=== PATIENT | female | born 1940 | race Caucasian/White ===

== ENCOUNTER → 2017-02-07 | Outpatient (CLI) | payer BC ==
[~2017-02-07] MED LIST: AMR2 PO; ASPI81TA28 PO; ATOR-26 PO; BRIN3SUS OPB; CALCTAB5 PO; CILO100T PO; DULA1INJ SC; FELO5TAB PO; FERR325T51 PO; GLC/500 PO; HYDR25TA4 PO; LEVO125T4 PO; LISI-725 PO; MAGN1TAB15 PO; METO1TAB69 PO; MULT-506 PO; OMEP40CA PO; ONDA4TAB46 PO; POLY335019 PO; RANI150T3 PO; SENN-61 PO; TICA1TAB PO; TRAV0.00 OPB
[2017-02-07 12:40] LABS: CHOLESTEROL/HDL RATIO 1.8
== END | disposition home or self-care (01) ==
LOC: C.LAB1850 09:58
PROVIDERS: ATTEND Physician Assistant Medical
DX: I10 Essential (primary) hypertension (principal); E78.5 Hyperlipidemia, unspecified

== ENCOUNTER → 2017-05-16 | Day surgery (SDC) | payer BC ==
[2017-05-11 13:53] VITALS: BMI 31.0
[~2017-05-16] VITALS: Ht 162.6 cm; Wt 83.6 kg
[~2017-05-16] MED LIST changes: -AMR2 PO; +CALC600T9 PO; -CALCTAB5 PO; +FERR1TAB13 PO; -FERR325T51 PO; +GLYCOPYRROLATE INJ 0.2 MG/ML VIAL ONE; +KETAMINE HCL INJ 50 MG/ML 10 ML VIAL ONE; -LEVO125T4 PO; +LEVO137C2 PO; +LIDOCAINE HCL 2% 2 ML VIAL (20MG/ML) ONE; +LINA1CAP PO; -MAGN1TAB15 PO; +METO100T44 PO; -METO1TAB69 PO; -OMEP40CA PO; +OMEP40CA41 PO; -ONDA4TAB46 PO; +ONDANSETRON INJ 2 MG/ML 2 ML VIAL IV PRN; +PHENYLEPHRINE 100MCG/ML 5ML SYR ONE; -POLY335019 PO; +PROPOFOL IV EMULSION 10 MG/ML 20 ML VIAL IV ONE; -SENN-61 PO; +SODIUM CHLORIDE 0.9% INJ 10 ML VIAL ONE
[2017-05-16 08:58] VITALS: Ht 162.6 cm; Wt 83.6 kg
[2017-05-16 09:03] VITALS: TEMP 36.1
--- NOTE | 2017-05-16 09:23 | Endo History and Physical ---
History & Physical Date of Service: May 16, 2017. Chief Complaint: Gastritis Referring Physician: Dr. Sutton History of Present Illness Question of Barretts Esophagus, no dysphagia or pain with swallowing. Past Medical History Diabetes, Reflux, Hypertension, Thyroid Disease Past Surgical History Hx Cardiac Surgery: Yes (LT CAROTID ENDARTERECTOMY) Hx Internal Defibrillator: No Hx Pacemaker: No Hx Abdominal Surgery: No Hx of Implantable Prosthesis: No Hx Post-Op Nausea and Vomiting: Yes Hx Cancer Surgery: No Hx Thoracic Surgery: No Hx Orthopedic: Yes (RT ARM RECON S/P DOG BITE) Hx Urinary Tract Surgery: No Family History Colon CA Social History Smoking Status: Former Smoker Hx Substance Use: No Hx Alcohol Use: No Allergies Coded Allergies: No Known Allergies (Verified , 05/11/17) Current Medications Reported Home Medications Medications Dose Route/Sig Max Daily Dose Days Date Category Kp Ferrous Sulfate (Ferrous Sulfate) 325 Mg Tab 1 Tab PO BID 05/11/17 Reported Calcium + D (Calcium Carbonate-Vitamin D) 1 Tab Tab 1 Tab PO BID 05/11/17 Reported Linzess (Linaclotide) 145 Mcg Cap 1 Cap PO QAM 05/11/17 Reported Prilosec (Omeprazole) 40 Mg Cap 40 Mg PO QAM 05/11/17 Reported Tirosint (Levothyroxine Sodium) 137 Mcg Cap 1 Cap PO QAM 05/11/17 Reported Multivitamin (Multivitamins) Tab 1 Tab PO QAM 07/07/16 Reported Travatan Z (Travoprost) 0.004 % Aftab 1 Drops OPB HS 07/07/16 Reported Brilinta (Ticagrelor) 90 Mg Tab 1 Tab PO BID 07/07/16 Reported Toprol-Xl (Metoprolol Succinate) 100 Mg Tabcr 100 Mg PO QAM 07/07/16 Reported Zantac (Ranitidine HCl) 150 Mg Tab 150 Mg PO BID 07/07/16 Reported Glucophage (Metformin Hcl) 500 Mg Tab 500 Mg PO BID 07/07/16 Reported Trulicity (Dulaglutide) 0.75 Mg/0.5 Ml Inj 1 Dose SC WK 07/07/16 Reported Zestril (Lisinopril) 20 Mg Tab 20 Mg PO BID 05/18/16 Reported Pletal (Cilostazol) 100 Mg Tab 100 Mg PO BID 05/18/16 Reported Hctz (Hydrochlorothiazide) 25 Mg Tab 25 Mg PO QAM 11/13/14 Reported Plendil (Felodipine) 5 Mg Tabcr 5 Mg PO QAM 07/31/14 Reported Lipitor (Atorvastatin Calcium) 80 Mg Tab 80 Mg PO QAM 07/31/14 Reported Simbrinza (Brinzolamide-Brimonidine Tartr) 1 Margie Margie 1 Drop OPB BID 07/31/14 Reported Aspirin Ec (Aspirin) 81 Mg Tab 81 Mg PO QAM 07/31/14 Reported Vital Signs Weight (Kilograms): 83.64 Height (Feet): 5 Height (Inches): 4 Date Time Temp Pulse Resp B/P (MAP) Pulse Ox O2 Delivery O2 Flow Rate FiO2 05/16/17 09:03 36.1 69 18 129/59 (82) 97 Room Air Physical Exam General Appearance: no apparent distress Respiratory/Chest: Auscultation: breath sounds normal Cardiovascular: Heart Auscultation: RRR Abdomen: Inspection & Palpation: soft Assessment and Plan Patient for upper endoscopy today to evaluate for evidence of Johnson's esophagus. We've discussed the risks to include bleeding, infection, perforation and pain.
--- NOTE | 2017-05-16 09:42 | GI REPORT ---
Procedure Date: 05/16/2017 9:31 AM Procedure: Upper GI endoscopy Indications: Suspected Johnson's esophagus Medicines: Monitored Anesthesia Care Complications: No immediate complications. Estimated blood loss: Minimal. Estimated Blood Loss: Estimated blood loss was minimal. Procedure: Pre-Anesthesia Assessment: - Prior to the procedure, a History and Physical was performed, and patient medications, allergies and sensitivities were reviewed. The patient's tolerance of previous anesthesia was reviewed. - The risks and benefits of the procedure and the sedation options and risks were discussed with the patient. All questions were answered and informed consent was obtained. - Patient identification and proposed procedure were verified prior to the procedure by the physician, the nurse and the parimutuel ticket cashier. The procedure was verified in the procedure room. - Pre-procedure physical examination revealed no contraindications to sedation. - ASA Grade Assessment: III - A patient with severe systemic disease. - After reviewing the risks and benefits, the patient was deemed in satisfactory condition to undergo the procedure. - The anesthesia plan was to use monitored anesthesia care (MAC). - Immediately prior to administration of medications, the patient was re-assessed for adequacy to receive sedatives. - The heart rate, respiratory rate, oxygen saturations, blood pressure, adequacy of pulmonary ventilation, and response to care were monitored throughout the procedure. - The physical status of the patient was re-assessed after the procedure. After obtaining informed consent, the endoscope was passed under direct vision. Throughout the procedure, the patient's blood pressure, pulse, and oxygen saturations were monitored continuously. The scope was introduced through the mouth, and advanced to the third part of duodenum. The upper GI endoscopy was accomplished without difficulty. The patient tolerated the procedure well. Findings: The upper third of the esophagus and middle third of the esophagus were normal. The esophagus and gastroesophageal junction were examined with white light. There were esophageal mucosal changes suspicious for short-segment Johnson's esophagus. These changes involved the mucosa at the upper extent of the gastric folds (35 cm from the incisors) extending to the Z-line (34 cm from the incisors). The maximum longitudinal extent of these esophageal mucosal changes was 1 cm in length. Biopsies were taken with a cold forceps for histology. Estimated blood loss was minimal. The entire examined stomach was normal. The examined duodenum was normal. Impression: - Normal upper third of esophagus and middle third of esophagus. - Esophageal mucosal changes suspicious for short-segment Johnson's esophagus. Biopsied. - Normal stomach. - Normal examined duodenum. Recommendation: - Discharge patient to home (ambulatory). - Advance diet as tolerated today. - Await pathology results. - Repeat the upper endoscopy in 3 years for surveillance based on pathology results. - Return to GI office in 1 year. Janell Leone D.O. Janell Leone, 05/16/2017 9:42:04 AM This report has been signed electronically. Note Initiated On: 05/16/2017 9:31 AM I attest to the content of the Intraoperative Record and orders documented therein, exceptions below
--- NOTE | 2017-05-16 09:44 | Discharge Instructions ---
Endoscopy Patient Instructions Date / Procedure(s) Performed May 16, 2017. EGD Allergy Information Coded Allergies: No Known Allergies (Verified , 05/11/17) Discharge Date / Findings May 16, 2017. Irregular GE junction suspicious for Johnson's esophagus. Medication Instructions Stopped Medication(s): Brilinta for 1 week Restart Stopped Medication(s): Reported Home Medications Medications Dose Route/Sig Max Daily Dose Days Date Category Kp Ferrous Sulfate (Ferrous Sulfate) 325 Mg Tab 1 Tab PO BID 05/11/17 Reported Calcium + D (Calcium Carbonate-Vitamin D) 1 Tab Tab 1 Tab PO BID 05/11/17 Reported Linzess (Linaclotide) 145 Mcg Cap 1 Cap PO QAM 05/11/17 Reported Prilosec (Omeprazole) 40 Mg Cap 40 Mg PO QAM 05/11/17 Reported Tirosint (Levothyroxine Sodium) 137 Mcg Cap 1 Cap PO QAM 05/11/17 Reported Multivitamin (Multivitamins) Tab 1 Tab PO QAM 07/07/16 Reported Travatan Z (Travoprost) 0.004 % Aftab 1 Drops OPB HS 07/07/16 Reported Brilinta (Ticagrelor) 90 Mg Tab 1 Tab PO BID 07/07/16 Reported Toprol-Xl (Metoprolol Succinate) 100 Mg Tabcr 100 Mg PO QAM 07/07/16 Reported Zantac (Ranitidine HCl) 150 Mg Tab 150 Mg PO BID 07/07/16 Reported Glucophage (Metformin Hcl) 500 Mg Tab 500 Mg PO BID 07/07/16 Reported Trulicity (Dulaglutide) 0.75 Mg/0.5 Ml Inj 1 Dose SC WK 07/07/16 Reported Zestril (Lisinopril) 20 Mg Tab 20 Mg PO BID 05/18/16 Reported Pletal (Cilostazol) 100 Mg Tab 100 Mg PO BID 05/18/16 Reported Hctz (Hydrochlorothiazide) 25 Mg Tab 25 Mg PO QAM 11/13/14 Reported Plendil (Felodipine) 5 Mg Tabcr 5 Mg PO QAM 07/31/14 Reported Lipitor (Atorvastatin Calcium) 80 Mg Tab 80 Mg PO QAM 07/31/14 Reported Simbrinza (Brinzolamide-Brimonidine Tartr) 1 Margie Margie 1 Drop OPB BID 07/31/14 Reported Aspirin Ec (Aspirin) 81 Mg Tab 81 Mg PO QAM 07/31/14 Reported Provider Instructions Activity Restrictions - No exercising or heavy lifting for 24 hours. - Do not drink alcohol the day of the procedure. - Do not drive a car or operate machinery until the day after the procedure. - Do not make any important decisions or sign important papers in 24 hours after the procedure. Following Day: - Return to full activity which may include returning to work/school. Diet Start your diet with liquids and light foods (jello, soup, juice, toast). Then eat your usual diet if not nauseated. Treatment For Common After Affects For mild abdominal pain, bloating, or excessive gas: - Rest - Eat lightly - Lie on right side Follow-Up Information Follow-up with Dr. Sutton as scheduled Await pathology results If pathology consistent with Johnson's esophagus would suggest a repeat upper endoscopy in 3 years Anesthesia Information What You Should Know You have had a procedure that required some medicine to reduce anxiety and discomfort. This treatment is called moderate sedation. After receiving the treatment, you may be sleepy, but you will be able to breathe on your own. The effects of the treatment may last for several hours. Follow these instructions along with Activity/Diet recommendations noted above: * Do NOT do anything where dizziness or clumsiness would be dangerous. * Rest quietly at home today, then you can be up and about tomorrow. * Have a responsible person stay with you the rest of today. * You may have had an I.V. today. If so, you may take the dressing off later today. Recommendations Call your doctor if: * Trouble breathing * Continuous vomiting for more than 24 hours * Temperature above 101 degrees * Severe abdominal pain or bloating * Pain not relieved by pain medicine ordered * There is increased drainage or redness from any incision * A large amount of rectal bleeding greater than 2-3 tablespoons. (If you had a polyp/s removed or have hemorrhoids, a small amount of blood - from the rectum is to be expected.) * You have any unanswered questions or concerns. IN THE EVENT OF A SERIOUS EMERGENCY, GO TO THE NEAREST EMERGENCY ROOM Your discharge instructions were prepared by provider Janell Leone. Patient Instructions Signature Page Vidya Hodgson Patient (or Guardian) Signature/Date: I have read and understand the instructions given to me by my caregivers. Caregiver/RN/Doctor Signature/Date: The above-named patient and/or guardian has received patient instructions on this date. + Original Patient Signature Page (only) stays with chart. Please make copy for patient.
[2017-05-16 10:20] VITALS: BP 107/71; PULSE 72; O2SAT 100
--- NOTE | 2017-05-16 10:28 | Anesthesiology Progress Note ---
Anesthesia Post Op Note Date & Time May 16, 2017 at 10:28 Vital Signs Pain Intensity: 0 Vital Signs Past 12 Hours Date Time Temp Pulse Resp B/P (MAP) Pulse Ox O2 Delivery O2 Flow Rate FiO2 05/16/17 10:20 72 18 107/71 (83) 100 Room Air 05/16/17 10:12 75 18 128/57 (80) 99 Room Air 05/16/17 09:56 78 18 103/63 (76) 98 05/16/17 09:51 79 18 119/59 (79) 99 Room Air 05/16/17 09:03 36.1 69 18 129/59 (82) 97 Room Air Notes Mental Status: alert / awake / arousable, participated in evaluation Pt Amnestic to Procedure: Yes Nausea / Vomiting: adequately controlled Pain: adequately controlled Airway Patency, RR, SpO2: stable & adequate BP & HR: stable & adequate Hydration State: stable & adequate Anesthetic Complications: no major complications apparent
== END | disposition home or self-care (01) ==
LOC: C.GI 08:27
PROVIDERS: ATTEND Internal Medicine Gastroenterology
DX: K29.70 Gastritis, unspecified, without bleeding (principal); K20.9 Esophagitis, unspecified; E11.9 Type 2 diabetes mellitus without complications; I25.10 Atherosclerotic heart disease of native coronary artery without angina pectoris; I10 Essential (primary) hypertension; Z87.891 Personal history of nicotine dependence; M19.90 Unspecified osteoarthritis, unspecified site; H40.9 Unspecified glaucoma; Z68.31 Body mass index [BMI] 31.0-31.9, adult; Z79.82 Long term (current) use of aspirin; Z79.899 Other long term (current) drug therapy; Z98.890 Other specified postprocedural states; Z80.0 Family history of malignant neoplasm of digestive organs

== ENCOUNTER 2019-09-28 20:38 | Inpatient (IN) ==
[2019-09-28] MEDS ORDERED: ASPIRIN CHEW 324 MG PO STA (20:58)
[2019-09-28] MEDS ORDERED: NITROGLYCERIN SL 0.4 MG/TAB TAB SL PRN (20:58)
[2019-09-28] MEDS ORDERED: SODIUM CHLORIDE 0.9% 500 ML IV SCH (21:00)
[2019-09-28 21:18] LABS: Hematocrit (blood only) 32.2 % (37-47); Hemoglobin 10.7 g/dL (12.0-16.0); Mean Corpuscular Hemoglobin 33.1 pg (25-34); Mean Corpuscular Hgb Conc 33.2 g/dL (32-36); Mean Corpuscular Volume 99.7 fL (80-100); Mean Platelet Volume 10.3 fL (7.4-10.4); Platelet Count 297 K/uL (130-400); RDW Standard Deviation 50.8 fL (36.4-46.3); Red Blood Count 3.23 M/uL (4.2-5.4); White Blood Count 7.31 K/uL (4.8-10.8)
[2019-09-28 21:26] LABS: Partial Thromboplastin Time 26.6 Seconds (21.0-31.0); Prothrombin Time 10.7 Seconds (9.0-12.0)
[2019-09-28 21:34] LABS: BUN Creatinine Ratio 19.6 (10-20); Blood Urea Nitrogen 23 mg/dl (7-18); Carbon Dioxide 25 mmol/L (21-32); Chloride 103 mmol/L (98-107); Est GFR (African American) 51.9; Est GFR (Non-African American) 44.8; Glucose 197 mg/dl (70-99); Lipase 483 U/L (73-393); Potassium 3.9 mmol/L (3.5-5.1); Sodium 135 mmol/L (136-145)
[2019-09-28 21:44] LABS: NT Pro B Type Natriuretic Pept 1620 pg/ml (0-1800); Troponin I 0.354 ng/ml (0-0.045)
[2019-09-28 21:45] LABS: Basophils # (auto) 0.03 K/uL (0-0.2); Basophils % (auto) 0.4 %; Eosinophils # (auto) 0.25 K/uL (0-0.5); Eosinophils % (auto) 3.4 %; Immature Granulocytes # (auto) 0.01 K/uL (0.00-0.02); Immature Granulocytes % (auto) 0.1 %; Lymphocytes # (auto) 2.35 K/uL (1.2-3.4); Lymphocytes % (auto) 32.1 %; Monocytes # (auto) 0.54 K/uL (0.11-0.59); Monocytes % (auto) 7.4 %; Neutrophils # (auto) 4.13 K/uL (1.4-6.5); Neutrophils % (auto) 56.6 %
[2019-09-28] MEDS ORDERED: Heparin IV Low Dose WITH Bolus IV STA (21:51)
--- NOTE | 2019-09-28 21:51 | XRay Report ---
TWO VIEW CHEST CLINICAL HISTORY: Atypical chest pain. FINDINGS: AP and lateral chest radiographs are compared to study dated 05/22/2018. The heart is top n ormal for projection noting atherosclerotic calcification of the thoracic aorta. There is prominence of the pulmonary vasculature. There is mild bibasilar atelectasis. No airspace consolidation is seen typical for pneumonia and there is no pleural effusion. There is no pneumothorax. The skeletal struct ures are osteopenic. The bony thorax appears intact. Calcific tendinopathy is noted in the left shoul francine. IMPRESSION: 1. There is prominence of the pulmonary vasculature. Correlate clinically for evidence of mild conges tive failure. 2. No airspace consolidation or pleural effusion is identified. ACT 112: Negative or not required by law. Electronically signed by: Anastacio Santana M.D. 09/28/2019 9:50 PM
[2019-09-28] MEDS ORDERED: HEPARIN SOD 5,000 UNIT/0.5 ML VIAL ONE (22:37)
[2019-09-28] MEDS: HEPARIN SODIUM/DEXTROSE 25,000 UNITS/500 ML BAG IV SCH (22:46)
[2019-09-28] MEDS ORDERED: INSULIN GLARGINE SOLOSTAR 100 UNITS/ML 3 ML PEN SC STA (23:17)
[2019-09-28] MEDS ORDERED: POLYETHYLENE (MIRALAX) 17 GM PACK PO PRN (23:57)
[2019-09-28] MEDS ORDERED: ONDANSETRON INJ 2 MG/ML 2 ML VIAL IV PRN (23:57)
[2019-09-28] MEDS ORDERED: SODIUM CHLORIDE 0.9% 1000ML 1,000 ML IV SCH (23:57)
[2019-09-28] MEDS ORDERED: ACETAMINOPHEN 325 MG TAB PO PRN (23:57)
[2019-09-29] MEDS ORDERED: GLUCOSE 10 TABS/TUBE PO PRN (00:15)
[2019-09-29] MEDS ORDERED: GLUCAGON FOR INJ 1 MG VIAL SQ PRN (00:15)
[2019-09-29] MEDS ORDERED: DEXTROSE 50% 50 ML SYRINGE IV PRN (00:15)
[2019-09-29] MEDS ORDERED: CARBOHYDRATES FOR HYPOGLYCEMIA PO PRN (00:15)
[2019-09-29] MEDS ORDERED: GLUCOSE 40% GEL 15 GM TUBE PO PRN (00:15)
--- NOTE | 2019-09-29 00:22 | Emergency Department Note ---
Entered by Jackie Reyez acting as a scribe for History of Present Illness General Chief complaint: Hypertension Stated complaint: HIGH BLOOD PRESSURE Time Seen by Provider: 09/28/19 20:53 Source: patient History of Present Illness Onset (ago): hour(s) 9 Location: chest (hypertension) Radiation: other (chest discomfort radiates to arm) Pain Consistency: + constant Maximum Pain Intensity: 3 Current Pain Intensity: 4 Associated symptoms: + shortness of breath and + other (chest discomfort); no cough and no fever/chills The patient is a 78 year old F who presents to the Emergency Room with complaints of constant chest pain that started 9 hours ago. The patient states that her symptoms started with light-headedness, 9 hours ago. She denies losing consciousness. She notes that she then started to experience chest discomfort and shortness of breath. She adds that her chest pain radiates to her arm. She currently rates her pain as 4 out of 10. She states that her heart rate was 150, earlier today. She adds that her heart rate has been fluctuating today. She denies currently experiencing coughing and a fever. She reports no travel to [place], [place], [place], [place], or [place]. She denies any exposure to any known COVID-19 patients. She states that she is currently on the blood thinning medication, Brilinta. 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 She adds that she saw Dr. Jackson last, in August. She notes that she had a stress test performed in May, which she states was normal. Home Medications Home Medications Medication Instructions Recorded Confirmed Type Trulicity 1.5 mg SUBCUT WK 05/22/18 09/28/19 History atorvastatin 80 mg PO DAILY 05/22/18 09/28/19 History cilostazol 100 mg PO BID 05/22/18 09/28/19 History furosemide 20 mg PO Q OTHER DAY 05/22/18 09/28/19 History levothyroxine 137 mcg PO DAILY 05/22/18 09/28/19 History multivitamin 1 tab PO DAILY 05/22/18 09/28/19 History magnesium chloride [Mag 64] 128 mg PO DAILY 02/23/19 09/28/19 History calcium carbonate 600 mg calcium 600 mg PO BID tab 03/09/19 09/28/19 History (1,500 mg) tablet repaglinide 1 mg tablet 1 mg PO TID tab 03/27/19 09/28/19 History metoprolol succinate 50 mg 50 mg PO DAILY #30 tab 08/01/19 09/28/19 Rx tablet,extended release 24 hr amlodipine [Norvasc] 2.5 mg PO DAILY 09/28/19 09/28/19 History brinzolamide-brimonidine 1 drp OPB TID 09/28/19 09/28/19 History [Simbrinza] insulin glargine [Lantus Solostar 10 unit SUBCUT DAILY 09/28/19 09/28/19 History U-100 Insulin] netarsudil-latanoprost [Rocklatan] 1 drp OPHTHALMIC (EYE) PM 09/28/19 09/28/19 History ranitidine HCl 150 mg PO BID 09/28/19 09/28/19 History repaglinide 2 mg PO BID 09/28/19 09/28/19 History ticagrelor [Brilinta] 90 mg PO BID 09/28/19 09/28/19 History timolol maleate 1 drp OPB DAILY 09/28/19 09/28/19 History Allergies Allergy/AdvReac Type Severity Reaction Status Date / Time No Known Allergies Allergy Verified 09/28/19 21:55 Past Med/Surg History Social History Preferred Language: Estonian Communication Ability: Effective 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 and A total of 10 systems reviewed and were otherwise negative Physical Exam Vital Signs Vital Signs - 24 hr 09/28/19 20:41 09/28/19 20:58 Temperature 36.2 C L Temperature Source Oral Pulse Rate 67 Respiratory Rate 18 Respiratory Effort / Characteristics Non-Labored Respiratory Depth Normal Blood Pressure 148/79 H Blood Pressure Mean 102 Pulse Oximetry 100 100 Oxygen Delivery Method Room Air Room Air Sepsis Recent Fever Within 48 Hours No Sepsis Action Taken by Nursing No Action Required GENERAL: She is oriented to person, place, and time. She appears well-developed and well-nourished. She does not appear distressed. HENT: Exam performed. Head: Normocephalic and atraumatic. Right Ear: External ear normal. No mastoid tenderness. Left Ear: External ear normal. No mastoid tenderness. Mouth/Throat: The oropharynx is clear and moist. No trismus in the jaw. No dental abscesses or uvula swelling. No oropharyngeal exudate or tonsillar abscesses. EYES: Conjunctivae and EOM are normal. Pupils are equal, round, and reactive to light. Right eye exhibits no discharge. Left eye exhibits no discharge. No scleral icterus. NECK: Normal range of motion. Neck supple. No JVD present. No spinous process tenderness present. No carotid bruit present. No rigidity. No tracheal deviation and normal range of motion present. No Brudzinski's sign and no Kernig's sign noted. CV: Normal rate, regular rhythm, normal heart sounds and intact distal pulses. There is no peripheral edema. Palpable radial pulses bue. PULM/CHEST: Effort normal and breath sounds normal. No respiratory distress. No stridor. She has no wheezes. She has no rales. Chest Wall: She exhibits no tenderness. ABD: The abdomen is soft. Bowel sounds are normal. She has no distension. No mass is present. There is no tenderness. There is no rebound, no guarding, no Mac's sign and no tenderness at McBurney's point. Rovsig negative MUSC/SKEL: Normal range of motion. There is no peripheral edema, tenderness or deformity. LYMPH: No cervical adenopathy. NEURO: She is alert and oriented to person, place, and time. She has normal strength. No cranial nerve deficit or sensory deficit. Coordination and gait normal. GCS eye subscore is 4. GCS verbal subscore is 5. GCS motor subscore is 6. cerbellar tests wnl. SKIN: Skin is warm and dry. She is not diaphoretic. PSYCH: She has a normal mood and affect. Her behavior is normal. Judgment and thought content normal. Course Course 2053: The patient was evaluated in room A3. A complete history and physical exam was performed.A review of the patients records show that the patient has a history of CKD Stage 3, hypertension, diabetes, aortic stenosis, and peripheral artery disease. Cardiac monitoring: An order was placed for continuous cardiac monitoring. The monitor shows a rate of 80 with sinus rhythm. 2153: Vital signs are stable. Labs show an elevated troponin. The patient was treated for an NSTEMI. I reviewed the patient's case with Dr. Perea, [facility] [place], [place]. Dr. Perea told me to start the patient on heparin. I will notify Dr. Baptiste, [facility] Hospitalist for admission. 2200: I reviewed the patient's case with Dr. Baptiste, [facility] Hospitalist. He will evaluate the patient for further management. Administered Medications Heparin Sodium/Dextrose (Heparin Sodium/Dextrose) 25,000 units in 500 mls @ 17 mls/hr IV .Q24H [facility]; Protocol Stop: 10/28/19 21:59 Last Admin: 09/28/19 22:46 Dose: 850 units/hr, 17 mls/hr Documented by: [id number] Cosigned by: [id number] Discontinued Medications Aspirin (Aspirin) 324 mg PO NOW STA Stop: 09/28/19 20:59 Last Admin: 09/28/19 21:18 Dose: 324 mg Documented by: [id number] Heparin Sodium (Porcine) (Heparin Sodium (Porcine)) Confirm Administered Dose 5,000 units .ROUTE .STK-MED ONE Stop: 09/28/19 22:38 Last Admin: 09/28/19 22:47 Dose: 4,000 units Documented by: [id number] Cosigned by: [id number] Heparin Sodium/Dextrose () 1 ea IV NOW STA; Protocol Stop: 09/28/19 21:52 Last Admin: 09/28/19 22:45 Dose: Not Given Documented by: [id number] Sodium Chloride (Nss) 500 mls @ 75 mls/hr IV .Q6H40M [facility] Stop: 10/28/19 20:59 Last Infusion: 09/29/19 00:02 Dose: 0 mls/hr Documented by: [id number] Admin: 09/28/19 21:18 Dose: 75 mls/hr Documented by: [id number] Nitroglycerin (Nitrostat) 0.4 mg SL UD PRN PRN Reason: Chest Pain Stop: 10/28/19 20:57 Last Admin: 09/28/19 21:18 Dose: 0.4 mg Documented by: [id number] Critical Care Time Critical Care Time: Yes Total Critical Care Time: 42 I have personally spent 42 minutes of critical care time in the direct management of this patient. This includes bedside care, interpretation of diagnostic studies, and testing, discussion with consultants, patient, and family members, and other required patient management activities. This 42 minutes is in excess of all separately billable procedures. Medical Decision Making Medical Records Attestation: I reviewed the patient's medical records. Home Medications Current Medication List: was personally reviewed by me Laboratory Data Attestation: I reviewed the patient's lab results. Result diagrams: 09/28/19 20:59 09/28/19 20:59 Lab Results 09/28/19 09/28/19 09/28/19 Range/Units 20:59 20:59 20:59 WBC 7.31 (4.8-10.8) K/uL RBC 3.23 L (4.2-5.4) M/uL Hgb 10.7 L (12.0-16.0) g/dL Hct 32.2 L (37-47) % MCV 99.7 (80-100) fL MCH 33.1 (25-34) pg MCHC 33.2 (32-36) g/dL RDW Std Deviation 50.8 H (36.4-46.3) fL RDW Coeff of Mj 14.0 (11.5-14.5) % Plt Count 297 (130-400) K/uL MPV 10.3 (7.4-10.4) fL Immature Gran % (Auto) 0.1 % Neut % (Auto) 56.6 % Lymph % (Auto) 32.1 % [place] % (Auto) 7.4 % Eos % (Auto) 3.4 % Baso % (Auto) 0.4 % Immature Gran # (Auto) 0.01 (0.00-0.02) K/uL Neut # (Auto) 4.13 (1.4-6.5) K/uL Lymph # (Auto) 2.35 (1.2-3.4) K/uL [place] # (Auto) 0.54 (0.11-0.59) K/uL Eos # (Auto) 0.25 (0-0.5) K/uL Baso # (Auto) 0.03 (0-0.2) K/uL PT 10.7 (9.0-12.0) Seconds INR 1.0 (0.9-1.1) APTT 26.6 (21.0-31.0) Seconds PTT Ratio 1.0 Sodium 135 L (136-145) mmol/L Potassium 3.9 (3.5-5.1) mmol/L Chloride 103 (98-107) mmol/L Carbon Dioxide 25 (21-32) mmol/L Anion Gap 7.0 (3-11) BUN 23 H (7-18) mg/dl Creatinine 1.18 (0.6-1.2) mg/dl Est Cr Clr Drug Dosing Not Reportable Est GFR ( Amer) 51.9 Est GFR (Non-Af Amer) 44.8 BUN/Creatinine Ratio 19.6 (10-20) Glucose 197 H (70-99) mg/dl Calcium 9.0 (8.5-10.1) mg/dl Troponin I 0.354 H* (0-0.045) ng/ml NT-Pro-B Natriuret Pep 1620 (0-1800) pg/ml Lipase 483 H (73-393) U/L Imaging Data Radiologist's Impression: Radiology results as stated below per my review and the radiologist's interpretation: TWO VIEW CHEST CLINICAL HISTORY: Atypical chest pain. FINDINGS: AP and lateral chest radiographs are compared to study dated 05/22/2018. The heart is top normal for projection noting atherosclerotic calcification of the thoracic aorta. There is prominence of the pulmonary vasculature. There is mild bibasilar atelectasis. No airspace consolidation is seen typical for pneumonia and there is no pleural effusion. There is no pneumothorax. The skeletal structures are osteopenic. The bony thorax appears intact. Calcific tendinopathy is noted in the left shoulder. IMPRESSION: 1. There is prominence of the pulmonary vasculature. Correlate clinically for e vidence of mild congestive failure. 2. No airspace consolidation or pleural effusion is identified. ACT 112: Negative or not required by law. Electronically signed by: Anastacio Santana M.D. 09/28/2019 9:50 PM ECG Data Attestation: I personally reviewed and interpreted this ECG as follows: Indication: + chest pain Rate (beats per minute): 64 Rhythm: + sinus rhythm ECG Intervals/blocks: + Normal QRS, + Normal ND and + Normal QT-c ECG ST segments: no ST depression and no ST elevation ECG Findings: + Other (P-wave inversion in leads II, III and aVH) Additional Comments: 2100: Sinus rhythm with a rate of 66. ND, QRS, and QTc intervals within normal limits. P-wave inversions in leads II, III, and aVH. No ST elevation or depression. 2101: Sinus rhythm with a rate of 65. ND, QRS, and QTc intervals within normal limits. P-wave inversions in leads II, III, and aVH. No ST elevation or depression. Blood Pressure Blood Pressure Findings: Normal blood pressure Blood Pressure Disposition: did not require urgent referral MDM Narrative 2053: The patient was evaluated in room A3. A complete history and physical exam was performed.A review of the patients records show that the patient has a history of CKD Stage 3, hypertension, diabetes, aortic stenosis, and peripheral artery disease. Cardiac monitoring: An order was placed for continuous cardiac monitoring. The monitor shows a rate of 80 with sinus rhythm. 2153: Vital signs are stable. Labs show an elevated troponin. The patient was treated for an NSTEMI. I reviewed the patient's case with Dr. Perea, [facility] [place], [place]. Dr. Perea told me to start the patient on heparin. I will notify [facility] for admission. 2200: I reviewed the patient's case with [facility]. He will evaluate the patient for further management. Impression & Plan Non-ST elevation [place] (NSTEMI) Discharge Plan Visit Data *Final* Discharge Date/Time: 09/28/19 23:32 Chief Complaint: Hypertension Stated Complaint: HIGH BLOOD PRESSURE ED Provider: Yaya Velez Discharge Problem: Non-ST elevation [place] (NSTEMI) Patient Disposition: Admitted As Inpatient The scribe's documentation has been prepared under my direction and personally reviewed by me in its entirety. I confirm that the note above accurately reflects all work, treatment, procedures, and medical decision making performed by me.
[2019-09-29] MEDS: FUROSEMIDE 20 MG TAB PO SCH (00:37)
[2019-09-29] MEDS: TICAGRELOR 90 MG TAB PO SCH ×3 (00:37→20:30)
--- NOTE | 2019-09-29 01:29 | History and Physical Report ---
DATE OF ADMISSION: 09/28/2019 CHIEF COMPLAINT: Chest pain. 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 The patient lives with her , walks holding things at home, presents with chest pain. The patient says she gets on and off chest pains and shortness of breath with exertion but they go away when she takes rest but today afternoon during lunchtime, she noticed chest pain, lightheadedness and shortness of breath which was not subsiding, when she decided to come to the ER. In the ER, nitro relieved her pain and her troponins were 0.35 and EKG showed junctional rhythm. 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 Currently, no shortness of breath, no sweating. Was nauseous while she was getting chest x-ray, but currently okay. No abdominal pain. Currently, no dizziness, no blurred visions, no earache. She takes medication for glaucoma, which also causes some runny nose, but no sore throat, no dysphagia. Appetite is okay. Sleeps okay. No orthopnea, no cough, no fevers, no abdominal pain. She says she feels full in her bladder and she feels she is not emptying her bladder completely but denies any burning micturition or hematuria, no blood in stools or black stools. She says once in while her right lower extremity gets swollen. Currently resting comfortable and hemodynamically stable and chest pain has resolved. ALLERGIES: No known drug allergies. PAST MEDICAL HISTORY: As mentioned above. PAST SURGICAL HISTORY: Bilateral upper eyelid surgery, colonoscopy, colonoscopy with biopsy, incision and drainage of the right forearm, EGDs, injection of the eyes, laser trabeculoplasty, right -sided radius and ulna fixation, repair of detached retina, cataract surgeries, left carotid endarterectomy, both lower legs had balloon for vascular circulation ,vitrectomy with removal of epiretinal membrane. MEDICATIONS: The patient is on Zantac 150 mg p.o. b.i.d., Prandin 1 tablet with breakfast and 1 tablet at lunch and 3 mg at dinnertime, timolol, instill 1 drop into both eyes daily, amlodipine 2.5 mg p.o. daily, Brilinta 90 mg p.o. b.i.d., Pletal 100 mg p.o. b.i.d., Trulicity 1.5 mg under skin once a week, levothyroxine 137 mcg daily, Rocklatan 0.02/0.05% instill 1 drop into eye once, magnesium chloride ER 125 mg p.o. daily, Lasix 20 mg every other day, Lipitor 80 mg p.o. daily, Prandin 2 mg b.i.d., Simbrinza instill 1 drop into eye 3 times a day, Flonase 2 sprays into each nostril daily, Lantus 10 units at bedtime, Toprol-XL 50 mg p.o. daily, Daily Vitamins 1 tablet daily, calcium 600 mg p.o. daily. FAMILY HISTORY: Significant for brother had prostate cancer. Father had prostate cancer. Sister has liver cancer and sister has colon cancer. Brother has NH. Mother had CHF. Mother has diabetes. SOCIAL HISTORY: Lives with her . Former smoker, quit in 1969. No alcohol use, no drug use. REVIEW OF SYMPTOMS: As per HPI. Rest of review of symptoms are negative. PHYSICAL EXAMINATION: GENERAL: The patient is of moderate build, not in acute distress. VITAL SIGNS: Temperature 36.2, pulse 67, respiratory rate 18, blood pressure 148/79, oxygen 100% on room air. HEENT: Pupils equal, round, reactive to light. Extraocular muscles intact. NECK: No JVD, no neck masses, no carotid bruits. CARDIOVASCULAR: S1, S2 heard, regular rate and rhythm. Systolic murmur in aortic area. RESPIRATORY SYSTEM: Normal AP diameter. No accessory muscle use. No wheezing, no crackles. ABDOMEN: Soft, bowel sounds present, nontender. No distention. CENTRAL NERVOUS SYSTEM: Cranial nerves II-XII grossly intact. Nonfocal. EXTREMITIES: Trace pedal edema, no erythema seen. LABORATORY DATA: WBC 7.3, hemoglobin 10.7, hematocrit 32.2, platelets 297. PT 10.7, INR 1, APTT 26.6. Sodium 135, potassium 3.9, chloride 103, bicarbonate 25, BUN 23, creatinine 1.1, serum glucose 197, calcium 9. Troponin I 0.35. BNP is 1620. Lipase 483. Chest x-ray, there is prominence of the pulmonary vasculature. Clinically, correlate for evidence of mild congestive failure. No airspace consolidation or pleural effusion is identified. EKG shows junctional rhythm, rate of 64. Short MO. ASSESSMENT AND PLAN: A 78-year-old female who presents with chest pain which is relieved with nitro and mild elevation of troponin and junctional rhythm on EKG. 1. Non-ST elevated myocardial infarction with elevation of troponin of 0.35. Chest pain relieved with nitro. EKG changes. Currently asymptomatic and hemodynamically stable. ER notified cardiology and was advised to start on IV heparin. We will continue IV heparin and keep her n.p.o. Continue on home Brilinta, Toprol-XL, statin, and nitroglycerin p.r.n. Monitor closely in the tele floor. Serial cardiac enzymes, echocardiogram, possible cardiac catheterization in a.m. Will place on gentle fluids for cardiac catheterization in the a.m. and cardiology consult. 2. Peripheral vascular disease with left carotid endarterectomy and also as per cardiology notes, she has extensive bilateral superficial femoral artery stenting for claudication, on Pletal, Brilinta and statin. 3. Hypertension, on amlodipine and Lopressor and Toprol-XL. We will monitor the blood pressure. 4. Diabetes. On Lantus 10 units daily. We will keep her on 6 units daily while she is n.p.o. Hold all her Trulicity and also repaglinide.Insulin sliding scale, follow HBA1c as well as blood sugar in the hospital. 5. Gastroesophageal reflux disease. Placed on Pepcid. 6. Chronic kidney disease stage III. Baseline creatinine around 1.1, present creatinine 1.1. We will follow the labs. 7. Chronic diastolic congestive heart failure, valvular heart disease with moderate aortic stenosis, moderate to severe mitral stenosis. Getting gentle fluids for possible cardiac catheterization in a.m., on Lasix 20 mg every other day. Will monitor for any volume overload. 8. Deep venous thrombosis prophylaxis. Starting on IV heparin. DISPOSITION: Closely monitor in tele floor. Level 1 full code. PT and OT prior to discharge. Social Service to help with discharge planning. [facility]
[2019-09-29 03:59] LABS: Appearance Urine Cloudy (Clear); Bacteria Urine Automated 4+ (Negative); Bilirubin Urine Negative (Negative); Blood Urine Negative (Negative); Color Urine Yellow; Glucose Urine UA Negative (Negative); Ketones Urine Negative (Negative); Leukocyte Esterase Urine 2+ (Negative); Nitrite Urine Negative (Negative); Protein Urine Negative (Negative); RBC Urine Automated 0-4 /hpf (0-4); Specific Gravity Urine 1.014 (1.000-1.030); Urobilinogen Urine Negative (Negative); WBC Urine Automated >30 /hpf (0-5)
[2019-09-29 05:34] LABS: Basophils % (auto) 0.9 %; Hematocrit (blood only) 28.3 % (37-47); Hemoglobin 9.4 g/dL (12.0-16.0); Lymphocytes % (auto) 48.7 %; Mean Corpuscular Hemoglobin 32.9 pg (25-34); Mean Corpuscular Hgb Conc 33.2 g/dL (32-36); Mean Platelet Volume 9.9 fL (7.4-10.4); Monocytes % (auto) 10.8 %; Neutrophils % (auto) 32.6 %; Platelet Count 255 K/uL (130-400); RDW Coefficient of Variation 14.2 % (11.5-14.5); Red Blood Count 2.86 M/uL (4.2-5.4); White Blood Count 5.57 K/uL (4.8-10.8)
[2019-09-29 05:35] LABS: Basophils # (auto) 0.05 K/uL (0-0.2); Eosinophils # (auto) 0.39 K/uL (0-0.5); Lymphocytes # (auto) 2.71 K/uL (1.2-3.4); Neutrophils # (auto) 1.82 K/uL (1.4-6.5)
[2019-09-29 05:53] LABS: Partial Thromboplastin Ratio 2.2
[2019-09-29 05:59] LABS: BUN Creatinine Ratio 20.2 (10-20); Calcium 8.1 mg/dl (8.5-10.1); Creatinine Clr Calc Pharmacy 42.7 ml/min; Est GFR (African American) 53.5; Est GFR (Non-African American) 46.2; Magnesium 1.5 mg/dl (1.8-2.4); Potassium 3.3 mmol/L (3.5-5.1)
[2019-09-29] MEDS: LEVOTHYROXINE SODIUM 137 MCG TABLET PO SCH (06:32)
[2019-09-29] MEDS ORDERED: POTASSIUM CHLORIDE 20 MEQ TABCR PO STA (06:40)
[2019-09-29] MEDS: MAGNESIUM SULFATE / D5W 1 GM/100 ML BAG IV SCH ×2 (07:27→08:44)
[2019-09-29 07:28] LABS: Estimated Average Glucose 177 mg/dl; Hemoglobin A1C 7.8 % (4.5-5.6)
[2019-09-29] MEDS ORDERED: PERFLUTREN LIPID MICROSPHERE (DEFINITY) IV ONE (07:59)
[2019-09-29] MEDS ORDERED: SIMBRINZA~ORDER AWAITING ACTION SCH (08:00)
[2019-09-29] MEDS: INSULIN ASPART 100 UNITS/ML 3 ML PEN SC SCH ×4 (08:31→20:32)
[2019-09-29] MEDS: AMLODIPINE BESYLATE 5 MG TAB PO SCH (08:37)
[2019-09-29] MEDS: ATORVASTATIN 40 MG TAB PO SCH (08:38)
[2019-09-29] MEDS: MAGNESIUM CHLORIDE 64MG DELAYED REL TAB PO SCH (08:38)
[2019-09-29] MEDS: cilostazoL 100 MG TAB PO SCH ×2 (08:38→20:33)
[2019-09-29] MEDS: FAMOTIDINE 20 MG TAB PO SCH ×2 (08:38→20:33)
[2019-09-29] MEDS: MULTIVITAMIN TAB PO SCH (08:38)
[2019-09-29] MEDS: TIMOLOL MALEATE 0.25% OP SOLN 5 ML BTL OPB SCH (08:38)
[2019-09-29] MEDS: CALCIUM 600MG + VIT D 400 IU TAB PO SCH ×2 (08:38→20:31)
[2019-09-29] MEDS: METOPROLOL SUCC 50MG EXT REL TAB PO SCH ×2 (08:39→08:40)
[2019-09-29] MEDS: NITROGLYCERIN SL 0.4 MG/TAB TAB SL PRN ×2 (09:24→09:51)
[2019-09-29] MEDS: POTASSIUM CHLORIDE / WTR 10 MEQ/100 ML PLCT IV SCH ×2 (09:45→10:50)
[2019-09-29] MEDS: cefTRIAXone SODIUM 2,000 MG in DEXTROSE 5% 50 ML IV SCH (09:48)
--- NOTE | 2019-09-29 09:52 | Cardiology Consultation ---
Date of Consultation September 29, 2019 Assessment & Plan (1) Non-ST elevation HI (NSTEMI): (2) Diabetes: (3) PAD (peripheral artery disease): (4) Aortic stenosis: (5) History of CEA (carotid endarterectomy): (6) CKD (chronic kidney disease), stage III: This patient is a true vasculopath. She has had a non-STEMI and as an outpatient was on dual antiplatelet therapy with Brilinta and aspirin. She has been started on heparin. She had additional chest discomfort this morning treated with sublingual nitroglycerin. She would be a high risk heart catheterization and I believe we should try to treat her conservatively if possible. In addition to her current medications I would recommend an inch of Nitropaste every 6 hours. If she has additional chest pain then we may have to transfer her to the ICU where she can receive IV nitroglycerin. If medical treatment fails to control her chest pain then we would have to reconsider heart catheterization which should be done at [facility] in [place]. The patient in a shared decision-making process is agreeable to the above plan. History of Present Illness Attending Physician: Kieran Huffman MD History of Present Illness This is a 78-year-old female with a complex cardiac and vascular history. She is a true vasculopath having severe peripheral vascular disease of the lower extremities receiving multiple stents for claudication and still with a nonhealing ulcer of the right foot. She is also status post carotid endarterectomy and by echocardiogram in May she has moderate to severe c alcific aortic stenosis and heavy calcification of the mitral annulus and mitral apparatus resulting in moderate mitral stenosis. Patient to our knowledge has never had a cardiac event. She is a diabetic and stopped smoking several years ago. She presented to the emergency department with chest pain and was admitted last night and her initial troponin was borderline elevated. With additional t roponin, there is been a slight but steady increase. She was pain-free for several hours and then began to have additional chest pain just before my examination. She has been given 2 sublingual nitroglycerin with improvement. She denies shortness of breath. Past medical history: 1. Longstanding type 2 diabetes mellitus, insulin requiring with neuropathy and ophthalmopathy 2. Hypertension 3. Atherosclerotic carotid disease status post left carotid enterectomy 2004 without proceeding TIA or stroke 4. Mixed calcific valvular disease with moderate aortic stenosis,moderate mitral stenosis per report of August 14, 2018 5. Nonhealing right foot ulcer 6. Atherosclerotic peripheral vascular disease status post extensive bilateral superficial femoral artery stenting for claudication 2014 7. 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 Possible past history of atrial fibrillation although patient denies, Holter monitor March 2019, sinus rhythm average rate 73 beats per minute with rare atrial and ventricular ectopy only 9. Chronic macrocytic anemia Allergies Allergy/AdvReac Type Severity Reaction Status Date / Time No Known Allergies Allergy Verified 09/28/19 21:55 Home Medications Home Medications Medication Instructions Recorded Confirmed Type Trulicity 1.5 mg SUBCUT WK 05/22/18 09/28/19 History atorvastatin 80 mg PO DAILY 05/22/18 09/28/19 History cilostazol 100 mg PO BID 05/22/18 09/28/19 History furosemide 20 mg PO Q OTHER DAY 05/22/18 09/28/19 History levothyroxine 137 mcg PO DAILY 05/22/18 09/28/19 History multivitamin 1 tab PO DAILY 05/22/18 09/28/19 History magnesium chloride [Mag 64] 128 mg PO DAILY 02/23/19 09/28/19 History calcium carbonate 600 mg calcium 600 mg PO BID tab 03/09/19 09/28/19 History (1,500 mg) tablet repaglinide 1 mg tablet 1 mg PO TID tab 03/27/19 09/28/19 History metoprolol succinate 50 mg 50 mg PO DAILY #30 tab 08/01/19 09/28/19 Rx tablet,extended release 24 hr amlodipine [Norvasc] 2.5 mg PO DAILY 09/28/19 09/28/19 History brinzolamide-brimonidine 1 drp OPB TID 09/28/19 09/28/19 History [Simbrinza] insulin glargine [Lantus Solostar 10 unit SUBCUT DAILY 09/28/19 09/28/19 History U-100 Insulin] netarsudil-latanoprost [Rocklatan] 1 drp OPHTHALMIC (EYE) PM 09/28/19 09/28/19 History ranitidine HCl 150 mg PO BID 09/28/19 09/28/19 History repaglinide 2 mg PO BID 09/28/19 09/28/19 History ticagrelor [Brilinta] 90 mg PO BID 09/28/19 09/28/19 History timolol maleate 1 drp OPB DAILY 09/28/19 09/28/19 History Patient History Medical History Aortic stenosis (Chronic) Carotid stenosis (Chronic) CKD (chronic kidney disease), stage III (Chronic) Diabetes (Chronic) Diabetic polyneuropathy (Chronic) HTN (hypertension) (Chronic) PAD (peripheral artery disease) (Chronic 09/04/14) Surgical History H/O eye surgery (Chronic) H/O vascular surgery (Chronic) History of cataract surgery (Chronic) History of CEA (carotid endarterectomy) (Chronic) "left" S/P wrist surgery (Chronic) Family History Other Family history non-contributory Social History Preferred Language: Italian Communication Ability: Effective Adobe Layer Required: No Beliefs That Will Affect Care: None Current Living Situation: Spouse Other Information That Helps Us Care for You: No Feels Safe at Home: Yes Safety Concerns: Feels Safe At This Time Smoking Status: Never smoker Second Hand Exposure: No ; Hx Alcohol Use: No Hx Substance Use: No Review of Systems Review of Systems: All systems reviewed & are unremarkable except as noted in HPI & below Nothing additional to add. Physical Exam Physical Exam: General: no acute distress and stated age Head: normocephalic, no masses, lesions, tenderness or abnormalities Eyes: conjunctiva are pink and non-injected, sclera clear Neck: supple, no adenopathy, no bruits, normal jugular venous pulse, no hepatojugular reflux Chest: normal shape and normal respiratory effort Lungs: clear to auscultation and percussion Cardiac Exam: - regular rate & rhythm, systolic murmur left sternal border- normal S1, normal S2 Pulses: 2(+) throughout Abdomen: abdomen soft, non-tender, no abnormal masses and no hepatosplenomegaly Musculoskeletal: no gait disturbance, no joint inflammation, no deforming arthritis Extremities: no edema and no cyanosis Neuro: grossly normal exam Results & Data ([facility]) Vital Signs (Past 12 Hours) Vital Signs Temp Pulse Pulse Resp BP BP Pulse Ox 09/29/19 09:25 58 L 09/29/19 09:17 59 L 16 162/77 H 99 09/29/19 07:53 36.6 C 64 20 132/75 98 09/29/19 07:36 58 L 09/29/19 03:27 36.5 C 56 L 19 99/55 L 99 09/29/19 00:56 57 L 09/28/19 23:59 36.6 C 60 18 123/70 100 09/28/19 23:11 60 16 105/60 99 Laboratory Results Laboratory Results - last 24 hr 09/28/19 09/28/19 09/28/19 20:59 20:59 20:59 WBC 7.31 RBC 3.23 L Hgb 10.7 L Hct 32.2 L MCV 99.7 MCH 33.1 MCHC 33.2 RDW Std Deviation 50.8 H RDW Coeff of Mj 14.0 Plt Count 297 MPV 10.3 Immature Gran % (Auto) 0.1 Neut % (Auto) 56.6 Lymph % (Auto) 32.1 [place] % (Auto) 7.4 Eos % (Auto) 3.4 Baso % (Auto) 0.4 Immature Gran # (Auto) 0.01 Neut # (Auto) 4.13 Lymph # (Auto) 2.35 [place] # (Auto) 0.54 Eos # (Auto) 0.25 Baso # (Auto) 0.03 PT 10.7 INR 1.0 APTT 26.6 PTT Ratio 1.0 Sodium 135 L Potassium 3.9 Chloride 103 Carbon Dioxide 25 Anion Gap 7.0 BUN 23 H Creatinine 1.18 Est Cr Clr Drug Dosing Not Reportable Est GFR ( Amer) 51.9 Est GFR (Non-Af Amer) 44.8 BUN/Creatinine Ratio 19.6 Glucose 197 H POC Glucose Estimat Average Glucose Hemoglobin A1c Calcium 9.0 Magnesium Troponin I 0.354 H* NT-Pro-B Natriuret Pep 1620 Triglycerides Cholesterol LDL Cholesterol, Calc VLDL Cholesterol, Calc HDL Cholesterol Cholesterol/HDL Ratio Lipase 483 H Urine Color Urine Appearance Urine pH Ur Specific [place] Urine Protein Urine Glucose (UA) Urine Ketones Urine Blood Urine Nitrite Urine Bilirubin Urine Urobilinogen Ur Leukocyte Esterase Urine WBC (Auto) Urine RBC (Auto) U Hyaline Cast (Auto) U Epithel Cells (Auto) Urine Bacteria (Auto) 09/29/19 09/29/19 09/29/19 00:00 00:20 05:14 WBC RBC Hgb Hct MCV MCH MCHC RDW Std Deviation RDW Coeff of Mj Plt Count MPV Immature Gran % (Auto) Neut % (Auto) Lymph % (Auto) [place] % (Auto) Eos % (Auto) Baso % (Auto) Immature Gran # (Auto) Neut # (Auto) Lymph # (Auto) [place] # (Auto) Eos # (Auto) Baso # (Auto) PT INR APTT PTT Ratio Sodium 137 Potassium 3.3 L D Chloride 108 H Carbon Dioxide 25 Anion Gap 4.0 BUN 23 H Creatinine 1.15 Est Cr Clr Drug Dosing 42.7 Est GFR ( Amer) 53.5 Est GFR (Non-Af Amer) 46.2 BUN/Creatinine Ratio 20.2 H Glucose 105 H POC Glucose 196 H Estimat Average Glucose Hemoglobin A1c Calcium 8.1 L Magnesium 1.5 L Troponin I 0.475 H* NT-Pro-B Natriuret Pep Triglycerides 30 Cholesterol 109 LDL Cholesterol, Calc 38 VLDL Cholesterol, Calc 6 HDL Cholesterol 65 Cholesterol/HDL Ratio 2 Lipase Urine Color Urine Appearance Urine pH Ur Specific [place] Urine Protein Urine Glucose (UA) Urine Ketones Urine Blood Urine Nitrite Urine Bilirubin Urine Urobilinogen Ur Leukocyte Esterase Urine WBC (Auto) Urine RBC (Auto) U Hyaline Cast (Auto) U Epithel Cells (Auto) Urine Bacteria (Auto) 09/29/19 09/29/19 09/29/19 05:14 05:14 05:14 WBC 5.57 RBC 2.86 L Hgb 9.4 L Hct 28.3 L MCV 99.0 MCH 32.9 MCHC 33.2 RDW Std Deviation 51.0 H RDW Coeff of Mj 14.2 Plt Count 255 MPV 9.9 Immature Gran % (Auto) 0.0 Neut % (Auto) 32.6 Lymph % (Auto) 48.7 [place] % (Auto) 10.8 Eos % (Auto) 7.0 Baso % (Auto) 0.9 Immature Gran # (Auto) 0.00 Neut # (Auto) 1.82 Lymph # (Auto) 2.71 [place] # (Auto) 0.60 H Eos # (Auto) 0.39 Baso # (Auto) 0.05 PT INR APTT PTT Ratio Sodium Potassium Chloride Carbon Dioxide Anion Gap BUN Creatinine Est Cr Clr Drug Dosing Est GFR ( Amer) Est GFR (Non-Af Amer) BUN/Creatinine Ratio Glucose POC Glucose Estimat Average Glucose 177 Hemoglobin A1c 7.8 H Calcium Magnesium Troponin I 0.516 H* NT-Pro-B Natriuret Pep Triglycerides Cholesterol LDL Cholesterol, Calc VLDL Cholesterol, Calc HDL Cholesterol Cholesterol/HDL Ratio Lipase Urine Color Urine Appearance Urine pH Ur Specific [place] Urine Protein Urine Glucose (UA) Urine Ketones Urine Blood Urine Nitrite Urine Bilirubin Urine Urobilinogen Ur Leukocyte Esterase Urine WBC (Auto) Urine RBC (Auto) U Hyaline Cast (Auto) U Epithel Cells (Auto) Urine Bacteria (Auto) 09/29/19 09/29/19 09/29/19 05:14 05:14 07:29 WBC RBC Hgb Hct MCV MCH MCHC RDW Std Deviation RDW Coeff of Mj Plt Count MPV Immature Gran % (Auto) Neut % (Auto) Lymph % (Auto) [place] % (Auto) Eos % (Auto) Baso % (Auto) Immature Gran # (Auto) Neut # (Auto) Lymph # (Auto) [place] # (Auto) Eos # (Auto) Baso # (Auto) PT INR APTT 60.0 H* PTT Ratio 2.2 Sodium Potassium Chloride Carbon Dioxide Anion Gap BUN Creatinine Est Cr Clr Drug Dosing Est GFR ( Amer) Est GFR (Non-Af Amer) BUN/Creatinine Ratio Glucose POC Glucose 99 Estimat Average Glucose Hemoglobin A1c Calcium Magnesium Troponin I NT-Pro-B Natriuret Pep Triglycerides Cholesterol LDL Cholesterol, Calc VLDL Cholesterol, Calc HDL Cholesterol Cholesterol/HDL Ratio Lipase 243 Urine Color Urine Appearance Urine pH Ur Specific [place] Urine Protein Urine Glucose (UA) Urine Ketones Urine Blood Urine Nitrite Urine Bilirubin Urine Urobilinogen Ur Leukocyte Esterase Urine WBC (Auto) Urine RBC (Auto) U Hyaline Cast (Auto) U Epithel Cells (Auto) Urine Bacteria (Auto) 09/29/19 Unknown WBC RBC Hgb Hct MCV MCH MCHC RDW Std Deviation RDW Coeff of Mj Plt Count MPV Immature Gran % (Auto) Neut % (Auto) Lymph % (Auto) [place] % (Auto) Eos % (Auto) Baso % (Auto) Immature Gran # (Auto) Neut # (Auto) Lymph # (Auto) [place] # (Auto) Eos # (Auto) Baso # (Auto) PT INR APTT PTT Ratio Sodium Potassium Chloride Carbon Dioxide Anion Gap BUN Creatinine Est Cr Clr Drug Dosing Est GFR ( Amer) Est GFR (Non-Af Amer) BUN/Creatinine Ratio Glucose POC Glucose Estimat Average Glucose Hemoglobin A1c Calcium Magnesium Troponin I NT-Pro-B Natriuret Pep Triglycerides Cholesterol LDL Cholesterol, Calc VLDL Cholesterol, Calc HDL Cholesterol Cholesterol/HDL Ratio Lipase Urine Color Yellow Urine Appearance Cloudy A Urine pH 5.0 Ur Specific [place] 1.014 Urine Protein Negative Urine Glucose (UA) Negative Urine Ketones Negative Urine Blood Negative Urine Nitrite Negative Urine Bilirubin Negative Urine Urobilinogen Negative Ur Leukocyte Esterase 2+ H Urine WBC (Auto) >30 H Urine RBC (Auto) 0-4 U Hyaline Cast (Auto) 1-5 U Epithel Cells (Auto) 10-20 H Urine Bacteria (Auto) 4+ H Diagnostic Findings Echocardiogram [facility] May 2019: Interpretation Summary The examination is adequate to evaluate the referral indication. The LV wall thickness is normal. The left ventricular systolic function is hyperdynamic with no regional wall motion abnormalities, with qualitative left ventricular ejection fraction >70%. The left atrium is moderately enlarged. There is severe mitral annular calcification. There is dense calcification of the sub mitral valve apparatus, that protrudes into the proximal left ventricular outflow tract. Moderate to severe mitral stenosis is present, with mean diastolic gradient of 10 millimeters Hg. Significant mitral regurgitation is absent. Although of assessment for mitral regurgitation is technically limited due to acoustic shadowing from the dense mitral annular calcification. There is no evidence of pulmonary hypertension. The aortic valve is moderately calcified. Mild aortic valve regurgitation is present. Moderate aortic valve stenosis is present by 2D and Doppler assessment , however , there appears to be a left ventricular intracavitary, or proximal LV outflow tract gradient with CW velocities approaching 4 meters/second. Medications Administered Current Inpatient Medications Acetaminophen (Tylenol) 650 mg PO Q4H PRN PRN Reason: Pain or Fever Stop: 10/28/19 23:56 Amlodipine Besylate (Norvasc) 2.5 mg PO DAILY [facility] Stop: 10/29/19 08:59 Last Admin: 09/29/19 08:37 Dose: 2.5 mg Documented by: Atorvastatin Calcium (Lipitor) 80 mg PO DAILY PO Stop: 10/29/19 08:59 Last Admin: 09/29/19 08:38 Dose: 80 mg Documented by: Cilostazol (Pletal) 100 mg PO BID PO Stop: 10/29/19 08:59 Last Admin: 09/29/19 08:38 Dose: 100 mg Documented by: Dextrose (Dextrose 50%) 25 - 50 ml IV UD PRN; Protocol PRN Reason: Hypoglycemia Protocol Stop: 10/29/19 00:14 Famotidine (Pepcid) 20 mg PO BID PO Stop: 10/29/19 08:59 Last Admin: 09/29/19 08:38 Dose: 20 mg Documented by: Furosemide (Lasix) 20 mg PO Q2D@0900 PO Stop: 10/28/19 23:56 Last Admin: 09/29/19 00:37 Dose: 20 mg Documented by: Glucagon (Glucagen) 1 mg SQ UD PRN; Protocol PRN Reason: Hypoglycemia Protocol Stop: 10/29/19 00:14 Glucose (Glucose 40%) 15 - 30 gm PO UD PRN; Protocol PRN Reason: Hypoglycemia Protocol Stop: 10/29/19 00:14 Glucose (Dex4 Glucose) 4 - 8 tabs PO UD PRN; Protocol PRN Reason: Hypoglycemia Protocol Stop: 10/29/19 00:14 Heparin Sodium/Dextrose (Heparin Sodium/Dextrose) 25,000 units in 500 mls @ 17 mls/hr IV .Q24H PO; Protocol Stop: 10/28/19 21:59 Last Titration: 09/29/19 07:06 Dose: 850 units/hr, 17 mls/hr Documented by: Ceftriaxone Sodium 2,000 mg/ (Dextrose) 70 mls @ 100 mls/hr IV DAILY PO; Protocol Stop: 10/09/19 08:59 Last Admin: 09/29/19 09:48 Dose: 100 mls/hr Documented by: Insulin Aspart (Novolog Flexpen) 0 units SC ACHS PO Stop: 10/29/19 07:29 Last Admin: 09/29/19 08:31 Dose: Not Given Documented by: Insulin Glargine (Lantus Solostar Pen) 6 units SC HS [facility] Stop: 10/29/19 20:59 Levothyroxine Sodium (Levothyroxine Sodium) 137 mcg PO DAILYBB PO Stop: 10/29/19 06:29 Last Admin: 09/29/19 06:32 Dose: 137 mcg Documented by: Magnesium Chloride (Slow-Mag) 128 mg PO DAILY [facility] Stop: 10/29/19 08:59 Last Admin: 09/29/19 08:38 Dose: 128 mg Documented by: Metoprolol Succinate (Toprol Xl) 50 mg PO DAILY PO Stop: 10/29/19 08:59 Last Admin: 09/29/19 08:40 Dose: 50 mg Documented by: Miscellaneous (Order Awaiting Action) 1 ea N/A QS PO Stop: 10/29/19 07:59 Last Admin: 09/29/19 08:32 Dose: Not Given Documented by: Miscellaneous (Order Awaiting Action) 1 ea N/A QS [facility] Stop: 10/29/19 07:59 Last Admin: 09/29/19 08:32 Dose: Not Given Documented by: Miscellaneous (Carbohydrates For Hypoglycemia) 15 - 30 gm PO UD PRN PRN Reason: Hypoglycemia Treatment Stop: 10/29/19 00:14 Multivitamins (Multivitamin Tab) 1 tab PO DAILY PO Stop: 10/29/19 08:59 Last Admin: 09/29/19 08:38 Dose: 1 tab Documented by: Multivitamins/Minerals (Caltrate Plus) 1 tab PO BID PO Stop: 10/29/19 08:59 Last Admin: 09/29/19 08:38 Dose: 1 tab Documented by: Nitroglycerin (Nitrostat) 0.4 mg SL UD PRN PRN Reason: Chest Pain Stop: 10/28/19 23:56 Last Admin: 09/29/19 09:51 Dose: 0.4 mg Documented by: Nitroglycerin (Nitro-Bid 2%) 1 inch EXT Q6H [facility] Stop: 10/29/19 09:59 Ondansetron HCl (Zofran) 4 mg IV Q6H PRN PRN Reason: Nausea Stop: 10/28/19 23:56 Polyethylene Glycol (Miralax Powder Packet) 17 gm PO DAILY PRN PRN Reason: Constipation Stop: 10/28/19 23:56 Ticagrelor (Brilinta) 90 mg PO BID [facility] Stop: 10/28/19 23:56 Last Admin: 09/29/19 08:38 Dose: 90 mg Documented by: Timolol Maleate (Timoptic 0.25% Oph) 1 drops OPB DAILY [facility] Stop: 10/29/19 08:59 Last Admin: 09/29/19 08:38 Dose: 1 drops Documented by:
[2019-09-29] MEDS: NITROGLYCERIN 2% OINTMENT 30GM TUBE EXT SCH ×3 (10:49→23:26)
--- NOTE | 2019-09-29 12:10 | Hospitalist Progress Note ---
Date of Service September 29, 2019 Assessment & Plan (1) Non-ST elevation MA (NSTEMI): -presented to emergency room for chest pain on 09/28/2019 and was given medications including being started on IV heparin drip for NSTEMI -as per cardiology assessment Dr. Perea on 09/29/2019: " This patient is a true vasculopath. She has had a non-STEMI and as an outpatient was on dual antiplatelet therapy with Brilinta and aspirin. She has been started on heparin. She had additional chest discomfort this morning treated with sublingual nitroglycerin. She would be a high risk heart catheterization and I believe we should try to treat her conservatively if possible. In addition to her current medications I would recommend an inch of Nitropaste every 6 hours. If she has additional chest pain then we may have to transfer her to the ICU where she can receive IV nitroglycerin. If medical treatment fails to control her chest pain then we would have to reconsider heart catheterization which should be done at [facility] in [place]. The patient in a shared decision-making process is agreeable to the above plan." Chronic diastolic congestive heart failure, valvular heart disease with moderate aortic stenosis, moderate to severe mitral stenosis. -main cardiac management will be for the NSTEMI treatment -home dose furosemide is 20 mg Lasix every other day Hypokalemia -admission serum potassium 3.3, recheck labs after potassium supplements Hypomagnesemia -admission serum magnesium 1.5, patient received IV and oral magnesium Hypertension -on amlodipine and Metoprolol succinate Chronic kidney disease stage III -monitor the renal function Peripheral vascular disease -history of left carotid endarterectomy and also as per previous cardiology notes, she has extensive bilateral superficial femoral artery stenting for claudication -on cilostazol, Brilinta and statin Gastroesophageal reflux disease -Pepcid. Type 2 diabetes mellitus with [employer] current use of insulin -Hold home dose Trulicity and home dose repaglinide -currently on Lantus 6 units daily with sliding scale insulin Hypothyroidism -continue home dose levothyroxine Deep venous thrombosis prophylaxis:on IV heparin. Admission and Anticipated Discharge Date Admission Date: September 28, 2019 Subjective Patient feeling less chest discomfort after nitro past as per cardiology. Patient continues to be on heparin drip. breathing on room air. no shortness of breath. no abdomen pain. no vomiting. no dizziness. Review of Systems Review of Systems: All systems reviewed & are unremarkable except as noted in HPI & below Physical Exam Constitutional: cooperative Eyes: PERRL, conjunctivae normal, anicteric sclerae EOM intact bilaterally ENMT: external ear and nose normal, oropharynx normal Neck: normal visual inspection Respiratory: normal respiratory effort, lungs clear to auscultation Cardiovascular: Rate/Rhythm: regular rate and regular rhythm Gastrointestinal (Abdomen): normal bowel sounds, soft, nontender, no hepatosplenomegaly Musculoskeletal: Head/Neck/Chest: normocephalic and head atraumatic Neurologic: PERRL, EOMI, accommodation nl, no face palsy, no dysarthria CN's II-XI intact bilaterally Psychiatric: A+Ox3, euthymic affect Results & Data ([facility]) Vital Signs (Past 12 Hours) Vital Signs Temp Pulse Pulse Resp BP Pulse Ox 09/29/19 11:27 36.3 C L 68 18 147/80 H 98 09/29/19 09:25 58 L 09/29/19 09:17 59 L 16 162/77 H 99 09/29/19 07:53 36.6 C 64 20 132/75 98 09/29/19 07:36 58 L 09/29/19 03:27 36.5 C 56 L 19 99/55 L 99 09/29/19 00:56 57 L
[2019-09-29 12:32] LABS: Calcium 9.1 mg/dl (8.5-10.1); Creatinine Clr Calc Pharmacy 47.2 ml/min; Est GFR (African American) 60.4; Est GFR (Non-African American) 52.1; Potassium 3.8 mmol/L (3.5-5.1)
[2019-09-29 12:35] LABS: Magnesium 2.3 mg/dl (1.8-2.4); Troponin I 0.464 ng/ml (0-0.045)
[2019-09-29] MEDS: NON-FORMULARY PATIENT'S OWN MED OP SCH (19:20)
[2019-09-29] MEDS: INSULIN GLARGINE SOLOSTAR 100 UNITS/ML 3 ML PEN SC SCH (20:32)
[2019-09-29] MEDS: ROCKLATAN OP SCH (20:35)
[2019-09-29] MEDS: HEPARIN SODIUM/DEXTROSE 25,000 UNITS/500 ML BAG IV SCH (23:26)
[2019-09-30] MEDS: NITROGLYCERIN 2% OINTMENT 30GM TUBE EXT SCH ×4 (03:39→21:23)
[2019-09-30] MEDS: HEPARIN SODIUM/DEXTROSE 25,000 UNITS/500 ML BAG IV SCH (03:42)
[2019-09-30] MEDS: LEVOTHYROXINE SODIUM 137 MCG TABLET PO SCH (03:42)
[2019-09-30 07:43] LABS: Partial Thromboplastin Ratio 1.4; Partial Thromboplastin Time 40.3 Seconds (21.0-31.0)
[2019-09-30] MEDS: INSULIN ASPART 100 UNITS/ML 3 ML PEN SC SCH ×4 (08:02→21:19)
[2019-09-30] MEDS ORDERED: HEPARIN IV BOLUS 4,500 UNITS in SYRINGE 0 ML IV ONE (08:15)
[2019-09-30] MEDS: NON-FORMULARY PATIENT'S OWN MED OP SCH ×3 (08:36→19:39)
[2019-09-30] MEDS: TIMOLOL MALEATE 0.25% OP SOLN 5 ML BTL OPB SCH (08:38)
[2019-09-30] MEDS: cefTRIAXone SODIUM 2,000 MG in DEXTROSE 5% 50 ML IV SCH (08:38)
[2019-09-30] MEDS: ATORVASTATIN 40 MG TAB PO SCH (08:41)
[2019-09-30] MEDS: CALCIUM 600MG + VIT D 400 IU TAB PO SCH ×2 (08:41→19:39)
[2019-09-30] MEDS: FUROSEMIDE 20 MG TAB PO SCH (08:41)
[2019-09-30] MEDS: TICAGRELOR 90 MG TAB PO SCH ×2 (08:41→19:39)
[2019-09-30] MEDS: FAMOTIDINE 20 MG TAB PO SCH ×2 (08:42→21:22)
[2019-09-30] MEDS: cilostazoL 100 MG TAB PO SCH ×2 (08:42→21:22)
[2019-09-30] MEDS: AMLODIPINE BESYLATE 5 MG TAB PO SCH (08:42)
[2019-09-30] MEDS: MULTIVITAMIN TAB PO SCH (08:42)
[2019-09-30] MEDS: MAGNESIUM CHLORIDE 64MG DELAYED REL TAB PO SCH (08:42)
--- NOTE | 2019-09-30 09:51 | Hospitalist Progress Note ---
Date of Service September 30, 2019 Assessment & Plan (1) Non-ST elevation [place] (NSTEMI): Aortic stenosis Mitral stenosis -presented to emergency room for chest pain on 09/28/2019, admission troponin was 0.354, and was given medications including started on IV heparin drip (first dose given on 09/28/2019 around 11 PM for NSTEMI -troponin peaked to 0.516 on 09/29/2019 -as per cardiology assessment Dr. Perea on 09/29/2019: " This patient is a true vasculopath. She has had a non-STEMI and as an outpatient was on dual antiplatelet therapy with Brilinta and aspirin. She has been started on heparin. She had additional chest discomfort this morning treated with sublingual nitroglycerin. She would be a high risk heart catheterization and I believe we should try to treat her conservatively if possible. In addition to her current medications I would recommend an inch of Nitropaste every 6 hours. If she has additional chest pain then we may have to transfer her to the ICU where she can receive IV nitroglycerin. If medical treatment fails to control her chest pain then we would have to reconsider heart catheterization which should be done at [facility] in [place]. The patient in a shared decision-making process is agreeable to the above plan." -echocardiogram performed on 09/29/2019adn was compared to echocardiogram as outpatient on 06/06/2019 with same ejection fraction and noraml ventricular wall motion. continues to show aortic stenosis and mitral valve stenosis -09/30/2019: troponins downtrended, patient feeling better, denies chest pain today, continue heparin drip as per cardiology service. further changes to medications as per cardiology Chronic diastolic congestive heart failure, valvular heart disease with moderate aortic stenosis, moderate to severe mitral stenosis. -main cardiac management will be for the NSTEMI treatment -home dose furosemide is 20 mg Lasix every other day Hypokalemia -admission serum potassium 3.3, and was given potasium supplements -serum potassium normalized at this time Hypomagnesemia -admission serum magnesium 1.5, patient received IV and oral magnesium -serum magnesium normalized at this time Hypertension -on amlodipine and Metoprolol succinate Chronic kidney disease stage III -monitor the renal function possible urinary tract infection -the admitting physician started patient on IV ceftriaxone because of bacteria in urine on admission. patient does not have dysuria symptoms. -09/30/2019: urine culture results of gram negative bacilli. continues the antibiotics as ceftriaxone for now and await uirne culture speciation and sensitivities Peripheral vascular disease -history of left carotid endarterectomy and also as per previous cardiology notes, she has extensive bilateral superficial femoral artery stenting for claudication -on cilostazol, Brilinta and statin Gastroesophageal reflux disease -Pepcid. 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 Admission and Anticipated Discharge Date Admission Date: September 28, 2019 Subjective troponins downtrended, patient feeling better, denies chest pain today. continues to be breathing on room air. no headache. no dizziness. no nausea. no vomiting. no headache. Review of Systems Review of Systems: All systems reviewed & are unremarkable except as noted in HPI & below Physical Exam Constitutional: cooperative Eyes: PERRL, conjunctivae normal, anicteric sclerae EOM intact bilaterally ENMT: external ear and nose normal, oropharynx normal Neck: normal visual inspection Respiratory: normal respiratory effort, lungs clear to auscultation Cardiovascular: Rate/Rhythm: regular rate and regular rhythm Gastrointestinal (Abdomen): normal bowel sounds, soft, nontender, no hepatosplenomegaly Musculoskeletal: Head/Neck/Chest: normocephalic and head atraumatic Neurologic: PERRL, EOMI, accommodation nl, no face palsy, no dysarthria CN's II-XI intact bilaterally Psychiatric: A+Ox3, euthymic affect Results & Data ([facility]) Vital Signs (Past 12 Hours) Vital Signs Temp Pulse Pulse Pulse Resp BP Pulse Ox 09/30/19 07:33 36.9 C 71 17 114/60 94 09/30/19 07:30 68 09/30/19 03:47 36.6 C 72 18 111/58 L 95 09/29/19 23:32 72 09/29/19 23:18 36.8 C 73 16 124/64 95
--- NOTE | 2019-09-30 10:20 | Cardiology Progress Note ---
Date of Service September 30, 2019 Assessment & Plan (1) Non-ST elevation [place] (NSTEMI): (2) Diabetes: (3) PAD (peripheral artery disease): (4) Aortic stenosis: (5) History of CEA (carotid endarterectomy): (6) CKD (chronic kidney disease), stage III: The patient is feeling much improved today. Her chest pain seems to be more chest wall pain today. Cardiac markers are again borderline elevated but have come down slightly from yesterday with a peak of 0.5. I believe some of the troponin elevation may be chronic. In any case, conservative management is indicated at this time. I would continue her current medications including the heparin until tomorrow. Will reassess her tomorrow. Subjective The patient was able to ambulate to the bathroom this morning when I went into the visit today. Her chest pain is markedly improved and seems to be more chest wall pain today. Cardiac markers have remained elevated or declining consistent possibly with chronic troponin elevation. Review of Systems Review of Systems: All systems reviewed & are unremarkable except as noted in HPI & below Nothing additional to add. Physical Exam Physical Exam: General: no acute distress and stated age Head: normocephalic, no masses, lesions, tenderness or abnormalities Eyes: conjunctiva are pink and non-injected, sclera clear Neck: supple, no adenopathy, no bruits, normal jugular venous pulse, no hepatojugular reflux Chest: normal shape and normal respiratory effort Lungs: clear to auscultation and percussion Cardiac Exam: - regular rate & rhythm, systolic murmur left sternal border- normal S1, normal S2 Pulses: 2(+) throughout Abdomen: abdomen soft, non-tender, no abnormal masses and no hepatosplenomegaly Musculoskeletal: no gait disturbance, no joint inflammation, no deforming arthritis Extremities: no edema and no cyanosis Neuro: grossly normal exam Results & Data Vital Signs (Past 12 Hours) Vital Signs Temp Pulse Pulse Pulse Resp BP Pulse Ox 09/30/19 07:33 36.9 C 71 17 114/60 94 09/30/19 07:30 68 09/30/19 03:47 36.6 C 72 18 111/58 L 95 09/29/19 23:32 72 09/29/19 23:18 36.8 C 73 16 124/64 95 Laboratory Results Laboratory Results - last 24 hr 09/29/19 09/29/19 09/29/19 11:27 11:53 16:33 APTT PTT Ratio Sodium 140 Potassium 3.8 D Chloride 108 H Carbon Dioxide 28 Anion Gap 3.0 BUN 21 H Creatinine 1.04 Est Cr Clr Drug Dosing 47.2 Est GFR ( Amer) 60.4 Est GFR (Non-Af Amer) 52.1 BUN/Creatinine Ratio 20.0 Glucose 110 H POC Glucose 104 H 118 H Calcium 9.1 Magnesium 2.3 Troponin I 0.464 H* 09/29/19 09/29/19 09/30/19 18:00 20:21 06:47 APTT 40.3 H PTT Ratio 1.4 Sodium Potassium Chloride Carbon Dioxide Anion Gap BUN Creatinine Est Cr Clr Drug Dosing Est GFR ( Amer) Est GFR (Non-Af Amer) BUN/Creatinine Ratio Glucose POC Glucose 157 H Calcium Magnesium Troponin I 0.397 H* 09/30/19 07:26 APTT PTT Ratio Sodium Potassium Chloride Carbon Dioxide Anion Gap BUN Creatinine Est Cr Clr Drug Dosing Est GFR ( Amer) Est GFR (Non-Af Amer) BUN/Creatinine Ratio Glucose POC Glucose 133 H Calcium Magnesium Troponin I Medications Administered Current Inpatient Medications Acetaminophen (Tylenol) 650 mg PO Q4H PRN PRN Reason: Pain or Fever Stop: 10/28/19 23:56 Last Admin: 09/30/19 09:49 Dose: 650 mg Documented by: Amlodipine Besylate (Norvasc) 2.5 mg PO DAILY [facility] Stop: 10/29/19 08:59 Last Admin: 09/30/19 08:42 Dose: 2.5 mg Documented by: Atorvastatin Calcium (Lipitor) 80 mg PO DAILY [facility] Stop: 10/29/19 08:59 Last Admin: 09/30/19 08:41 Dose: 80 mg Documented by: Cilostazol (Pletal) 100 mg PO BID PO Stop: 10/29/19 08:59 Last Admin: 09/30/19 08:42 Dose: 100 mg Documented by: Dextrose (Dextrose 50%) 25 - 50 ml IV UD PRN; Protocol PRN Reason: Hypoglycemia Protocol Stop: 10/29/19 00:14 Famotidine (Pepcid) 20 mg PO BID [facility] Stop: 10/29/19 08:59 Last Admin: 09/30/19 08:42 Dose: 20 mg Documented by: Furosemide (Lasix) 20 mg PO Q2D@0900 [facility] Stop: 10/28/19 23:56 Last Admin: 09/30/19 08:41 Dose: 20 mg Documented by: Glucagon (Glucagen) 1 mg SQ UD PRN; Protocol PRN Reason: Hypoglycemia Protocol Stop: 10/29/19 00:14 Glucose (Glucose 40%) 15 - 30 gm PO UD PRN; Protocol PRN Reason: Hypoglycemia Protocol Stop: 10/29/19 00:14 Glucose (Dex4 Glucose) 4 - 8 tabs PO UD PRN; Protocol PRN Reason: Hypoglycemia Protocol Stop: 10/29/19 00:14 Heparin Sodium/Dextrose (Heparin Sodium/Dextrose) 25,000 units in 500 mls @ 17 mls/hr IV .Q24H [facility]; Protocol Stop: 10/28/19 21:59 Last Titration: 09/30/19 07:57 Dose: 1,000 units/hr, 20 mls/hr Documented by: Ceftriaxone Sodium 2,000 mg/ (Dextrose) 70 mls @ 100 mls/hr IV DAILY [facility]; Protocol Stop: 10/09/19 08:59 Last Infusion: 09/30/19 09:20 Dose: Infused Documented by: Insulin Aspart (Novolog Flexpen) 0 units SC ACHS [facility] Stop: 10/29/19 07:29 Last Admin: 09/30/19 08:02 Dose: 5 units Documented by: Insulin Glargine (Lantus Solostar Pen) 6 units SC HS [facility] Stop: 10/29/19 20:59 Last Admin: 09/29/19 20:32 Dose: 6 units Documented by: Levothyroxine Sodium (Levothyroxine Sodium) 137 mcg PO DAILYBB PO Stop: 10/29/19 06:29 Last Admin: 09/30/19 03:42 Dose: 137 mcg Documented by: Magnesium Chloride (Slow-Mag) 128 mg PO DAILY [facility] Stop: 10/29/19 08:59 Last Admin: 09/30/19 08:42 Dose: 128 mg Documented by: Metoprolol Succinate (Toprol Xl) 50 mg PO DAILY [facility] Stop: 10/29/19 08:59 Last Admin: 09/29/19 08:40 Dose: 50 mg Documented by: Miscellaneous (Carbohydrates For Hypoglycemia) 15 - 30 gm PO UD PRN PRN Reason: Hypoglycemia Treatment Stop: 10/29/19 00:14 Multivitamins (Multivitamin Tab) 1 tab PO DAILY PO Stop: 10/29/19 08:59 Last Admin: 09/30/19 08:42 Dose: 1 tab Documented by: Multivitamins/Minerals (Caltrate Plus) 1 tab PO BID [facility] Stop: 10/29/19 08:59 Last Admin: 09/30/19 08:41 Dose: 1 tab Documented by: Nitroglycerin (Nitrostat) 0.4 mg SL UD PRN PRN Reason: Chest Pain Stop: 10/28/19 23:56 Last Admin: 09/29/19 09:51 Dose: 0.4 mg Documented by: Nitroglycerin (Nitro-Bid 2%) 1 inch EXT Q6H PO Stop: 10/29/19 09:59 Last Admin: 09/30/19 09:49 Dose: 1 inch Documented by: Non-Formulary Medication (Non-Formulary Patient's Own Med) 1 ea OP TID PO Stop: 10/29/19 20:59 Last Admin: 09/30/19 08:36 Dose: 1 drops Documented by: Blanca- Non- Formulary Patient's Own Med 1 ea OP HS PO Stop: 10/29/19 20:59 Last Admin: 09/29/19 20:35 Dose: 1 drops Documented by: Ondansetron HCl (Zofran) 4 mg IV Q6H PRN PRN Reason: Nausea Stop: 10/28/19 23:56 Polyethylene Glycol (Miralax Powder Packet) 17 gm PO DAILY PRN PRN Reason: Constipation Stop: 10/28/19 23:56 Ticagrelor (Brilinta) 90 mg PO BID PO Stop: 10/28/19 23:56 Last Admin: 09/30/19 08:41 Dose: 90 mg Documented by: Timolol Maleate (Timoptic 0.25% Oph) 1 drops OPB DAILY PO Stop: 10/29/19 08:59 Last Admin: 09/30/19 08:38 Dose: 1 drops Documented by:
[2019-09-30 14:55] LABS: Partial Thromboplastin Ratio 3.8
[2019-09-30 15:00] LABS: Partial Thromboplastin Time 106.8 Seconds (21.0-31.0)
[2019-09-30] MEDS: INSULIN GLARGINE SOLOSTAR 100 UNITS/ML 3 ML PEN SC SCH (21:19)
[2019-09-30] MEDS: ROCKLATAN OP SCH (21:21)
[2019-09-30 22:36] LABS: Partial Thromboplastin Ratio 1.7
[2019-09-30 22:39] LABS: Partial Thromboplastin Time 47.1 Seconds (21.0-31.0)
[2019-10-01] MEDS: NITROGLYCERIN 2% OINTMENT 30GM TUBE EXT SCH ×2 (04:02→10:15)
[2019-10-01] MEDS: ACETAMINOPHEN 325 MG TAB PO PRN ×2 (04:12→17:37)
[2019-10-01] MEDS: LEVOTHYROXINE SODIUM 137 MCG TABLET PO SCH (04:12)
[2019-10-01 06:40] LABS: Hematocrit (blood only) 29.8 % (37-47); Hemoglobin 9.9 g/dL (12.0-16.0); Mean Corpuscular Hemoglobin 32.8 pg (25-34); Mean Corpuscular Hgb Conc 33.2 g/dL (32-36); Mean Corpuscular Volume 98.7 fL (80-100); Mean Platelet Volume 10.5 fL (7.4-10.4); Platelet Count 266 K/uL (130-400); RDW Coefficient of Variation 14.2 % (11.5-14.5); RDW Standard Deviation 51.1 fL (36.4-46.3); Red Blood Count 3.02 M/uL (4.2-5.4); White Blood Count 8.73 K/uL (4.8-10.8)
[2019-10-01 06:50] LABS: Partial Thromboplastin Ratio 1.5; Partial Thromboplastin Time 42.7 Seconds (21.0-31.0)
[2019-10-01] MEDS ORDERED: HEPARIN IV BOLUS 3,000 UNITS in SYRINGE 0 ML IV ONE (07:15)
[2019-10-01] MEDS: INSULIN ASPART 100 UNITS/ML 3 ML PEN SC SCH ×4 (08:08→20:14)
[2019-10-01] MEDS: cefTRIAXone SODIUM 2,000 MG in DEXTROSE 5% 50 ML IV SCH (08:09)
[2019-10-01] MEDS: FAMOTIDINE 20 MG TAB PO SCH ×2 (08:10→19:24)
[2019-10-01] MEDS: AMLODIPINE BESYLATE 5 MG TAB PO SCH (08:10)
[2019-10-01] MEDS: cilostazoL 100 MG TAB PO SCH ×2 (08:10→19:24)
[2019-10-01] MEDS: TICAGRELOR 90 MG TAB PO SCH ×2 (08:10→19:24)
[2019-10-01] MEDS: CALCIUM 600MG + VIT D 400 IU TAB PO SCH ×2 (08:10→19:23)
[2019-10-01] MEDS: ATORVASTATIN 40 MG TAB PO SCH (08:10)
[2019-10-01] MEDS: METOPROLOL SUCC 50MG EXT REL TAB PO SCH (08:10)
[2019-10-01] MEDS: MAGNESIUM CHLORIDE 64MG DELAYED REL TAB PO SCH (08:11)
[2019-10-01] MEDS: NON-FORMULARY PATIENT'S OWN MED OP SCH ×3 (08:11→19:24)
[2019-10-01] MEDS: TIMOLOL MALEATE 0.25% OP SOLN 5 ML BTL OPB SCH (08:12)
[2019-10-01] MEDS: MULTIVITAMIN TAB PO SCH (08:12)
--- NOTE | 2019-10-01 09:45 | Cardiology Progress Note ---
Date of Service October 01, 2019 Assessment & Plan (1) Non-ST elevation [place] (NSTEMI): (2) Diabetes: (3) PAD (peripheral artery disease): (4) Aortic stenosis: (5) History of CEA (carotid endarterectomy): (6) CKD (chronic kidney disease), stage III: Clinically the patient stable. She has not had any additional chest pain and feels well. I stopped her heparin this morning. She will ambulate in the hallways today and if things go well she is a possible discharge for tomorrow. Subjective The patient has had no additional chest pain today. Her EKG is normal today. She is comfortable sitting in a chair visiting with her son. She had an uneventful night. Review of Systems Review of Systems: All systems reviewed & are unremarkable except as noted in HPI & below Nothing additional to add. Physical Exam Physical Exam: General: no acute distress and stated age Head: normocephalic, no masses, lesions, tenderness or abnormalities Eyes: conjunctiva are pink and non-injected, sclera clear Neck: supple, no adenopathy, no bruits, normal jugular venous pulse, no hepatojugular reflux Chest: normal shape and normal respiratory effort Lungs: clear to auscultation and percussion Cardiac Exam: - regular rate & rhythm, systolic murmur- normal S1, normal S2 Pulses: 2(+) throughout Abdomen: abdomen soft, non-tender, no abnormal masses and no hepatosplenomegaly Musculoskeletal: no gait disturbance, no joint inflammation, no deforming arthri tis Extremities: no edema and no cyanosis Neuro: grossly normal exam Results & Data Vital Signs (Past 12 Hours) Vital Signs Temp Pulse Pulse Resp BP BP Pulse Ox 10/01/19 07:26 36.7 C 76 18 97/64 L 95 10/01/19 04:00 36.5 C 71 18 144/71 H 97 10/01/19 00:00 68 09/30/19 23:14 36.4 C L 64 16 138/73 96 Laboratory Results Laboratory Results - last 24 hr 09/30/19 09/30/19 09/30/19 11:09 14:24 16:15 WBC RBC Hgb Hct MCV MCH MCHC RDW Std Deviation RDW Coeff of Mj Plt Count MPV APTT 106.8 H* PTT Ratio 3.8 POC Glucose 176 H 78 09/30/19 09/30/19 10/01/19 20:42 22:04 06:19 WBC 8.73 RBC 3.02 L Hgb 9.9 L Hct 29.8 L MCV 98.7 MCH 32.8 MCHC 33.2 RDW Std Deviation 51.1 H RDW Coeff of Mj 14.2 Plt Count 266 MPV 10.5 H APTT 47.1 H* PTT Ratio 1.7 POC Glucose 206 H 10/01/19 10/01/19 06:19 07:03 WBC RBC Hgb Hct MCV MCH MCHC RDW Std Deviation RDW Coeff of Mj Plt Count MPV APTT 42.7 H PTT Ratio 1.5 POC Glucose 163 H Medications Administered Current Inpatient Medications Acetaminophen (Tylenol) 325 mg PO Q6H PRN PRN Reason: Pain or Fever Stop: 10/28/19 23:56 Last Admin: 10/01/19 04:12 Dose: 325 mg Documented by: Amlodipine Besylate (Norvasc) 2.5 mg PO DAILY PO Stop: 10/29/19 08:59 Last Admin: 10/01/19 08:10 Dose: 2.5 mg Documented by: Atorvastatin Calcium (Lipitor) 80 mg PO DAILY PO Stop: 10/29/19 08:59 Last Admin: 10/01/19 08:10 Dose: 80 mg Documented by: Cilostazol (Pletal) 100 mg PO BID PO Stop: 10/29/19 08:59 Last Admin: 10/01/19 08:10 Dose: 100 mg Documented by: Dextrose (Dextrose 50%) 25 - 50 ml IV UD PRN; Protocol PRN Reason: Hypoglycemia Protocol Stop: 10/29/19 00:14 Famotidine (Pepcid) 20 mg PO BID PO Stop: 10/29/19 08:59 Last Admin: 10/01/19 08:10 Dose: 20 mg Documented by: Furosemide (Lasix) 20 mg PO Q2D@0900 PO Stop: 10/28/19 23:56 Last Admin: 09/30/19 08:41 Dose: 20 mg Documented by: Glucagon (Glucagen) 1 mg SQ UD PRN; Protocol PRN Reason: Hypoglycemia Protocol Stop: 10/29/19 00:14 Glucose (Glucose 40%) 15 - 30 gm PO UD PRN; Protocol PRN Reason: Hypoglycemia Protocol Stop: 10/29/19 00:14 Glucose (Dex4 Glucose) 4 - 8 tabs PO UD PRN; Protocol PRN Reason: Hypoglycemia Protocol Stop: 10/29/19 00:14 Ceftriaxone Sodium 2,000 mg/ (Dextrose) 70 mls @ 100 mls/hr IV DAILY [facility]; Protocol Stop: 10/09/19 08:59 Last Admin: 10/01/19 08:09 Dose: 28 mls/hr Documented by: Insulin Aspart (Novolog Flexpen) 0 units SC ACHS PO Stop: 10/29/19 07:29 Last Admin: 10/01/19 08:08 Dose: 5 units Documented by: Insulin Glargine (Lantus Solostar Pen) 6 units SC HS [facility] Stop: 10/29/19 20:59 Last Admin: 09/30/19 21:19 Dose: 6 units Documented by: Levothyroxine Sodium (Levothyroxine Sodium) 137 mcg PO DAILYBB [facility] Stop: 10/29/19 06:29 Last Admin: 10/01/19 04:12 Dose: 137 mcg Documented by: Magnesium Chloride (Slow-Mag) 128 mg PO DAILY [facility] Stop: 10/29/19 08:59 Last Admin: 10/01/19 08:11 Dose: 128 mg Documented by: Metoprolol Succinate (Toprol Xl) 50 mg PO DAILY [facility] Stop: 10/29/19 08:59 Last Admin: 10/01/19 08:10 Dose: 50 mg Documented by: Miscellaneous (Carbohydrates For Hypoglycemia) 15 - 30 gm PO UD PRN PRN Reason: Hypoglycemia Treatment Stop: 10/29/19 00:14 Multivitamins (Multivitamin Tab) 1 tab PO DAILY [facility] Stop: 10/29/19 08:59 Last Admin: 10/01/19 08:12 Dose: 1 tab Documented by: Multivitamins/Minerals (Caltrate Plus) 1 tab PO BID [facility] Stop: 10/29/19 08:59 Last Admin: 10/01/19 08:10 Dose: 1 tab Documented by: Nitroglycerin (Nitrostat) 0.4 mg SL UD PRN PRN Reason: Chest Pain Stop: 10/28/19 23:56 Last Admin: 09/29/19 09:51 Dose: 0.4 mg Documented by: Nitroglycerin (Nitro-Bid 2%) 1 inch EXT Q6H [facility] Stop: 10/29/19 09:59 Last Admin: 10/01/19 04:02 Dose: 1 inch Documented by: Non-Formulary Medication (Non-Formulary Patient's Own Med) 1 ea OP TID PO Stop: 10/29/19 20:59 Last Admin: 10/01/19 08:11 Dose: 1 drops Documented by: Blanca- Non- Formulary Patient's Own Med 1 ea OP HS [facility] Stop: 10/29/19 20:59 Last Admin: 09/30/19 21:21 Dose: 1 drops Documented by: Ondansetron HCl (Zofran) 4 mg IV Q6H PRN PRN Reason: Nausea Stop: 10/28/19 23:56 Polyethylene Glycol (Miralax Powder Packet) 17 gm PO DAILY PRN PRN Reason: Constipation Stop: 10/28/19 23:56 Ticagrelor (Brilinta) 90 mg PO BID [facility] Stop: 10/28/19 23:56 Last Admin: 10/01/19 08:10 Dose: 90 mg Documented by: Timolol Maleate (Timoptic 0.25% Oph) 1 drops OPB DAILY [facility] Stop: 10/29/19 08:59 Last Admin: 10/01/19 08:12 Dose: 1 drops Documented by:
--- NOTE | 2019-10-01 10:19 | Hospitalist Progress Note ---
Date of Service October 01, 2019 Assessment & Plan (1) Non-ST elevation [place] (NSTEMI): Aortic stenosis Mitral stenosis -presented to emergency room for chest pain on 09/28/2019, admission troponin was 0.354, and was given medications including started on IV heparin drip (first dose given on 09/28/2019 around 11 PM for NSTEMI -troponin peaked to 0.516 on 09/29/2019 -as per cardiology assessment Dr. Perea on 09/29/2019: " This patient is a true vasculopath. She has had a non-STEMI and as an outpatient was on dual antiplatelet therapy with Brilinta and aspirin. She has been started on heparin. She had additional chest discomfort this morning treated with sublingual nitroglycerin. She would be a high risk heart catheterization and I believe we should try to treat her conservatively if possible. In addition to her current medications I would recommend an inch of Nitropaste every 6 hours. If she has additional chest pain then we may have to transfer her to the ICU where she can receive IV nitroglycerin. If medical treatment fails to control her chest pain then we would have to reconsider heart catheterization which should be done at [facility] in [place]. The patient in a shared decision-making process is agreeable to the above plan." -echocardiogram performed on 09/29/2019adn was compared to echocardiogram as outpatient on 06/06/2019 with same ejection fraction and noraml ventricular wall motion. continues to show aortic stenosis and mitral valve stenosis -09/30/2019: troponins downtrended, patient feeling better, denies chest pain today, continue heparin drip as per cardiology service. -10/01/2019: heparin drip stopped by cardiology service, patient asked to do some ambulation, will plan on stopping further nitro paste later today and monitor if any return of chest discomfort Chronic diastolic congestive heart failure, valvular heart disease with moderate aortic stenosis, moderate to severe mitral stenosis. -main cardiac management will be for the NSTEMI treatment -home dose furosemide is 20 mg Lasix every other day Hypokalemia -admission serum potassium 3.3, and was given potasium supplements -serum potassium normalized at this time Hypomagnesemia -admission serum magnesium 1.5, patient received IV and oral magnesium -serum magnesium normalized at this time -continue daily home oral magnesium Hypertension -on amlodipine and Metoprolol succinate Chronic kidney disease stage III -monitor the renal function possible urinary tract infection -the admitting physician started patient on IV ceftriaxone because of bacteria in urine on admission. patient does not have dysuria symptoms. -09/30/2019: urine culture results of gram negative bacilli. continues the antibiotics as ceftriaxone for now and await uirne culture speciation and sensitivities Peripheral vascular disease -history of left carotid endarterectomy and also as per previous cardiology notes, she has extensive bilateral superficial femoral artery stenting for claudication -on cilostazol, Brilinta and statin Gastroesophageal reflux disease -Pepcid. 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 Admission and Anticipated Discharge Date Admission Date: September 28, 2019 Subjective Patient denies chest pain. no palpitations. breathing on room air. no shortness of breath. no headache. no dizziness. no vomiting Review of Systems Review of Systems: All systems reviewed & are unremarkable except as noted in HPI & below Physical Exam Constitutional: cooperative Eyes: PERRL, conjunctivae normal, anicteric sclerae EOM intact bilaterally ENMT: external ear and nose normal, oropharynx normal Neck: normal visual inspection Respiratory: normal respiratory effort, lungs clear to auscultation Cardiovascular: Rate/Rhythm: regular rate and regular rhythm Gastrointestinal (Abdomen): normal bowel sounds, soft, nontender, no hepatosplenomegaly Musculoskeletal: Head/Neck/Chest: normocephalic and head atraumatic Neurologic: PERRL, EOMI, accommodation nl, no face palsy, no dysarthria CN's II-XI intact bilaterally Psychiatric: A+Ox3, euthymic affect Results & Data ([facility] [place]) Vital Signs (Past 12 Hours) Vital Signs Temp Pulse Pulse Resp BP BP Pulse Ox 10/01/19 07:26 36.7 C 76 18 97/64 L 95 10/01/19 04:00 36.5 C 71 18 144/71 H 97 10/01/19 00:00 68 09/30/19 23:14 36.4 C L 64 16 138/73 96
--- NOTE | 2019-10-01 12:11 | Electrocardiogram Report ---
Test Reason : Blood Pressure : / mmHG Vent. Rate : 064 BPM Atrial Rate : 064 BPM P-R Int : 128 ms QRS Dur : 082 ms QT Int : 410 ms P-R-T Axes : -80 003 061 degrees QTc Int : 422 ms Unusual P axis and short AL, probable junctional rhythm Abnormal ECG When compared with ECG of 22-MAY-2018 09:56, Junctional rhythm has replaced Sinus rhythm Confirmed by Brandin Waite ([id number]) on 10/01/2019 12:10:44 PM Referred By: REFERRED SELF Confirmed By:Brandin Waite
--- NOTE | 2019-10-01 12:11 | Electrocardiogram Report ---
Test Reason : Blood Pressure : / mmHG Vent. Rate : 066 BPM Atrial Rate : 066 BPM P-R Int : 164 ms QRS Dur : 084 ms QT Int : 430 ms P-R-T Axes : 268 000 038 degrees QTc Int : 450 ms Unusual P axis, possible ectopic atrial rhythm Abnormal ECG When compared with ECG of 28-SEP-2019 20:48, (unconfirmed) No significant change Confirmed by Brandin Waite ([id number] on 10/01/2019 12:10:57 PM Referred By: REFERRED SELF Confirmed By:Brandin Waite
--- NOTE | 2019-10-01 12:11 | Electrocardiogram Report ---
Test Reason : Blood Pressure : / mmHG Vent. Rate : 065 BPM Atrial Rate : 065 BPM P-R Int : 130 ms QRS Dur : 082 ms QT Int : 428 ms P-R-T Axes : -82 002 042 degrees QTc Int : 445 ms Unusual P axis and short NH, probable junctional rhythm Abnormal ECG When compared with ECG of 28-SEP-2019 21:01, (unconfirmed) No significant change Confirmed by Brandin Waite ([id number] on 10/01/2019 12:11:05 PM Referred By: REFERRED SELF Confirmed By:Brandin Waite
--- NOTE | 2019-10-01 12:17 | Electrocardiogram Report ---
Test Reason : Blood Pressure : / mmHG Vent. Rate : 057 BPM Atrial Rate : 057 BPM P-R Int : 160 ms QRS Dur : 096 ms QT Int : 526 ms P-R-T Axes : 032 028 062 degrees QTc Int : 511 ms Sinus bradycardia Prolonged QT Abnormal ECG When compared with ECG of 28-SEP-2019 21:02, (unconfirmed) Sinus rhythm has replaced Junctional rhythm QT has lengthened Confirmed by Brandin Waite ([id number]) on 10/01/2019 12:16:58 PM Referred By: REFERRED SELF Confirmed By:Brandin Waite
--- NOTE | 2019-10-01 12:26 | Electrocardiogram Report ---
Test Reason : Blood Pressure : / mmHG Vent. Rate : 060 BPM Atrial Rate : 060 BPM P-R Int : 156 ms QRS Dur : 094 ms QT Int : 484 ms P-R-T Axes : 033 009 051 degrees QTc Int : 484 ms Normal sinus rhythm Normal ECG When compared with ECG of 29-SEP-2019 06:56, (unconfirmed) No significant change was found Confirmed by Brandin Waite ([id number]) on 10/01/2019 12:25:50 PM Referred By: REFERRED SELF Confirmed By:Brandin Waite
--- NOTE | 2019-10-01 13:21 | Electrocardiogram Report ---
Test Reason : Blood Pressure : / mmHG Vent. Rate : 071 BPM Atrial Rate : 071 BPM P-R Int : 154 ms QRS Dur : 092 ms QT Int : 434 ms P-R-T Axes : 047 028 067 degrees QTc Int : 471 ms Normal sinus rhythm Normal ECG When compared with ECG of 29-SEP-2019 09:20, (unconfirmed) No significant change was found Confirmed by Brandin Waite ([id number]) on 10/01/2019 1:21:23 PM Referred By: REFERRED SELF Confirmed By:Brandin Waite
[2019-10-01 13:29] LABS: Partial Thromboplastin Ratio 0.9; Partial Thromboplastin Time 26.3 Seconds (21.0-31.0)
[2019-10-01] MEDS: INSULIN GLARGINE SOLOSTAR 100 UNITS/ML 3 ML PEN SC SCH (20:13)
[2019-10-01] MEDS: ROCKLATAN OP SCH (20:14)
[2019-10-02] MEDS: LEVOTHYROXINE SODIUM 137 MCG TABLET PO SCH (05:58)
[2019-10-02 07:58] LABS: Partial Thromboplastin Time 27.6 Seconds (21.0-31.0)
[2019-10-02] MEDS: INSULIN ASPART 100 UNITS/ML 3 ML PEN SC SCH ×4 (08:20→20:50)
[2019-10-02] MEDS: MULTIVITAMIN TAB PO SCH (08:22)
[2019-10-02] MEDS: METOPROLOL SUCC 50MG EXT REL TAB PO SCH (08:22)
[2019-10-02] MEDS: TICAGRELOR 90 MG TAB PO SCH ×2 (08:22→19:50)
[2019-10-02] MEDS: FUROSEMIDE 20 MG TAB PO SCH (08:23)
[2019-10-02] MEDS: MAGNESIUM CHLORIDE 64MG DELAYED REL TAB PO SCH (08:23)
[2019-10-02] MEDS: AMLODIPINE BESYLATE 5 MG TAB PO SCH (08:23)
[2019-10-02] MEDS: FAMOTIDINE 20 MG TAB PO SCH ×2 (08:24→19:50)
[2019-10-02] MEDS: cilostazoL 100 MG TAB PO SCH (08:24)
[2019-10-02] MEDS: CALCIUM 600MG + VIT D 400 IU TAB PO SCH ×2 (08:24→19:50)
[2019-10-02] MEDS: ATORVASTATIN 40 MG TAB PO SCH (08:24)
[2019-10-02] MEDS: TIMOLOL MALEATE 0.25% OP SOLN 5 ML BTL OPB SCH (08:25)
[2019-10-02] MEDS: NON-FORMULARY PATIENT'S OWN MED OP SCH ×3 (08:25→19:50)
[2019-10-02] MEDS: cefTRIAXone SODIUM 2,000 MG in DEXTROSE 5% 50 ML IV SCH (08:42)
[2019-10-02] MEDS: ACETAMINOPHEN 325 MG TAB PO PRN ×2 (09:13→19:50)
[2019-10-02] MEDS ORDERED: STAT IV Infusion **Titration per Protocol STA (12:53)
[2019-10-02] MEDS ORDERED: AMIODARONE IV BOLUS & DRIP IV STA (12:53)
[2019-10-02] MEDS ORDERED: AMIODARONE / D5W 150 MG/100 ML BAG IV ONE (13:00)
[2019-10-02] MEDS ORDERED: 0.2 MICRON FILTER SET 1 EA IV ONE (13:00)
[2019-10-02] MEDS ORDERED: AMIODARONE / D5W 360 MG/200 ML BAG IV SCH (13:10)
--- NOTE | 2019-10-02 13:15 | Cardiology Progress Note ---
Date of Service October 02, 2019 Assessment & Plan (1) Non-ST elevation [place] (NSTEMI): (2) Diabetes: (3) PAD (peripheral artery disease): (4) Aortic stenosis: (5) History of CEA (carotid endarterectomy): (6) CKD (chronic kidney disease), stage III: (7) Atrial fibrillation with RVR: The patient has developed rapid atrial fibrillation. Although she is minimally symptomatic she does have a low blood pressure and I think it is best that we bolus her with amiodarone and started infusion. If she starts to decline we may have to perform an urgent cardioversion. Subjective The patient was doing well and then this afternoon developed atrial fibrillation with RVR. She feels her heart racing and pounding but she is not having any significant chest pain and she denies shortness of breath despite the high heart rates. Review of Systems Review of Systems: All systems reviewed & are unremarkable except as noted in HPI & below Nothing additional to add. Physical Exam Physical Exam: General: no acute distress and stated age Head: normocephalic, no masses, lesions, tenderness or abnormalities Eyes: conjunctiva are pink and non-injected, sclera clear Neck: supple, no adenopathy, no bruits, normal jugular venous pulse, no hepatojugular reflux Chest: normal shape and normal respiratory effort Lungs: clear to auscultation and percussion Cardiac Exam: - irregular rate & rhythm, no murmurs gallops or rubs - normal S1, normal S2 Pulses: 2(+) throughout Abdomen: abdomen soft, non-tender, no abnormal masses and no hepatosplenomegaly Musculoskeletal: no gait disturbance, no joint inflammation, no deforming arthritis Extremities: no edema and no cyanosis Neuro: grossly normal exam Results & Data Vital Signs (Past 12 Hours) Vital Signs Temp Pulse Pulse Resp BP BP Pulse Ox 10/02/19 12:45 36.6 C 134 H 20 103/68 97 10/02/19 11:33 36.5 C 68 18 146/71 H 100 10/02/19 07:23 36.7 C 94 H 20 144/80 H 93 10/02/19 07:20 83 10/02/19 03:50 36.8 C 70 16 152/69 H 96 Laboratory Results Laboratory Results - last 24 hr 10/01/19 10/01/19 10/01/19 12:57 16:11 18:07 APTT 26.3 PTT Ratio 0.9 Sodium Potassium Chloride Carbon Dioxide Anion Gap BUN Creatinine Est Cr Clr Drug Dosing Est GFR ( Amer) Est GFR (Non-Af Amer) BUN/Creatinine Ratio Glucose POC Glucose 85 166 H Calcium Magnesium Total Bilirubin AST ALT Alkaline Phosphatase Total Protein Albumin Globulin Albumin/Globulin Ratio [facility] 10/01/19 10/02/19 10/02/19 20:09 06:58 07:12 APTT 27.6 PTT Ratio 1.0 Sodium Potassium Chloride Carbon Dioxide Anion Gap BUN Creatinine Est Cr Clr Drug Dosing Est GFR ( Amer) Est GFR (Non-Af Amer) BUN/Creatinine Ratio Glucose POC Glucose 159 H 173 H Calcium Magnesium Total Bilirubin AST ALT Alkaline Phosphatase Total Protein Albumin Globulin Albumin/Globulin Ratio [facility] 10/02/19 10/02/19 11:01 12:55 APTT PTT Ratio Sodium Pending Potassium Pending Chloride Pending Carbon Dioxide Pending Anion Gap Pending BUN Pending Creatinine Pending Est Cr Clr Drug Dosing Pending Est GFR ( Amer) Pending Est GFR (Non-Af Amer) Pending BUN/Creatinine Ratio Pending Glucose Pending POC Glucose 226 H Calcium Pending Magnesium Pending Total Bilirubin Pending AST Pending ALT Pending Alkaline Phosphatase Pending Total Protein Pending Albumin Pending Globulin Pending Albumin/Globulin Ratio Pending TSH Pending Medications Administered Current Inpatient Medications Acetaminophen (Tylenol) 325 mg PO Q6H PRN PRN Reason: Pain or Fever Stop: 10/28/19 23:56 Last Admin: 10/02/19 09:13 Dose: 325 mg Documented by: Amlodipine Besylate (Norvasc) 2.5 mg PO DAILY [facility] Stop: 10/29/19 08:59 Last Admin: 10/02/19 08:23 Dose: 2.5 mg Documented by: Atorvastatin Calcium (Lipitor) 80 mg PO DAILY [facility] Stop: 10/29/19 08:59 Last Admin: 10/02/19 08:24 Dose: 80 mg Documented by: Cilostazol (Pletal) 100 mg PO BID [facility] Stop: 10/29/19 08:59 Last Admin: 10/02/19 08:24 Dose: 100 mg Documented by: Dextrose (Dextrose 50%) 25 - 50 ml IV UD PRN; Protocol PRN Reason: Hypoglycemia Protocol Stop: 10/29/19 00:14 Famotidine (Pepcid) 20 mg PO BID PO Stop: 10/29/19 08:59 Last Admin: 10/02/19 08:24 Dose: 20 mg Documented by: Furosemide (Lasix) 20 mg PO Q2D@0900 PO Stop: 10/28/19 23:56 Last Admin: 10/02/19 08:23 Dose: 20 mg Documented by: Glucagon (Glucagen) 1 mg SQ UD PRN; Protocol PRN Reason: Hypoglycemia Protocol Stop: 10/29/19 00:14 Glucose (Glucose 40%) 15 - 30 gm PO UD PRN; Protocol PRN Reason: Hypoglycemia Protocol Stop: 10/29/19 00:14 Glucose (Dex4 Glucose) 4 - 8 tabs PO UD PRN; Protocol PRN Reason: Hypoglycemia Protocol Stop: 10/29/19 00:14 Heparin Sodium/Dextrose () 1 ea IV NOW STA; Protocol Stop: 10/02/19 12:57 Ceftriaxone Sodium 2,000 mg/ (Dextrose) 70 mls @ 100 mls/hr IV DAILY PO; Protocol Stop: 10/09/19 08:59 Last Infusion: 10/02/19 09:24 Dose: Infused Documented by: Amiodarone HCl/Dextrose (Nexterone / D5w) 360 mg in 200 mls @ 33.333 mls/hr IV .Q6H PO Stop: 10/02/19 19:09 Amiodarone HCl/Dextrose (Nexterone / D5w) 360 mg in 200 mls @ 16.667 mls/hr IV .Q12H PO Stop: 11/01/19 19:09 Heparin Sodium/Dextrose (Heparin Sodium/Dextrose) 25,000 units in 500 mls @ 0.02 mls/hr IV .Q24H PO; Protocol Stop: 11/01/19 12:59 Insulin Aspart (Novolog Flexpen) 0 units SC ACHS PO Stop: 10/29/19 07:29 Last Admin: 10/02/19 11:53 Dose: 5 units Documented by: Insulin Glargine (Lantus Solostar Pen) 6 units SC HS PO Stop: 10/29/19 20:59 Last Admin: 10/01/19 20:13 Dose: 6 units Documented by: Levothyroxine Sodium (Levothyroxine Sodium) 137 mcg PO DAILYBB PO Stop: 10/29/19 06:29 Last Admin: 03/10/20 05:58 Dose: 137 mcg Documented by: Magnesium Chloride (Slow-Mag) 128 mg PO DAILY [facility] Stop: 10/29/19 08:59 Last Admin: 10/02/19 08:23 Dose: 128 mg Documented by: Metoprolol Succinate (Toprol Xl) 50 mg PO DAILY PO Stop: 10/29/19 08:59 Last Admin: 10/02/19 08:22 Dose: 50 mg Documented by: Miscellaneous (Carbohydrates For Hypoglycemia) 15 - 30 gm PO UD PRN PRN Reason: Hypoglycemia Treatment Stop: 10/29/19 00:14 Multivitamins (Multivitamin Tab) 1 tab PO DAILY PO Stop: 10/29/19 08:59 Last Admin: 10/02/19 08:22 Dose: 1 tab Documented by: Multivitamins/Minerals (Caltrate Plus) 1 tab PO BID [facility] Stop: 10/29/19 08:59 Last Admin: 10/02/19 08:24 Dose: 1 tab Documented by: Nitroglycerin (Nitrostat) 0.4 mg SL UD PRN PRN Reason: Chest Pain Stop: 10/28/19 23:56 Last Admin: 09/29/19 09:51 Dose: 0.4 mg Documented by: Non-Formulary Medication (Non-Formulary Patient's Own Med) 1 ea OP TID [facility] Stop: 10/29/19 20:59 Last Admin: 10/02/19 08:25 Dose: 1 drops Documented by: Blanca- Non- Formulary Patient's Own Med 1 ea OP HS PO Stop: 10/29/19 20:59 Last Admin: 10/01/19 20:14 Dose: 1 drops Documented by: Ondansetron HCl (Zofran) 4 mg IV Q6H PRN PRN Reason: Nausea Stop: 10/28/19 23:56 Polyethylene Glycol (Miralax Powder Packet) 17 gm PO DAILY PRN PRN Reason: Constipation Stop: 10/28/19 23:56 Ticagrelor (Brilinta) 90 mg PO BID [facility] Stop: 10/28/19 23:56 Last Admin: 10/02/19 08:22 Dose: 90 mg Documented by: Timolol Maleate (Timoptic 0.25% Oph) 1 drops OPB DAILY [facility] Stop: 10/29/19 08:59 Last Admin: 10/02/19 08:25 Dose: 1 drops Documented by:
[2019-10-02 13:21] LABS: BUN Creatinine Ratio 17.7 (10-20); Calcium 9.7 mg/dl (8.5-10.1); Creatinine Clr Calc Pharmacy 38.7 ml/min; Est GFR (African American) 48.4; Est GFR (Non-African American) 41.8; Magnesium 1.5 mg/dl (1.8-2.4); Potassium 3.7 mmol/L (3.5-5.1)
--- NOTE | 2019-10-02 13:28 | Hospitalist Progress Note ---
Date of Service October 02, 2019 Assessment & Plan (1) Non-ST elevation [place] (NSTEMI): Aortic stenosis Mitral stenosis -presented to emergency room for chest pain on 09/28/2019, admission troponin was 0.354, and was given medications including started on IV heparin drip (first dose given on 09/28/2019 around 11 PM for NSTEMI -troponin peaked to 0.516 on 09/29/2019 -as per cardiology assessment Dr. Perea on 09/29/2019: " This patient is a true vasculopath. She has had a non-STEMI and as an outpatient was on dual antiplatelet therapy with Brilinta and aspirin. She has been started on heparin. She had additional chest discomfort this morning treated with sublingual nitroglycerin. She would be a high risk heart catheterization and I believe we should try to treat her conservatively if possible. In addition to her current medications I would recommend an inch of Nitropaste every 6 hours. If she has additional chest pain then we may have to transfer her to the ICU where she can receive IV nitroglycerin. If medical treatment fails to control her chest pain then we would have to reconsider heart catheterization which should be done at [facility] in [place]. The patient in a shared decision-making process is agreeable to the above plan." -echocardiogram performed on 09/29/2019adn was compared to echocardiogram as outpatient on 06/06/2019 with same ejection fraction and noraml ventricular wall motion. continues to show aortic stenosis and mitral valve stenosis -09/30/2019: troponins downtrended, patient feeling better, denies chest pain today, continue heparin drip as per cardiology service. -10/01/2019: heparin drip stopped by cardiology service, patient asked to do some ambulation, stoppeded further nitro paste Atrial Fibrillation with Rapid Ventricular Vesponse -10/02/2019 Patient was seen in AM with no chest complaints and heart rate in normal sinus rhythm. Around 12:40 PM nurse paged medication doctor that patient was in atrial fibrillation with rapid ventricular response in the 150s. Medical doctor assessed the patient and she reported some chest discomfort and her heart rates were indeed fast and irregular. Cardiology physician also assessed the patient and ordered IV amidorone and IV heparin drip to be started. labs notable for hypomagnesemia of serum magnesium 1.5 , a low TSH 0.132, free T4 pending, mild increased in the creatinine to 1.25. mild hyponatremia of serum sodium 1.32 Chronic diastolic congestive heart failure, valvular heart disease with moderate aortic stenosis, moderate to severe mitral stenosis. -main cardiac management will be for the NSTEMI treatment -home dose furosemide is 20 mg Lasix every other day Hypokalemia -admission serum potassium 3.3, and was given potassium supplements -serum potassium normalized Hypomagnesemia -admission serum magnesium 1.5, patient received IV and oral magnesium, serum magnesium normalized -was continue on her usual home oral magnesium but again is 1.5 on 10/02/2019 - switch to magnesium 400 mg BID and give IV magnesium Hypothyroidism -10/02/2019: a low TSH 0.132, free T4 pending. hold home dose Levothyroxine 137 mcg daily while being treated for atrial fibrillation with rapid ventricular response that started on 10/02/2019 Hypertension -on amlodipine and Metoprolol succinate Chronic kidney disease stage III -creatinine 1.25 on 10/02/2019, patient will get IV volume from amiodarone IV and IV heparin urinary tract infection -the admitting physician started patient on IV ceftriaxone on 09/29/2019 because of bacteria in urine on admission. patient does not have dysuria symptoms. -urine culture as Enterobacter aerogenes, continue ceftriaxone for now Peripheral vascular disease -history of left carotid endarterectomy and also as per previous cardiology notes, she has extensive bilateral superficial femoral artery stenting for claudication -on cilostazol, Brilinta and statin Gastroesophageal reflux disease -Pepcid. Type 2 diabetes mellitus with meterman current use of insulin -Hold home dose Trulicity and home dose repaglinide -currently on Lantus 6 units daily with sliding scale insulin Deep venous thrombosis prophylaxis: to resume IV heparin. Admission and Anticipated Discharge Date Admission Date: September 28, 2019 Subjective Patient was seen in AM with no chest complaints and heart rate in normal sinus rhythm. Around 12:40 PM nurse paged medication doctor that patient was in atrial fibrillation with rapid ventricular response in the 150s. Medical doctor assessed the patient and she reported some chest discomfort and her heart rates were indeed fast and irregular. Cardiology physician also assessed the patient and ordered IV amidorone and IV heparin drip to be started. labs notable for hypomagnesemia of serum magnesium 1.5 , a low TSH 0.132, free T4 pending, mild increased in the creatinine to 1.25. mild hyponatremia of serum sodium 1.32 Review of Systems Review of Systems: All systems reviewed & are unremarkable except as noted in HPI & below Physical Exam Constitutional: cooperative Eyes: PERRL, conjunctivae normal, anicteric sclerae EOM intact bilaterally ENMT: external ear and nose normal, oropharynx normal Neck: normal visual inspection Respiratory: normal respiratory effort, lungs clear to auscultation Cardiovascular: Rate/Rhythm: + tachycardic and + irregularly irregular Gastrointestinal (Abdomen): normal bowel sounds, soft, nontender, no hepatosplenomegaly Musculoskeletal: Head/Neck/Chest: normocephalic and head atraumatic Neurologic: PERRL, EOMI, accommodation nl, no face palsy, no dysarthria CN's II-XI intact bilaterally Psychiatric: A+Ox3, euthymic affect Results & Data ([facility]) Vital Signs (Past 12 Hours) Vital Signs Temp Pulse Pulse Pulse Resp BP BP 10/02/19 13:11 105 H 84/58 L 10/02/19 12:45 36.6 C 134 H 20 103/68 10/02/19 11:33 36.5 C 68 18 146/71 H 10/02/19 07:23 36.7 C 94 H 20 144/80 H 10/02/19 07:20 83 10/02/19 03:50 36.8 C 70 16 152/69 H Pulse Ox 10/02/19 13:11 10/02/19 12:45 97 10/02/19 11:33 100 10/02/19 07:23 93 10/02/19 07:20 10/02/19 03:50 96
[2019-10-02 13:34] LABS: Albumin Globulin Ratio 0.6 (0.9-2); Bilirubin,Total 0.8 mg/dl (0.2-1); Thyroid Stimulating Hormone 0.132 uIu/ml (0.300-4.500)
[2019-10-02 13:46] LABS: T4 Free Thyroxine 2.06 ng/dl (0.8-1.6)
[2019-10-02] MEDS ORDERED: MAGNESIUM OXIDE 400 MG TAB PO STA (13:46)
[2019-10-02] MEDS ORDERED: HEPARIN IV BOLUS 5,000 UNITS in SYRINGE 0 ML IV STA (13:55)
[2019-10-02] MEDS: HEPARIN SODIUM/DEXTROSE 25,000 UNITS/500 ML BAG IV SCH (14:05)
[2019-10-02] MEDS: MAGNESIUM SULFATE / D5W 1 GM/100 ML BAG IV SCH ×2 (14:09→15:04)
[2019-10-02] MEDS: AMIODARONE / D5W 360 MG/200 ML BAG IV SCH (19:05)
[2019-10-02 19:22] LABS: BUN Creatinine Ratio 15.4 (10-20); Creatinine Clr Calc Pharmacy 35.4 ml/min; Est GFR (African American) 43.3; Est GFR (Non-African American) 37.4; Magnesium 2.3 mg/dl (1.8-2.4); Potassium 3.6 mmol/L (3.5-5.1)
[2019-10-02] MEDS: MAGNESIUM OXIDE 400 MG TAB PO SCH (19:51)
[2019-10-02] MEDS: INSULIN GLARGINE SOLOSTAR 100 UNITS/ML 3 ML PEN SC SCH (20:50)
[2019-10-02] MEDS: ROCKLATAN OP SCH (20:50)
[2019-10-02 20:54] LABS: Partial Thromboplastin Time 56.7 Seconds (21.0-31.0)
[2019-10-03] MEDS: ACETAMINOPHEN 325 MG TAB PO PRN ×3 (03:49→16:48)
--- NOTE | 2019-10-03 06:28 | Ultrasound Report ---
US venous doppler LE LT HISTORY: 78 years-old Female pain in left lower extremity acute left lower extremity pain COMPARISON: Duplex venous Doppler 09/08/2014 TECHNIQUE: Multiple real-time sonographic images of the left lower extremity deep venous structures w ere obtained assessing grayscale appearance, color and spectral flow FINDINGS: Unchanged linear echogenicities of the common femoral and superficial femoral veins are chronic. The deep venous structures are otherwise unremarkable with normal flow, compressibility, phasicity and au gmentation. Limited evaluation of the calf vessels. IMPRESSION: No sonographic evidence of acute deep venous thrombosis. ACT 112: Negative or not required by law. The above report was generated using voice recognition software. It may contain grammatical, syntax o r spelling errors. Electronically signed by: Houston Headley M.D. 10/03/2019 6:27 AM
[2019-10-03 06:55] LABS: Hematocrit (blood only) 29.5 % (37-47); Mean Corpuscular Hemoglobin 32.7 pg (25-34); Mean Corpuscular Hgb Conc 33.9 g/dL (32-36); Mean Corpuscular Volume 96.4 fL (80-100); Mean Platelet Volume 10.8 fL (7.4-10.4); Platelet Count 259 K/uL (130-400); RDW Coefficient of Variation 14.3 % (11.5-14.5); RDW Standard Deviation 50.3 fL (36.4-46.3); Red Blood Count 3.06 M/uL (4.2-5.4); White Blood Count 11.15 K/uL (4.8-10.8)
[2019-10-03] MEDS: AMIODARONE / D5W 360 MG/200 ML BAG IV SCH (07:10)
[2019-10-03 07:15] LABS: Partial Thromboplastin Ratio 2.2; Partial Thromboplastin Time 60.3 Seconds (21.0-31.0)
[2019-10-03 07:34] LABS: Albumin Level 2.5 gm/dl (3.4-5.0); BUN Creatinine Ratio 17.4 (10-20); Calcium 8.8 mg/dl (8.5-10.1); Creatinine Clr Calc Pharmacy 35.9 ml/min; Est GFR (African American) 44.1; Magnesium 1.9 mg/dl (1.8-2.4); Potassium 3.3 mmol/L (3.5-5.1)
[2019-10-03 07:36] LABS: Albumin Globulin Ratio 0.6 (0.9-2); Bilirubin,Total 0.6 mg/dl (0.2-1); Globulin 4.3 gm/dl (2.5-4.0); Total Protein 6.8 gm/dl (6.4-8.2)
[2019-10-03] MEDS: MAGNESIUM OXIDE 400 MG TAB PO SCH ×2 (08:47→20:54)
[2019-10-03] MEDS: TICAGRELOR 90 MG TAB PO SCH ×2 (08:47→22:08)
[2019-10-03] MEDS: ATORVASTATIN 40 MG TAB PO SCH (08:48)
[2019-10-03] MEDS: MULTIVITAMIN TAB PO SCH (08:48)
[2019-10-03] MEDS: CALCIUM 600MG + VIT D 400 IU TAB PO SCH ×2 (08:48→20:54)
[2019-10-03] MEDS: FAMOTIDINE 20 MG TAB PO SCH ×2 (08:48→20:54)
[2019-10-03] MEDS: METOPROLOL SUCC 50MG EXT REL TAB PO SCH (08:48)
[2019-10-03] MEDS: AMLODIPINE BESYLATE 5 MG TAB PO SCH (08:48)
[2019-10-03] MEDS: TIMOLOL MALEATE 0.25% OP SOLN 5 ML BTL OPB SCH (08:49)
[2019-10-03] MEDS: NON-FORMULARY PATIENT'S OWN MED OP SCH ×3 (08:49→20:57)
[2019-10-03] MEDS: INSULIN ASPART 100 UNITS/ML 3 ML PEN SC SCH ×4 (08:52→20:58)
[2019-10-03] MEDS: cefTRIAXone SODIUM 2,000 MG in DEXTROSE 5% 50 ML IV SCH (09:16)
--- NOTE | 2019-10-03 09:30 | Cardiology Progress Note ---
Date of Service October 03, 2019 Assessment & Plan (1) Non-ST elevation [place] (NSTEMI): (2) Diabetes: (3) PAD (peripheral artery disease): (4) Aortic stenosis: (5) History of CEA (carotid endarterectomy): (6) CKD (chronic kidney disease), stage III: (7) Atrial fibrillation with RVR: Going to switch the patient over to oral amiodarone today. Post discharge she will have to be anticoagulated. Instead of Brilinta, leave the recommendations would be for Plavix and anticoagulation with a NOAC such as Eliquis. I will continue the heparin for now until her lower extremity problem is resolved or evaluated. Subjective The patient has no cardiac complaints today however, she is complaining left leg discomfort. Yesterday he was up in the thigh area but today it is more in her calf. She has no open wounds in the extremity is warm and pink and not swollen. She does have some back problems and this may have been related to her immobility. She may benefit from physical therapy. Review of Systems Review of Systems: All systems reviewed & are unremarkable except as noted in HPI & below Nothing additional to add. Physical Exam Physical Exam: General: no acute distress and stated age Head: normocephalic, no masses, lesions, tenderness or abnormalities Eyes: conjunctiva are pink and non-injected, sclera clear Neck: supple, no adenopathy, no bruits, normal jugular venous pulse, no hepatojugular reflux Chest: normal shape and normal respiratory effort Lungs: clear to auscultation and percussion Cardiac Exam: - regular rate & rhythm, systolic murmur- normal S1, normal S2 Pulses: 2(+) throughout Abdomen: abdomen soft, non-tender, no abnormal masses and no hepatosplenomegaly Musculoskeletal: no gait disturbance, no joint inflammation, no deforming arthritis Extremities: no edema and no cyanosis Neuro: grossly normal exam Results & Data Vital Signs (Past 12 Hours) Vital Signs Temp Pulse Pulse Resp BP BP Pulse Ox 10/03/19 07:43 37.1 C 63 19 122/66 95 10/03/19 02:35 36.8 C 68 18 119/70 98 10/03/19 02:03 62 19 106/65 10/03/19 00:00 36.7 C 76 18 118/55 L 98 10/02/19 23:19 61 Laboratory Results Laboratory Results - last 24 hr 10/02/19 10/02/19 10/02/19 11:01 12:55 16:06 WBC RBC Hgb Hct MCV MCH MCHC RDW Std Deviation RDW Coeff of Mj Plt Count MPV APTT PTT Ratio Sodium 132 L Potassium 3.7 Chloride 99 Carbon Dioxide 24 Anion Gap 9.0 BUN 22 H Creatinine 1.25 H Est Cr Clr Drug Dosing 38.7 Est GFR ( Amer) 48.4 Est GFR (Non-Af Amer) 41.8 BUN/Creatinine Ratio 17.7 Glucose 279 H POC Glucose 226 H 291 H Calcium 9.7 Magnesium 1.5 L Total Bilirubin 0.8 AST 16 ALT 20 Alkaline Phosphatase 89 Total Protein 8.0 Albumin 3.0 L Globulin 5.0 H Albumin/Globulin Ratio 0.6 L TSH 0.132 L Free T4 2.06 H 10/02/19 10/02/19 10/02/19 18:34 20:11 20:14 WBC RBC Hgb Hct MCV MCH MCHC RDW Std Deviation RDW Coeff of Mj Plt Count MPV APTT 56.7 H* PTT Ratio 2.0 Sodium 130 L Potassium 3.6 Chloride 98 Carbon Dioxide 23 Anion Gap 9.0 BUN 21 H Creatinine 1.37 H Est Cr Clr Drug Dosing 35.4 Est GFR ( Amer) 43.3 Est GFR (Non-Af Amer) 37.4 BUN/Creatinine Ratio 15.4 Glucose 274 H POC Glucose 238 H Calcium 9.0 Magnesium 2.3 Total Bilirubin AST ALT Alkaline Phosphatase Total Protein Albumin Globulin Albumin/Globulin Ratio TSH Free T4 10/03/19 10/03/19 10/03/19 06:20 06:20 06:20 WBC 11.15 H RBC 3.06 L Hgb 10.0 L Hct 29.5 L MCV 96.4 MCH 32.7 MCHC 33.9 RDW Std Deviation 50.3 H RDW Coeff of Mj 14.3 Plt Count 259 MPV 10.8 H APTT 60.3 H* PTT Ratio 2.2 Sodium 129 L Potassium 3.3 L Chloride 97 L Carbon Dioxide 22 Anion Gap 10.0 BUN 24 H Creatinine 1.35 H Est Cr Clr Drug Dosing 35.9 Est GFR ( Amer) 44.1 Est GFR (Non-Af Amer) 38.0 BUN/Creatinine Ratio 17.4 Glucose 234 H POC Glucose Calcium 8.8 Magnesium 1.9 Total Bilirubin 0.6 AST 16 ALT 17 Alkaline Phosphatase 76 Total Protein 6.8 Albumin 2.5 L Globulin 4.3 H Albumin/Globulin Ratio 0.6 L TSH Free T4 10/03/19 07:18 WBC RBC Hgb Hct MCV MCH MCHC RDW Std Deviation RDW Coeff of Mj Plt Count MPV APTT PTT Ratio Sodium Potassium Chloride Carbon Dioxide Anion Gap BUN Creatinine Est Cr Clr Drug Dosing Est GFR ( Amer) Est GFR (Non-Af Amer) BUN/Creatinine Ratio Glucose POC Glucose 244 H Calcium Magnesium Total Bilirubin AST ALT Alkaline Phosphatase Total Protein Albumin Globulin Albumin/Globulin Ratio TSH Free T4 Medications Administered Current Inpatient Medications Acetaminophen (Tylenol) 325 mg PO Q6H PRN PRN Reason: Pain or Fever Stop: 10/28/19 23:56 Last Admin: 10/03/19 03:49 Dose: 325 mg Documented by: Amiodarone HCl (Cordarone) 200 mg PO TIDM PO Stop: 11/02/19 11:59 Amlodipine Besylate (Norvasc) 2.5 mg PO DAILY PO Stop: 10/29/19 08:59 Last Admin: 10/03/19 08:48 Dose: 2.5 mg Documented by: Atorvastatin Calcium (Lipitor) 80 mg PO DAILY PO Stop: 10/29/19 08:59 Last Admin: 10/03/19 08:48 Dose: 80 mg Documented by: Cilostazol (Pletal) 100 mg PO BID PO Stop: 10/29/19 08:59 Last Admin: 10/02/19 08:24 Dose: 100 mg Documented by: Dextrose (Dextrose 50%) 25 - 50 ml IV UD PRN; Protocol PRN Reason: Hypoglycemia Protocol Stop: 10/29/19 00:14 Famotidine (Pepcid) 20 mg PO BID PO Stop: 10/29/19 08:59 Last Admin: 10/03/19 08:48 Dose: 20 mg Documented by: Furosemide (Lasix) 20 mg PO Q2D@0900 PO Stop: 10/28/19 23:56 Last Admin: 10/02/19 08:23 Dose: 20 mg Documented by: Glucagon (Glucagen) 1 mg SQ UD PRN; Protocol PRN Reason: Hypoglycemia Protocol Stop: 10/29/19 00:14 Glucose (Glucose 40%) 15 - 30 gm PO UD PRN; Protocol PRN Reason: Hypoglycemia Protocol Stop: 10/29/19 00:14 Glucose (Dex4 Glucose) 4 - 8 tabs PO UD PRN; Protocol PRN Reason: Hypoglycemia Protocol Stop: 10/29/19 00:14 Ceftriaxone Sodium 2,000 mg/ (Dextrose) 70 mls @ 100 mls/hr IV DAILY [facility]; Protocol Stop: 10/09/19 08:59 Last Admin: 10/03/19 09:16 Dose: 100 mls/hr Documented by: Heparin Sodium/Dextrose (Heparin Sodium/Dextrose) 25,000 units in 500 mls @ 23 mls/hr IV .[id number] [facility]; Protocol Stop: 11/01/19 13:59 Last Titration: 10/03/19 07:11 Dose: 1,150 units/hr, 23 mls/hr Documented by: Insulin Aspart (Novolog Flexpen) 0 units SC ACHS [facility] Stop: 10/29/19 07:29 Last Admin: 10/03/19 08:52 Dose: 11 units Documented by: Insulin Glargine (Lantus Solostar Pen) 6 units SC HS [facility] Stop: 10/29/19 20:59 Last Admin: 10/02/19 20:50 Dose: 6 units Documented by: Magnesium Oxide (Mag-Ox) 400 mg PO BID [facility] Stop: 11/01/19 20:59 Last Admin: 10/03/19 08:47 Dose: 400 mg Documented by: Metoprolol Succinate (Toprol Xl) 50 mg PO DAILY [facility] Stop: 10/29/19 08:59 Last Admin: 10/03/19 08:48 Dose: 50 mg Documented by: Miscellaneous (Carbohydrates For Hypoglycemia) 15 - 30 gm PO UD PRN PRN Reason: Hypoglycemia Treatment Stop: 10/29/19 00:14 Multivitamins (Multivitamin Tab) 1 tab PO DAILY [facility] Stop: 10/29/19 08:59 Last Admin: 10/03/19 08:48 Dose: 1 tab Documented by: Multivitamins/Minerals (Caltrate Plus) 1 tab PO BID [facility] Stop: 10/29/19 08:59 Last Admin: 10/03/19 08:48 Dose: 1 tab Documented by: Nitroglycerin (Nitrostat) 0.4 mg SL UD PRN PRN Reason: Chest Pain Stop: 04/05/20 23:56 Last Admin: 09/29/19 09:51 Dose: 0.4 mg Documented by: Non-Formulary Medication (Non-Formulary Patient's Own Med) 1 ea OP TID [facility] Stop: 10/29/19 20:59 Last Admin: 10/03/19 08:49 Dose: 2 drops Documented by: Blanca- Non- Formulary Patient's Own Med 1 ea OP HS [facility] Stop: 10/29/19 20:59 Last Admin: 10/02/19 20:50 Dose: 1 drops Documented by: Ondansetron HCl (Zofran) 4 mg IV Q6H PRN PRN Reason: Nausea Stop: 10/28/19 23:56 Polyethylene Glycol (Miralax Powder Packet) 17 gm PO DAILY PRN PRN Reason: Constipation Stop: 10/28/19 23:56 Ticagrelor (Brilinta) 90 mg PO BID [facility] Stop: 10/28/19 23:56 Last Admin: 10/03/19 08:47 Dose: 90 mg Documented by: Timolol Maleate (Timoptic 0.25% Oph) 1 drops OPB DAILY [facility] Stop: 10/29/19 08:59 Last Admin: 10/03/19 08:49 Dose: 1 drops Documented by:
[2019-10-03] MEDS: AMIODARONE 200 MG TAB PO SCH ×2 (11:46→16:49)
[2019-10-03] MEDS: HEPARIN SODIUM/DEXTROSE 25,000 UNITS/500 ML BAG IV SCH (11:47)
--- NOTE | 2019-10-03 16:01 | Electrocardiogram Report ---
Test Reason : Blood Pressure : / mmHG Vent. Rate : 178 BPM Atrial Rate : 187 BPM P-R Int : 000 ms QRS Dur : 088 ms QT Int : 242 ms P-R-T Axes : 000 -21 158 degrees QTc Int : 416 ms Atrial fibrillation with rapid ventricular response with premature ventricular or aberrantly conducte d complexes Anterior infarct , age undetermined Marked ST abnormality, possible inferolateral subendocardial injury Abnormal ECG When compared with ECG of 30-SEP-2019 06:39, Atrial fibrillation has replaced Sinus rhythm Vent. rate has increased BY [address] now depressed in Anterolateral leads T wave inversion now evident in Lateral leads Confirmed by Brandin Waite ([id number]) on 10/03/2019 4:01:03 PM Referred By: REFERRED SELF Confirmed By:Brandin Waite
[2019-10-03] MEDS ORDERED: POTASSIUM CHLORIDE 20 MEQ TABCR PO STA (17:03)
[2019-10-03] MEDS ORDERED: TRAMADOL HCL 50 MG TABLET PO PRN (17:29)
--- NOTE | 2019-10-03 17:33 | Hospitalist Progress Note ---
Date of Service October 03, 2019 Assessment & Plan (1) Non-ST elevation NV (NSTEMI): Aortic stenosis Mitral stenosis Per previous hospitalist Dr. Kieran Huffman's notes: -presented to emergency room for chest pain on 09/28/2019, admission troponin was 0.354, and was given medications including started on IV heparin drip (first dose given on 09/28/2019 around 11 PM for NSTEMI -troponin peaked to 0.516 on 09/29/2019 troponins downtrended, patient feeling better -Chest pain-free Atrial Fibrillation with Rapid Ventricular Vesponse Per previous hospitalist Dr. Kieran Huffman's notes: -10/02/2019 Patient was seen in AM with no chest complaints and heart rate in normal sinus rhythm. Around 12:40 PM nurse paged medication doctor that patient was in atrial fibrillation with rapid ventricular response in the 150s. Medical doctor assessed the patient and she reported some chest discomfort and her heart rates were indeed fast and irregular. Cardiology physician also assessed the patient and ordered IV amidorone and IV heparin drip to be started. labs notable for hypomagnesemia of serum magnesium 1.5 , a low TSH 0.132, free T4 pending, mild increased in the creatinine to 1.25. mild hyponatremia of serum sodium 1.32 10/03/2019 Transition to p.o. amiodarone, heparin drip continued Possible septic arthritis versus crystal related arthritis, left foot CT foot: Pending Add daptomycin to ceftriaxone IV Ice packs, Tylenol scheduled, PRN tramadol Ortho consulted Back pain CT lumbar spine: Ordered PRN analgesics per above Chronic diastolic congestive heart failure, valvular heart disease with moderate aortic stenosis, moderate to severe mitral stenosis. -Creatinine elevated Hold home dose furosemide is 20 mg Lasix every other day Hypokalemia Continue to replace Hypomagnesemia Resolved Hypothyroidism Per previous hospitalist Dr. Kieran Huffman's notes: -10/02/2019: a low TSH 0.132, free T4 elevated 2.06. hold home dose Levothyroxine 137 mcg daily while being treated for atrial fibrillation with rapid ventricular response that started on 10/02/2019 Hypertension -on amlodipine and Metoprolol succinate Acute kidney injury on chronic kidney disease stage III -Creatinine 1.30 Hold Lasix Start gentle IV fluids urinary tract infection -urine culture as Enterobacter aerogenes, continue ceftriaxone for now Peripheral vascular disease Per previous hospitalist Dr. Kieran Huffman's notes: -history of left carotid endarterectomy and also as per previous cardiology notes, she has extensive bilateral superficial femoral artery stenting for claudication -on cilostazol, Brilinta and statin Gastroesophageal reflux disease -Pepcid. Type 2 diabetes mellitus with shelter current use of insulin -Hold home dose Trulicity and home dose repaglinide -currently on Lantus 6 units daily with sliding scale insulin Deep venous thrombosis prophylaxis: IV heparin. Case and plan of care discussed with patient and her daughter at the bedside All questions were answered They are understanding, comfortable, agreeable with plan of care Admission and Anticipated Discharge Date Admission Date: September 28, 2019 Subjective Follow-up for A. fib, NSTEMI, etc. Seen sitting up in bed, uncomfortable secondary to severe pain in the left foot started today Tylenol helping Also reports low back pain Denies numbness or paresthesias No chest pain, shortness of breath, palpitations, dizziness Denies bleeding No other symptoms Review of Systems Review of Systems: All systems reviewed & are unremarkable except as noted in HPI & below Physical Exam Physical Exam: General- oriented x 3, not in distress, speaks in sentences with no effort or accessory muscle use Head- atraumatic Eyes- PERRL, EOMI, anicteric ENT- oropharynx clear Neck- supple, no JVD, no adenopathy, no thyromegaly; carotids +2/2, no bruits appreciated Lungs- clear to auscultation bilaterally, no rales/wheezes Heart- normal rate, regular rhythm; no murmur, no gallop, no rub appreciated Abdomen- normal bowel sounds, nondistended, soft, nontender, no masses or hepatosplenomegaly Extremities-left foot: Moderate edema mostly in the ankle, moderate warmth, moderate tenderness Poor range of motion due to severe pain No cyanosis Otherwise left lower extremity essentially normal Right lower extremity essentially normal Neuro- alert, oriented x 3; CN 2-12 grossly intact; motor 5/5 bilaterally;sensation 100% on all extremities; no other gross focal neurologic deficits Skin- warm & dry Results & Data ([facility]) Vital Signs (Past 12 Hours) Vital Signs Temp Pulse Resp BP BP Pulse Ox 10/03/19 15:22 36.7 C 71 17 101/64 94 10/03/19 11:41 37.4 C 68 18 141/69 H 97 10/03/19 07:43 37.1 C 63 19 122/66 95 Laboratory Results Laboratory Results - last 24 hr 10/02/19 10/02/19 10/03/19 20:11 20:14 06:20 WBC 11.15 H RBC 3.06 L Hgb 10.0 L Hct 29.5 L MCV 96.4 MCH 32.7 MCHC 33.9 RDW Std Deviation 50.3 H RDW Coeff of Mj 14.3 Plt Count 259 MPV 10.8 H APTT 56.7 H* PTT Ratio 2.0 Sodium Potassium Chloride Carbon Dioxide Anion Gap BUN Creatinine Est Cr Clr Drug Dosing Est GFR ( Amer) Est GFR (Non-Af Amer) BUN/Creatinine Ratio Glucose POC Glucose 238 H Calcium Magnesium Total Bilirubin AST ALT Alkaline Phosphatase Total Protein Albumin Globulin Albumin/Globulin Ratio 10/03/19 10/03/19 10/03/19 06:20 06:20 07:18 WBC RBC Hgb Hct MCV MCH MCHC RDW Std Deviation RDW Coeff of Mj Plt Count MPV APTT 60.3 H* PTT Ratio 2.2 Sodium 129 L Potassium 3.3 L Chloride 97 L Carbon Dioxide 22 Anion Gap 10.0 BUN 24 H Creatinine 1.35 H Est Cr Clr Drug Dosing 35.9 Est GFR ( Amer) 44.1 Est GFR (Non-Af Amer) 38.0 BUN/Creatinine Ratio 17.4 Glucose 234 H POC Glucose 244 H Calcium 8.8 Magnesium 1.9 Total Bilirubin 0.6 AST 16 ALT 17 Alkaline Phosphatase 76 Total Protein 6.8 Albumin 2.5 L Globulin 4.3 H Albumin/Globulin Ratio 0.6 L 10/03/19 10/03/19 11:28 16:17 WBC RBC Hgb Hct MCV MCH MCHC RDW Std Deviation RDW Coeff of Mj Plt Count MPV APTT PTT Ratio Sodium Potassium Chloride Carbon Dioxide Anion Gap BUN Creatinine Est Cr Clr Drug Dosing Est GFR ( Amer) Est GFR (Non-Af Amer) BUN/Creatinine Ratio Glucose POC Glucose 267 H 211 H Calcium Magnesium Total Bilirubin AST ALT Alkaline Phosphatase Total Protein Albumin Globulin Albumin/Globulin Ratio
[2019-10-03] MEDS ORDERED: DAPTOMYCIN CONSULT ACTIVE PRN (17:42)
[2019-10-03] MEDS: DAPTOmycin 325 MG in SYRINGE 0 ML IV SCH (18:31)
--- NOTE | 2019-10-03 18:39 | CT Scan Report ---
CT lumbar spine wo con CT DOSE: 369.94 mGy.cm HISTORY: Pain back pain TECHNIQUE: Multiaxial CT images of the lumbar spine were performed and reformatted in the sagittal an d coronal plane without the use of contrast. A dose lowering technique was utilized adhering to the principles of ALARA. COMPARISON: None. FINDINGS: No fractures. No subluxation. Paraspinal soft tissues are unremarkable. Considerable degene rative disc changes throughout. Vacuum discs at several locations including L4-L5, L2-L3, and T12-L1. Degenerative change of the vertebral endplates throughout. No evidence for major compromise of the sp inal canal. Degenerative change of the posterior elements. Moderate multifactorial narrowing of the spinal canal at L2-L3, L3-L4, and to a moderate degree L4-5. IMPRESSION: 1. No acute process. 2. Considerable degenerative disc change as discussed. 3. Moderate multilevel narrowing of the spinal canal. ACT 112: Negative or not required by law. The above report was generated using voice recognition software. It may contain grammatical, syntax or spelling errors. Electronically signed by: Valeriy Batista M.D. 10/03/2019 6:31 PM
--- NOTE | 2019-10-03 18:39 | CT Scan Report ---
CT foot LT wo con CT DOSE: HISTORY: Pain. Edema. left ankle/foot pain, swelling TECHNIQUE: Multiaxial CT images of the left foot were performed and reformatted in the sagittal and c oronal plane without the use of contrast. A dose lowering technique was utilized adhering to the deonna nciJoce. COMPARISON: None. FINDINGS: Findings of considerable soft tissue edematous change. Considerable degenerative change of the bony structures throughout. Small old evolutions from the posterior malleolus as well as medial a nd lateral malleolus. Significant degenerative change of the subtalar joint. No well-defined acute posttraumatic abnormality. No evidence for a bony destructive process. IMPRESSION: 1. Severe degenerative change. 2. Moderate generalized soft tissue edematous change. 3. No acute bony abnormality or destructive process. ACT 112: Negative or not required by law. The above report was generated using voice recognition software. It may contain grammatical, syntax or spelling errors. Electronically signed by: Valeriy Batista M.D. 10/03/2019 6:34 PM
[2019-10-03] MEDS ORDERED: SODIUM CHLORIDE 0.9% 1000ML 1,000 ML IV SCH (20:30)
[2019-10-03] MEDS: ROCKLATAN OP SCH (20:57)
[2019-10-03] MEDS: INSULIN GLARGINE SOLOSTAR 100 UNITS/ML 3 ML PEN SC SCH (20:59)
[2019-10-03] MEDS: ACETAMINOPHEN 500 MG TAB PO SCH (23:21)
[2019-10-04] MEDS: ACETAMINOPHEN 500 MG TAB PO SCH ×4 (05:09→23:25)
[2019-10-04 08:21] LABS: Partial Thromboplastin Ratio 2.1
[2019-10-04] MEDS: INSULIN ASPART 100 UNITS/ML 3 ML PEN SC SCH ×4 (08:23→21:09)
[2019-10-04] MEDS: METOPROLOL SUCC 50MG EXT REL TAB PO SCH (08:24)
[2019-10-04] MEDS: ATORVASTATIN 40 MG TAB PO SCH (08:24)
[2019-10-04] MEDS: AMLODIPINE BESYLATE 5 MG TAB PO SCH (08:24)
[2019-10-04] MEDS: AMIODARONE 200 MG TAB PO SCH ×3 (08:24→16:57)
[2019-10-04] MEDS: MULTIVITAMIN TAB PO SCH (08:24)
[2019-10-04] MEDS: FAMOTIDINE 20 MG TAB PO SCH ×2 (08:24→21:10)
[2019-10-04] MEDS: TICAGRELOR 90 MG TAB PO SCH (08:24)
[2019-10-04] MEDS: CALCIUM 600MG + VIT D 400 IU TAB PO SCH ×2 (08:25→21:10)
[2019-10-04] MEDS: MAGNESIUM OXIDE 400 MG TAB PO SCH ×2 (08:25→21:10)
[2019-10-04] MEDS: TIMOLOL MALEATE 0.25% OP SOLN 5 ML BTL OPB SCH (08:26)
[2019-10-04] MEDS: NON-FORMULARY PATIENT'S OWN MED OP SCH ×3 (08:26→21:04)
[2019-10-04 08:28] LABS: Partial Thromboplastin Time 59.2 Seconds (21.0-31.0)
[2019-10-04] MEDS: HEPARIN SODIUM/DEXTROSE 25,000 UNITS/500 ML BAG IV SCH (08:29)
[2019-10-04] MEDS: cefTRIAXone SODIUM 2,000 MG in DEXTROSE 5% 50 ML IV SCH (08:49)
--- NOTE | 2019-10-04 10:28 | Hospitalist Progress Note ---
Date of Service October 04, 2019 Assessment & Plan (1) Non-ST elevation MT (NSTEMI): Aortic stenosis Mitral stenosis Per previous hospitalist Dr. Kieran Huffman's notes: -presented to emergency room for chest pain on 09/28/2019, admission troponin was 0.354, and was given medications including started on IV heparin drip (first dose given on 09/28/2019 around 11 PM for NSTEMI -troponin peaked to 0.516 on 09/29/2019 troponins downtrended, patient feeling better -Chest pain-free Atrial Fibrillation with Rapid Ventricular Vesponse Per previous hospitalist Dr. Kieran Huffman's notes: -10/02/2019 Patient was seen in AM with no chest complaints and heart rate in normal sinus rhythm. Around 12:40 PM nurse paged medication doctor that patient was in atrial fibrillation with rapid ventricular response in the 150s. Medical doctor assessed the patient and she reported some chest discomfort and her heart rates were indeed fast and irregular. Cardiology physician also assessed the patient and ordered IV amidorone and IV heparin drip to be started. labs notable for hypomagnesemia of serum magnesium 1.5 , a low TSH 0.132, free T4 pending, mild increased in the creatinine to 1.25. mild hyponatremia of serum sodium 1.32 10/04/2019 Remains in sinus rhythm Continue p.o. amiodarone, Brilinta transition to Plavix Heparin drip transition to Eliquis Continue to monitor Appreciate cardiology service recommendations Left foot swelling and pain, possible gout, doubt septic arthritis CT foot: No fractures, no fluid collection Pain resolving with ice packs, scheduled Tylenol Currently on daptomycin and ceftriaxone, likely DC daptomycin tomorrow if continues to remain afebrile and improving Orthopedic service consulted-no further interventions at this time, appreciate recommendation Ice packs, Tylenol scheduled, PRN tramadol PT OT evaluation Back pain CT lumbar spine: No acute process, considerable degenerative disc change, moderate multilevel narrowing of the spinal Resolved today PRN analgesics per above Chronic diastolic congestive heart failure, valvular heart disease with moderate aortic stenosis, moderate to severe mitral stenosis. -Creatinine elevated 1.3, baseline 1.04 Holding Lasix for now, given IV fluid Continue to monitor Hypokalemia Placed Hypomagnesemia Resolved Hypothyroidism Per previous hospitalist Dr. Kieran Huffman's notes: -10/02/2019: a low TSH 0.132, free T4 elevated 2.06. hold home dose Levothyroxine 137 mcg daily while being treated for atrial fibrillation with rapid ventricular response that started on 10/02/2019 Hypertension -on amlodipine and Metoprolol succinate Acute kidney injury on chronic kidney disease stage III -Creatinine 1.30 Hold Lasix Given gentle fluids Creatinine 1.2, continue to monitor urinary tract infection -urine culture as Enterobacter aerogenes, continue ceftriaxone for now Peripheral vascular disease Per previous hospitalist Dr. Kieran Huffman's notes: -history of left carotid endarterectomy and also as per previous cardiology notes, she has extensive bilateral superficial femoral artery stenting for claudication -on cilostazol, Plavix, Eliquis and statin Gastroesophageal reflux disease -Pepcid. Type 2 diabetes mellitus with [facility] current use of insulin -Hold home dose Trulicity and home dose repaglinide -currently on Lantus 6 units daily with sliding scale insulin Deep venous thrombosis prophylaxis: Eliquis Case and plan of care discussed with patient and her daughter at the bedside All questions were answered They are understanding, comfortable, agreeable with plan of care Admission and Anticipated Discharge Date Admission Date: September 28, 2019 Subjective Follow-up for non-ST elevation MT, atrial fibrillation, left foot pain Seen resting in bed, appears more comfortable, in good spirits Reports left foot pain is much better, has mild right foot pain Able to move left lower extremity better Denies chest pain, palpitations, dizziness, shortness of breath Denies chills No other symptoms Review of Systems Review of Systems: All systems reviewed & are unremarkable except as noted in HPI & below Physical Exam Physical Exam: General- oriented x 3, not in distress, speaks in sentences with no effort or accessory muscle use Eyes- anicteric Neck- no JVD Lungs- clear breath sounds bilaterally, no crackles, no wheezes Heart- normal rate, regular rhythm; no murmurs Abdomen- normal bowel sounds, nondistended, soft, nontender Extremities- Left foot: Trace edema, no warmth, no erythema, no tenderness, better range of motion, good dorsalis pedis pulse Right foot: Essentially normal, good dorsalis pedis pulse no pretibial edema, no calf tenderness Neuro- alert, oriented x 3; no gross focal neurologic deficits Skin- warm & dry Results & Data ([facility]) Vital Signs (Past 12 Hours) Vital Signs Temp Pulse Pulse Resp BP Pulse Ox 10/04/19 08:00 71 10/04/19 07:58 36.9 C 66 19 131/70 97 10/04/19 04:00 36.5 C 64 18 150/80 H 97 10/04/19 00:15 36.5 C 66 18 129/80 95 10/03/19 23:27 70 Laboratory Results Laboratory Results - last 24 hr 10/03/19 10/04/19 10/04/19 20:15 06:56 07:20 WBC RBC Hgb Hct MCV MCH MCHC RDW Std Deviation RDW Coeff of Mj Plt Count MPV Immature Gran % (Auto) Neut % (Auto) Lymph % (Auto) [place] % (Auto) Eos % (Auto) Baso % (Auto) Immature Gran # (Auto) Neut # (Auto) Lymph # (Auto) [place] # (Auto) Eos # (Auto) Baso # (Auto) APTT 59.2 H* PTT Ratio 2.1 Sodium Potassium Chloride Carbon Dioxide Anion Gap BUN Creatinine Est Cr Clr Drug Dosing Est GFR ( Amer) Est GFR (Non-Af Amer) BUN/Creatinine Ratio Glucose POC Glucose 180 H 231 H Uric Acid Calcium Magnesium 10/04/19 10/04/19 10/04/19 10:37 10:37 11:34 WBC 10.60 RBC 3.21 L Hgb 10.7 L Hct 31.2 L MCV 97.2 MCH 33.3 MCHC 34.3 RDW Std Deviation 50.0 H RDW Coeff of Mj 13.9 Plt Count 268 MPV 10.8 H Immature Gran % (Auto) 0.2 Neut % (Auto) 82.8 Lymph % (Auto) 6.1 [place] % (Auto) 10.5 Eos % (Auto) 0.2 Baso % (Auto) 0.2 Immature Gran # (Auto) 0.02 Neut # (Auto) 8.78 H Lymph # (Auto) 0.65 L [place] # (Auto) 1.11 H Eos # (Auto) 0.02 Baso # (Auto) 0.02 APTT PTT Ratio Sodium 129 L Potassium 3.7 Chloride 99 Carbon Dioxide 24 Anion Gap 7.0 BUN 22 H Creatinine 1.26 H Est Cr Clr Drug Dosing 40.0 Est GFR ( Amer) 47.9 Est GFR (Non-Af Amer) 41.4 BUN/Creatinine Ratio 17.7 Glucose 263 H POC Glucose 230 H Uric Acid Calcium 9.0 Magnesium 2.1 10/04/19 10/04/19 16:18 19:32 WBC RBC Hgb Hct MCV MCH MCHC RDW Std Deviation RDW Coeff of Mj Plt Count MPV Immature Gran % (Auto) Neut % (Auto) Lymph % (Auto) [place] % (Auto) Eos % (Auto) Baso % (Auto) Immature Gran # (Auto) Neut # (Auto) Lymph # (Auto) [place] # (Auto) Eos # (Auto) Baso # (Auto) APTT PTT Ratio Sodium Potassium Chloride Carbon Dioxide Anion Gap BUN Creatinine Est Cr Clr Drug Dosing Est GFR ( Amer) Est GFR (Non-Af Amer) BUN/Creatinine Ratio Glucose POC Glucose 175 H Uric Acid Pending Calcium Magnesium
[2019-10-04 10:55] LABS: Basophils # (auto) 0.02 K/uL (0-0.2); Basophils % (auto) 0.2 %; Eosinophils # (auto) 0.02 K/uL (0-0.5); Eosinophils % (auto) 0.2 %; Hematocrit (blood only) 31.2 % (37-47); Hemoglobin 10.7 g/dL (12.0-16.0); Immature Granulocytes # (auto) 0.02 K/uL (0.00-0.02); Immature Granulocytes % (auto) 0.2 %; Lymphocytes # (auto) 0.65 K/uL (1.2-3.4); Lymphocytes % (auto) 6.1 %; Mean Corpuscular Hemoglobin 33.3 pg (25-34); Mean Corpuscular Hgb Conc 34.3 g/dL (32-36); Mean Corpuscular Volume 97.2 fL (80-100); Mean Platelet Volume 10.8 fL (7.4-10.4); Monocytes # (auto) 1.11 K/uL (0.11-0.59); Monocytes % (auto) 10.5 %; Neutrophils # (auto) 8.78 K/uL (1.4-6.5); Neutrophils % (auto) 82.8 %; Platelet Count 268 K/uL (130-400); RDW Coefficient of Variation 13.9 % (11.5-14.5); Red Blood Count 3.21 M/uL (4.2-5.4)
[2019-10-04 11:27] LABS: BUN Creatinine Ratio 17.7 (10-20); Est GFR (African American) 47.9; Est GFR (Non-African American) 41.4; Magnesium 2.1 mg/dl (1.8-2.4); Potassium 3.7 mmol/L (3.5-5.1)
--- NOTE | 2019-10-04 13:35 | Orthopedic Consultation ---
Date of Consultation October 04, 2019 Assessment & Plan (1) Foot pain: Left foot Osteoarthritis, no acute destructive process. Continue po meds as ordered, ice to ankle/ foot, elevation. Could try a low tide fracture boot, but unsure of patients ability to balance. WBAT Await recommendations from Dr. Jovel/ Ce. History of Present Illness Reason for Consultation: 78 yr old female c/o Left foot pain for about 4-5 days, reports no injury. States the pain started in het left thigh, then to her knee both of which she reports are not bothering her at this time, just the left foot. Attending Physician: Joe Loyola MD History of Present Illness 78 yr old female c/o left foot pain for about 4-5 days now, reports no injury or trauma. States the pain started in her left thigh, then to the knee both of which are fine at this point. Patient is an ambulator normally with no assisted device per her history. CT of the foot shows severe OA with NO acute laina or destructive processes. Allergies Allergy/AdvReac Type Severity Reaction Status Date / Time No Known Allergies Allergy Verified 09/28/19 21:55 Home Medications Home Medications Medication Instructions Recorded Confirmed Type Trulicity 1.5 mg SUBCUT WK 05/22/18 09/28/19 History atorvastatin 80 mg PO DAILY 05/22/18 09/28/19 History cilostazol 100 mg PO BID 05/22/18 09/28/19 History furosemide 20 mg PO Q OTHER DAY 05/22/18 09/28/19 History levothyroxine 137 mcg PO DAILY 05/22/18 09/28/19 History multivitamin 1 tab PO DAILY 05/22/18 09/28/19 History magnesium chloride [Mag 64] 128 mg PO DAILY 02/23/19 09/28/19 History calcium carbonate 600 mg calcium 600 mg PO BID tab 03/09/19 09/28/19 History (1,500 mg) tablet repaglinide 1 mg tablet 1 mg PO TID tab 03/27/19 09/28/19 History metoprolol succinate 50 mg 50 mg PO DAILY #30 tab 08/01/19 09/28/19 Rx tablet,extended release 24 hr amlodipine [Norvasc] 2.5 mg PO DAILY 09/28/19 09/28/19 History brinzolamide-brimonidine 1 drp OPB TID 09/28/19 09/28/19 History [Simbrinza] insulin glargine [Lantus Solostar 10 unit SUBCUT DAILY 09/28/19 09/28/19 History U-100 Insulin] netarsudil-latanoprost [Rocklatan] 1 drp OPHTHALMIC (EYE) PM 09/28/19 09/28/19 History ranitidine HCl 150 mg PO BID 09/28/19 09/28/19 History repaglinide 2 mg PO BID 09/28/19 09/28/19 History ticagrelor [Brilinta] 90 mg PO BID 09/28/19 09/28/19 History timolol maleate 1 drp OPB DAILY 09/28/19 09/28/19 History Patient History Medical History Aortic stenosis (Chronic) Carotid stenosis (Chronic) CKD (chronic kidney disease), stage III (Chronic) Diabetes (Chronic) Diabetic polyneuropathy (Chronic) HTN (hypertension) (Chronic) PAD (peripheral artery disease) (Chronic 09/04/14) Surgical History H/O eye surgery (Chronic) H/O vascular surgery (Chronic) History of cataract surgery (Chronic) History of CEA (carotid endarterectomy) (Chronic) "left" S/P wrist surgery (Chronic) Family History Other Family history non-contributory Social History Preferred Language: Slovak Communication Ability: Effective Final Inspector Paper Required: No Beliefs That Will Affect Care: None Current Living Situation: Spouse Other Information That Helps Us Care for You: No Feels Safe at Home: Yes Safety Concerns: Feels Safe At This Time Smoking Status: Never smoker Second Hand Exposure: No ; Hx Alcohol Use: No Hx Substance Use: No Physical Exam Physical Exam: Left foot with minimal swelling and no erythema. Skin in tact with no sores or lesions. Patient is able to perform ROM with verbal directions. States AROM is painful. She has about 4/5 strength all four directions with pain. No palpable malleolar tenderness. Tenderness is diffuse dorsum of foot along all metatarsals. Distal pulses in tact. Results & Data ([facility]) Vital Signs (Past 12 Hours) Vital Signs Temp Pulse Pulse Resp BP Pulse Ox 10/04/19 11:05 37.4 C 69 18 130/64 97 10/04/19 08:00 71 10/04/19 07:58 36.9 C 66 19 131/70 97 10/04/19 04:00 36.5 C 64 18 150/80 H 97
--- NOTE | 2019-10-04 14:05 | Cardiology Progress Note ---
Date of Service October 04, 2019 Assessment & Plan (1) Non-ST elevation [place] (NSTEMI): (2) Diabetes: (3) PAD (peripheral artery disease): (4) Aortic stenosis: (5) History of CEA (carotid endarterectomy): (6) CKD (chronic kidney disease), stage III: (7) Atrial fibrillation with RVR: I have switched her Brilinta to Plavix 75 mg daily. She will start Eliquis and I will stop her heparin. I do not believe her bilateral foot pain is related to vascular disease. She has been on atorvastatin as an outpatient without problems. Subjective The patient is having bilateral foot pain today. No cardiac complaints and she is maintaining sinus rhythm. Review of Systems Review of Systems: All systems reviewed & are unremarkable except as noted in HPI & below Nothing additional to add. Physical Exam Physical Exam: General: no acute distress and stated age Head: normocephalic, no masses, lesions, tenderness or abnormalities Eyes: conjunctiva are pink and non-injected, sclera clear Neck: supple, no adenopathy, no bruits, normal jugular venous pulse, no hepatojugular reflux Chest: normal shape and normal respiratory effort Lungs: clear to auscultation and percussion Cardiac Exam: - regular rate & rhythm, no murmurs gallops or rubs - normal S1, normal S2 Pulses: 2(+) throughout Abdomen: abdomen soft, non-tender, no abnormal masses and no hepatosplenomegaly Musculoskeletal: no gait disturbance, no joint inflammation, no deforming arthri tis Extremities: no edema and no cyanosis Neuro: grossly normal exam Results & Data Vital Signs (Past 12 Hours) Vital Signs Temp Pulse Pulse Resp BP Pulse Ox 10/04/19 11:05 37.4 C 69 18 130/64 97 10/04/19 08:00 71 10/04/19 07:58 36.9 C 66 19 131/70 97 10/04/19 04:00 36.5 C 64 18 150/80 H 97 Laboratory Results Laboratory Results - last 24 hr 10/03/19 10/03/19 10/04/19 16:17 20:15 06:56 WBC RBC Hgb Hct MCV MCH MCHC RDW Std Deviation RDW Coeff of Mj Plt Count MPV Immature Gran % (Auto) Neut % (Auto) Lymph % (Auto) [place] % (Auto) Eos % (Auto) Baso % (Auto) Immature Gran # (Auto) Neut # (Auto) Lymph # (Auto) [place] # (Auto) Eos # (Auto) Baso # (Auto) APTT 59.2 H* PTT Ratio 2.1 Sodium Potassium Chloride Carbon Dioxide Anion Gap BUN Creatinine Est Cr Clr Drug Dosing Est GFR ( Amer) Est GFR (Non-Af Amer) BUN/Creatinine Ratio Glucose POC Glucose 211 H 180 H Calcium Magnesium 10/04/19 10/04/19 10/04/19 07:20 10:37 10:37 WBC 10.60 RBC 3.21 L Hgb 10.7 L Hct 31.2 L MCV 97.2 MCH 33.3 MCHC 34.3 RDW Std Deviation 50.0 H RDW Coeff of Mj 13.9 Plt Count 268 MPV 10.8 H Immature Gran % (Auto) 0.2 Neut % (Auto) 82.8 Lymph % (Auto) 6.1 [place] % (Auto) 10.5 Eos % (Auto) 0.2 Baso % (Auto) 0.2 Immature Gran # (Auto) 0.02 Neut # (Auto) 8.78 H Lymph # (Auto) 0.65 L [place] # (Auto) 1.11 H Eos # (Auto) 0.02 Baso # (Auto) 0.02 APTT PTT Ratio Sodium 129 L Potassium 3.7 Chloride 99 Carbon Dioxide 24 Anion Gap 7.0 BUN 22 H Creatinine 1.26 H Est Cr Clr Drug Dosing 40.0 Est GFR ( Amer) 47.9 Est GFR (Non-Af Amer) 41.4 BUN/Creatinine Ratio 17.7 Glucose 263 H POC Glucose 231 H Calcium 9.0 Magnesium 2.1 10/04/19 11:34 WBC RBC Hgb Hct MCV MCH MCHC RDW Std Deviation RDW Coeff of Mj Plt Count MPV Immature Gran % (Auto) Neut % (Auto) Lymph % (Auto) [place] % (Auto) Eos % (Auto) Baso % (Auto) Immature Gran # (Auto) Neut # (Auto) Lymph # (Auto) [place] # (Auto) Eos # (Auto) Baso # (Auto) APTT PTT Ratio Sodium Potassium Chloride Carbon Dioxide Anion Gap BUN Creatinine Est Cr Clr Drug Dosing Est GFR ( Amer) Est GFR (Non-Af Amer) BUN/Creatinine Ratio Glucose POC Glucose 230 H Calcium Magnesium Medications Administered Current Inpatient Medications Acetaminophen (Tylenol) 325 mg PO Q6H PRN PRN Reason: Pain or Fever Stop: 10/28/19 23:56 Last Admin: 10/03/19 16:48 Dose: 325 mg Documented by: Acetaminophen (Tylenol) 500 mg PO Q6H [facility] Stop: 11/02/19 22:59 Last Admin: 10/04/19 11:54 Dose: 500 mg Documented by: Amiodarone HCl (Cordarone) 200 mg PO TIDM PO Stop: 11/02/19 11:59 Last Admin: 10/04/19 11:54 Dose: 200 mg Documented by: Amlodipine Besylate (Norvasc) 2.5 mg PO DAILY [facility] Stop: 10/29/19 08:59 Last Admin: 10/04/19 08:24 Dose: 2.5 mg Documented by: Apixaban (Eliquis) 5 mg PO BID [facility] Stop: 11/03/19 20:59 Atorvastatin Calcium (Lipitor) 80 mg PO DAILY [facility] Stop: 10/29/19 08:59 Last Admin: 10/04/19 08:24 Dose: 80 mg Documented by: Cilostazol (Pletal) 100 mg PO BID [facility] Stop: 10/29/19 08:59 Last Admin: 10/02/19 08:24 Dose: 100 mg Documented by: Clopidogrel Bisulfate (Plavix) 75 mg PO QAM [facility] Stop: 11/04/19 08:59 Dextrose (Dextrose 50%) 25 - 50 ml IV UD PRN; Protocol PRN Reason: Hypoglycemia Protocol Stop: 10/29/19 00:14 Famotidine (Pepcid) 20 mg PO BID [facility] Stop: 10/29/19 08:59 Last Admin: 10/04/19 08:24 Dose: 20 mg Documented by: Glucagon (Glucagen) 1 mg SQ UD PRN; Protocol PRN Reason: Hypoglycemia Protocol Stop: 10/29/19 00:14 Glucose (Glucose 40%) 15 - 30 gm PO UD PRN; Protocol PRN Reason: Hypoglycemia Protocol Stop: 10/29/19 00:14 Glucose (Dex4 Glucose) 4 - 8 tabs PO UD PRN; Protocol PRN Reason: Hypoglycemia Protocol Stop: 10/29/19 00:14 Ceftriaxone Sodium 2,000 mg/ (Dextrose) 70 mls @ 100 mls/hr IV DAILY [facility]; Protocol Stop: 10/09/19 08:59 Last Infusion: 10/04/19 09:32 Dose: Infused Documented by: Daptomycin 325 mg/ Syringe 6.5 mls @ 3.25 mls/min IV DAILY@1800 PO; Protocol Stop: 11/14/19 18:29 Last Admin: 10/03/19 18:31 Dose: 3.25 mls/min Documented by: Insulin Aspart (Novolog Flexpen) 0 units SC ACHS [facility] Stop: 10/29/19 07:29 Last Admin: 10/04/19 11:53 Dose: 9 units Documented by: Insulin Glargine (Lantus Solostar Pen) 6 units SC HS [facility] Stop: 10/29/19 20:59 Last Admin: 10/03/19 20:59 Dose: 6 units Documented by: Magnesium Oxide (Mag-Ox) 400 mg PO BID [facility] Stop: 11/01/19 20:59 Last Admin: 10/04/19 08:25 Dose: 400 mg Documented by: Metoprolol Succinate (Toprol Xl) 50 mg PO DAILY [facility] Stop: 10/29/19 08:59 Last Admin: 10/04/19 08:24 Dose: 50 mg Documented by: Miscellaneous (Carbohydrates For Hypoglycemia) 15 - 30 gm PO UD PRN PRN Reason: Hypoglycemia Treatment Stop: 10/29/19 00:14 Miscellaneous Information (Consult) 1 ea N/A UD PRN PRN Reason: Consult Stop: 11/02/19 17:41 Multivitamins (Multivitamin Tab) 1 tab PO DAILY [facility] Stop: 10/29/19 08:59 Last Admin: 10/04/19 08:24 Dose: 1 tab Documented by: Multivitamins/Minerals (Caltrate Plus) 1 tab PO BID [facility] Stop: 10/29/19 08:59 Last Admin: 10/04/19 08:25 Dose: 1 tab Documented by: Nitroglycerin (Nitrostat) 0.4 mg SL UD PRN PRN Reason: Chest Pain Stop: 10/28/19 23:56 Last Admin: 09/29/19 09:51 Dose: 0.4 mg Documented by: Non-Formulary Medication (Non-Formulary Patient's Own Med) 1 ea OP TID [facility] Stop: 10/29/19 20:59 Last Admin: 10/04/19 08:26 Dose: 1 drops Documented by: Blanca- Non- Formulary Patient's Own Med 1 ea OP HS PO Stop: 10/29/19 20:59 Last Admin: 10/03/19 20:57 Dose: 1 drops Documented by: Ondansetron HCl (Zofran) 4 mg IV Q6H PRN PRN Reason: Nausea Stop: 10/28/19 23:56 Polyethylene Glycol (Miralax Powder Packet) 17 gm PO DAILY PRN PRN Reason: Constipation Stop: 10/28/19 23:56 Timolol Maleate (Timoptic 0.25% Oph) 1 drops OPB DAILY [facility] Stop: 10/29/19 08:59 Last Admin: 10/04/19 08:26 Dose: 1 drops Documented by: Tramadol HCl (Ultram) 50 mg PO Q4H PRN PRN Reason: Pain Stop: 11/02/19 17:28
[2019-10-04] MEDS: DAPTOmycin 325 MG in SYRINGE 0 ML IV SCH (16:59)
[2019-10-04] MEDS: INSULIN GLARGINE SOLOSTAR 100 UNITS/ML 3 ML PEN SC SCH (21:08)
[2019-10-04] MEDS: APIXABAN 5 MG TABLET PO SCH (21:10)
[2019-10-04] MEDS: ROCKLATAN OP SCH (21:15)
[2019-10-05] MEDS: ACETAMINOPHEN 500 MG TAB PO SCH ×4 (05:53→22:41)
[2019-10-05 06:19] LABS: Basophils # (auto) 0.01 K/uL (0-0.2); Basophils % (auto) 0.1 %; Eosinophils # (auto) 0.13 K/uL (0-0.5); Eosinophils % (auto) 1.3 %; Hematocrit (blood only) 30.1 % (37-47); Hemoglobin 10.4 g/dL (12.0-16.0); Immature Granulocytes # (auto) 0.02 K/uL (0.00-0.02); Immature Granulocytes % (auto) 0.2 %; Lymphocytes # (auto) 1.17 K/uL (1.2-3.4); Lymphocytes % (auto) 12.1 %; Mean Corpuscular Hemoglobin 33.5 pg (25-34); Mean Corpuscular Hgb Conc 34.6 g/dL (32-36); Mean Corpuscular Volume 97.1 fL (80-100); Mean Platelet Volume 10.9 fL (7.4-10.4); Monocytes # (auto) 1.23 K/uL (0.11-0.59); Monocytes % (auto) 12.7 %; Neutrophils % (auto) 73.6 %; Platelet Count 276 K/uL (130-400); RDW Standard Deviation 49.8 fL (36.4-46.3); White Blood Count 9.66 K/uL (4.8-10.8)
[2019-10-05 06:34] LABS: Partial Thromboplastin Ratio 1.2; Partial Thromboplastin Time 33.3 Seconds (21.0-31.0)
[2019-10-05 06:50] LABS: BUN Creatinine Ratio 18.1 (10-20); Calcium 9.3 mg/dl (8.5-10.1); Creatinine Clr Calc Pharmacy 47.1 ml/min; Est GFR (African American) 58.4; Est GFR (Non-African American) 50.4; Magnesium 2.2 mg/dl (1.8-2.4); Potassium 4.2 mmol/L (3.5-5.1)
[2019-10-05] MEDS: MAGNESIUM OXIDE 400 MG TAB PO SCH ×2 (07:56→19:59)
[2019-10-05] MEDS: INSULIN ASPART 100 UNITS/ML 3 ML PEN SC SCH ×4 (07:57→20:13)
[2019-10-05] MEDS: ATORVASTATIN 40 MG TAB PO SCH (07:58)
[2019-10-05] MEDS: MULTIVITAMIN TAB PO SCH (07:58)
[2019-10-05] MEDS: AMLODIPINE BESYLATE 5 MG TAB PO SCH (08:01)
[2019-10-05] MEDS: METOPROLOL SUCC 50MG EXT REL TAB PO SCH (08:01)
[2019-10-05] MEDS: CALCIUM 600MG + VIT D 400 IU TAB PO SCH ×2 (08:01→19:58)
[2019-10-05] MEDS: CLOPIDOGREL BISULFATE 75 MG TAB PO SCH (08:02)
[2019-10-05] MEDS: AMIODARONE 200 MG TAB PO SCH ×2 (08:02→17:34)
[2019-10-05] MEDS: APIXABAN 5 MG TABLET PO SCH ×2 (08:02→19:59)
[2019-10-05] MEDS: NON-FORMULARY PATIENT'S OWN MED OP SCH ×3 (08:02→19:57)
[2019-10-05] MEDS: FAMOTIDINE 20 MG TAB PO SCH ×2 (08:02→20:00)
[2019-10-05] MEDS: TIMOLOL MALEATE 0.25% OP SOLN 5 ML BTL OPB SCH (08:03)
[2019-10-05] MEDS: INSULIN GLARGINE SOLOSTAR 100 UNITS/ML 3 ML PEN SC SCH (09:07)
[2019-10-05] MEDS: cefTRIAXone SODIUM 2,000 MG in DEXTROSE 5% 50 ML IV SCH (10:09)
--- NOTE | 2019-10-05 11:16 | Cardiology Progress Note ---
Date of Service October 05, 2019 Assessment & Plan (1) Non-ST elevation [place] (NSTEMI): (2) Diabetes: (3) PAD (peripheral artery disease): (4) Aortic stenosis: (5) History of CEA (carotid endarterectomy): (6) CKD (chronic kidney disease), stage III: (7) Atrial fibrillation with RVR: The patient's amiodarone will be decreased from 3 times a day to twice daily which she should stay on for the next 3 days and then go to 200 mg daily. I believe that she can be transferred off of telemetry. Subjective The patient is doing well and has no complaints. She is maintaining sinus rhythm. Review of Systems Review of Systems: All systems reviewed & are unremarkable except as noted in HPI & below Nothing additional to add. Physical Exam Physical Exam: General: no acute distress and stated age Head: normocephalic, no masses, lesions, tenderness or abnormalities Eyes: conjunctiva are pink and non-injected, sclera clear Neck: supple, no adenopathy, no bruits, normal jugular venous pulse, no hepatojugular reflux Chest: normal shape and normal respiratory effort Lungs: clear to auscultation and percussion Cardiac Exam: - regular rate & rhythm, no murmurs gallops or rubs - normal S1, normal S2 Pulses: 2(+) throughout Abdomen: abdomen soft, non-tender, no abnormal masses and no hepatosplenomegaly Musculoskeletal: no gait disturbance, no joint inflammation, no deforming arthritis Extremities: no edema and no cyanosis Neuro: grossly normal exam Results & Data Vital Signs (Past 12 Hours) Vital Signs Temp Pulse Pulse Resp BP BP Pulse Ox 10/05/19 11:02 36.7 C 60 19 108/67 96 10/05/19 07:37 36.9 C 71 19 150/62 H 10/05/19 07:22 67 10/05/19 03:06 36.7 C 76 16 146/67 H 93 10/04/19 23:55 62 10/04/19 23:28 36.9 C 63 16 149/84 H 94 Laboratory Results Laboratory Results - last 24 hr 10/04/19 10/04/19 10/04/19 10:37 11:34 16:18 WBC RBC Hgb Hct MCV MCH MCHC RDW Std Deviation RDW Coeff of Mj Plt Count MPV Immature Gran % (Auto) Neut % (Auto) Lymph % (Auto) [place] % (Auto) Eos % (Auto) Baso % (Auto) Immature Gran # (Auto) Neut # (Auto) Lymph # (Auto) [place] # (Auto) Eos # (Auto) Baso # (Auto) APTT PTT Ratio Sodium 129 L Potassium 3.7 Chloride 99 Carbon Dioxide 24 Anion Gap 7.0 BUN 22 H Creatinine 1.26 H Est Cr Clr Drug Dosing 40.0 Est GFR ( Amer) 47.9 Est GFR (Non-Af Amer) 41.4 BUN/Creatinine Ratio 17.7 Glucose 263 H POC Glucose 230 H 175 H Uric Acid Calcium 9.0 Magnesium 2.1 10/04/19 10/04/19 10/05/19 19:32 20:13 05:42 WBC 9.66 RBC 3.10 L Hgb 10.4 L Hct 30.1 L MCV 97.1 MCH 33.5 MCHC 34.6 RDW Std Deviation 49.8 H RDW Coeff of Mj 14.0 Plt Count 276 MPV 10.9 H Immature Gran % (Auto) 0.2 Neut % (Auto) 73.6 Lymph % (Auto) 12.1 [place] % (Auto) 12.7 Eos % (Auto) 1.3 Baso % (Auto) 0.1 Immature Gran # (Auto) 0.02 Neut # (Auto) 7.10 H Lymph # (Auto) 1.17 L [place] # (Auto) 1.23 H Eos # (Auto) 0.13 Baso # (Auto) 0.01 APTT PTT Ratio Sodium Potassium Chloride Carbon Dioxide Anion Gap BUN Creatinine Est Cr Clr Drug Dosing Est GFR ( Amer) Est GFR (Non-Af Amer) BUN/Creatinine Ratio Glucose POC Glucose 212 H Uric Acid 4.5 Calcium Magnesium 10/05/19 10/05/19 10/05/19 05:42 05:42 07:18 WBC RBC Hgb Hct MCV MCH MCHC RDW Std Deviation RDW Coeff of Mj Plt Count MPV Immature Gran % (Auto) Neut % (Auto) Lymph % (Auto) [place] % (Auto) Eos % (Auto) Baso % (Auto) Immature Gran # (Auto) Neut # (Auto) Lymph # (Auto) [place] # (Auto) Eos # (Auto) Baso # (Auto) APTT 33.3 H PTT Ratio 1.2 Sodium 131 L Potassium 4.2 Chloride 100 Carbon Dioxide 24 Anion Gap 7.0 BUN 19 H Creatinine 1.07 Est Cr Clr Drug Dosing 47.1 Est GFR ( Amer) 58.4 Est GFR (Non-Af Amer) 50.4 BUN/Creatinine Ratio 18.1 Glucose 188 H POC Glucose 207 H Uric Acid Calcium 9.3 Magnesium 2.2 Medications Administered Current Inpatient Medications Acetaminophen (Tylenol) 325 mg PO Q6H PRN PRN Reason: Pain or Fever Stop: 10/28/19 23:56 Last Admin: 10/03/19 16:48 Dose: 325 mg Documented by: Acetaminophen (Tylenol) 500 mg PO Q6H [facility] Stop: 11/02/19 22:59 Last Admin: 10/05/19 10:09 Dose: 500 mg Documented by: Amiodarone HCl (Cordarone) 200 mg PO BIDM [facility] Stop: 11/04/19 16:59 Amlodipine Besylate (Norvasc) 2.5 mg PO DAILY [facility] Stop: 10/29/19 08:59 Last Admin: 10/05/19 08:01 Dose: 2.5 mg Documented by: Apixaban (Eliquis) 5 mg PO BID [facility] Stop: 11/03/19 20:59 Last Admin: 10/05/19 08:02 Dose: 5 mg Documented by: Atorvastatin Calcium (Lipitor) 80 mg PO DAILY [facility] Stop: 10/29/19 08:59 Last Admin: 10/05/19 07:58 Dose: 80 mg Documented by: Cilostazol (Pletal) 100 mg PO BID [facility] Stop: 10/29/19 08:59 Last Admin: 10/02/19 08:24 Dose: 100 mg Documented by: Clopidogrel Bisulfate (Plavix) 75 mg PO QAM [facility] Stop: 11/04/19 08:59 Last Admin: 10/05/19 08:02 Dose: 75 mg Documented by: Dextrose (Dextrose 50%) 25 - 50 ml IV UD PRN; Protocol PRN Reason: Hypoglycemia Protocol Stop: 10/29/19 00:14 Famotidine (Pepcid) 20 mg PO BID [facility] Stop: 10/29/19 08:59 Last Admin: 10/05/19 08:02 Dose: 20 mg Documented by: Glucagon (Glucagen) 1 mg SQ UD PRN; Protocol PRN Reason: Hypoglycemia Protocol Stop: 10/29/19 00:14 Glucose (Glucose 40%) 15 - 30 gm PO UD PRN; Protocol PRN Reason: Hypoglycemia Protocol Stop: 10/29/19 00:14 Glucose (Dex4 Glucose) 4 - 8 tabs PO UD PRN; Protocol PRN Reason: Hypoglycemia Protocol Stop: 10/29/19 00:14 Ceftriaxone Sodium 2,000 mg/ (Dextrose) 70 mls @ 100 mls/hr IV DAILY PO; Protocol Stop: 10/09/19 08:59 Last Infusion: 10/05/19 10:41 Dose: Infused Documented by: Daptomycin 325 mg/ Syringe 6.5 mls @ 3.25 mls/min IV DAILY@1800 PO; Protocol Stop: 11/14/19 18:29 Last Admin: 10/04/19 16:59 Dose: 3.25 mls/min Documented by: Insulin Aspart (Novolog Flexpen) 0 units SC ACHS [facility] Stop: 10/29/19 07:29 Last Admin: 10/05/19 07:57 Dose: 9 units Documented by: Insulin Glargine (Lantus Solostar Pen) 15 units SC DAILY [facility] Stop: 11/04/19 08:59 Last Admin: 10/05/19 09:07 Dose: 15 units Documented by: Magnesium Oxide (Mag-Ox) 400 mg PO BID [facility] Stop: 11/01/19 20:59 Last Admin: 10/05/19 07:56 Dose: 400 mg Documented by: Metoprolol Succinate (Toprol Xl) 50 mg PO DAILY [facility] Stop: 10/29/19 08:59 Last Admin: 10/05/19 08:01 Dose: 50 mg Documented by: Miscellaneous (Carbohydrates For Hypoglycemia) 15 - 30 gm PO UD PRN PRN Reason: Hypoglycemia Treatment Stop: 10/29/19 00:14 Miscellaneous Information (Consult) 1 ea N/A UD PRN PRN Reason: Consult Stop: 11/02/19 17:41 Multivitamins (Multivitamin Tab) 1 tab PO DAILY [facility] Stop: 10/29/19 08:59 Last Admin: 10/05/19 07:58 Dose: 1 tab Documented by: Multivitamins/Minerals (Caltrate Plus) 1 tab PO BID [facility] Stop: 10/29/19 08:59 Last Admin: 10/05/19 08:01 Dose: 1 tab Documented by: Nitroglycerin (Nitrostat) 0.4 mg SL UD PRN PRN Reason: Chest Pain Stop: 10/28/19 23:56 Last Admin: 09/29/19 09:51 Dose: 0.4 mg Documented by: Non-Formulary Medication (Non-Formulary Patient's Own Med) 1 ea OP TID PO Stop: 10/29/19 20:59 Last Admin: 10/05/19 08:02 Dose: 1 drops Documented by: Blanca- Non- Formulary Patient's Own Med 1 ea OP HS PO Stop: 10/29/19 20:59 Last Admin: 10/04/19 21:15 Dose: 1 drops Documented by: Ondansetron HCl (Zofran) 4 mg IV Q6H PRN PRN Reason: Nausea Stop: 10/28/19 23:56 Polyethylene Glycol (Miralax Powder Packet) 17 gm PO DAILY PRN PRN Reason: Constipation Stop: 10/28/19 23:56 Timolol Maleate (Timoptic 0.25% Oph) 1 drops OPB DAILY [facility] Stop: 10/29/19 08:59 Last Admin: 10/05/19 08:03 Dose: 1 drops Documented by: Tramadol HCl (Ultram) 50 mg PO Q4H PRN PRN Reason: Pain Stop: 11/02/19 17:28
[2019-10-05] MEDS: predniSONE 20 MG TAB PO SCH (17:34)
--- NOTE | 2019-10-05 20:58 | Hospitalist Progress Note ---
Date of Service October 05, 2019 Assessment & Plan (1) Non-ST elevation [place] (NSTEMI): Aortic stenosis Mitral stenosis Per previous hospitalist Dr. Kieran Huffman's notes: -presented to emergency room for chest pain on 09/28/2019, admission troponin was 0.354, and was given medications including started on IV heparin drip (first dose given on 09/28/2019 around 11 PM for NSTEMI -troponin peaked to 0.516 on 09/29/2019 troponins downtrended, patient feeling better -Chest pain-free Atrial Fibrillation with Rapid Ventricular Vesponse Per previous hospitalist Dr. Kieran Huffman's notes: -10/02/2019 Patient was seen in AM with no chest complaints and heart rate in normal sinus rhythm. Around 12:40 PM nurse paged medication doctor that patient was in atrial fibrillation with rapid ventricular response in the 150s. Medical doctor assessed the patient and she reported some chest discomfort and her heart rates were indeed fast and irregular. Cardiology physician also assessed the patient and ordered IV amidorone and IV heparin drip to be started. labs notable for hypomagnesemia of serum magnesium 1.5 , a low TSH 0.132, free T4 pending, mild increased in the creatinine to 1.25. mild hyponatremia of serum sodium 1.32 10/05/2019 Remains in sinus rhythm Continue p.o. amiodarone taper, Brilinta transitioned to Plavix Heparin drip transition to Eliquis Tolerating amiodarone, Plavix, Eliquis so far Continue to monitor Appreciate cardiology service recommendations Left foot swelling and pain, possible gout, doubt septic arthritis CT foot: No fractures, no fluid collection Pain resolving with ice packs, scheduled Tylenol DC daptomycin and ceftriaxone Trial of prednisone 20 mg p.o. daily, monitor blood glucose level closely Orthopedic service consulted-no further interventions at this time, appreciate recommendation Ice packs, Tylenol scheduled, PRN tramadol PT OT evaluation-we will need inpatient rehab Back pain CT lumbar spine: No acute process, considerable degenerative disc change, moderate multilevel narrowing of the spinal Resolved PRN analgesics per above Chronic diastolic congestive heart failure, valvular heart disease with moderate aortic stenosis, moderate to severe mitral stenosis. -Creatinine elevated 1.3, baseline 1.04 Holding Lasix for now, given IV fluid -Repeat creatinine tomorrow Hypokalemia Replaced Hypomagnesemia Resolved Hypothyroidism Per previous hospitalist Dr. Kieran Huffman's notes: -10/02/2019: a low TSH 0.132, free T4 elevated 2.06. hold home dose Levothyroxine 137 mcg daily while being treated for atrial fibrillation with rapid ventricular response that started on 10/02/2019 Hypertension -on amlodipine and Metoprolol succinate Acute kidney injury on chronic kidney disease stage III -Creatinine 1.30 Hold Lasix Given gentle fluids given Creatinine 1.2, continue to monitor urinary tract infection -urine culture as Enterobacter aerogenes, completed IV ceftriaxone x7 days Peripheral vascular disease Per previous hospitalist Dr. Kieran Huffman's notes: -history of left carotid endarterectomy and also as per previous cardiology notes, she has extensive bilateral superficial femoral artery stenting for claudication -on cilostazol, Plavix, Eliquis and statin Gastroesophageal reflux disease -Pepcid. 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 fib, non-ST elevation [place], possible gout Seen resting in bed, more comfortable, in good spirits States left foot pain is improving but still present, able to move left foot better as well as left lower extremity Denies chest pain, shortness of breath, palpitations, dizziness, bleeding No other symptoms Review of Systems Review of Systems: All systems reviewed & are unremarkable except as noted in HPI & below Physical Exam Physical Exam: General- oriented x 3, not in distress, speaks in sentences with no effort or accessory muscle use Eyes- anicteric Neck- no JVD Lungs- clear BS, no crackles, no wheezing bilaterally Heart- normal rate, regular rhythm; no murmurs Abdomen- normal bowel sounds, nondistended, soft, nontender Extremities- no pretibial edema, no calf tenderness Left foot: Mild edema, no warmth, no tenderness, better range of motion Right foot: Trace edema, no warmth, no tenderness, full range of motion Neuro- alert, oriented x 3; no gross focal neurologic deficits Skin- warm & dry Results & Data ([place]) Vital Signs (Past 12 Hours) Vital Signs Temp Pulse Resp BP BP Pulse Ox 10/05/19 19:22 37.2 C 63 17 128/71 96 10/05/19 15:50 37.1 C 66 18 130/79 99 10/05/19 11:02 36.7 C 60 19 108/67 96 Laboratory Results Laboratory Results - last 24 hr 10/05/19 10/05/19 10/05/19 05:42 05:42 05:42 WBC 9.66 RBC 3.10 L Hgb 10.4 L Hct 30.1 L MCV 97.1 MCH 33.5 MCHC 34.6 RDW Std Deviation 49.8 H RDW Coeff of Mj 14.0 Plt Count 276 MPV 10.9 H Immature Gran % (Auto) 0.2 Neut % (Auto) 73.6 Lymph % (Auto) 12.1 [place] % (Auto) 12.7 Eos % (Auto) 1.3 Baso % (Auto) 0.1 Immature Gran # (Auto) 0.02 Neut # (Auto) 7.10 H Lymph # (Auto) 1.[address] # (Auto) 1.23 H Eos # (Auto) 0.13 Baso # (Auto) 0.01 APTT 33.3 H PTT Ratio 1.2 Sodium 131 L Potassium 4.2 Chloride 100 Carbon Dioxide 24 Anion Gap 7.0 BUN 19 H Creatinine 1.07 Est Cr Clr Drug Dosing 47.1 Est GFR ( Amer) 58.4 Est GFR (Non-Af Amer) 50.4 BUN/Creatinine Ratio 18.1 Glucose 188 H POC Glucose Calcium 9.3 Magnesium 2.2 10/05/19 10/05/19 10/05/19 07:18 11:17 16:21 WBC RBC Hgb Hct MCV MCH MCHC RDW Std Deviation RDW Coeff of Mj Plt Count MPV Immature Gran % (Auto) Neut % (Auto) Lymph % (Auto) [place] % (Auto) Eos % (Auto) Baso % (Auto) Immature Gran # (Auto) Neut # (Auto) Lymph # (Auto) [place] # (Auto) Eos # (Auto) Baso # (Auto) APTT PTT Ratio Sodium Potassium Chloride Carbon Dioxide Anion Gap BUN Creatinine Est Cr Clr Drug Dosing Est GFR ( Amer) Est GFR (Non-Af Amer) BUN/Creatinine Ratio Glucose POC Glucose 207 H 235 H 229 H Calcium Magnesium 10/05/19 20:11 WBC RBC Hgb Hct MCV MCH MCHC RDW Std Deviation RDW Coeff of Mj Plt Count MPV Immature Gran % (Auto) Neut % (Auto) Lymph % (Auto) [place] % (Auto) Eos % (Auto) Baso % (Auto) Immature Gran # (Auto) Neut # (Auto) Lymph # (Auto) [place] # (Auto) Eos # (Auto) Baso # (Auto) APTT PTT Ratio Sodium Potassium Chloride Carbon Dioxide Anion Gap BUN Creatinine Est Cr Clr Drug Dosing Est GFR ( Amer) Est GFR (Non-Af Amer) BUN/Creatinine Ratio Glucose POC Glucose 217 H Calcium Magnesium
[2019-10-05] MEDS: ROCKLATAN OP SCH (21:32)
[2019-10-06] MEDS: ACETAMINOPHEN 500 MG TAB PO SCH ×4 (04:40→23:32)
[2019-10-06 07:10] LABS: Hematocrit (blood only) 32.5 % (37-47); Immature Granulocytes # (auto) 0.01 K/uL (0.00-0.02); Immature Granulocytes % (auto) 0.1 %; Lymphocytes # (auto) 0.46 K/uL (1.2-3.4); Lymphocytes % (auto) 6.8 %; Mean Corpuscular Hemoglobin 32.7 pg (25-34); Mean Corpuscular Hgb Conc 33.8 g/dL (32-36); Mean Corpuscular Volume 96.7 fL (80-100); Mean Platelet Volume 10.8 fL (7.4-10.4); Monocytes # (auto) 0.26 K/uL (0.11-0.59); Monocytes % (auto) 3.8 %; Neutrophils # (auto) 6.04 K/uL (1.4-6.5); Neutrophils % (auto) 89.3 %; Platelet Count 320 K/uL (130-400); RDW Standard Deviation 49.6 fL (36.4-46.3); Red Blood Count 3.36 M/uL (4.2-5.4); White Blood Count 6.77 K/uL (4.8-10.8)
[2019-10-06 07:18] LABS: Partial Thromboplastin Ratio 1.1; Partial Thromboplastin Time 30.5 Seconds (21.0-31.0)
[2019-10-06 07:49] LABS: BUN Creatinine Ratio 28.5 (10-20); Calcium 9.5 mg/dl (8.5-10.1); Creatinine Clr Calc Pharmacy 44.2 ml/min; Est GFR (African American) 55.3; Est GFR (Non-African American) 47.7; Magnesium 2.3 mg/dl (1.8-2.4); Potassium 4.7 mmol/L (3.5-5.1)
[2019-10-06 08:06] LABS: Beta-Hydroxybutyrate 9.04 mg/dl (0.2-2.81)
[2019-10-06] MEDS: INSULIN ASPART 100 UNITS/ML 3 ML PEN SC SCH ×4 (08:48→20:22)
[2019-10-06] MEDS: ATORVASTATIN 40 MG TAB PO SCH (08:49)
[2019-10-06] MEDS: MAGNESIUM OXIDE 400 MG TAB PO SCH ×2 (08:51→19:53)
[2019-10-06] MEDS: AMIODARONE 200 MG TAB PO SCH ×2 (08:52→17:10)
[2019-10-06] MEDS: FAMOTIDINE 20 MG TAB PO SCH ×2 (08:52→19:53)
[2019-10-06] MEDS: MULTIVITAMIN TAB PO SCH (08:52)
[2019-10-06] MEDS: CLOPIDOGREL BISULFATE 75 MG TAB PO SCH (08:52)
[2019-10-06] MEDS: AMLODIPINE BESYLATE 5 MG TAB PO SCH (08:52)
[2019-10-06] MEDS: CALCIUM 600MG + VIT D 400 IU TAB PO SCH ×2 (08:53→19:53)
[2019-10-06] MEDS: METOPROLOL SUCC 50MG EXT REL TAB PO SCH (08:53)
[2019-10-06] MEDS: INSULIN GLARGINE SOLOSTAR 100 UNITS/ML 3 ML PEN SC SCH (08:53)
[2019-10-06] MEDS: APIXABAN 5 MG TABLET PO SCH ×2 (08:53→19:53)
[2019-10-06] MEDS: TIMOLOL MALEATE 0.25% OP SOLN 5 ML BTL OPB SCH (08:54)
[2019-10-06] MEDS: NON-FORMULARY PATIENT'S OWN MED OP SCH ×3 (08:54→19:53)
[2019-10-06] MEDS: predniSONE 20 MG TAB PO SCH (08:55)
[2019-10-06] MEDS ORDERED: PHARMACY GLYCEMIC MGMT CONSULT PRN (11:44)
[2019-10-06] MEDS ORDERED: INSULIN GLARGINE SOLOSTAR 100 UNITS/ML 3 ML PEN SC STA (12:12)
[2019-10-06] MEDS ORDERED: INSULIN HUMAN REGULAR PER UNIT 7 UNITS in SYRINGE 6.93 ML IV ONE (12:30)
--- NOTE | 2019-10-06 14:03 | Cardiology Progress Note ---
Date of Service October 06, 2019 Assessment & Plan (1) Non-ST elevation [place] (NSTEMI): (2) Atrial fibrillation with RVR: (3) Aortic stenosis: (4) Mitral annular calcification: Patient with longstanding history of complex peripheral arterial disease, initially presented with findings of non-ST segment elevation myocardial infarction, treated medically. She then developed atrial fibrillation with rapid ventricular response. EKG on 10/01/2009 performed while patient was in A. fib with RVR revealed significant ischemic ST segment depression. I think it is of utmost important therefore to limit the patient's risk of recurrent atrial fibrillation with rapid ventricular response, and a rhythm control strategy with use of metoprolol and amiodarone is therefore indicated. We will repeat an EKG tomorrow and follow-up of amiodarone treatment. Patient's echocardiogram this admission reveals preserved LVEF with moderate aortic valve stenosis. There is significant mitral annular calcification. Although the report of the echocardiogram performed on 09/29/2019 describes concerns of moderate mitral stenosis, I reviewed the echocardiogram images independently. From a 2D perspective, it is difficult to assess for mitral stenosis given the significant mitral annular calcification and acoustic shadowing. The most significant mean gradient at the time of the echocardiogram was 3 mmHg, which Does not suggest a significant transvalvular mitral gradient.This is important to distinguish, because within the definition of "nonvalvular atrial fibrillation"The anticoagulant of choice would be coumadin rather than a direct oral anticoagulant. I have requested a repeat Transthoracic echocardiogram with special attention to be paid toward assessing for mitral valve stenosis for further clarification.Furthermore, prior to discharge, we need to clarify the patient's [id number] cost for Eliquis in order to determine if it is a reasonable long- term treatment choice for her from a cost perspective as well. Subjective Patient feeling well. She denies angina. Telemetry reveals ongoing sinus rhythm in the range of 50 to 60 bpm. Review of Systems Review of Systems: All systems reviewed & are unremarkable except as noted in HPI & below Ongoing foot pain bilaterally Physical Exam Physical Exam: Temp Pulse Resp BP Pulse Ox 36.4 C L 61 18 121/65 97 10/06/19 11:59 10/06/19 11:59 10/06/19 11:59 10/06/19 11:59 10/06/19 11:59 Constitutional: WD/WN, vitals as above Respiratory: normal respiratory effort, lungs clear to auscultation Cardiovascular: Rate/Rhythm: regular rhythm Heart Sounds: + murmur (I/ systolic murmur) Vessels: no JVD Extremities: no edema Gastrointestinal (Abdomen): normal bowel sounds, soft, nontender, no hepatosplenomegaly Neurologic: PERRL, EOMI, accommodation nl, no face palsy, no dysarthria Results & Data Vital Signs (Past 12 Hours) Vital Signs Temp Pulse Pulse Resp BP Pulse Ox 10/06/19 11:59 36.4 C L 61 18 121/65 97 10/06/19 08:14 62 10/06/19 07:15 36.4 C L 59 L 18 97/62 L 96 10/06/19 03:49 36.3 C L 62 17 106/68 96 Laboratory Results Coagulation 10/06/19 Range/Units 06:25 APTT 30.5 (21.0-31.0) Seconds CBC 10/06/19 Range/Units 06:25 WBC 6.77 (4.8-10.8) K/uL RBC 3.36 L (4.2-5.4) M/uL Hgb 11.0 L (12.0-16.0) g/dL Hct 32.5 L (37-47) % Plt Count 320 (130-400) K/uL Neut # (Auto) 6.04 (1.4-6.5) K/uL Lymph # (Auto) 0.46 L (1.2-3.4) K/uL Maury # (Auto) 0.26 (0.11-0.59) K/uL Eos # (Auto) 0.00 (0-0.5) K/uL Baso # (Auto) 0.00 (0-0.2) K/uL Comprehensive Metabolic Panel 10/06/19 Range/Units 06:25 Sodium 132 L (136-145) mmol/L Potassium 4.7 (3.5-5.1) mmol/L Chloride 102 (98-107) mmol/L Carbon Dioxide 23 (21-32) mmol/L BUN 32 H D (7-18) mg/dl Creatinine 1.12 (0.6-1.2) mg/dl Glucose 311 H* (70-99) mg/dl Calcium 9.5 (8.5-10.1) mg/dl Intake and Output 10/05/19 10/06/19 10/06/19 22:59 06:59 14:59 Intake Total 220 / 750 100 / 750 Output Total 201 / 601 700 / 700 Balance 100 / 149 -700 / -700 Intake: Oral 220 / 680 100 / 680 Output: Urine Amount (Catheter) 200 / 200 700 / 700 External 200 / 200 700 / 700 # Bowel Movements Other: # Unmeasured Voids 1 Weight 81.9 kg Patient Weight 10/07/19 06:59 Weight 81.9 kg
--- NOTE | 2019-10-06 14:30 | Pharmacy Report ---
Glycemic Control Consultation - Date of Service October 06, 2019 - Scope Scope: Glycemic Pharmacist consulted for glycemic control and to write orders per [facility] inpatient glycemic control protocol. - Objective Weight: 81.9 kg Accuchecks BSG (last 24hrs): 10/05/19 10/05/19 10/05/19 16:21 20:11 23:33 Glucose POC Glucose 229 H 217 H 232 H 10/06/19 10/06/19 10/06/19 06:25 07:19 11:18 Glucose 311 H* POC Glucose 279 H 416 H* 10/06/19 11:19 Glucose POC Glucose 389 H* Laboratory Data (last 24hrs): 10/06/19 06:25 Potassium 4.7 Carbon Dioxide 23 Anion Gap 7.0 Creatinine 1.12 Est Cr Clr Drug Dosing 44.2 Beta-Hydroxybutyric Acd 9.04 H HbA1c: Hemoglobin A1c 7.8 % (4.5-5.6) H 09/29/19 05:14 - Recent Pertinent Medications Outpatient Anti-diabetic Regimen: * Trulicity, Lantus 10 units daily, prandin * A1c = 7.8 % date The patient is currently receiving: * Basal insulin: Lantus 15 units daily * Correctional Insulin: Novolog Correction per scale ACHS Goal Range: Low 120 mg/dL - High 160 mg/dL Correction Factor: 20 mg/dL/unit * Prandial insulin: Per carb ratio of 1 unit per 7 grams CHO consumed * Oral Agents: Risk Factors for Insulin Resistance: * Steroids: prednisone 20 mg daily * Diet: t2dm - Assessment & Plan Assessment & Plan: ASSESSMENT: * Patient initially admitted with NSTEMI, afib. Had recently started on prednisone 20 mg daily for concern of foot infection. CT of foot negative for fluid collection. * Patient type 2 diabetic, pharmacy consulted for glycemic control due to elevated BSGs after starting prednisone * BSG at time of consult 416 mg/dL and on recheck 389 mg/dL - insulin iv bolus x 1 ordered. Tightened CF/CR and also gave additional 10 units of Lantus. Anticipate with steroids patient needing (0.2 units/kg) of insulin on top of home requirements PLAN FOR INPATIENT GLYCEMIC CONTROL: * Holding outpatient oral diabetes medications * Basal insulin * Lantus 15 units + 10 units at lunch (0.2 units/kg ~ 15 units to cover steroids + in addition to home 10 units of Lantus) * Bolus insulin * NovoLog per scale ACHS or Q6hrs while NPO * Goal Range: Low 110 mg/dL - High 150 mg/dL * Correction Factor: 15 mg/dL/unit * Nutritional / Prandial insulin per carb ratio of 1 unit per 6 grams CHO consumed * Please note that the plan above was derived based on current level of insulin resistance and hospital stress. These recommendations are appropriate for inpatient admission only. Plan of care upon discharge will need to be reassessed to avoid potential outpatient hypo/hyperglycemia. Thank you.
--- NOTE | 2019-10-06 16:13 | Hospitalist Progress Note ---
Date of Service delayed entry date of service noted below October 06, 2019 Assessment & Plan (1) Non-ST elevation [place] (NSTEMI): Aortic stenosis Mitral stenosis Per previous hospitalist Dr. Kieran Huffman's notes: -presented to emergency room for chest pain on 09/28/2019, admission troponin was 0.354, and was given medications including started on IV heparin drip (first dose given on 09/28/2019 around 11 PM for NSTEMI -troponin peaked to 0.516 on 09/29/2019 troponins downtrended, patient feeling better -Chest pain-free Atrial Fibrillation with Rapid Ventricular Vesponse Per previous hospitalist Dr. Kieran Huffman's notes: -10/02/2019 Patient was seen in AM with no chest complaints and heart rate in no rmal sinus rhythm. Around 12:40 PM nurse paged medication doctor that patient was in atrial fibrillation with rapid ventricular response in the 150s. Medical doctor assessed the patient and she reported some chest discomfort and her heart rates were indeed fast and irregular. Cardiology physician also assessed the patient and ordered IV amidorone and IV heparin drip to be started. labs notable for hypomagnesemia of serum magnesium 1.5 , a low TSH 0.132, free T4 pending, mild increased in the creatinine to 1.25. mild hyponatremia of serum sodium 1.32 10/06/2019 Remains in sinus rhythm Continue p.o. amiodarone taper, Brilinta transitioned to Plavix Heparin drip transitioned to Eliquis Tolerating amiodarone, Plavix, Eliquis so far Continue to monitor Appreciate cardiology service recommendations Left foot swelling and pain, possible gout, doubt septic arthritis CT foot: No fractures, no fluid collection Pain resolving with ice packs, scheduled Tylenol DC daptomycin and ceftriaxone Trial of prednisone 20 mg p.o. daily, Orthopedic service consulted-no further interventions at this time, appreciate recommendation Ice packs, Tylenol scheduled, PRN tramadol PT OT evaluation-we will need inpatient rehab -- pain resolved ambulating better d/c Prednisone in light of hyperglycemia monitor Back pain CT lumbar spine: No acute process, considerable degenerative disc change, moder ate multilevel narrowing of the spinal Resolved PRN analgesics per above Chronic diastolic congestive heart failure, valvular heart disease with moderate aortic stenosis, moderate to severe mitral stenosis. -Creatinine elevated 1.3, baseline 1.04 Holding Lasix for now, given IV fluid -crea normalized Hypokalemia Replaced Hypomagnesemia Resolved Hypothyroidism Per previous hospitalist Dr. Kieran Huffman's notes: -10/02/2019: a low TSH 0.132, free T4 elevated 2.06. hold home dose Levothyroxine 137 mcg daily while being treated for atrial fibrillation with rapid ventricular response that started on 10/02/2019 Hypertension -on amlodipine and Metoprolol succinate Acute kidney injury on chronic kidney disease stage III -Creatinine 1.30 Hold Lasix Given gentle fluids given Creatinine 1.2--> 1.0 urinary tract infection -urine culture as Enterobacter aerogenes, completed IV ceftriaxone x7 days Peripheral vascular disease Per previous hospitalist Dr. Kieran Huffman's notes: -history of left carotid endarterectomy and also as per previous cardiology notes, she has extensive bilateral superficial femoral artery stenting for claudication -on cilostazol, Plavix, Eliquis and statin Gastroesophageal reflux disease -Pepcid. Type 2 diabetes mellitus with shelter current use of insulin -Hold home dose Trulicity and home dose repaglinide -currently on Lantus daily with sliding scale insulin Deep venous thrombosis prophylaxis: Eliquis Case and plan of care discussed with patient All questions were answered Patient is understanding, comfortable, agreeable with plan of care Admission and Anticipated Discharge Date Admission Date: September 28, 2019 Subjective ff up for a fib, nstemi seen resting in bed, in good spirits states pain on her feet, legs has resolved able to ambulate better no chest, dyspnea, palpiations, dizziness no other symptoms Review of Systems Review of Systems: All systems reviewed & are unremarkable except as noted in HPI & below Physical Exam Physical Exam: General- oriented x 3, not in distress, speaks in sentences with no effort or accessory muscle use Eyes- anicteric Neck- no JVD Lungs- clear BS BL Heart- normal rate, regular rhythm; no murmurs Abdomen- normal bowel sounds, nondistended, soft, nontender Extremities- no pretibial edema, no calf tenderness left foot: mild edema, no erythema/tenderness/warmth right foot: essentially normal Neuro- alert, oriented x 3; no gross focal neurologic deficits Skin- warm & dry Results & Data ([facility]) Vital Signs (Past 12 Hours) Vital Signs Temp Pulse Pulse Resp BP Pulse Ox 10/06/19 15:15 36.5 C 58 L 18 92/58 L 99 10/06/19 11:59 36.4 C L 61 18 121/65 97 10/06/19 08:14 62 10/06/19 07:15 36.4 C L 59 L 18 97/62 L 96
[2019-10-06] MEDS: ROCKLATAN OP SCH (19:54)
[2019-10-06] MEDS ORDERED: INSULIN GLARGINE SOLOSTAR 100 UNITS/ML 3 ML PEN SC SCH (21:00)
[2019-10-07] MEDS: INSULIN ASPART 100 UNITS/ML 3 ML PEN SC SCH ×6 (00:13→20:36)
[2019-10-07] MEDS: ACETAMINOPHEN 500 MG TAB PO SCH ×3 (04:20→17:05)
[2019-10-07 06:30] LABS: Basophils # (auto) 0.02 K/uL (0-0.2); Basophils % (auto) 0.3 %; Eosinophils # (auto) 0.29 K/uL (0-0.5); Eosinophils % (auto) 4.7 %; Hematocrit (blood only) 28.3 % (37-47); Hemoglobin 9.6 g/dL (12.0-16.0); Immature Granulocytes # (auto) 0.01 K/uL (0.00-0.02); Immature Granulocytes % (auto) 0.2 %; Lymphocytes # (auto) 2.23 K/uL (1.2-3.4); Lymphocytes % (auto) 36.4 %; Mean Corpuscular Hgb Conc 33.9 g/dL (32-36); Mean Corpuscular Volume 97.3 fL (80-100); Mean Platelet Volume 10.6 fL (7.4-10.4); Monocytes % (auto) 9.8 %; Neutrophils # (auto) 2.97 K/uL (1.4-6.5); Neutrophils % (auto) 48.6 %; Platelet Count 327 K/uL (130-400); RDW Coefficient of Variation 14.1 % (11.5-14.5); RDW Standard Deviation 50.8 fL (36.4-46.3); Red Blood Count 2.91 M/uL (4.2-5.4); White Blood Count 6.12 K/uL (4.8-10.8)
[2019-10-07 07:06] LABS: BUN Creatinine Ratio 33.5 (10-20); Calcium 9.3 mg/dl (8.5-10.1); Creatinine Clr Calc Pharmacy 39.5 ml/min; Est GFR (African American) 48.4; Est GFR (Non-African American) 41.8; Potassium 4.2 mmol/L (3.5-5.1)
[2019-10-07] MEDS: FAMOTIDINE 20 MG TAB PO SCH ×2 (09:00→20:35)
[2019-10-07] MEDS: MULTIVITAMIN TAB PO SCH (09:00)
[2019-10-07] MEDS: AMIODARONE 200 MG TAB PO SCH (09:11)
[2019-10-07] MEDS: AMLODIPINE BESYLATE 5 MG TAB PO SCH (09:12)
[2019-10-07] MEDS: CLOPIDOGREL BISULFATE 75 MG TAB PO SCH (09:12)
[2019-10-07] MEDS: CALCIUM 600MG + VIT D 400 IU TAB PO SCH ×2 (09:12→20:35)
[2019-10-07] MEDS: METOPROLOL SUCC 50MG EXT REL TAB PO SCH (09:12)
[2019-10-07] MEDS: MAGNESIUM OXIDE 400 MG TAB PO SCH ×2 (09:12→20:35)
[2019-10-07] MEDS: INSULIN GLARGINE SOLOSTAR 100 UNITS/ML 3 ML PEN SC SCH (09:13)
[2019-10-07] MEDS: APIXABAN 5 MG TABLET PO SCH ×2 (09:13→20:35)
[2019-10-07] MEDS: ATORVASTATIN 40 MG TAB PO SCH (09:13)
--- NOTE | 2019-10-07 09:34 | Hospitalist Progress Note ---
Date of Service October 07, 2019 Assessment & Plan (1) Non-ST elevation [place] (NSTEMI): Aortic stenosis Mitral stenosis Per previous hospitalist Dr. Kieran Huffman's notes: -presented to emergency room for chest pain on 09/28/2019, admission troponin was 0.354, and was given medications including started on IV heparin drip (first dose given on 09/28/2019 around 11 PM for NSTEMI -troponin peaked to 0.516 on 09/29/2019 troponins downtrended, patient feeling better -Chest pain-free Atrial Fibrillation with Rapid Ventricular Response Per previous hospitalist Dr. Kieran Huffman's notes: -10/02/2019 Patient was seen in AM with no chest complaints and heart rate in normal sinus rhythm. Around 12:40 PM nurse paged medication doctor that patient was in atrial fibrillation with rapid ventricular response in the 150s. Medical doctor assessed the patient and she reported some chest discomfort and her heart rates were indeed fast and irregular. Cardiology physician also assessed the patient and ordered IV amidorone and IV heparin drip to be started. labs notable for hypomagnesemia of serum magnesium 1.5 , a low TSH 0.132, free T4 pending, mild increased in the creatinine to 1.25. mild hyponatremia of serum sodium 1.32 10/07/2019 Remains in sinus rhythm, but HR as low as 40s this morning, symptomatic HOLD amiodarone, Metoprolol, Amlodipine gentle IV fluids - 500cc NSS repeat echo ordered Brilinta transitioned to Plavix Heparin drip transitioned to Eliquis Continue to monitor Appreciate cardiology service recommendations Left foot swelling and pain, possible gout, doubt septic arthritis CT foot: No fractures, no fluid collection Pain resolving with ice packs, scheduled Tylenol DC daptomycin and ceftriaxone Trial of prednisone 20 mg p.o. daily, Orthopedic service consulted-no further interventions at this time, appreciate recommendation Ice packs, Tylenol scheduled, PRN tramadol PT OT evaluation-we will need inpatient rehab -- pain resolved ambulating better d/c Prednisone in light of hyperglycemia monitor Back pain CT lumbar spine: No acute process, considerable degenerative disc change, moderate multilevel narrowing of the spinal Resolved PRN analgesics per above Chronic diastolic congestive heart failure, valvular heart disease with moderate aortic stenosis, moderate to severe mitral stenosis. -Creatinine elevated 1.3, baseline 1.04 Holding Lasix for now -crea normalized Hypokalemia Replaced Hypomagnesemia Resolved Hypothyroidism Per previous hospitalist Dr. Kieran Huffman's notes: -10/02/2019: a low TSH 0.132, free T4 elevated 2.06. hold home dose Levothyroxine 137 mcg daily while being treated for atrial fibrillation with rapid ventricular response that started on 10/02/2019 Hypertension -BP marginal HOLD amlodipine and Metoprolol succinate Acute kidney injury on chronic kidney disease stage III -Creatinine 1.30 Hold Lasix Given gentle fluids Creatinine 1.2 urinary tract infection -urine culture as Enterobacter aerogenes, completed IV ceftriaxone x7 days Peripheral vascular disease Per previous hospitalist Dr. Kieran Huffman's notes: -history of left carotid endarterectomy and also as per previous cardiology notes, she has extensive bilateral superficial femoral artery stenting for claudication -on cilostazol, Plavix, Eliquis and statin Gastroesophageal reflux disease -Pepcid. Type 2 diabetes mellitus with half-way current use of insulin -Hold home dose Trulicity and home dose repaglinide - BSGs improved, DC prednisone -currently on Lantus daily with sliding scale insulin Deep venous thrombosis prophylaxis: Eliquis Case and plan of care discussed with patient All questions were answered Patient is understanding, comfortable, agreeable with plan of care Admission and Anticipated Discharge Date Admission Date: September 28, 2019 Subjective ff up for NSTEMI, a fib upon standing to use the bedside commode, patient became dizzy, weak HR 40s, BP systolic 100s led back to bed, symptoms improved seen laying in bed, alert, comfortable denies active chest pain, dizziness, palpitations, SOB pain on her feet, legs resolved since yesterday no other symptoms Review of Systems Review of Systems: All systems reviewed & are unremarkable except as noted in HPI & below Physical Exam Physical Exam: General- oriented x 3, not in distress, speaks in sentences with no effort or accessory muscle use Eyes- anicteric Neck- no JVD Lungs- clear breath sounds , no rales, no wheezing BL Heart- normal rate, regular rhythm; no murmurs Abdomen- normal bowel sounds, nondistended, soft, nontender Extremities- no pretibial edema, no calf tenderness left foot: mild edema right foot: essentially normal Neuro- alert, oriented x 3; no gross focal neurologic deficits Skin- warm & dry Results & Data ([facility]) Vital Signs (Past 12 Hours) Vital Signs Temp Pulse Pulse Resp BP Pulse Ox 10/07/19 07:03 36.3 C L 50 L 17 111/71 99 10/07/19 04:21 36.3 C L 51 L 18 130/59 L 98 10/07/19 00:00 36.6 C 56 L 17 120/71 97 10/06/19 23:18 55 L
[2019-10-07] MEDS ORDERED: SODIUM CHLORIDE 0.9% 500 ML IV SCH (09:45)
[2019-10-07] MEDS: TIMOLOL MALEATE 0.25% OP SOLN 5 ML BTL OPB SCH (10:00)
--- NOTE | 2019-10-07 10:51 | Pharmacy Report ---
Pharmacy Glycemic Short Note 2 - Date of Service October 07, 2019 - Glycemic Short BSG Results (Last 24 hours): 10/06/19 10/06/19 10/06/19 11:18 11:19 14:59 Glucose POC Glucose 416 H* 389 H* 249 H 10/06/19 10/07/19 10/07/19 20:07 00:07 04:16 Glucose POC Glucose 149 H 149 H 161 H 10/07/19 10/07/19 06:17 07:15 Glucose 139 H POC Glucose 138 H ASSESSMENT: 10/06: * Patient received 76 units of insulin yesterday, of which 25 were basal insulin * Steroids discontinued yesterday - plan to scale back on Lantus to 15 units today * Continue same CF/CR PLAN FOR INPATIENT GLYCEMIC CONTROL: * Hold outpatient oral diabetes medications * Basal insulin * Lantus 15 units this AM * then Lantus 10-15 units Qam based upon scale tomorrow * Bolus insulin * NovoLog per scale ACHS or Q6hrs while NPO * Goal Range: Low 110 mg/dL - High 150 mg/dL * Correction Factor: 15 mg/dL/unit * Nutritional / Prandial insulin per carb ratio of 1 unit per 6 grams CHO consumed
[2019-10-07] MEDS: NON-FORMULARY PATIENT'S OWN MED OP SCH ×3 (11:02→20:35)
--- NOTE | 2019-10-07 16:41 | Cardiology Progress Note ---
Date of Service October 07, 2019 Assessment & Plan (1) Non-ST elevation [place] (NSTEMI): (2) Mitral annular calcification: (3) Atrial fibrillation with RVR: (4) Aortic stenosis: A repeat focused echocardiogram was performed this morning and reassessment of the mitral valve. Severe mitral annular calcification was noted, however with additional Doppler data, it was felt that there is no significant mitral valve stenosis, with a mean mitral gradient of 4 m/s, mitral valve area is calculated by the pressure half-time method of 2.2 cm. It is noted that the continuity equation is felt to not be accurate in this case due to the presence of coexisting moderate aortic valve stenosis. The ejection fraction is preserved. Patient with longstanding history of peripheral arterial disease, continue medication therapy for non-STEMI, and strategy of rhythm control and anticoagulation for symptomatic paroxysmal atrial fibrillation. Continue clopidogrel, Eliquis (no significant diastolic mitral valve gradient) metoprolol, amlodipine. Amiodarone dose held this am due to bradycardia, however, I feel she is tolerating it well and will resume it with hold for HR < 50 bpm. Subjective Chief complaint: Follow-up non-STEMI, atrial fibrillation with rapid ventricular response Subjective: Patient feeling well. Denies chest pain, shortness of breath, foot pain is well controlled at present. Telemetry reveals sinus rhythm in the range of 50 to 60 bpm without recurrent atrial fibrillation. Review of Systems Review of Systems: All systems reviewed & are unremarkable except as noted in HPI & below Physical Exam Physical Exam: Temp Pulse Resp BP Pulse Ox 36.5 C 56 L 19 152/62 H 98 10/07/19 15:34 10/07/19 15:34 10/07/19 15:34 10/07/19 15:34 10/07/19 15:34 Constitutional: WD/WN, vitals as above Respiratory: normal respiratory effort, lungs clear to auscultation Cardiovascular: Rate/Rhythm: regular rhythm Heart Sounds: + murmur (I/ systolic murmur heard best at the right sternal border) Vessels: no JVD Extremities: no edema Gastrointestinal (Abdomen): normal bowel sounds, soft, nontender, no hepatosplenomegaly Neurologic: PERRL, EOMI, accommodation nl, no face palsy, no dysarthria Results & Data Vital Signs (Past 12 Hours) Vital Signs Temp Pulse Pulse Resp BP Pulse Ox 10/07/19 15:34 36.5 C 56 L 19 152/62 H 98 10/07/19 11:43 36.4 C L 55 L 19 160/67 H 99 10/07/19 10:16 48 L 10/07/19 07:03 36.3 C L 50 L 17 111/71 99
[2019-10-07] MEDS ORDERED: AMIODARONE 200 MG TAB PO STA (16:50)
[2019-10-07] MEDS: ROCKLATAN OP SCH (20:35)
[2019-10-07] MEDS ORDERED: INSULIN GLARGINE SOLOSTAR 100 UNITS/ML 3 ML PEN SC SCH (21:00)
[2019-10-08] MEDS ORDERED: INSULIN ASPART 100 UNITS/ML 3 ML PEN SC SCH
[2019-10-08] MEDS: ACETAMINOPHEN 500 MG TAB PO SCH ×5 (00:15→22:01)
[2019-10-08 06:44] LABS: Basophils # (auto) 0.05 K/uL (0-0.2); Basophils % (auto) 0.9 %; Eosinophils # (auto) 0.39 K/uL (0-0.5); Eosinophils % (auto) 7.3 %; Immature Granulocytes # (auto) 0.01 K/uL (0.00-0.02); Immature Granulocytes % (auto) 0.2 %; Lymphocytes # (auto) 1.89 K/uL (1.2-3.4); Lymphocytes % (auto) 35.5 %; Mean Corpuscular Hemoglobin 32.7 pg (25-34); Mean Corpuscular Hgb Conc 33.3 g/dL (32-36); Mean Platelet Volume 10.3 fL (7.4-10.4); Monocytes % (auto) 11.3 %; Neutrophils # (auto) 2.39 K/uL (1.4-6.5); Neutrophils % (auto) 44.8 %; Platelet Count 377 K/uL (130-400); RDW Coefficient of Variation 14.3 % (11.5-14.5); RDW Standard Deviation 51.5 fL (36.4-46.3); Red Blood Count 3.06 M/uL (4.2-5.4); White Blood Count 5.33 K/uL (4.8-10.8)
[2019-10-08 07:19] LABS: BUN Creatinine Ratio 29.9 (10-20); Calcium 9.6 mg/dl (8.5-10.1); Creatinine Clr Calc Pharmacy 42.2 ml/min; Est GFR (African American) 52.4; Est GFR (Non-African American) 45.2; Potassium 4.7 mmol/L (3.5-5.1)
--- NOTE | 2019-10-08 07:36 | Pharmacy Report ---
Pharmacy Glycemic Short Note 2 - Date of Service October 08, 2019 - Glycemic Short BSG Results (Last 24 hours): 10/07/19 10/07/19 10/07/19 07:15 11:15 16:15 Glucose POC Glucose 138 H 229 H 128 H 10/07/19 10/08/19 10/08/19 20:30 00:19 06:33 Glucose 144 H POC Glucose 98 108 H Outpatient Regimen: * Trulicity * Lantus 10 units daily * Prandin ASSESSMENT: 10/07 * Patient is currently receiving an average of 40 units of insulin per day * 15 units of basal insulin * 25 units of prandial/correctional insulin * BSGs ranging 98-229 over the past 24hrs * Risk factors for insulin resistance are constant over the past 24hrs * Anticipating insulin regimen will need decreased for the next 24hrs d/t : * BSGs trending downwards throughout the day (insulin stacking) therefore Loosen CF only. Was initially going to loosen CR as well but postprandial BSG after breakfast today was still elevated after using CR = 6. * Anticipate improvement with BSGs with less basal on board compared to 25 units given on 10/05 10/06: * Patient received 76 units of insulin yesterday, of which 25 were basal insulin * Steroids discontinued yesterday - plan to scale back on Lantus to 15 units today * Continue same CF/CR PLAN FOR INPATIENT GLYCEMIC CONTROL: * Continue to hold outpatient oral diabetes medications * Basal insulin - d/c PM dose * Lantus qAM per the following scale: * 10 units for BSG < 110 * 15 units for BSG 110-180 * 20 units for BSG > 180 * Bolus insulin - loosen CF * NovoLog per scale ACHS or Q6hrs while NPO * Goal Range: Low 110 mg/dL - High 150 mg/dL * Correction Factor: 20 mg/dL/unit * Nutritional / Prandial insulin per carb ratio of 1 unit per 6 grams CHO consumed Discharge Recommendations: * A1c 7.8% on 09/29/19 * Goal A1c < 8% based on age/comorbidities * Recommend to resume outpatient regimen on discharge
[2019-10-08] MEDS: INSULIN GLARGINE SOLOSTAR 100 UNITS/ML 3 ML PEN SC SCH (08:05)
[2019-10-08] MEDS: INSULIN ASPART 100 UNITS/ML 3 ML PEN SC SCH ×4 (08:07→20:11)
[2019-10-08] MEDS: FAMOTIDINE 20 MG TAB PO SCH ×2 (08:12→19:26)
[2019-10-08] MEDS: TIMOLOL MALEATE 0.25% OP SOLN 5 ML BTL OPB SCH (08:12)
[2019-10-08] MEDS: CLOPIDOGREL BISULFATE 75 MG TAB PO SCH (08:12)
[2019-10-08] MEDS: NON-FORMULARY PATIENT'S OWN MED OP SCH ×3 (08:12→19:26)
[2019-10-08] MEDS: METOPROLOL SUCC 25MG EXT REL TAB PO SCH (08:13)
[2019-10-08] MEDS: APIXABAN 5 MG TABLET PO SCH ×2 (08:14→19:26)
[2019-10-08] MEDS: CALCIUM 600MG + VIT D 400 IU TAB PO SCH ×2 (08:14→19:26)
[2019-10-08] MEDS: ATORVASTATIN 40 MG TAB PO SCH (08:14)
[2019-10-08] MEDS: AMIODARONE 200 MG TAB PO SCH (08:14)
[2019-10-08] MEDS: MULTIVITAMIN TAB PO SCH (08:15)
[2019-10-08] MEDS: MAGNESIUM OXIDE 400 MG TAB PO SCH ×2 (08:15→19:26)
--- NOTE | 2019-10-08 13:09 | Cardiology Progress Note ---
Date of Service October 08, 2019 Assessment & Plan (1) Atrial fibrillation with RVR: (2) Non-ST elevation [place] (NSTEMI): Moderate aortic stenosis Mitral annular calcification without mitral stenosis or significant mitral regurgitation Rhythm control strategy: Amiodarone dose reduced to 200 mg daily, metoprolol succinate dose reduced to 25 mg daily on 10/07/2019 and patient seems to be tolerating this treatment well. Stroke prophylaxis: Eliquis 5 mg twice daily Patient transition from Brilinta to clopidogrel given her history of peripheral arterial disease, and non-STEMI. .Patient stable for discharge from a cardiac perspective.Recommend follow-up 3 to 4-week interval in cardiology clinic. Subjective Chief complaint: Follow-up atrial fibrillation, non-STEMI Subjective: Patient feeling well. Foot arthritis feeling better. Telemetry reveals sinus rhythm in the low 50 bpm range with occasional PACs and blocked PACs. Review of Systems Review of Systems: All systems reviewed & are unremarkable except as noted in HPI & below Physical Exam Physical Exam: Temp Pulse Resp BP Pulse Ox 36.4 C L 52 L 18 108/68 98 10/08/19 11:04 10/08/19 11:04 10/08/19 11:04 10/08/19 11:04 10/08/19 11:04 Constitutional: WD/WN, vitals as above Cardiovascular: Rate/Rhythm: regular rhythm Heart Sounds: + murmur (I/ systolic murmur) Vessels: no JVD Extremities: no edema Results & Data Vital Signs (Past 12 Hours) Vital Signs Temp Pulse Pulse Resp BP BP Pulse Ox 10/08/19 11:04 36.4 C L 52 L 18 108/68 98 10/08/19 08:00 52 L 10/08/19 07:34 36.3 C L 53 L 19 145/69 H 99 10/08/19 03:27 36.4 C L 53 L 18 118/60 97 Laboratory Results CBC 10/08/19 Range/Units 06:33 WBC 5.33 (4.8-10.8) K/uL RBC 3.06 L (4.2-5.4) M/uL Hgb 10.0 L (12.0-16.0) g/dL Hct 30.0 L (37-47) % Plt Count 377 (130-400) K/uL Neut # (Auto) 2.39 (1.4-6.5) K/uL Lymph # (Auto) 1.89 (1.2-3.4) K/uL Webster # (Auto) 0.60 H (0.11-0.59) K/uL Eos # (Auto) 0.39 (0-0.5) K/uL Baso # (Auto) 0.05 (0-0.2) K/uL Comprehensive Metabolic Panel 10/08/19 Range/Units 06:33 Sodium 139 D (136-145) mmol/L Potassium 4.7 (3.5-5.1) mmol/L Chloride 106 (98-107) mmol/L Carbon Dioxide 28 (21-32) mmol/L BUN 35 H (7-18) mg/dl Creatinine 1.17 (0.6-1.2) mg/dl Glucose 144 H (70-99) mg/dl Calcium 9.6 (8.5-10.1) mg/dl Intake and Output 10/07/19 10/08/19 10/08/19 22:59 06:59 14:59 Intake Total 750 / 1665 300 / 300 Output Total 500 / 2301 400 / 2301 700 / 700 Balance 250 / -636 -400 / -636 -400 / -400 Intake: IV 500 / 500 Nss 500 ml @ 75 mls/hr IV . 500 / 500 [id number] [facility] Rx#:[id number] Oral 250 / 1165 300 / 300 Output: Urine 500 / 1300 400 / 1300 700 / 700 Other: # Unmeasured Voids 3 1 Weight 81.2 kg Patient Weight 10/09/19 06:59 Weight 81.2 kg Diagnostic Findings EKG performed today 10/08/2019 at 6:46 AM revealed sinus bradycardia 52 bpm, otherwise normal EKG.QT interval is stable at 450 ms.
[2019-10-08] MEDS: ROCKLATAN OP SCH (19:27)
--- NOTE | 2019-10-08 22:21 | Electrocardiogram Report ---
Test Reason : Blood Pressure : / mmHG Vent. Rate : 051 BPM Atrial Rate : 051 BPM P-R Int : 162 ms QRS Dur : 102 ms QT Int : 482 ms P-R-T Axes : 043 025 062 degrees QTc Int : 444 ms Sinus bradycardia with sinus arrhythmia Otherwise normal ECG When compared with ECG of 02-OCT-2019 12:51, Sinus rhythm has replaced Atrial fibrillation Vent. rate has decreased BY [address] no longer depressed in Anterolateral leads T wave inversion no longer evident in Lateral leads Confirmed by Sb Nolan ([id number]) on 10/08/2019 10:21:23 PM Referred By: REFERRED SELF Confirmed By:Sb Nolan
[2019-10-09] MEDS: ACETAMINOPHEN 500 MG TAB PO SCH ×2 (04:38→12:12)
--- NOTE | 2019-10-09 05:53 | Electrocardiogram Report ---
Test Reason : Blood Pressure : / mmHG Vent. Rate : 052 BPM Atrial Rate : 052 BPM P-R Int : 162 ms QRS Dur : 088 ms QT Int : 484 ms P-R-T Axes : 044 010 060 degrees QTc Int : 450 ms Sinus bradycardia Otherwise normal ECG When compared with ECG of 07-OCT-2019 07:56, No significant change was found Confirmed by Sb Nolan ([id number] on 10/09/2019 5:53:33 AM Referred By: REFERRED SELF Confirmed By:Sb Nolan
[2019-10-09 07:22] LABS: Basophils # (auto) 0.03 K/uL (0-0.2); Basophils % (auto) 0.5 %; Eosinophils # (auto) 0.34 K/uL (0-0.5); Hematocrit (blood only) 31.8 % (37-47); Hemoglobin 10.4 g/dL (12.0-16.0); Immature Granulocytes # (auto) 0.01 K/uL (0.00-0.02); Immature Granulocytes % (auto) 0.2 %; Lymphocytes # (auto) 1.89 K/uL (1.2-3.4); Lymphocytes % (auto) 33.3 %; Mean Corpuscular Hemoglobin 32.5 pg (25-34); Mean Corpuscular Hgb Conc 32.7 g/dL (32-36); Mean Corpuscular Volume 99.4 fL (80-100); Mean Platelet Volume 10.6 fL (7.4-10.4); Monocytes # (auto) 0.59 K/uL (0.11-0.59); Monocytes % (auto) 10.4 %; Neutrophils # (auto) 2.81 K/uL (1.4-6.5); Neutrophils % (auto) 49.6 %; Platelet Count 424 K/uL (130-400); RDW Coefficient of Variation 14.3 % (11.5-14.5); RDW Standard Deviation 50.9 fL (36.4-46.3); White Blood Count 5.67 K/uL (4.8-10.8)
[2019-10-09] MEDS: CLOPIDOGREL BISULFATE 75 MG TAB PO SCH (07:50)
[2019-10-09] MEDS: METOPROLOL SUCC 25MG EXT REL TAB PO SCH (07:50)
[2019-10-09] MEDS: CALCIUM 600MG + VIT D 400 IU TAB PO SCH (07:51)
[2019-10-09] MEDS: ATORVASTATIN 40 MG TAB PO SCH (07:51)
[2019-10-09] MEDS: FAMOTIDINE 20 MG TAB PO SCH (07:51)
[2019-10-09] MEDS: MULTIVITAMIN TAB PO SCH (07:51)
[2019-10-09] MEDS: AMIODARONE 200 MG TAB PO SCH (07:51)
[2019-10-09] MEDS: MAGNESIUM OXIDE 400 MG TAB PO SCH (07:51)
[2019-10-09] MEDS: APIXABAN 5 MG TABLET PO SCH (07:51)
[2019-10-09] MEDS: INSULIN ASPART 100 UNITS/ML 3 ML PEN SC SCH ×2 (07:52→12:14)
[2019-10-09 07:53] LABS: BUN Creatinine Ratio 26.2 (10-20); Calcium 9.4 mg/dl (8.5-10.1); Creatinine Clr Calc Pharmacy 45.1 ml/min; Est GFR (African American) 54.1; Est GFR (Non-African American) 46.7; Potassium 4.5 mmol/L (3.5-5.1)
--- NOTE | 2019-10-09 08:32 | Pharmacy Report ---
Pharmacy Glycemic Short Note 2 - Date of Service October 09, 2019 - Glycemic Short BSG Results (Last 24 hours): 10/08/19 10/08/19 10/08/19 11:23 16:18 20:02 Glucose POC Glucose 203 H 165 H 184 H 10/09/19 10/09/19 06:52 07:15 Glucose 145 H POC Glucose 154 H Outpatient Regimen: * Trulicity 1.5 mg qweek * Lantus 10 units daily * Prandin 1 mg w/ breakfast, 3 mg w/ lunch and dinner ASSESSMENT: 10/08 * Patient is currently receiving an average of 44 units of insulin per day * 15 units of basal insulin * 29 units of prandial/correctional insulin * BSGs ranging 145-203 over the past 24hrs * Risk factors for insulin resistance are constant over the past 24hrs; however, prednisone 10 mg daily just added today * Anticipating insulin regimen will need increased for the next 24hrs d/t : * AM Fasting BSG = 154 therefore Basal insulin needs increased * Total daily dose ~ 45 therefore may need to evenly re-distribute regimen 50%:50% basal:prandial to prevent hypo/hyperglycemia. Also, anticipate postprandial BSGs to increase with the prednisone. 10/07 * Patient is currently receiving an average of 40 units of insulin per day * 15 units of basal insulin * 25 units of prandial/correctional insulin * BSGs ranging 98-229 over the past 24hrs * Risk factors for insulin resistance are constant over the past 24hrs * Anticipating insulin regimen will need decreased for the next 24hrs d/t : * BSGs trending downwards throughout the day (insulin stacking) therefore Loosen CF only. Was initially going to loosen CR as well but postprandial BSG after breakfast today was still elevated after using CR = 6. * Anticipate improvement with BSGs with less basal on board compared to 25 units given on 10/05 10/06: * Patient received 76 units of insulin yesterday, of which 25 were basal insulin * Steroids discontinued yesterday - plan to scale back on Lantus to 15 units today * Continue same CF/CR PLAN FOR INPATIENT GLYCEMIC CONTROL: * Continue to hold outpatient oral diabetes medications * Basal insulin - increase and provide set dose instead of scale * Lantus 20 units qAM * Bolus insulin - tighten CF/CR * NovoLog per scale ACHS or Q6hrs while NPO * Goal Range: Low 110 mg/dL - High 150 mg/dL * Correction Factor: 15 mg/dL/unit * Nutritional / Prandial insulin per carb ratio of 1 unit per 5 grams CHO consumed Discharge Recommendations: * A1c 7.8% on 09/29/19 * Goal A1c < 8% based on age/comorbidities * Recommend to resume outpatient regimen on discharge
[2019-10-09] MEDS: TIMOLOL MALEATE 0.25% OP SOLN 5 ML BTL OPB SCH (08:40)
[2019-10-09] MEDS ORDERED: INSULIN GLARGINE SOLOSTAR 100 UNITS/ML 3 ML PEN SC SCH (09:00)
[2019-10-09] MEDS: NON-FORMULARY PATIENT'S OWN MED OP SCH (09:05)
[2019-10-09] MEDS ORDERED: predniSONE 10 MG TABLET PO SCH (09:30)
--- NOTE | 2019-10-09 09:33 | Hospitalist Progress Note ---
Date of Service October 09, 2019 Assessment & Plan (1) Non-ST elevation [place] (NSTEMI): Aortic stenosis, Mitral stenosis Per previous hospitalist Dr. Kieran Huffman's notes: -presented to emergency room for chest pain on 09/28/2019, admission troponin was 0.354, and was given medications including started on IV heparin drip (first dose given on 09/28/2019 around 11 PM for NSTEMI -troponin peaked to 0.516 on 09/29/2019 troponins downtrended -Chest pain-free Atrial Fibrillation with Rapid Ventricular Response Per previous hospitalist Dr. Kieran Huffman's notes: -10/02/2019 Patient was seen in AM with no chest complaints and heart rate in normal sinus rhythm. Around 12:40 PM nurse paged medication doctor that patient was in atrial fibrillation with rapid ventricular response in the 150s. Medical doctor assessed the patient and she reported some chest discomfort and her heart rates were indeed fast and irregular. Cardiology physician also assessed the patient and ordered IV amidorone and IV heparin drip to be started. labs notable for hypomagnesemia of serum magnesium 1.5 , a low TSH 0.132, free T4 pending, mild increased in the creatinine to 1.25. mild hyponatremia of serum sodium 1.32 10/09/2019 Remains in sinus rhythm cleared for dc today by [facility] d/c plan: Amiodarone 200mg po daily Metoprolol Succ 25mg po daily Brilinta transitioned to Plavix 75mg po daily Heparin drip transitioned to Eliquis 5mg BID Left foot swelling and pain, possible gout, doubt septic arthritis CT foot: No fractures, no fluid collection Pain resolving with ice packs, scheduled Tylenol received daptomycin and ceftriaxone Orthopedic service consulted-no further interventions at this time, appreciate recommendation Ice packs, Tylenol scheduled, PRN tramadol PT OT evaluation will need inpatient rehab -- pain resolved with 1 dose of Prednisone 20mg but blood glucose elevated prednisone 10mg daily x 3 days, monitor blood glucose Back pain CT lumbar spine: No acute process, considerable degenerative disc change, moderate multilevel narrowing of the spinal resolved Chronic diastolic congestive heart failure, valvular heart disease with moderate aortic stenosis, moderate to severe mitral stenosis. -continue Lasix monitor closely Hypokalemia Replaced Hypomagnesemia Resolved Hypothyroidism Per previous hospitalist Dr. Kieran Huffman's notes: -10/02/2019: a low TSH 0.132, free T4 elevated 2.06. reduce home dose Levothyroxine 137 mcg daily to 100 mcg repeat thyroid function test in 4-6 weeks Hypertension -monitor while on amlodipine and Metoprolol succinate Acute kidney injury on chronic kidney disease stage III -monitor while on lasix Urinary tract infection -urine culture as Enterobacter aerogenes, completed IV ceftriaxone x7 days Peripheral vascular disease Per previous hospitalist Dr. Kieran Huffman's notes: -history of left carotid endarterectomy and also as per previous cardiology notes, she has extensive bilateral superficial femoral artery stenting for claudication -on cilostazol, Plavix, Eliquis and Statin Gastroesophageal reflux disease -Pepcid. 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 of insulin -Hold home dose Trulicity and home dose repaglinide - BSGs improved -currently on Lantus 20units daily with sliding scale insulin monitor closely while on Prednisone Deep venous thrombosis prophylaxis: Eliquis Disposition d/c to [facility] up with PCP 1 week after d/c from [facility] up with [facility] in 2-3 weeks Case and plan of care discussed with patient All questions were answered Patient is understanding, comfortable, agreeable with plan of care Admission and Anticipated Discharge Date Admission Date: September 28, 2019 Subjective ff up for a fib, NSTEMI, foot pain resting in chair, comfortable states she feels fine overall denies dizziness, weakness no chest pain, nausea no foot or leg pain denies other symptoms states she is ready for discharge today Review of Systems Review of Systems: All systems reviewed & are unremarkable except as noted in HPI & below Physical Exam Physical Exam: General- oriented x 3, not in distress, speaks in sentences with no effort or accessory muscle use Eyes- anicteric Neck- no JVD Lungs- clear breath sounds bilaterally Heart- normal rate, regular rhythm; no murmurs Abdomen- normal bowel sounds, nondistended, soft, nontender Extremities- no pretibial edema, no calf tenderness left foot: mild edema, no tenderness/warmth, full ROM right foot: essentially normal Neuro- alert, oriented x 3; no gross focal neurologic deficits Skin- warm & dry Results & Data ([facility]) Vital Signs (Past 12 Hours) Vital Signs Temp Pulse Pulse Resp BP BP Pulse Ox 10/09/19 08:00 55 L 10/09/19 07:52 36.6 C 53 L 18 130/56 L 97 10/09/19 03:12 36.3 C L 56 L 18 123/76 97 10/08/19 23:19 36.6 C 55 L 18 148/56 H 97
--- NOTE | 2019-10-09 11:16 | Discharge Summary ---
Date of Service October 09, 2019 Admission HPI Per Admitting Provider CHIEF COMPLAINT: Chest pain. 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 The patient lives with her , walks holding things at home, presents with chest pain. The patient says she gets on and off chest pains and shortness of breath with exertion but they go away when she takes rest but today afternoon during lunchtime, she noticed chest pain, lightheadedness and shortness of breath which was not subsiding, when she decided to come to the ER. In the ER, nitro relieved her pain and her troponins were 0.35 and EKG showed junctional rhythm. 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 Currently, no shortness of breath, no sweating. Was nauseous while she was getting chest x-ray, but currently okay. No abdominal pain. Currently, no dizziness, no blurred visions, no earache. She takes medication for glaucoma, which also causes some runny nose, but no sore throat, no dysphagia. Appetite is okay. Sleeps okay. No orthopnea, no cough, no fevers, no abdominal pain. She says she feels full in her bladder and she feels she is not emptying her bladder completely but denies any burning micturition or hematuria, no blood in stools or black stools. She says once in while her right lower extremity gets swollen. Currently resting comfortable and hemodynamically stable and chest pain has resolved. ALLERGIES: No known drug allergies. PAST MEDICAL HISTORY: As mentioned above. PAST SURGICAL HISTORY: Bilateral upper eyelid surgery, colonoscopy, colonoscopy with biopsy, incision and drainage of the right forearm, EGDs, injection of the eyes, laser trabeculoplasty, right -sided radius and ulna fixation, repair of detached retina, cataract surgeries, left carotid endarterectomy, both lower legs had balloon for vascular circulation ,vitrectomy with removal of epiretinal membrane. MEDICATIONS: The patient is on Zantac 150 mg p.o. b.i.d., Prandin 1 tablet with breakfast and 1 tablet at lunch and 3 mg at dinnertime, timolol, instill 1 drop into both eyes daily, amlodipine 2.5 mg p.o. daily, Brilinta 90 mg p.o. b.i.d., Pletal 100 mg p.o. b.i.d., Trulicity 1.5 mg under skin once a week, levothyroxine 137 mcg daily, Rocklatan 0.02/0.05% instill 1 drop into eye once, magnesium chloride ER 125 mg p.o. daily, Lasix 20 mg every other day, Lipitor 80 mg p.o. daily, Prandin 2 mg b.i.d., Simbrinza instill 1 drop into eye 3 times a day, Flonase 2 sprays into each nostril daily, Lantus 10 units at bedtime, Toprol-XL 50 mg p.o. daily, Daily Vitamins 1 tablet daily, calcium 600 mg p.o. daily. FAMILY HISTORY: Significant for brother had prostate cancer. Father had prostate cancer. Sister has liver cancer and sister has colon cancer. Brother has VT. Mother had CHF. Mother has diabetes. SOCIAL HISTORY: Lives with her . Former smoker, quit in 1969. No alcohol use, no drug use. REVIEW OF SYMPTOMS: As per HPI. Rest of review of symptoms are negative. Admission Exam Per Admitting Provider PHYSICAL EXAMINATION: GENERAL: The patient is of moderate build, not in acute distress. VITAL SIGNS: Temperature 36.2, pulse 67, respiratory rate 18, blood pressure 148/79, oxygen 100% on room air. HEENT: Pupils equal, round, reactive to light. Extraocular muscles intact. NECK: No JVD, no neck masses, no carotid bruits. CARDIOVASCULAR: S1, S2 heard, regular rate and rhythm. Systolic murmur in aortic area. RESPIRATORY SYSTEM: Normal AP diameter. No accessory muscle use. No wheezing, no crackles. ABDOMEN: Soft, bowel sounds present, nontender. No distention. CENTRAL NERVOUS SYSTEM: Cranial nerves II-XII grossly intact. Nonfocal. EXTREMITIES: Trace pedal edema, no erythema seen. Principal Diagnosis NON ST ELEVATION MYOCARDIAL INFARCTION, ATRIAL FIBRILLATION Discharge Exam General- oriented x 3, not in distress, speaks in sentences with no effort or accessory muscle use Eyes- anicteric Neck- no JVD Lungs- clear breath sounds bilaterally Heart- normal rate, regular rhythm; no murmurs Abdomen- normal bowel sounds, nondistended, soft, nontender Extremities- no pretibial edema, no calf tenderness left foot: mild edema, no tenderness/warmth, full ROM right foot: essentially normal Neuro- alert, oriented x 3; no gross focal neurologic deficits Skin- warm & dry Discharge Data Allergies Allergy/AdvReac Type Severity Reaction Status Date / Time No Known Allergies Allergy Verified 09/28/19 21:55 Consultations 09/28/19 21:52 ED Decision to Admit Stat 09/28/19 23:57 Consult Case Management - Discharge Planning Routine 09/29/19 08:00 Consult Cardiology Routine 10/03/19 17:27 Consult Orthopedic Surgery Routine Ordered Studies 10/03/19 01:35 US venous doppler LE LT Urgent IMPRESSION: No sonographic evidence of acute deep venous thrombosis. 10/03/19 17:27 CT foot LT wo con Stat 1. Severe degenerative change. 2. Moderate generalized soft tissue edematous change. 3. No acute bony abnormality or destructive process. CT lumbar spine wo con Urgent FINDINGS: No fractures. No subluxation. Paraspinal soft tissues are unremarkable. Considerable degenerative disc changes throughout. Vacuum discs at several locations including L4-L5, L2-L3, and T12-L1. Degenerative change of the Vertebral endplates throughout. No evidence for major compromise of the spinal canal. Degenerative change of the posterior elements. Moderate multifactorial narrowing of the spinal canal at L2-L3, L3-L4, and to a moderate degree L4-5. 1. No acute process. 2. Considerable degenerative disc change as discussed. 3. Moderate multilevel narrowing of the spinal canal. Hospital Course (1) Non-ST elevation VT (NSTEMI): NSTEMI Aortic stenosis, Mitral stenosis Per previous hospitalist Dr. Kieran Huffman's notes: -presented to emergency room for chest pain on 09/28/2019, admission troponin was 0.354, and was given medications including started on IV heparin drip (first dose given on 09/28/2019 around 11 PM for NSTEMI -troponin peaked to 0.516 on 09/29/2019 EKGD no acute ischemia troponins downtrended Echo: no LV wall motion abnormality, EF preserved -Chest pain-free Atrial Fibrillation with Rapid Ventricular Response Per previous hospitalist Dr. Kieran Huffman's notes: -10/02/2019 Patient was seen in AM with no chest complaints and heart rate in normal sinus rhythm. Around 12:40 PM nurse paged medication doctor that patient was in atrial fibrillation with rapid ventricular response in the 150s. Medical doctor assessed the patient and she reported some chest discomfort and her heart rates were indeed fast and irregular. Cardiology physician also assessed the patient and ordered IV amidorone and IV heparin drip to be started. labs notable for hypomagnesemia of serum magnesium 1.5 , a low TSH 0.132, free T4 pending, mild increased in the creatinine to 1.25. mild hyponatremia of serum sodium 1.32 patient placed on Amiodarone, titrated noted to have bradycardia, Amiodarone and Metoprolol reduced transitioned from Heparin drip to Eliquis Brilinta transitioned to Plavix Remains in sinus rhythm cleared for dc today by Composite Worker d/c plan: Amiodarone 200mg po daily Metoprolol Succ 25mg po daily Plavix 75mg po daily Eliquis 5mg BID Left foot swelling and pain, possible gout, doubt septic arthritis CT foot: No fractures, no fluid collection Pain resolving with ice packs, scheduled Tylenol received daptomycin and ceftriaxone Orthopedic service consulted-no further interventions at this time, appreciate recommendation Ice packs, Tylenol scheduled, PRN tramadol PT OT evaluation will need inpatient rehab -- pain resolved with 1 dose of Prednisone 20mg but blood glucose elevated prednisone 10mg daily x 3 days, monitor blood glucose Back pain CT lumbar spine: No acute process, considerable degenerative disc change, moderate multilevel narrowing of the spinal resolved Chronic diastolic congestive heart failure, valvular heart disease with moderate aortic stenosis, moderate to severe mitral stenosis. -continue Lasix monitor closely Hypokalemia Replaced Hypomagnesemia Resolved Hypothyroidism Per previous hospitalist Dr. Kieran Huffman's notes: -10/02/2019: a low TSH 0.132, free T4 elevated 2.06. reduce home dose Levothyroxine 137 mcg daily to 100 mcg repeat thyroid function test in 4-6 weeks Hypertension -monitor while on amlodipine and Metoprolol succinate Acute kidney injury on chronic kidney disease stage III -monitor while on lasix Urinary tract infection -urine culture as Enterobacter aerogenes, completed IV ceftriaxone x7 days Peripheral vascular disease Per previous hospitalist Dr. Kieran Huffman's notes: -history of left carotid endarterectomy and also as per previous cardiology notes, she has extensive bilateral superficial femoral artery stenting for claudication -on cilostazol, Plavix, Eliquis and Statin Gastroesophageal reflux disease -Pepcid. 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 of insulin -Hold home dose Trulicity and home dose repaglinide - BSGs improved -currently on Lantus 20units daily with sliding scale insulin monitor closely while on Prednisone Deep venous thrombosis prophylaxis: Eliquis Disposition d/c to [facility] up with PCP 1 week after d/c from [facility] up with Composite Worker in 2-3 weeks Case and plan of care discussed with patient All questions were answered Patient is understanding, comfortable, agreeable with plan of care Total Time Total Time Spent Total Time Spent (In Minutes): 60 minutes Discharge Plan Discharge Items Reason For Visit: CHEST PAIN Discharge Diagnosis: Non-ST elevation VT (NSTEMI): Aortic stenosis Mitral stenosis atrial fibrillation with rapid ventricular response Foot pain, possible Gout Peripheral vascular disease Chronic diastolic congestive heart failure Hypertension Chronic kidney disease stage III Type 2 diabetes mellitus with shelter current use of insulin Hypomagnesemia urinary tract infection Activity: As commented below Activity Comment: continue PT/OT, Fall Precautions, Always with a walker Lifting: Wait until after follow-up appointment Exercise/Sports: Wait until after follow-up appointment Driving/Machine Use: NO DRIVING Non-emergency contact: Primary Care Provider Call non-emergency contact if: you have any medication questions, your symptoms worsen, your pain is not controlled and you have a fever Follow-up/Referrals: Chriss Perea DO [Composite Worker] - 10/17/19 3:00 pm Earl Jensen DO [Primary Care Provider] - 10/15/19 9:15 am Diet: Carb Consistent or DM2 and Heart Healthy Addtl Attending Provider Instructions: PLEASE REFER TO ACCOMPANYING HOSPITAL DISCHARGE SUMMARY FOR FULL DETAILS. 10/17/2019 3:00 PM Provider Ana Solares PA-C Department Cardiology, [facility] 11/13/2019 2:30 PM Provider [facility] Department Pharmacy, [facility] 12/03/2019 9:30 AM Provider Driver Wheelchair 1 Department Cardiac Studies, [facility] 12/21/2019 9:30 AM Provider Ana Solares PA-C Department Cardiology, [facility] 12/21/2019 11:30 AM Provider Hazel Holt PA-C Department Family Practice [facility] Add Meat Soaker Provider Instructions: Home Care: * Take your medications exactly as directed. Don't skip doses. * Remember that recovery after a heart attack takes time. Plan to rest for at lease 4-8 weeks while you recover. Then return to normal activity when your doctor says it's okay. * Ask your doctor about joining a heart rehabilitation program. * Tell your doctor if you are feeling depressed. Feelings of sadness are common after a heart attack, but it is important that you speak to someone if you are feeling overwhelmed by these feelings. * If you are having chest pain, call 911 for an ambulance. Do NOT drive yourself to the hospital. * Ask your family members to learn CPR. * Learn to take your own blood pressure and pulse. Keep a record of your results. Ask your doctor when you should seek emergency medical attention. He or she will tell you which blood pressure reading is dangerous. Lifestyle Changes: * Maintain a healthy weight. Get help to lose any extra pounds. * Cut back on salt. * Limit canned, dried, packaged, and fast foods. * Don't add salt to your food. * Season foods with herbs instead of salt when you cook. * Break the smoking habit. Enroll in a stop-smoking program to improve your chances of success. * Limit fatty foods. * Ask your doctor about having your lipid levels checked regularly. * Build up your activity according to your doctor's recommendation. * Ask your doctor when it's okay to resume sexual activity. * Tell your doctor about any erectile dysfunction (ED) medication you are taking. Some ED medications are not safe if you take certain heart medications. * Try to manage stress. Follow Up: It is important for you to keep your follow up appointments with your medical provider. Call your Primary Care doctor if any of the following symptoms or problems start or get worse: * Shortness of breath or difficulty breathing * Wake up at night short of breath * Chest pain * Cough * Swelling of your hands, feet, or legs * More fatigued or tired with your normal activity * Palpitations - sudden fast heart beats WEIGHT * Weigh yourself every morning after using the bathroom. * Use the same scale. * Wear the same amount of clothing. * Write your weight down on a chart. * Call your Primary Care doctor if you gain more than 2-3 pounds in 1-2 days. MEDICATIONS * Use this discharge instruction sheet for medication instructions. * Take your medications at the time your doctor ordered. * Do not skip a dose of your medicines. * If you miss a dose of medicine, take it as soon as possible, but DO NOT DOUBLE A DOSE. * Read your medicine information when you get home. * Know all of the side effects of your medicine. If in doubt, ask your pharmacist * Call your Primary Care doctor's office if you have any side effects. * Be sure all of your doctors know what medicine and herbs you take (including cold, flu, and herbal medicine). Take the following with you to your follow-up doctor appointments: * Weight Chart * Medication List * List of questions Do not drink excessive alcohol, beer or wine. Pending Studies at Discharge: No Stand-Alone Forms: My [place], Smoking Cessation Skilled Items Patient informed of condition?: Yes DNR: No Discharge Level of Care: Acute rehab Communicable Disease: No Discharge Prognosis: Stable Lines: None Urinary Catheter: No Medications and DC Order Prescriptions: New amiodarone 200 mg Tablet 200 mg PO QAM 30 Days Qty: 30 RF: 2 clopidogrel 75 mg Tablet 75 mg PO QAM 30 Days Qty: 30 RF: 2 metoprolol succinate 25 mg Tablet Extended Release 24 Hr 25 mg PO QAM 30 Days Qty: 30 RF: 2 Eliquis 5 mg Tablet 5 mg PO BID 30 Days Qty: 60 RF: 2 insulin aspart U-100 [Novolog Flexpen U-100 Insulin] 100 unit/mL (3 mL) Insulin Pen 1 units SC ACHS Qty: 15 RF: 0 prednisone 10 mg Tablet 10 mg PO DAILY 2 Days Qty: 2 RF: 0 Lantus Solostar U-100 Insulin 100 unit/mL (3 mL) Insulin Pen 20 unit SC DAILY 30 Days Qty: 6 RF: 0 levothyroxine 100 mcg capsule 100 mcg PO DAILY 30 Days Qty: 30 RF: 2 Continued calcium carbonate 600 mg calcium (1,500 mg) tablet 600 mg PO BID RF: 0 multivitamin Tablet 1 tab PO DAILY RF: 0 cilostazol 100 mg Tablet 100 mg PO BID RF: 0 atorvastatin 80 mg Tablet 80 mg PO DAILY RF: 0 furosemide 20 mg Tablet 20 mg PO Q OTHER DAY RF: 0 magnesium chloride [Mag 64] 64 mg Tablet,Delayed Release (Dr/Ec) 128 mg PO DAILY RF: 0 amlodipine [Norvasc] 2.5 mg tablet 2.5 mg PO DAILY RF: 0 ranitidine HCl 150 mg Tablet 150 mg PO BID RF: 0 timolol maleate 0.5 % drops 1 drp OPB DAILY RF: 0 Simbrinza 1-0.2 % drops,suspension 1 drp OPB TID RF: 0 Rocklatan 0.02-0.005 % Drops 1 drp OPHTHALMIC (EYE) PM RF: 0 Discontinued metoprolol succinate 50 mg tablet extended release 24 hr 50 mg PO DAILY Qty: 30 RF: 11 repaglinide 1 mg tablet 1 mg PO TID RF: 0 levothyroxine 137 mcg Tablet 137 mcg PO DAILY RF: 0 Trulicity 1.5 mg/0.5 mL Pen Injector 1.5 mg subcut WK RF: 0 repaglinide 2 mg tablet 2 mg PO BID RF: 0 Lantus Solostar U-100 Insulin 100 unit/mL (3 mL) insulin pen 10 unit SUBCUT DAILY RF: 0 Brilinta 90 mg tablet 90 mg PO BID RF: 0 Krames/Other Patient Handouts: A1C Admission Data Admit Date/Time: 09/28/19 22:49 Attending Provider: Joe Loyola Admit Provider: Gulshan Baptiste Primary Care Provider: Earl Jensen Other Providers: Gulshan Baptiste ; Chriss Perea ; Kieran Huffman ; Yakov Encinas ; [facility] ; [facility]
[2019-10-09] MEDS ORDERED: LEVOTHYROXINE SODIUM 100 MCG TABLET PO SCH (11:30)
== END 2019-10-09 14:06 | DRG 281 ==
LOC: ED 20:38 → SUATTDRO 22:49 → 2S 22:49

== ENCOUNTER 2021-11-20 16:50 | Inpatient (IN) ==
[2021-11-20 17:32] LABS: Basophils # (auto) 0.03 K/uL (0-0.2); Basophils % (auto) 0.5 %; Hematocrit (blood only) 36.7 % (37-47); Hemoglobin 11.9 g/dL (12.0-16.0); Lymphocytes # (auto) 1.93 K/uL (1.2-3.4); Mean Corpuscular Hemoglobin 33.4 pg (25-34); Mean Corpuscular Hgb Conc 32.4 g/dL (32-36); Mean Corpuscular Volume 103.1 fL (80-100); Mean Platelet Volume 11.1 fL (7.4-10.4); Monocytes # (auto) 0.54 K/uL (0.11-0.59); Monocytes % (auto) 8.1 %; Neutrophils # (auto) 3.96 K/uL (1.4-6.5); Neutrophils % (auto) 59.4 %; Platelet Count 288 K/uL (130-400); RDW Coefficient of Variation 14.1 % (11.5-14.5); RDW Standard Deviation 53.1 fL (36.4-46.3); Red Blood Count 3.56 M/uL (4.2-5.4); White Blood Count 6.66 K/uL (4.8-10.8)
[2021-11-20 17:40] LABS: Albumin Globulin Ratio 1.4 (0.9-2); Albumin Level 3.7 gm/dl (3.4-5.0); BUN Creatinine Ratio 30.3 (10-20); Bilirubin,Total 0.7 mg/dl (0.2-1.0); Calcium 9.3 mg/dl (8.5-10.1); Creatinine Clr Calc Pharmacy 42.7 ml/min; Est GFR (African American) 50.6 ml/min; Est GFR (Non-African American) 43.7 ml/min; Globulin 2.7 gm/dl (2.5-4.0); Potassium 4.1 mmol/L (3.5-5.1); Total Protein 6.4 gm/dl (6.0-8.3)
--- NOTE | 2021-11-20 17:40 | XRay Report ---
SINGLE VIEW CHEST CLINICAL HISTORY: Atypical chest pain FINDINGS: An AP, portable, upright chest radiograph is compared to study dated 09/28/2019. The heart is top normal for projection noting atherosclerotic calcification of the thoracic aorta. There is mild bibasilar atelectasis. The lungs and pleural spaces are otherwise clear. No pneumothorax is seen. The skeletal structures are osteopenic. The bony thorax is grossly intact. Calcific tendinopathy is note d in the left shoulder. IMPRESSION: No active disease in the chest. ACT 112: Negative or not required by law. Electronically signed by: Anastacio Santana M.D. 11/20/2021 5:39 PM
[2021-11-20 17:51] LABS: INR 1.1 (0.9-1.1); Partial Thromboplastin Time 27.9 Seconds (21.0-31.0); Prothrombin Time 11.2 Seconds (9.0-12.0)
[2021-11-20] MEDS ORDERED: OPTIRAY 320 100ml IV ONE (19:20)
--- NOTE | 2021-11-20 19:46 | CT Scan Report ---
CT SCAN OF THE ABDOMEN AND PELVIS WITH IV CONTRAST CLINICAL HISTORY: Generalized abdominal pain. Diarrhea. Hypertension. COMPARISON STUDY: Abdominal CT dated 05/18/2016. TECHNIQUE: Following the IV administration of 95 cc of Optiray 320, CT scan of the abdomen and pelvi s is performed from the lung bases to the proximal femora. Images are reviewed in the axial, sagittal , and coronal planes. IV contrast was administered without complication. A dose lowering technique wa s utilized adhering to the principles of ALARA. CT DOSE: 628.50 mGy.cm FINDINGS: Lung bases: The heart is normal in size and without pericardial effusion. The mitral annulus and aort ic valve leaflets are densely calcified. The lung bases are clear noting dependent atelectasis. Liver: The contrast-enhanced liver is normal in size, contour, and attenuation. There is no intrahepa tic biliary ductal dilatation. The hepatic veins and portal veins are patent. Gallbladder: Unremarkable. Spleen: The spleen is diminutive and there are several splenules in the left upper quadrant. This is similar to previous. Pancreas: The proximal pancreas is atrophic. The distal pancreas is not visualized. Adrenal glands: Unremarkable. Kidneys: The contrast enhanced kidneys demonstrate mild cortical atrophy and are without hydronephros is. The kidneys enhance symmetrically. Abdominal vasculature: The abdominal aorta is normal in course and caliber noting advanced atheroscle rotic calcification. A stent is noted in the left superficial femoral artery. Bowel: The sigmoid colon is redundant. No bowel obstruction is identified. The appendix is normal. Peritoneum: There is no intraperitoneal free air or abdominal ascites. Lymphadenopathy: None. Pelvic viscera: The bladder is distended but otherwise normal in appearance. The uterus and adnexa ar e normal as visualized. Skeletal structures: The skeletal structures are osteopenic. There is moderate to advanced lumbosacra l spondylosis. No lytic or blastic lesions are seen. IMPRESSION: No acute infectious or inflammatory findings are identified in the abdomen or pelvis. ACT 112: Negative or not required by law. Electronically signed by: Anastacio Santana M.D. 11/20/2021 7:44 PM
[2021-11-20] MEDS ORDERED: NITROGLYCERIN SL 0.4 MG/TAB TAB SL PRN (22:31)
[2021-11-20] MEDS ORDERED: ACETAMINOPHEN 325 MG TAB PO PRN (22:31)
--- NOTE | 2021-11-20 23:13 | History and Physical Report ---
DATE OF ADMISSION: 11/20/2021 CHIEF COMPLAINT: Chest pain. HISTORY OF PRESENT ILLNESS: A 80-year-old female with past medical history significant for diabetes, diabetic polyneuropathy, diabetic retinopathy, hyperlipidemia, chronic kidney disease stage III, peripheral vascular disease, moderate aortic stenosis, moderate mitral stenosis, severe mitral valve annular calcification, chronic diastolic CHF, peripheral vascular disease, status post bilateral superficial femoral artery stenting for claudication in 2014, paroxysmal atrial fibrillation, on amiodarone therapy, chronic macrocytic anemia, history of left carotid endarterectomy, The patient lives with her . Ambulatory status is not that great, sometimes walks holding things. The patient says she was constipated for last 4 days. For initial one or two days, she took the stool softener and today morning, she had diarrhea. She is not feeling good in her stomach, has some nausea, then today she developed left- sided chest pain, dull kind of pain, about 6/10 in severity. She felt funny feeling in the left hand, which prompted her to come to the ER. Currently, patient's chest pain is better, only 2/10 in severity. When in the ambulance, she had some headache that got resolved now. Denies any dizziness, no blurred visions. The patient is hard of hearing. She has some runny nose from her eye drops. No sore throat. Once in a while, she gets cough. Currently, denies any shortness of breath. No blood in stools or black stools. Normal bladder movements. Right leg is chronically slightly swollen. Hemodynamically stable. ALLERGIES: No known drug allergies. PAST MEDICAL HISTORY: As mentioned above. PAST SURGICAL HISTORY: Bilateral upper lid blepharoplasty, colonoscopy with biopsy, incision and drainage of the right forearm/wrist lesion, EGDs, excision of the face and scalp subcutaneous tumor, left tendon release, incision of the foot/toe fascia, injection of eye drug, laser trabeculoplasty, right radius and ulna fracture fixation, repair of detached retina, cataract surgery, left carotid endarterectomy. MEDICATIONS: The patient is on Tylenol 650 mg p.o. q.i.d. p.r.n., amiodarone 100 mg p.o. a.m., Eliquis 5 mg p.o. b.i.d., atorvastatin 80 mg p.o. daily, calcium carbonate 600 mg p.o. b.i.d., Plavix 75 mg p.o. a.m., Trulicity 4.5 mg subcutaneous weekly, furosemide 20 mg p.o. every other day, Lantus 15 units subcutaneous daily, levothyroxine 88 mcg p.o. daily, magnesium 128 mg p.o. daily, metoprolol succinate 12.5 mg p.o. a.m., multivitamin 1 tablet p.o. daily, Rocklatan 1 drop ophthalmic daily, Simbrinza 1 drop ophthalmic t.i.d., timolol 1 drop ophthalmic q.a.m. FAMILY HISTORY: Significant for brother has prostate cancer, father has prostate cancer, sister has liver cancer, another sister has colon cancer, mother has diabetes and CHF, brother has SC. SOCIAL HISTORY: , former smoker, quit in 1969, smoked for a few years. No alcohol use. No drug use. REVIEW OF SYSTEMS: As per HPI. Rest of review of systems is negative. PHYSICAL EXAMINATION: GENERAL: The patient is of moderate build, not in acute distress. VITAL SIGNS: Temperature 36.6, pulse 60, respiratory rate 18, blood pressure 173/97, oxygen 98% on room air. HEENT: Pupils equal, round and reactive to light. Oral mucosa moist. NECK: No JVD, no neck masses. CARDIOVASCULAR: S1 and S2 heard. Mild ejection systolic murmur. Regular rate and rhythm. RESPIRATORY SYSTEM: Normal AP diameter. No accessory muscle use. No wheezing, no crackles. ABDOMEN: Soft, bowel sounds present, nontender, no distention. CENTRAL NERVOUS SYSTEM: Cranial nerves II through XII are grossly intact, nonfocal. EXTREMITIES: Trace pedal edema, no erythema seen. LABORATORY DATA: WBC 6.3, hemoglobin 11.9, hematocrit 36.7, platelets 288. PT 11.2, INR 1.1, APTT 27.9. Sodium 139, potassium 4.1, chloride 104, bicarb 28, BUN 36, creatinine 1.1, serum glucose 147, calcium 9.3, total bilirubin 0.7, AST 20, ALT 14, alkaline phosphatase 68. Troponin I high sensitivity initially was 47.2, repeat 27.6. SARS-CoV-2 rapid test negative. IMAGING: CT of the abdomen and pelvis with IV contrast: No acute process. Chest x-ray: No active disease in the chest. EKG: Normal sinus rhythm at a rate of 75, no significant change was found. ASSESSMENT AND PLAN: This 80-year-old female presents with chest pain. 1. Chest pain. High sensitivity troponins are elevated. Currently, pain is improving. EKG is unremarkable. We will follow the repeat enzymes. Patient is on eliquis.. Follow the echocardiogram. Closely monitor in telemetry floor, keep her n.p.o. after midnight. Consult cardiology in the a.m. 2. Paroxysmal atrial fibrillation, on amiodarone, Eliquis, and metoprolol. We will monitor . 3. History of diabetes. Cut back on Lantus to 8 units daily as patient is npo and place on insulin sliding scale. Follow the blood sugars, follow HbA1c level. 4. Hypothyroidism. Continue Synthroid. 5. Peripheral vascular disease, on Plavix and statin. 6. History of diastolic congestive heart failure, moderate aortic valve stenosis and mitral valve stenosis. Follow up echocardiogram. Monitor for volume overload. Continue on Lasix every other day. 7. Hypertension, on metoprolol succinate and Lasix. We will monitor the blood pressure. 8. Chronic kidney disease stage III. Presents with a creatinine of 1.1. We will follow the repeat laboratories. 9. Deep venous thrombosis prophylaxis, on Eliquis. DISPOSITION: Closely monitor in the tele floor. Level 1, full code. Expect to discharge home and follow with family doctor. Job ID: [id number] MTDD
[2021-11-20] MEDS ORDERED: GLUCAGON FOR INJ 1 MG VIAL IM PRN (23:30)
[2021-11-20] MEDS ORDERED: GLUCOSE 10 TABS/TUBE PO PRN (23:30)
[2021-11-20] MEDS ORDERED: DEXTROSE 50% 50 ML SYRINGE IV PRN (23:30)
[2021-11-20] MEDS ORDERED: CARBOHYDRATES FOR HYPOGLYCEMIA PO PRN (23:30)
[2021-11-20] MEDS ORDERED: GLUCOSE 40% GEL 15 GM TUBE PO PRN (23:30)
[2021-11-21 03:50] LABS: Basophils # (auto) 0.04 K/uL (0-0.2); Basophils % (auto) 0.7 %; Eosinophils # (auto) 0.23 K/uL (0-0.5); Hematocrit (blood only) 33.2 % (37-47); Hemoglobin 10.9 g/dL (12.0-16.0); Immature Granulocytes # (auto) 0.02 K/uL (0.00-0.02); Immature Granulocytes % (auto) 0.3 %; Lymphocytes # (auto) 2.24 K/uL (1.2-3.4); Lymphocytes % (auto) 39.2 %; Mean Corpuscular Hemoglobin 32.8 pg (25-34); Mean Corpuscular Hgb Conc 32.8 g/dL (32-36); Mean Platelet Volume 10.5 fL (7.4-10.4); Monocytes # (auto) 0.63 K/uL (0.11-0.59); Neutrophils # (auto) 2.56 K/uL (1.4-6.5); Neutrophils % (auto) 44.8 %; Platelet Count 264 K/uL (130-400); RDW Coefficient of Variation 14.2 % (11.5-14.5); RDW Standard Deviation 51.6 fL (36.4-46.3); Red Blood Count 3.32 M/uL (4.2-5.4); White Blood Count 5.72 K/uL (4.8-10.8)
[2021-11-21 04:22] LABS: BUN Creatinine Ratio 27.6 (10-20); Calcium 8.9 mg/dl (8.5-10.1); Est GFR (African American) 52.2 ml/min; Est GFR (Non-African American) 45.1 ml/min; Magnesium 1.6 mg/dl (1.7-2.4); Potassium 3.7 mmol/L (3.5-5.1)
[2021-11-21] MEDS: LEVOTHYROXINE SODIUM 88 MCG TABLET PO SCH (06:06)
[2021-11-21] MEDS: INSULIN ASPART PER UNIT SC SCH ×4 (07:51→21:21)
[2021-11-21] MEDS: ATORVASTATIN 40 MG TAB PO SCH (08:03)
[2021-11-21] MEDS: CALCIUM CARBONATE 1250MG TAB PO SCH ×2 (08:03→21:22)
[2021-11-21] MEDS: APIXABAN 5 MG TABLET PO SCH ×2 (08:03→21:22)
[2021-11-21] MEDS: CLOPIDOGREL BISULFATE 75 MG TAB PO SCH (08:03)
[2021-11-21] MEDS: METOPROLOL SUCC 25MG EXT REL TAB PO SCH (08:03)
[2021-11-21] MEDS: AMIODARONE 200 MG TAB PO SCH (08:04)
[2021-11-21] MEDS: MAGNESIUM CHLORIDE 64MG DELAYED REL TAB PO SCH (08:04)
[2021-11-21] MEDS: FUROSEMIDE 20 MG TAB PO SCH (08:04)
[2021-11-21] MEDS: MULTIVITAMIN TAB PO SCH (08:04)
[2021-11-21] MEDS: BRINZOLAMIDE/BRIMONIDINE TART 119 DROPS/8 ML BTL OP SCH ×3 (08:05→21:23)
[2021-11-21] MEDS: TIMOLOL MALEATE 0.5% OP SOLN 5 ML BTL OP SCH (08:05)
[2021-11-21] MEDS: INSULIN GLARGINE SOLOSTAR 100 UNITS/ML 3 ML PEN SC SCH (09:00)
[2021-11-21 11:01] LABS: Estimated Average Glucose 174 mg/dl; Hemoglobin A1C 7.7 % (4.5-5.6)
--- NOTE | 2021-11-21 11:28 | Cardiology Consultation ---
Date of Consultation November 21, 2021 Assessment & Plan (1) Troponin level elevated: (2) Non-ST elevation ND (NSTEMI): (3) HTN (hypertension): (4) PAD (peripheral artery disease): Patient is a complex 80-year-old female whose underlying history is notable for 1. Mixed valvular heart disease 2. Paroxysmal atrial fibrillation 3. Atherosclerotic peripheral vascular disease 4. Hypertension 5. Presumed ischemic heart disease Patient presents now with symptoms atypical for angina but with elevated troponins, normal EKGs Will review echocardiogram and follow patient closely initial assessment does not suggest acute coronary syndrome but patient certainly at risk for such. Complaints on presentation were predominantly abdominal discomfort and diarrhea followed by episode of chest pain question demand based ischemia. No adjustments in medications till echocardiogram reviewed Patient at elevated risk for coronary intervention and previously is requested conservative therapies History of Present Illness Reason for Consultation: Chest pain, elevated troponin Requesting Physician: Joe Loyola MD Attending Physician: Joe Loyola MD History of Present Illness Patient is a complex 80-year-old female with ongoing issues which include 1. Longstanding type 2 diabetes mellitus, insulin requiring with neuropathy and ophthalmopathy 2. Hypertension 3. Atherosclerotic carotid disease status post left carotid enterectomy 2004 without proceeding TIA or stroke 4. Mixed calcific valvular disease with moderate aortic stenosis,moderate mitral stenosis with heavy mitral valve calcification 5. Nonhealing right foot ulcer 6. Atherosclerotic peripheral vascular disease status post extensive bilateral superficial femoral artery stenting for claudication 2014 7. 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 Paroxysmal atrial fibrillation on amiodarone therapy 9. Chronic macrocytic anemia 10. Atrial fibrillation paroxysmal with associated mild elevation troponins in hospitalization 09/2019 Patient presents this admission noting having felt intermittently nauseated and generally with moderate malaise x2 to 3 days prior to admission she began experiencing abdominal pain constipation then diarrhea but sought ER evaluation with symptoms of low-grade chest pressure pain grade 2 out of 10. No tachypalpitations dizziness or lightheadedness. No overt weight gain or edema. No fevers chills. No bleeding difficulties. Has been taking medications as prescribed. Claudication symptoms have been stable. Has chronic right leg edema Since admission no further symptoms. EKG per on presentation and this morning normal, troponins however are trending upward Allergies Allergy/AdvReac Type Severity Reaction Status Date / Time No Known Allergies Allergy Verified 11/20/21 19:05 Home Medications Medication Instructions Recorded Confirmed Type atorvastatin 80 mg tablet 80 mg PO DAILY 05/22/18 11/20/21 History furosemide 20 mg tablet 20 mg PO Q OTHER DAY 05/22/18 11/20/21 History multivitamin 1 tab PO DAILY 05/22/18 11/20/21 History magnesium chloride 64 mg 128 mg PO DAILY 02/23/19 11/20/21 History (magnesium chloride) tablet,delayed release (Mag 64) calcium carbonate 600 mg calcium 600 mg PO BID tab 03/09/19 11/20/21 History (1,500 mg) tablet brinzolamide 1 %-brimonidine 0.2 % 1 drp OPB TID 09/28/19 11/20/21 History eye drops,suspension (Simbrinza) netarsudil 0.02 %-latanoprost 1 drp OPHTHALMIC (EYE) HS 09/28/19 11/20/21 History 0.005 % eye drops (Rocklatan) apixaban 5 mg tablet (Eliquis) 5 mg PO BID 30 Days #60 tab 10/09/19 11/20/21 Rx clopidogrel 75 mg tablet 75 mg PO QAM 30 Days #30 tab 10/09/19 11/20/21 Rx acetaminophen 325 mg tablet 650 mg PO QID PRN 11/20/21 11/20/21 History (Tylenol) amiodarone 200 mg tablet 100 mg PO QAM 11/20/21 11/20/21 History dulaglutide 4.5 mg/0.5 mL 4.5 mg SUBCUT WE 11/20/21 11/20/21 History subcutaneous pen injector (Trulicity) insulin glargine 100 unit/mL (3 20 unit SUBCUT DAILY 11/20/21 11/20/21 History mL) subcutaneous pen (Lantus Solostar U-100 Insulin) levothyroxine 88 mcg tablet 88 mcg PO DAILY 11/20/21 11/20/21 History (Synthroid) metoprolol succinate 25 mg 12.5 mg PO QAM 11/20/21 11/20/21 History tablet,extended release 24 hr netarsudil 0.02 %-latanoprost 1 drp OPB DAILY 11/20/21 11/20/21 History 0.005 % eye drops (Rocklatan) timolol maleate 0.5 % eye drops 1 drp OPB QAM 11/20/21 11/20/21 History Patient History Medical History (Updated 11/21/21 @ 11:41 by Arturo Jackson MD) Aortic stenosis Carotid stenosis CKD (chronic kidney disease), stage III Diabetes Diabetic polyneuropathy HTN (hypertension) PAD (peripheral artery disease) (09/04/14) Surgical History H/O eye surgery H/O vascular surgery History of cataract surgery History of CEA (carotid endarterectomy) "left" S/P wrist surgery Family History Other Family history non-contributory Social History Smoking Status: Former smoker Second Hand Exposure: No; Do You Dip or Chew Tobacco: No; Tobacco Cessation Education Requested by Patient: No Hx Alcohol Use: No Hx Substance Use: No Preferred Language: Tamaz[place] Communication Ability: Effective Visual Impairment: No Limitations Continuing Education Dean Required: No Beliefs That Will Affect Care: None marital status: Current Living Situation: Spouse How many Children do You have: 3 Other Information That Helps Us Care for You: No Feels Safe at Home: Yes Safety Concerns: Feels Safe At This Time Assistive Devices: Cane Review of Systems Review of Systems: All systems reviewed & are unremarkable except as noted in HPI & below Physical Exam Constitutional: Chronically ill-appearing female but in no acute distress. Denies chest pain or dyspnea Eyes: PERRL, conjunctivae normal, anicteric sclerae ENMT: external ear and nose normal, oropharynx normal Neck: trachea midline, no thyromegaly Respiratory: normal respiratory effort, lungs clear to auscultation Cardiovascular: Rate/Rhythm: regular rate and regular rhythm Heart Sounds: + murmur (Grade 2-3 right upper sternal border no diastolic ) Vessels: no JVD Extremities: + edema (Right lower extremity) Gastrointestinal (Abdomen): normal bowel sounds, soft, nontender, no hepatosplenomegaly Results & Data ([facility]) Vital Signs (Past 12 Hours) Vital Signs Temp Pulse Pulse Resp BP BP Pulse Ox 11/21/21 11:21 36.5 C 55 L 20 113/68 99 11/21/21 07:56 56 L 11/21/21 07:46 36.4 C L 60 19 144/73 H 96 11/21/21 04:12 36.4 C L 55 L 18 114/70 96 Laboratory Results Laboratory Results - last 24 hr 11/20/21 11/20/21 11/20/21 16:56 16:56 16:56 WBC 6.66 RBC 3.56 L Hgb 11.9 L Hct 36.7 L MCV 103.1 H MCH 33.4 MCHC 32.4 RDW Std Deviation 53.1 H RDW Coeff of Mj 14.1 Plt Count 288 MPV 11.1 H Immature Gran % (Auto) 0.0 Neut % (Auto) 59.4 Lymph % (Auto) 29.0 [place] % (Auto) 8.1 Eos % (Auto) 3.0 Baso % (Auto) 0.5 Neut # (Auto) 3.96 Lymph # (Auto) 1.93 [place] # (Auto) 0.54 Eos # (Auto) 0.20 Baso # (Auto) 0.03 Immature Gran # (Auto) 0.00 PT 11.2 INR 1.1 APTT 27.9 PTT Ratio 1.0 Sodium Potassium Chloride Carbon Dioxide Anion Gap BUN Creatinine Est Cr Clr Drug Dosing Est GFR ( Amer) Est GFR (Non-Af Amer) BUN/Creatinine Ratio Glucose POC Glucose Estimat Average Glucose Hemoglobin A1c Calcium Magnesium Total Bilirubin AST ALT Alkaline Phosphatase Troponin I High Sens 47.2 H Total Protein Albumin Globulin Albumin/Globulin Ratio SARS-CoV-2, RNA, NAAT 11/20/21 11/20/21 11/20/21 16:56 19:36 20:30 WBC RBC Hgb Hct MCV MCH MCHC RDW Std Deviation RDW Coeff of Mj Plt Count MPV Immature Gran % (Auto) Neut % (Auto) Lymph % (Auto) [place] % (Auto) Eos % (Auto) Baso % (Auto) Neut # (Auto) Lymph # (Auto) [place] # (Auto) Eos # (Auto) Baso # (Auto) Immature Gran # (Auto) PT INR APTT PTT Ratio Sodium 139 Potassium 4.1 Chloride 104 Carbon Dioxide 28 Anion Gap 7 BUN 36 H Creatinine 1.19 Est Cr Clr Drug Dosing 42.7 Est GFR ( Amer) 50.6 Est GFR (Non-Af Amer) 43.7 BUN/Creatinine Ratio 30.3 H Glucose 147 H POC Glucose Estimat Average Glucose Hemoglobin A1c Calcium 9.3 Magnesium Total Bilirubin 0.7 AST 20 ALT 14 Alkaline Phosphatase 68 Troponin I High Sens 97.6 H* D Total Protein 6.4 Albumin 3.7 Globulin 2.7 Albumin/Globulin Ratio 1.4 SARS-CoV-2, RNA, NAAT NEGATIVE 11/21/21 11/21/21 11/21/21 03:30 03:30 03:30 WBC 5.72 RBC 3.32 L Hgb 10.9 L Hct 33.2 L MCV 100.0 MCH 32.8 MCHC 32.8 RDW Std Deviation 51.6 H RDW Coeff of Mj 14.2 Plt Count 264 MPV 10.5 H Immature Gran % (Auto) 0.3 Neut % (Auto) 44.8 Lymph % (Auto) 39.2 [place] % (Auto) 11.0 Eos % (Auto) 4.0 Baso % (Auto) 0.7 Neut # (Auto) 2.56 Lymph # (Auto) 2.24 [place] # (Auto) 0.63 H Eos # (Auto) 0.23 Baso # (Auto) 0.04 Immature Gran # (Auto) 0.02 PT INR APTT PTT Ratio Sodium 139 Potassium 3.7 Chloride 107 Carbon Dioxide 26 Anion Gap 6 BUN 32 H Creatinine 1.16 Est Cr Clr Drug Dosing 43.0 Est GFR ( Amer) 52.2 Est GFR (Non-Af Amer) 45.1 BUN/Creatinine Ratio 27.6 H Glucose 148 H POC Glucose Estimat Average Glucose Hemoglobin A1c Calcium 8.9 Magnesium 1.6 L Total Bilirubin AST ALT Alkaline Phosphatase Troponin I High Sens 221.6 H* D Total Protein Albumin Globulin Albumin/Globulin Ratio SARS-CoV-2, RNA, NAAT 11/21/21 11/21/21 11/21/21 03:30 07:46 08:50 WBC RBC Hgb Hct MCV MCH MCHC RDW Std Deviation RDW Coeff of Mj Plt Count MPV Immature Gran % (Auto) Neut % (Auto) Lymph % (Auto) [place] % (Auto) Eos % (Auto) Baso % (Auto) Neut # (Auto) Lymph # (Auto) [place] # (Auto) Eos # (Auto) Baso # (Auto) Immature Gran # (Auto) PT INR APTT PTT Ratio Sodium Potassium Chloride Carbon Dioxide Anion Gap BUN Creatinine Est Cr Clr Drug Dosing Est GFR ( Amer) Est GFR (Non-Af Amer) BUN/Creatinine Ratio Glucose POC Glucose 110 H Estimat Average Glucose 174 Hemoglobin A1c 7.7 H Calcium Magnesium Total Bilirubin AST ALT Alkaline Phosphatase Troponin I High Sens 208.3 H* Total Protein Albumin Globulin Albumin/Globulin Ratio SARS-CoV-2, RNA, NAAT Diagnostic Findings Lexiscan stress nuclear imaging 05/06/2021 Lexiscan nuclear cardiac stress test negative for ischemia. Gated SPECT imaging reveals normal myocardial thickening and wall motion. The left ventricular ejection fraction was calculated to be 68%.
[2021-11-21] MEDS ORDERED: NETARSUDIL LATANOPROST OP SCH (21:00)
[2021-11-21] MEDS: POLYETHYLENE (MIRALAX) 17 GM PACK PO PRN (21:22)
[2021-11-21] MEDS: NETARSUDIL MESYLAT OP SCH (21:23)
[2021-11-21] MEDS: LATANOPROST OP SCH (21:23)
[2021-11-22] MEDS: LEVOTHYROXINE SODIUM 88 MCG TABLET PO SCH (05:51)
[2021-11-22 08:06] LABS: BUN Creatinine Ratio 27.2 (10-20); Calcium 9.1 mg/dl (8.5-10.1); Creatinine Clr Calc Pharmacy 44.5 ml/min; Est GFR (African American) 53.3 ml/min
[2021-11-22] MEDS: INSULIN ASPART PER UNIT SC SCH ×4 (08:48→21:02)
[2021-11-22] MEDS: INSULIN GLARGINE SOLOSTAR 100 UNITS/ML 3 ML PEN SC SCH (08:49)
[2021-11-22] MEDS: TIMOLOL MALEATE 0.5% OP SOLN 5 ML BTL OP SCH (08:49)
[2021-11-22] MEDS: BRINZOLAMIDE/BRIMONIDINE TART 119 DROPS/8 ML BTL OP SCH ×3 (08:49→21:03)
[2021-11-22] MEDS: CALCIUM CARBONATE 1250MG TAB PO SCH ×2 (08:50→21:03)
[2021-11-22] MEDS: AMIODARONE 200 MG TAB PO SCH (08:50)
[2021-11-22] MEDS: ATORVASTATIN 40 MG TAB PO SCH (08:50)
[2021-11-22] MEDS: CLOPIDOGREL BISULFATE 75 MG TAB PO SCH (08:50)
[2021-11-22] MEDS: MULTIVITAMIN TAB PO SCH (08:51)
[2021-11-22] MEDS: MAGNESIUM CHLORIDE 64MG DELAYED REL TAB PO SCH (08:51)
[2021-11-22] MEDS: METOPROLOL SUCC 25MG EXT REL TAB PO SCH (08:51)
[2021-11-22] MEDS: APIXABAN 5 MG TABLET PO SCH (08:51)
[2021-11-22] MEDS: NETARSUDIL MESYLAT OP SCH ×2 (08:54→21:04)
[2021-11-22] MEDS: LATANOPROST OP SCH ×2 (08:54→21:04)
[2021-11-22] MEDS ORDERED: MAGNESIUM HYDROXIDE SUSP 30 ML UDC PO ONE (09:17)
--- NOTE | 2021-11-22 10:29 | Emergency Department Note ---
Impression & Plan Acute non-ST elevation myocardial infarction (NSTEMI), Diarrhea ED Provider Note CHIEF COMPLAINT: Chest pain, nausea, LLE swelling HISTORY OF PRESENT ILLNESS: This 80 yo female patient presents to the emergency department with complaints of left-sided chest pain, nausea and left lower extremity edema. The patient states her pain began in the chest at approximately 12:00 this afternoon. Patient states she was constipated for most of the day and was straining. After passing a hard BM, patient had a large amount of diarrhea and subsequently developed the chest discomfort. She denies any vomiting but states she has not been hungry and has been somewhat nauseated for most of the day. She does not exert herself significantly as her ambulatory status is somewhat unsteady. Patient does live at home with her . The patient noticed increasing left> right lower extremity edema. She is anticoagulated with Eliquis due to a history of atrial fibrillation. Patient is a known diabetic. She denies any recent fevers, chills, cough and urinary symptoms. REVIEW OF SYSTEMS: A review of systems was performed with positives and pertinent negatives listed in the history of present illness. 10 systems were reviewed and are otherwise negative. ALLERGIES: see below MEDICATIONS: see below PMH: see below SOCIAL HISTORY: see below DDx: Cardiac ischemia, aortic dissection, pulmonary embolism, pneumothorax, pneumonia, pericarditis, myocarditis, GERD, cholecystitis, pancreatitis, viral, medication and infectious diarrhea as well as other pathologies. PHYSICAL EXAM: Vital signs reviewed. General: Chronically ill-appearing 80-year-old female, in no significant distres s. HEENT: No scleral icterus, PERRLA, neck supple. Atraumatic. Cardiovascular: Regular rate and rhythm, no extra sounds. Pulmonary: Clear to auscultation bilaterally, normal work of breathing. Abdomen: Soft, obese, nontender, nondistended, positive bowel sounds. Musculoskeletal: Atraumatic, no peripheral edema. Neurologic: Patient awake alert and oriented x 3, speech is clear Skin: Warm, dry, no rash EMERGENCY DEPARTMENT COURSE/MDM: This patient was evaluated and appeared to be in no significant distress. Patient complained of a 2/10 pain in the left side of the chest at the time of my evaluation. EKG reveals no evidence of acute ischemia. Patient is noted to be on Eliquis and Plavix daily, therefore no aspirin was given. Patient has been straining for most of the day due to consti pation and then had subsequent large amount of diarrhea. Laboratory work notes an elevation of the troponin to 47.2->97.6 on repeat. Chest x-ray was performed and reveals no acute abnormalities and CT scan of the abdomen pelvis is negative for acute inflammatory findings. Case was discussed with the hospitalist service for further evaluation and management. Patient and daughter were made aware of the plan and agreed. MONITORING: An order for cardiac monitoring was placed and the patient is noted to be in a NSR at 75 beats per minute. RADIOLOGY: See below EKG: Normal sinus rhythm at [address] segments. No PVC, no PAC. Normal axis. Normal QTC of 451. DISPOSITION: Admit Past Med/Surg History Medical History (Updated 11/22/21 @ 10:41 by Rosa Elena Thornton MD) Aortic stenosis Carotid stenosis CKD (chronic kidney disease), stage III Diabetes Diabetic polyneuropathy HTN (hypertension) PAD (peripheral artery disease) (09/04/14) Surgical History H/O eye surgery H/O vascular surgery History of cataract surgery History of CEA (carotid endarterectomy) "left" S/P wrist surgery Family History Other Family history non-contributory Social History Smoking Status: Former smoker Second Hand Exposure: No; Do You Dip or Chew Tobacco: No; Tobacco Cessation Education Requested by Patient: No Hx Alcohol Use: No Hx Substance Use: No Preferred Language: Kiswahili Communication Ability: Effective Visual Impairment: No Limitations Administrative Sales Assistant Required: No Beliefs That Will Affect Care: None marital status: Current Living Situation: Spouse How many Children do You have: 3 Other Information That Helps Us Care for You: No Feels Safe at Home: Yes Safety Concerns: Feels Safe At This Time Assistive Devices: Cane Allergies Allergies Allergy/AdvReac Type Severity Reaction Status Date / Time No Known Allergies Allergy Verified 11/20/21 19:05 Home Meds Home Medications Medication Instructions Recorded Confirmed atorvastatin 80 mg tablet 80 mg PO DAILY 05/22/18 11/20/21 furosemide 20 mg tablet 20 mg PO Q OTHER DAY 05/22/18 11/20/21 multivitamin 1 tab PO DAILY 05/22/18 11/20/21 magnesium chloride 64 mg 128 mg PO DAILY 02/23/19 11/20/21 (magnesium chloride) tablet,delayed release (Mag 64) calcium carbonate 600 mg calcium 600 mg PO BID tab 03/09/19 11/20/21 (1,500 mg) tablet brinzolamide 1 %-brimonidine 0.2 % 1 drp OPB TID 09/28/19 11/20/21 eye drops,suspension (Simbrinza) netarsudil 0.02 %-latanoprost 1 drp OPHTHALMIC (EYE) HS 09/28/19 11/20/21 0.005 % eye drops (Rocklatan) acetaminophen 325 mg tablet 650 mg PO QID PRN 11/20/21 11/20/21 (Tylenol) amiodarone 200 mg tablet 100 mg PO QAM 11/20/21 11/20/21 dulaglutide 4.5 mg/0.5 mL 4.5 mg SUBCUT WE 11/20/21 11/20/21 subcutaneous pen injector (Trulicity) insulin glargine 100 unit/mL (3 20 unit SUBCUT DAILY 11/20/21 11/20/21 mL) subcutaneous pen (Lantus Solostar U-100 Insulin) levothyroxine 88 mcg tablet 88 mcg PO DAILY 11/20/21 11/20/21 (Synthroid) metoprolol succinate 25 mg 12.5 mg PO QAM 11/20/21 11/20/21 tablet,extended release 24 hr netarsudil 0.02 %-latanoprost 1 drp OPB DAILY 11/20/21 11/20/21 0.005 % eye drops (Rocklatan) timolol maleate 0.5 % eye drops 1 drp OPB QAM 11/20/21 11/20/21 Previous Rx's Medication Instructions Recorded apixaban 5 mg tablet (Eliquis) 5 mg PO BID 30 Days #60 tab 10/09/19 clopidogrel 75 mg tablet 75 mg PO QAM 30 Days #30 tab 10/09/19 Results & Data (ED) Home Medications Current Medication List: was personally reviewed by me Laboratory Data Attestation: I reviewed the patient's lab results. Result diagrams: 11/21/21 03:30 11/22/21 08:19 Lab Results 11/20/21 11/20/21 11/20/21 Range/Units 16:56 16:56 16:56 WBC 6.66 (4.8-10.8) K/uL RBC 3.56 L (4.2-5.4) M/uL Hgb 11.9 L (12.0-16.0) g/dL Hct 36.7 L (37-47) % MCV 103.1 H (80-100) fL MCH 33.4 (25-34) pg MCHC 32.4 (32-36) g/dL RDW Std Deviation 53.1 H (36.4-46.3) fL RDW Coeff of Mj 14.1 (11.5-14.5) % Plt Count 288 (130-400) K/uL MPV 11.1 H (7.4-10.4) fL Immature Gran % (Auto) 0.0 % Neut % (Auto) 59.4 % Lymph % (Auto) 29.0 % Kemper % (Auto) 8.1 % Eos % (Auto) 3.0 % Baso % (Auto) 0.5 % Neut # (Auto) 3.96 (1.4-6.5) K/uL Lymph # (Auto) 1.93 (1.2-3.4) K/uL Kemper # (Auto) 0.54 (0.11-0.59) K/uL Eos # (Auto) 0.20 (0-0.5) K/uL Baso # (Auto) 0.03 (0-0.2) K/uL Immature Gran # (Auto) 0.00 (0.00-0.02) K/uL PT 11.2 (9.0-12.0) Seconds INR 1.1 (0.9-1.1) APTT 27.9 (21.0-31.0) Seconds PTT Ratio 1.0 Sodium (136-145) mmol/L Potassium (3.5-5.1) mmol/L Chloride (98-107) mmol/L Carbon Dioxide (21-32) mmol/L Anion Gap (3-11) BUN (6-23) mg/dl Creatinine (0.6-1.2) mg/dl Est Cr Clr Drug Dosing ml/min Est GFR ( Amer) ml/min Est GFR (Non-Af Amer) ml/min BUN/Creatinine Ratio (10-20) Glucose (70-99(Fasting)) mg/dl Calcium (8.5-10.1) mg/dl Total Bilirubin (0.2-1.0) mg/dl AST (13-39) U/L ALT (7-52) U/L Alkaline Phosphatase (34-104) U/L Troponin I High Sens 47.2 H (0-14) pg/ml Total Protein (6.0-8.3) gm/dl Albumin (3.4-5.0) gm/dl Globulin (2.5-4.0) gm/dl Albumin/Globulin Ratio (0.9-2) SARS-CoV-2, RNA, NAAT (NEGATIVE) 11/20/21 11/20/21 11/20/21 Range/Units 16:56 19:36 20:30 WBC (4.8-10.8) K/uL RBC (4.2-5.4) M/uL Hgb (12.0-16.0) g/dL Hct (37-47) % MCV (80-100) fL MCH (25-34) pg MCHC (32-36) g/dL RDW Std Deviation (36.4-46.3) fL RDW Coeff of Mj (11.5-14.5) % Plt Count (130-400) K/uL MPV (7.4-10.4) fL Immature Gran % (Auto) % Neut % (Auto) % Lymph % (Auto) % Kemper % (Auto) % Eos % (Auto) % Baso % (Auto) % Neut # (Auto) (1.4-6.5) K/uL Lymph # (Auto) (1.2-3.4) K/uL Kemper # (Auto) (0.11-0.59) K/uL Eos # (Auto) (0-0.5) K/uL Baso # (Auto) (0-0.2) K/uL Immature Gran # (Auto) (0.00-0.02) K/uL PT (9.0-12.0) Seconds INR (0.9-1.1) APTT (21.0-31.0) Seconds PTT Ratio Sodium 139 (136-145) mmol/L Potassium 4.1 (3.5-5.1) mmol/L Chloride 104 (98-107) mmol/L Carbon Dioxide 28 (21-32) mmol/L Anion Gap 7 (3-11) BUN 36 H (6-23) mg/dl Creatinine 1.19 (0.6-1.2) mg/dl Est Cr Clr Drug Dosing 42.7 ml/min Est GFR ( Amer) 50.6 ml/min Est GFR (Non-Af Amer) 43.7 ml/min BUN/Creatinine Ratio 30.3 H (10-20) Glucose 147 H (70-99(Fasting)) mg/dl Calcium 9.3 (8.5-10.1) mg/dl Total Bilirubin 0.7 (0.2-1.0) mg/dl AST 20 (13-39) U/L ALT 14 (7-52) U/L Alkaline Phosphatase 68 (34-104) U/L Troponin I High Sens 97.6 H* D (0-14) pg/ml Total Protein 6.4 (6.0-8.3) gm/dl Albumin 3.7 (3.4-5.0) gm/dl Globulin 2.7 (2.5-4.0) gm/dl Albumin/Globulin Ratio 1.4 (0.9-2) SARS-CoV-2, RNA, NAAT NEGATIVE (NEGATIVE) Administered Medications Acetaminophen (Acetaminophen 325 Mg Tab) 650 mg PO Q4H PRN PRN Reason: Pain or Fever Stop: 12/20/21 22:30 Last Admin: 11/22/21 02:45 Dose: 650 mg Documented by: [id number] Amiodarone HCl (Am[facility]arone 200 Mg Tab) [facility] [place]: 12/21/21 08:59 Last Admin: 11/22/21 08:50 Dose: 100 mg Documented by: [id number] Admin: 11/21/21 08:04 Dose: 100 mg Documented by: [id number] Apixaban (Apixaban 5 Mg Tablet) 5 mg PO BID [facility] Stop: 12/21/21 08:59 Last Admin: 11/22/21 08:51 Dose: Not Given Documented by: [id number] Admin: 11/21/21 21:22 Dose: 5 mg Documented by: [id number] Admin: 11/21/21 08:03 Dose: 5 mg Documented by: [id number] Atorvastatin Calcium (Atorvastatin 40 Mg Tab) 80 mg PO DAILY PO Stop: 12/21/21 08:59 Last Admin: 11/22/21 08:50 Dose: 80 mg Documented by: [id number] Admin: 11/21/21 08:03 Dose: 80 mg Documented by: [id number] Brinzolamide/Brimonidine Tartrate (Brinzolamide/Brimonidine Tart 119 Drops/8 Ml Btl) 1 drops OP TID PO Stop: 12/21/21 08:59 Last Admin: 11/22/21 08:49 Dose: 1 drops Documented by: [id number] Admin: 11/21/21 21:23 Dose: 1 drops Documented by: [id number] Admin: 11/21/21 13:59 Dose: 1 drops Documented by: [id number] Admin: 11/21/21 08:05 Dose: 1 drops Documented by: [id number] Calcium Carbonate (Calcium Carbonate 1250mg Tab) 1,250 mg PO BID PO Stop: 12/21/21 08:59 Last Admin: 11/22/21 08:50 Dose: 1,250 mg Documented by: [id number] Admin: 11/21/21 21:22 Dose: 1,250 mg Documented by: [id number] Admin: 11/21/21 08:03 Dose: 1,250 mg Documented by: [id number] Clopidogrel Bisulfate (Clopidogrel Bisulfate 75 Mg Tab) 75 mg PO QAM PO Stop: 12/21/21 08:59 Last Admin: 11/22/21 08:50 Dose: 75 mg Documented by: [id number] Admin: 11/21/21 08:03 Dose: 75 mg Documented by: [id number] Furosemide (Furosemide 20 Mg Tab) 20 mg PO Q2D@0900 PO Stop: 12/21/21 08:59 Last Admin: 11/21/21 08:04 Dose: 20 mg Documented by: [id number] Insulin Aspart (Insulin Aspart Per Unit) 0 units SC ACHS PO Stop: 12/21/21 07:29 Last Admin: 11/22/21 08:48 Dose: 4 units Documented by: [id number] Cosigned by: [id number] Admin: 11/21/21 21:21 Dose: 3 units Documented by: [id number] Cosigned by: [id number] Admin: 11/21/21 17:17 Dose: 5 units Documented by: [id number] Cosigned by: [id number] Admin: 11/21/21 12:00 Dose: Not Given Documented by: [id number] Admin: 11/21/21 07:51 Dose: Not Given Documented by: [id number] Insulin Glargine (Insulin Glargine Solostar 100 Units/Ml 3 Ml Pen) 8 units SC DAILY PO Stop: 12/21/21 08:59 Last Admin: 11/22/21 08:49 Dose: 8 units Documented by: [id number] Cosigned by: [id number] Admin: 11/21/21 09:00 Dose: Not Given Documented by: [id number] Levothyroxine Sodium (Levothyroxine Sodium 88 Mcg Tablet) 88 mcg PO DAILYBB [facility] Stop: 12/21/21 06:29 Last Admin: 11/22/21 05:51 Dose: 88 mcg Documented by: [id number] Admin: 11/21/21 06:06 Dose: 88 mcg Documented by: [id number] Magnesium Chloride (Magnesium Chloride 64mg Delayed Rel Tab) 128 mg PO DAILY PO Stop: 12/21/21 08:59 Last Admin: 11/22/21 08:51 Dose: 128 mg Documented by: [id number] Admin: 11/21/21 08:04 Dose: 128 mg Documented by: [id number] Metoprolol Succinate (Metoprolol Succ 25mg Ext Rel Tab) 12.5 mg PO QAM PO Stop: 12/21/21 08:59 Last Admin: 11/22/21 08:51 Dose: 12.5 mg Documented by: [id number] Admin: 11/21/21 08:03 Dose: Not Given Documented by: [id number] Multivitamins (Multivitamin Tab) 1 tab PO DAILY PO Stop: 12/21/21 08:59 Last Admin: 11/22/21 08:51 Dose: 1 tab Documented by: [id number] Admin: 11/21/21 08:04 Dose: 1 tab Documented by: [id number] Netarsudil/Latanoprost (Pt' Own Med - Netarsudil Mesylat/Latanoprost 37 Drops/2.5 Ml Btl) 1 drops OP BID PO Stop: 12/21/21 20:59 Last Admin: 11/22/21 08:54 Dose: Not Given Documented by: [id number] Admin: 11/21/21 21:23 Dose: 1 drops Documented by: [id number] Polyethylene Glycol (Polyethylene (Miralax) 17 Gm Pack) 17 gm PO DAILY PRN PRN Reason: Constipation Stop: 12/21/21 20:49 Last Admin: 11/21/21 21:22 Dose: 17 gm Documented by: [id number] Timolol Maleate (Timolol Maleate 0.5% Op Soln 5 Ml Btl) 1 drops OP QAM PO Stop: 12/21/21 08:59 Last Admin: 11/22/21 08:49 Dose: 1 drops Documented by: [id number] Admin: 11/21/21 08:05 Dose: 1 drops Documented by: [id number] Discontinued Medications Ioversol (Optiray 320 100ml) 95 ml IV ONCE ONE Stop: 11/20/21 19:21 Last Admin: 11/20/21 19:21 Dose: 95 ml Documented by: [id number] Miscellaneous (Rocklatan - Order Awaiting Action) 1 ea N/A QS [facility] Stop: 12/21/21 00:00 Last Admin: 11/21/21 15:45 Dose: 1 ea Documented by: [id number] Admin: 11/21/21 10:40 Dose: Not Given Documented by: [id number] Admin: 11/21/21 00:36 Dose: Not Given Documented by: [id number] Miscellaneous (Simbrinza - Order Awaiting Action) 1 ea N/A QS [facility] Stop: 12/21/21 00:00 Last Admin: 11/21/21 01:26 Dose: Not Given Documented by: [id number] Imaging Data Radiologist's Impression: Chest X-Ray 11/20/21 17:01 SINGLE VIEW CHEST CLINICAL HISTORY: Atypical chest pain FINDINGS: An AP, portable, upright chest radiograph is compared to study dated 09/28/2019. The heart is top normal for projection noting atherosclerotic calcification of the thoracic aorta. There is mild bibasilar atelectasis. The lungs and pleural spaces are otherwise clear. No pneumothorax is seen. The skeletal structures are osteopenic. The bony thorax is grossly intact. Calcific tendinopathy is noted in the left shoulder. IMPRESSION: No active disease in the chest. ACT 112: Negative or not required by law. Electronically signed by: Anastacio Santana M.D. 11/20/2021 5:39 PM Abdomen/Pelvis CT 11/20/21 18:26 CT SCAN OF THE ABDOMEN AND PELVIS WITH IV CONTRAST CLINICAL HISTORY: Generalized abdominal pain. Diarrhea. Hypertension. COMPARISON STUDY: Abdominal CT dated 05/18/2016. TECHNIQUE: Following the IV administration of 95 cc of Optiray 320, CT scan of the abdomen and pelvis is performed from the lung bases to the proximal femora. Images are reviewed in the axial, sagittal, and coronal planes. IV contrast was administered without complication. A dose lowering technique was utilized adhering to the principles of ALARA. CT DOSE: 628.50 mGy.cm FINDINGS: Lung bases: The heart is normal in size and without pericardial effusion. The mitral annulus and aortic valve leaflets are densely calcified. The lung bases are clear noting dependent atelectasis. Liver: The contrast-enhanced liver is normal in size, contour, and attenuation. There is no intrahepatic biliary ductal dilatation. The hepatic veins and portal veins are patent. Gallbladder: Unremarkable. Spleen: The spleen is diminutive and there are several splenules in the left upper quadrant. This is similar to previous. Pancreas: The proximal pancreas is atrophic. The distal pancreas is not vi sualized. Adrenal glands: Unremarkable. Kidneys: The contrast enhanced kidneys demonstrate mild cortical atrophy and are without hydronephrosis. The kidneys enhance symmetrically. Abdominal vasculature: The abdominal aorta is normal in course and caliber noting advanced atherosclerotic calcification. A stent is noted in the left superficial femoral artery. Bowel: The sigmoid colon is redundant. No bowel obstruction is identified. The appendix is normal. Peritoneum: There is no intraperitoneal free air or abdominal ascites. Lymphadenopathy: None. Pelvic viscera: The bladder is distended but otherwise normal in appearance. The uterus and adnexa are normal as visualized. Skeletal structures: The skeletal structures are osteopenic. There is moderate to advanced lumbosacral spondylosis. No lytic or blastic lesions are seen. IMPRESSION: No acute infectious or inflammatory findings are identified in the abdomen or pelvis. ACT 112: Negative or not required by law. Electronically signed by: Anastacio Santana M.D. 11/20/2021 7:44 PM Blood Pressure Blood Pressure Findings: Elevated blood pressure Blood Pressure Disposition: further management by hospitalist Discharge Plan Visit Data Chief Complaint: Chest Pain ED Provider: Rosa Elena Thornton Discharge Problem: Acute non-ST elevation myocardial infarction (NSTEMI), Diarrhea Patient Disposition: Admitted As Inpatient Discharge Instructions Interventions: ED Discharge Assessment Last Done: 11/20/21 22:12 Discharge Problem: Diarrhea Qualifiers: Diarrhea type: presumed infectious Qualified Code(s): R19.7 - Diarrhea, unspecified
--- NOTE | 2021-11-22 12:27 | Cardiology Progress Note ---
Date of Service November 22, 2021 Assessment & Plan (1) Troponin level elevated: (2) Non-ST elevation [place] (NSTEMI): (3) HTN (hypertension): (4) PAD (peripheral artery disease): Plan: Patient is a complex 80-year-old female whose underlying history is notable for 1. Mixed valvular heart disease 2. Paroxysmal atrial fibrillation 3. Atherosclerotic peripheral vascular disease 4. Hypertension 5. Presumed ischemic heart disease Patient presents now with symptoms atypical for angina but with elevated troponins, normal EKGs Echocardiogram unchanged from prior studies with mixed valvular disease and preserved LV systolic function Patient at elevated risk for coronary intervention and previously is requested conservative therapies Plan increase activities in hospital. We will hold Eliquis, follow serial troponins current findings suggest flat elevation if any further signs of ischemia consider high risk coronary angiography Admission and Anticipated Discharge Date Admission Date: November 20, 2021 Subjective Patient was seen and examined, chart, medications, telemetry reviewed. No further chest or abdominal discomfort. No dizziness or lightheadedness no syncope or near syncope. Constipated but no other complaints. Ambulatory in room. No arrhythmias on telemetry. No bleeding difficulties. No fevers or chills. Review of Systems Review of Systems: All systems reviewed & are unremarkable except as noted in Subjective Physical Exam Constitutional: + obese; no acute distress Eyes: PERRL, conjunctivae normal, anicteric sclerae ENMT: external ear and nose normal, oropharynx normal Neck: trachea midline, no thyromegaly Respiratory: normal respiratory effort, lungs clear to auscultation Cardiovascular: Rate/Rhythm: regular rate and regular rhythm Heart Sounds: + murmur (Grade 2-3 right upper sternal border no diastolic ) Vessels: no JVD Extremities: + edema (Right lower extremity) Gastrointestinal (Abdomen): normal bowel sounds, soft, nontender, no hepatosplenomegaly Results & Data ([facility]) Vital Signs (Past 12 Hours) Vital Signs Temp Pulse Pulse Resp BP Pulse Ox 11/22/21 11:02 36.6 C 60 19 104/68 97 11/22/21 07:57 61 11/22/21 07:13 36.7 C 50 L 19 122/72 96 11/22/21 04:24 36.8 C 63 16 109/66 96 Laboratory Results Laboratory Results - last 24 hr 11/21/21 11/21/21 11/21/21 15:02 16:19 20:08 Sodium Potassium Chloride Carbon Dioxide Anion Gap BUN Creatinine Est Cr Clr Drug Dosing Est GFR ( Amer) Est GFR (Non-Af Amer) BUN/Creatinine Ratio Glucose POC Glucose 150 H 142 H Calcium Troponin I High Sens 202.3 H* 11/22/21 11/22/21 11/22/21 07:08 07:13 08:19 Sodium 138 Potassium 4.2 Chloride 105 Carbon Dioxide 28 Anion Gap 5 BUN 31 H Creatinine 1.14 Est Cr Clr Drug Dosing 44.5 Est GFR ( Amer) 53.3 Est GFR (Non-Af Amer) 46.0 BUN/Creatinine Ratio 27.2 H Glucose 129 H POC Glucose 136 H Calcium 9.1 Troponin I High Sens 11/22/21 12:01 Sodium Potassium Chloride Carbon Dioxide Anion Gap BUN Creatinine Est Cr Clr Drug Dosing Est GFR ( Amer) Est GFR (Non-Af Amer) BUN/Creatinine Ratio Glucose POC Glucose 209 H Calcium Troponin I High Sens
--- NOTE | 2021-11-22 13:42 | Hospitalist Progress Note ---
Date of Service November 22, 2021 delayed entry date of service 11/21 Assessment & Plan (1) Acute non-ST elevation myocardial infarction (NSTEMI): Plan: per Dr. Baptiste's notes with addendum: ASSESSMENT AND PLAN: This 80-year-old female presents with chest pain. 1. Chest pain. High sensitivity troponins are elevated. Currently, pain is improving. EKG is unremarkable. We will follow the repeat enzymes. Patient is on eliquis.. Follow the echocardiogram. Closely monitor in telemetry floor, keep her n.p.o. after midnight. Consult cardiology in the a.m. -- troponin trending down -- echo: no wall motion abnormalities -- Medical Reimbursement Manager consulted Constipation -- CT abd/pelvis: unrevealing -- no GI symptoms today 2. Paroxysmal atrial fibrillation, on amiodarone, Eliquis, and metoprolol. 3. History of diabetes. Cut back on Lantus to 8 units daily as patient is npo and place on insulin sliding scale 4. Hypothyroidism. Continue Synthroid. 5. Peripheral vascular disease, on Plavix and statin. 6. History of diastolic congestive heart failure, moderate aortic valve stenosis and mitral valve stenosis. -- euvolemic Continue on Lasix every other day. 7. Hypertension, on metoprolol succinate and Lasix. 8. Chronic kidney disease stage III. Presents with a creatinine of 1.1. 9. Deep venous thrombosis prophylaxis, on Eliquis. DISPOSITION: Closely monitor in the tele floor. Level 1, full code. Expect to discharge home and follow with family doctor. Admission and Anticipated Discharge Date Admission Date: November 20, 2021 Subjective ff up for chest pain, etc seen resting in bed, comfortable using Ipad in good spirits no chest pain recurrence no dyspnea, palpitations, dizziness no abdominal pain, nausea/vomiting, diarrhea no other symptoms Review of Systems Review of Systems: all noted and negative except for above Physical Exam Physical Exam: General- oriented x 3, not in distress, speaks in sentences with no effort or accessory muscle use Head- atraumatic Eyes- PERRL, EOMI, anicteric ENT- oropharynx clear Neck- supple, no JVD, no adenopathy, no thyromegaly; carotids +2/2, no bruits appreciated Lungs- clear to auscultation bilaterally, no rales/wheezes Heart- normal rate, regular rhythm; no murmur, no gallop, no rub appreciated Abdomen- normal bowel sounds, nondistended, soft, nontender, no masses or hep atosplenomegaly Extremities- no pretibial edema, no calf tenderness; peripheral pulses intact Neuro- alert, oriented x 3; CN 2-12 grossly intact; motor 5/5 bilaterally;sensation 100% on all extremities; no other gross focal neurologic deficits Skin- warm & dry Results & Data Results & Data ([facility]) Vital Signs (Past 12 Hours) Vital Signs Temp Pulse Pulse Resp BP Pulse Ox 11/22/21 11:02 36.6 C 60 19 104/68 97 11/22/21 07:57 61 11/22/21 07:13 36.7 C 50 L 19 122/72 96 11/22/21 04:24 36.8 C 63 16 109/66 96 all noted and reviewed including below
--- NOTE | 2021-11-22 13:46 | Hospitalist Progress Note ---
Date of Service November 22, 2021 Assessment & Plan (1) Acute non-ST elevation myocardial infarction (NSTEMI): Plan: per Dr. Baptiste's notes with addendum: ASSESSMENT AND PLAN: This 80-year-old female presents with chest pain. 1. Chest pain. High sensitivity troponins are elevated. Currently, pain is improving. EKG is unremarkable. We will follow the repeat enzymes. Patient is on eliquis.. Follow the echocardiogram. Closely monitor in telemetry floor, keep her n.p.o. after midnight. Consult cardiology in the a.m. -- troponin trending down -- echo: no wall motion abnormalities -- Metal Fabricator Helper consulted Constipation -- CT abd/pelvis: unrevealing -- no GI symptoms today 2. Paroxysmal atrial fibrillation, on amiodarone, Eliquis, and metoprolol. 3. History of diabetes. Cut back on Lantus to 8 units daily as patient is npo and place on insulin sliding scale 4. Hypothyroidism. Continue Synthroid. 5. Peripheral vascular disease, on Plavix and statin. 6. History of diastolic congestive heart failure, moderate aortic valve stenosis and mitral valve stenosis. -- euvolemic Continue on Lasix every other day. 7. Hypertension, on metoprolol succinate and Lasix. 8. Chronic kidney disease stage III. Presents with a creatinine of 1.1. 9. Deep venous thrombosis prophylaxis, on Eliquis. DISPOSITION: Closely monitor in the tele floor. Level 1, full code. Expect to discharge home and follow with family doctor. Admission and Anticipated Discharge Date Admission Date: November 20, 2021 Results & Data Results & Data ([facility]) Vital Signs (Past 12 Hours) Vital Signs Temp Pulse Pulse Resp BP Pulse Ox 11/22/21 11:02 36.6 C 60 19 104/68 97 11/22/21 07:57 61 11/22/21 07:13 36.7 C 50 L 19 122/72 96 11/22/21 04:24 36.8 C 63 16 109/66 96
[2021-11-22] MEDS ORDERED: MAGNESIUM HYDROXIDE SUSP 30 ML UDC PO PRN (15:00)
--- NOTE | 2021-11-23 06:08 | Electrocardiogram Report ---
Test Reason : Blood Pressure : / mmHG Vent. Rate : 075 BPM Atrial Rate : 075 BPM P-R Int : 174 ms QRS Dur : 092 ms QT Int : 404 ms P-R-T Axes : 029 009 031 degrees QTc Int : 451 ms Poor data quality, interpretation may be adversely affected Normal sinus rhythm Normal ECG When compared with ECG of 08-OCT-2019 06:46, No significant change was found Confirmed by Brandin Waite ([id number]) on 11/23/2021 6:08:29 AM Referred By: REFERRED SELF Confirmed By:Brnadin Waite
--- NOTE | 2021-11-23 06:18 | Electrocardiogram Report ---
Test Reason : Blood Pressure : / mmHG Vent. Rate : 055 BPM Atrial Rate : 055 BPM P-R Int : 178 ms QRS Dur : 098 ms QT Int : 494 ms P-R-T Axes : 062 024 064 degrees QTc Int : 472 ms Sinus bradycardia Otherwise normal ECG When compared with ECG of 20-NOV-2021 16:57, (unconfirmed) No significant change was found Confirmed by Brandin Waite ([id number]) on 11/23/2021 6:18:07 AM Referred By: REFERRED SELF Confirmed By:Brandin Waite
[2021-11-23] MEDS: LEVOTHYROXINE SODIUM 88 MCG TABLET PO SCH (06:35)
--- NOTE | 2021-11-23 06:56 | Electrocardiogram Report ---
Test Reason : Blood Pressure : / mmHG Vent. Rate : 065 BPM Atrial Rate : 065 BPM P-R Int : 172 ms QRS Dur : 096 ms QT Int : 466 ms P-R-T Axes : 041 022 070 degrees QTc Int : 484 ms Sinus rhythm with Premature atrial complexes Otherwise normal ECG When compared with ECG of 21-NOV-2021 06:13, (unconfirmed) Premature atrial complexes are now Present Confirmed by Brandin Waite ([id number]) on 11/23/2021 6:56:00 AM Referred By: REFERRED SELF Confirmed By:Brandin Waite
[2021-11-23 07:22] LABS: BUN Creatinine Ratio 28.3 (10-20); Calcium 9.2 mg/dl (8.5-10.1); Creatinine Clr Calc Pharmacy 44.7 ml/min; Est GFR (African American) 53.9 ml/min; Est GFR (Non-African American) 46.5 ml/min; Potassium 4.1 mmol/L (3.5-5.1)
[2021-11-23 07:27] LABS: Troponin I High Sensitivity 128.7 pg/ml (0-14)
[2021-11-23] MEDS: LATANOPROST OP SCH ×2 (08:38→21:06)
[2021-11-23] MEDS: NETARSUDIL MESYLAT OP SCH ×2 (08:38→21:06)
[2021-11-23] MEDS: BRINZOLAMIDE/BRIMONIDINE TART 119 DROPS/8 ML BTL OP SCH ×3 (08:38→20:55)
[2021-11-23] MEDS: TIMOLOL MALEATE 0.5% OP SOLN 5 ML BTL OP SCH (08:38)
[2021-11-23] MEDS: CLOPIDOGREL BISULFATE 75 MG TAB PO SCH (08:39)
[2021-11-23] MEDS: AMIODARONE 200 MG TAB PO SCH (08:39)
[2021-11-23] MEDS: ATORVASTATIN 40 MG TAB PO SCH (08:39)
[2021-11-23] MEDS: CALCIUM CARBONATE 1250MG TAB PO SCH ×2 (08:39→20:55)
[2021-11-23] MEDS: FUROSEMIDE 20 MG TAB PO SCH (08:40)
[2021-11-23] MEDS: MULTIVITAMIN TAB PO SCH (08:40)
[2021-11-23] MEDS: METOPROLOL SUCC 25MG EXT REL TAB PO SCH (08:40)
[2021-11-23] MEDS: MAGNESIUM CHLORIDE 64MG DELAYED REL TAB PO SCH (08:40)
[2021-11-23] MEDS: INSULIN GLARGINE SOLOSTAR 100 UNITS/ML 3 ML PEN SC SCH (08:43)
[2021-11-23] MEDS: INSULIN ASPART PER UNIT SC SCH ×4 (08:44→21:06)
[2021-11-23] MEDS ORDERED: LACTULOSE SYRUP 20 GM/30 ML UDC PO ONE (09:26)
[2021-11-23] MEDS ORDERED: bisacodyL 10 MG SUPP PR PRN (09:26)
--- NOTE | 2021-11-23 11:10 | Cardiology Progress Note ---
Date of Service November 23, 2021 Assessment & Plan (1) Troponin level elevated: (2) Non-ST elevation [place] (NSTEMI): (3) HTN (hypertension): (4) PAD (peripheral artery disease): Plan: Patient is a complex 80-year-old female whose underlying history is notable for 1. Mixed valvular heart disease 2. Paroxysmal atrial fibrillation 3. Atherosclerotic peripheral vascular disease 4. Hypertension 5. Presumed ischemic heart disease Patient presents now with symptoms atypical for angina but with elevated troponins, normal EKGs Echocardiogram unchanged from prior studies with mixed valvular disease and preserved LV systolic function Patient at elevated risk for coronary intervention and previously is requested conservative therapies Plan: Atypical symptoms this morning we will continue to hold Eliquis Add oral nitrates for blood pressure control treat constipation, GI complaints repeat EKG with further symptoms. Study with symptoms this morning normal Lexiscan stress nuclear imaging ordered with rest imaging today and stress tomorrow. If stress test abnormal to significant degree would proceed with diagnostic coronary angiography at elevated risk. Patient agreeable to plan Admission and Anticipated Discharge Date Admission Date: November 20, 2021 Subjective Patient seen and examined, chart, medications, telemetry reviewed. Very transient bradycardia this morning with blocked PAC while straining. No syncope or near syncope. Has been having a bubble pressure sensation in her left chest which she attributes to constipation complaints she is struggling with. No dizziness or lightheadedness. EKG without acute changes. Review of Systems Review of Systems: All systems reviewed & are unremarkable except as noted in Subjective Physical Exam Constitutional: + obese; no acute distress Eyes: PERRL, conjunctivae normal, anicteric sclerae ENMT: external ear and nose normal, oropharynx normal Neck: trachea midline, no thyromegaly Respiratory: normal respiratory effort, lungs clear to auscultation Cardiovascular: Rate/Rhythm: regular rate and regular rhythm Heart Sounds: + murmur (Grade 2-3 right upper sternal border no diastolic ) Vessels: no JVD Extremities: + edema (Right lower extremity) Gastrointestinal (Abdomen): normal bowel sounds, soft, nontender, no hepatosplenomegaly Results & Data ([facility]) Vital Signs (Past 12 Hours) Vital Signs Temp Pulse Pulse Resp BP BP Pulse Ox 11/23/21 07:44 36.5 C 59 L 15 162/85 H 99 11/23/21 07:12 60 11/23/21 03:56 36.5 C 74 18 114/71 97 11/23/21 00:00 61 11/22/21 23:47 36.5 C 60 18 107/60 95 Laboratory Results Laboratory Results - last 24 hr 11/22/21 11/22/21 11/22/21 12:01 12:47 16:20 Sodium Potassium Chloride Carbon Dioxide Anion Gap BUN Creatinine Est Cr Clr Drug Dosing Est GFR ( Amer) Est GFR (Non-Af Amer) BUN/Creatinine Ratio Glucose POC Glucose 209 H 98 Calcium Troponin I High Sens 159.5 H* D 11/22/21 11/23/21 11/23/21 20:44 06:41 07:00 Sodium 139 Potassium 4.1 Chloride 107 Carbon Dioxide 26 Anion Gap 6 BUN 32 H Creatinine 1.13 Est Cr Clr Drug Dosing 44.7 Est GFR ( Amer) 53.9 Est GFR (Non-Af Amer) 46.5 BUN/Creatinine Ratio 28.3 H Glucose 169 H POC Glucose 120 H 174 H Calcium 9.2 Troponin I High Sens 128.7 H* 11/23/21 11:03 Sodium Potassium Chloride Carbon Dioxide Anion Gap BUN Creatinine Est Cr Clr Drug Dosing Est GFR ( Amer) Est GFR (Non-Af Amer) BUN/Creatinine Ratio Glucose POC Glucose 156 H Calcium Troponin I High Sens
[2021-11-23] MEDS: POLYETHYLENE (MIRALAX) 17 GM PACK PO PRN (17:20)
--- NOTE | 2021-11-23 19:27 | Hospitalist Progress Note ---
Date of Service November 23, 2021 delayed entry date of service noted above Assessment & Plan (1) Acute non-ST elevation myocardial infarction (NSTEMI): Plan: per Dr. Baptiste's notes with addendum: ASSESSMENT AND PLAN: This 80-year-old female presents with chest pain. 1. Chest pain. High sensitivity troponins are elevated. Currently, pain is improving. EKG is unremarkable. We will follow the repeat enzymes. Patient is on eliquis.. Follow the echocardiogram. Closely monitor in telemetry floor, keep her n.p.o. after midnight. Consult cardiology in the a.m. -- troponin trended down -- echo: no wall motion abnormalities -- Multifocal Button Inspector consulted Lexiscan stress nuclear imaging ordered with rest imaging today and stress tomorro Constipation -- CT abd/pelvis: unrevealing -- no GI symptoms today 2. Paroxysmal atrial fibrillation, on amiodarone, Eliquis, and metoprolol. 3. History of diabetes. Cut back on Lantus to 8 units daily as patient is npo and place on insulin sliding scale 4. Hypothyroidism. Continue Synthroid. 5. Peripheral vascular disease, on Plavix and statin. 6. History of diastolic congestive heart failure, moderate aortic valve stenosis and mitral valve stenosis. -- euvolemic Continue on Lasix every other day. 7. Hypertension, on metoprolol succinate and Lasix. 8. Chronic kidney disease stage III. Presents with a creatinine of 1.1. 9. Deep venous thrombosis prophylaxis, on Eliquis. DISPOSITION: Closely monitor in the tele floor. Level 1, full code. Expect to discharge home and follow with family doctor. Admission and Anticipated Discharge Date Admission Date: November 20, 2021 Subjective Follow-up for chest pain, etc. Seen resting in bed, comfortable, not in distress Had chest pain earlier Status constipation no chest pain, dyspnea, palpitations, dizziness No other symptoms Review of Systems Review of Systems: all noted and negative except for above Physical Exam Physical Exam: General- oriented x 3, not in distress, speaks in sentences with no effort or accessory muscle use Eyes- anicteric Neck- no JVD Lungs- clear breath sounds BL Heart- normal rate, regular rhythm; no murmurs Abdomen- normal bowel sounds, nondistended, soft, no tenderness Extremities- no pretibial edema, no calf tenderness Neuro- alert, oriented x 3; no gross focal neurologic deficits Skin- warm & dry Results & Data Results & Data ([facility]) Vital Signs (Past 12 Hours) Vital Signs Temp Pulse Pulse Resp BP BP Pulse Ox 11/23/21 18:59 36.4 C L 60 18 119/78 96 11/23/21 15:04 62 11/23/21 15:00 36.6 C 65 15 130/82 97 11/23/21 11:57 55 L 16 159/80 H 100 11/23/21 07:44 36.5 C 59 L 15 162/85 H 99 all noted and reviewed including below
[2021-11-24] MEDS: LEVOTHYROXINE SODIUM 88 MCG TABLET PO SCH (06:22)
[2021-11-24] MEDS ORDERED: REGADENOSON 0.4 MG/5 ML SYR IV ONE (07:39)
--- NOTE | 2021-11-24 09:48 | Cardiology Progress Note ---
Date of Service November 24, 2021 Assessment & Plan (1) Troponin level elevated: (2) Non-ST elevation [place] (NSTEMI): (3) HTN (hypertension): (4) PAD (peripheral artery disease): Plan: Patient is a complex 80-year-old female whose underlying history is notable for 1. Mixed valvular heart disease 2. Paroxysmal atrial fibrillation 3. Atherosclerotic peripheral vascular disease 4. Hypertension 5. Presumed ischemic heart disease Patient presents now with symptoms atypical for angina but with elevated troponins, normal EKGs Echocardiogram unchanged from prior studies with mixed valvular disease and preserved LV systolic function Patient at elevated risk for coronary intervention and previously is requested conservative therapies Plan: Patient on appropriate medical therapies. Stress nuclear imaging performed and images pending. If study negative we will continue medical therapies, if positive proceed with diagnostic coronary angiography. [place] currently on hold Admission and Anticipated Discharge Date Admission Date: November 20, 2021 Subjective Patient seen and examined, chart, medications, telemetry reviewed. No specific complaints this morning bowel movement yesterday no further abdominal pain or discomfort occasional fleeting left shoulder pain Underwent Lexiscan stress test this morning with results pending no symptoms during procedure other than minimal expected lightheadedness. No EKG changes No arrhythmias on telemetry Review of Systems Review of Systems: All systems reviewed & are unremarkable except as noted in Subjective Physical Exam Constitutional: + obese; no acute distress Eyes: PERRL, conjunctivae normal, anicteric sclerae ENMT: external ear and nose normal, oropharynx normal Neck: trachea midline, no thyromegaly Respiratory: normal respiratory effort, lungs clear to auscultation Cardiovascular: Rate/Rhythm: regular rate and regular rhythm Heart Sounds: + murmur (Grade 2-3 right upper sternal border no diastolic ) Vessels: no JVD Extremities: + edema (Right lower extremity) Gastrointestinal (Abdomen): normal bowel sounds, soft, nontender, no he patosplenomegaly Results & Data ([facility]) Vital Signs (Past 12 Hours) Vital Signs Temp Pulse Resp BP Pulse Ox 11/24/21 08:14 36.2 C L 64 16 115/75 96 11/24/21 03:58 36.3 C L 55 L 16 101/66 96 11/23/21 23:39 35.8 C L 57 L 16 96/62 L 98 Laboratory Results Laboratory Results - last 24 hr 11/23/21 11/23/2122 11:03 16:05 20:35 POC Glucose 156 H 286 H 69 L* 11/23/21 11/24/21 20:43 07:39 POC Glucose 76 159 H
[2021-11-24] MEDS: TIMOLOL MALEATE 0.5% OP SOLN 5 ML BTL OP SCH (09:51)
[2021-11-24] MEDS: BRINZOLAMIDE/BRIMONIDINE TART 119 DROPS/8 ML BTL OP SCH ×3 (09:52→21:04)
[2021-11-24] MEDS: METOPROLOL SUCC 25MG EXT REL TAB PO SCH (09:52)
[2021-11-24] MEDS: ATORVASTATIN 40 MG TAB PO SCH (09:52)
[2021-11-24] MEDS: MULTIVITAMIN TAB PO SCH (09:52)
[2021-11-24] MEDS: CLOPIDOGREL BISULFATE 75 MG TAB PO SCH (09:52)
[2021-11-24] MEDS: AMIODARONE 200 MG TAB PO SCH (09:53)
[2021-11-24] MEDS: MAGNESIUM CHLORIDE 64MG DELAYED REL TAB PO SCH (09:53)
[2021-11-24] MEDS: CALCIUM CARBONATE 1250MG TAB PO SCH ×2 (09:53→21:04)
[2021-11-24] MEDS: LATANOPROST OP SCH ×2 (09:54→21:04)
[2021-11-24] MEDS: NETARSUDIL MESYLAT OP SCH ×2 (09:54→21:04)
[2021-11-24] MEDS: INSULIN ASPART PER UNIT SC SCH ×4 (09:54→21:09)
[2021-11-24] MEDS: INSULIN GLARGINE SOLOSTAR 100 UNITS/ML 3 ML PEN SC SCH (09:56)
--- NOTE | 2021-11-24 12:33 | Myocardial Perfusion Study ---
Date of Service November 24, 2021 Myocardial Perfusion Study [facility] Myocardial Perfusion Study Report Indication for study: Elevated troponin Patient performed stress test according to the Lexiscan protocol for 7 minutes and 10 seconds. A workload of 1.00 METS achieved. Resting heart rate of 61 bpm which salas to a maximum heart rate of 79 bpm. This value represents 55% of the maximal, age-predicted heart rate. Resting blood pressure 147/89 mmHg which salas to a maximum blood pressure of 147/89. Stress was stopped due to completion of protocol. Normal heart rate and blood pressure response to Lexiscan infusion. Symptoms: None. Resting ECG: Normal sinus rhythm, cannot exclude age-indeterminate septal infarct. Stress ECG: No ischemic changes. Nuclear imaging: For the stress portion of the study 22 mCi of technetium 99 and Cardiolite IV was injected at oh 30 5 AM on 11/24/2021. 30 minutes following the injection, imaging of the heart was performed in multiple projections. For the rest portion of the study 24.1 mCi of technetium 99m Cardiolite was injected IV at 1305 p.m. 1 hour following injection, imaging of the heart was performed in multiple projections. Raw data: No extraneous uptake of isotopic tracer on rotating, raw data images Right ventricle: Not well visualized Gated SPECT imaging: Normal wall motion and myocardial thickening. Calculated ejection fraction 72% Resting images: There is a small defect of mild intensity involving left ventricular apex. The remaining left ventricular myocardial wall segments demonstrate normal perfusion. Stress images: Normal perfusion. Conclusion: Lexiscan nuclear stress test is negative for inducible ischemia. No rmal gated SPECT imaging with a calculated ejection fraction of 72%.
--- NOTE | 2021-11-24 15:20 | Communication Note ---
Date of Service: November 24, 2021 Lexiscan stress nuclear imaging performed today. No symptoms or EKG changes with infusion. Stress nuclear imaging normal. Will resume diet and anticoagulation with Eliquis continue change in medications made in hospital including the addition of low- dose nitrates. Symptoms appear noncardiac in etiology
--- NOTE | 2021-11-24 16:55 | Hospitalist Progress Note ---
Date of Service November 24, 2021 Assessment & Plan (1) Acute non-ST elevation myocardial infarction (NSTEMI): Plan: per Dr. Baptiste's notes with addendum: ASSESSMENT AND PLAN: This 80-year-old female presents with chest pain. 1. Chest pain. High sensitivity troponins are elevated. Currently, pain is improving. EKG is unremarkable. We will follow the repeat enzymes. Patient is on eliquis.. Follow the echocardiogram. Closely monitor in telemetry floor, keep her n.p.o. after midnight. Consult cardiology in the a.m. -- troponin trended down -- echo: no wall motion abnormalities -- Honey Processor consulted Lexiscan stress nuclear imaging ordered s/p Stress test: negative Constipation -- CT abd/pelvis: unrevealing -- no GI symptoms today 2. Paroxysmal atrial fibrillation, on amiodarone, Eliquis, and metoprolol. 3. History of diabetes. Cut back on Lantus to 8 units daily as patient is npo and place on insulin sliding scale 4. Hypothyroidism. Continue Synthroid. 5. Peripheral vascular disease, on Plavix and statin. 6. History of diastolic congestive heart failure, moderate aortic valve stenosis and mitral valve stenosis. -- euvolemic Continue on Lasix every other day. 7. Hypertension, on metoprolol succinate and Lasix. 8. Chronic kidney disease stage III. Presents with a creatinine of 1.1. 9. Deep venous thrombosis prophylaxis, on Eliquis. DISPOSITION: Closely monitor in the tele floor. Level 1, full code. Expect to discharge home and follow with family doctor. Admission and Anticipated Discharge Date Admission Date: November 20, 2021 Subjective ff up for chest pain, etc seen resting in bed, comfortable in good spirits no chest pain no dyspnea, palpitations, dizziness (+) BM yesterday no other symptoms Review of Systems Review of Systems: all noted and negative except for above Physical Exam Physical Exam: General- oriented x 3, not in distress, speaks in sentences with no effort or accessory muscle use Eyes- anicteric Neck- no JVD Lungs- clear BS bilaterally, no rales/wheezes Heart- normal rate, regular rhythm; no murmurs Abdomen- normal bowel sounds, nondistended, soft, no tenderness Extremities- no pretibial edema, no calf tenderness Neuro- alert, oriented x 3; no gross focal neurologic deficits Skin- warm & dry Results & Data Results & Data ([facility]) Vital Signs (Past 12 Hours) Vital Signs Temp Pulse Pulse Resp BP Pulse Ox 11/24/21 15:48 36.5 C 60 18 91/55 L 100 11/24/21 11:30 36.3 C L 59 L 18 139/76 99 11/24/21 10:57 57 L 11/24/21 08:14 36.2 C L 64 16 115/75 96 all noted and reviewed including below
[2021-11-24] MEDS: APIXABAN 5 MG TABLET PO SCH (21:05)
[2021-11-25] MEDS: LEVOTHYROXINE SODIUM 88 MCG TABLET PO SCH (06:23)
[2021-11-25] MEDS: CALCIUM CARBONATE 1250MG TAB PO SCH (08:39)
[2021-11-25] MEDS: APIXABAN 5 MG TABLET PO SCH (08:39)
[2021-11-25] MEDS: FUROSEMIDE 20 MG TAB PO SCH (08:39)
[2021-11-25] MEDS: METOPROLOL SUCC 25MG EXT REL TAB PO SCH (08:39)
[2021-11-25] MEDS: MULTIVITAMIN TAB PO SCH (08:40)
[2021-11-25] MEDS: CLOPIDOGREL BISULFATE 75 MG TAB PO SCH (08:40)
[2021-11-25] MEDS: AMIODARONE 200 MG TAB PO SCH (08:40)
[2021-11-25] MEDS: MAGNESIUM CHLORIDE 64MG DELAYED REL TAB PO SCH (08:40)
[2021-11-25] MEDS: ATORVASTATIN 40 MG TAB PO SCH (08:41)
[2021-11-25] MEDS: BRINZOLAMIDE/BRIMONIDINE TART 119 DROPS/8 ML BTL OP SCH ×2 (08:41→14:08)
[2021-11-25] MEDS: TIMOLOL MALEATE 0.5% OP SOLN 5 ML BTL OP SCH (08:42)
[2021-11-25] MEDS: INSULIN GLARGINE SOLOSTAR 100 UNITS/ML 3 ML PEN SC SCH (08:42)
[2021-11-25] MEDS: INSULIN ASPART PER UNIT SC SCH ×2 (08:45→12:13)
[2021-11-25] MEDS: LATANOPROST OP SCH (09:39)
[2021-11-25] MEDS: NETARSUDIL MESYLAT OP SCH (09:39)
[2021-11-25] MEDS ORDERED: POLYETHYLENE (MIRALAX) 17 GM PACK PO ONE (09:55)
[2021-11-25] MEDS ORDERED: DOCUSATE SODIUM 100 MG CAP PO SCH (10:00)
--- NOTE | 2021-11-25 10:43 | Cardiology Progress Note ---
Date of Service November 25, 2021 Assessment & Plan (1) Troponin level elevated: (2) Non-ST elevation [place] (NSTEMI): (3) HTN (hypertension): (4) PAD (peripheral artery disease): Plan: Patient is a complex 80-year-old female whose underlying history is notable for 1. Mixed valvular heart disease 2. Paroxysmal atrial fibrillation 3. Atherosclerotic peripheral vascular disease 4. Hypertension 5. Presumed ischemic heart disease Patient presents now with symptoms atypical for angina but with elevated troponins, normal EKGs Echocardiogram unchanged from prior studies with mixed valvular disease and preserved LV systolic function Patient at elevated risk for coronary intervention and previously is requested conservative therapies Plan: Patient on appropriate medical therapies. Stress nuclear imaging performed and normal without perfusion deficit at rest or stress. recommendations continue current therapies including recent addition of low-dose isosorbide. Stefan resumed follow-up cardiology 4 to 6 weeks Admission and Anticipated Discharge Date Admission Date: November 20, 2021 Subjective Patient was seen and examined, chart, medications, telemetry reviewed. No cardiac complaints. No arrhythmias overnight. Still complaining of constipation but no other issues. Stress testing negative for ischemia Physical Exam Constitutional: + obese; no acute distress Eyes: PERRL, conjunctivae normal, anicteric sclerae ENMT: external ear and nose normal, oropharynx normal Neck: trachea midline, no thyromegaly Respiratory: normal respiratory effort, lungs clear to auscultation Cardiovascular: Rate/Rhythm: regular rate and regular rhythm Heart Sounds: + murmur (Grade 2-3 right upper sternal border no diastolic ) Vessels: no JVD Extremities: + edema (Right lower extremity) Gastrointestinal (Abdomen): normal bowel sounds, soft, nontender, no hepatosplenomegaly Results & Data ([facility]) Vital Signs (Past 12 Hours) Vital Signs Temp Pulse Resp BP Pulse Ox 11/25/21 07:39 36.6 C 62 22 144/77 H 96 11/25/21 04:00 36.7 C 56 L 16 130/66 96 11/24/21 22:53 36.5 C 59 L 20 132/68 96 Laboratory Results Laboratory Results - last 24 hr 11/24/21 11/24/21 11/24/21 11:29 16:12 20:23 POC Glucose 164 H 245 H 138 H 11/25/21 07:26 POC Glucose 112 H
--- NOTE | 2021-11-25 13:44 | Hospitalist Progress Note ---
Date of Service November 25, 2021 Assessment & Plan (1) Acute non-ST elevation myocardial infarction (NSTEMI): Plan: Patient is a 80 yr female presents with chest pain. Chest pain Mixed valvular heart disease Presumed ischemic heart disease NSTEMI Ruled out Elevated troponin, normal EKG Echo unchanged from prior Appreciate cardiology input Nuclear stress test is normal without perfusion deficit at rest or stress Continue medical therapy as Continue Plavix, Eliquis, amiodarone, Lipitor, Metoprolol Also started on Imdur Needs follow up with Cardiology upon discharge Constipation Chronic as per patient CT Abd:No acute infectious or inflammatory findings are identified in the abdomen or pelvis. Continue bowel regimen Had BM today Paroxysmal atrial fibrillation on amiodarone, Eliquis, metoprolol. DM II On insulin sliding scale, Lantus Hypothyroidism Continue Levothyroxine PVD: On Plavix and statin. H/O Diastolic congestive heart failure Moderate aortic valve stenosis and mitral valve stenosis. -Euvolemic Continue on Lasix every other day. Hypertension on metoprolol succinate and Lasix. CKD III Monitor renal function . DVT Px: On Eliquis Disposition: Home Admission and Anticipated Discharge Date Admission Date: November 20, 2021 Subjective Patient is seen and examined at bedside States having constipation Denies any chest pain, shortness, dizziness, nausea, abdominal pain Offers no other complaints Review of Systems Review of Systems: All systems reviewed & are unremarkable except as noted in Subjective Physical Exam Physical Exam: Physical Exam: Vitals signs as noted above General Appearance:Obese, no apparent distress Head: normocephalic, Atraumatic Eyes: normal inspection, EOMI Neck: supple, Trachea midline Respiratory/Chest: Normal breath sounds, CTA, No accessory muscle use Cardiovascular: S1, S2, +murmur Abdomen/GI:Soft, Non tender, Bowel sounds present Extremities/Musculoskeletal:normal inspection, no edema Neurologic/Psych:AAOX3, grossly no focal neurological deficits Skin: normal color, warm Results & Data Results & Data ([facility]) Vital Signs (Past 12 Hours) Vital Signs Temp Pulse Resp BP Pulse Ox 11/25/21 11:32 36.8 C 55 L 20 160/82 H 92 11/25/21 07:39 36.6 C 62 22 144/77 H 96 11/25/21 04:00 36.7 C 56 L 16 130/66 96
--- NOTE | 2021-11-25 13:50 | Electrocardiogram Report ---
Test Reason : Blood Pressure : / mmHG Vent. Rate : 058 BPM Atrial Rate : 058 BPM P-R Int : 180 ms QRS Dur : 106 ms QT Int : 464 ms P-R-T Axes : 044 009 060 degrees QTc Int : 455 ms Sinus bradycardia Otherwise normal ECG When compared with ECG of 22-NOV-2021 05:33, Premature atrial complexes are no longer Present Confirmed by Brandin Waite ([id number]) on 11/25/2021 1:50:19 PM Referred By: REFERRED SELF Confirmed By:Brandin Waite
--- NOTE | 2021-11-25 14:28 | Discharge Summary ---
Date of Service November 25, 2021 Admission HPI Per Admitting Provider CHIEF COMPLAINT: Chest pain. HISTORY OF PRESENT ILLNESS: A 80-year-old female with past medical history significant for diabetes, diabetic polyneuropathy, diabetic retinopathy, hyperlipidemia, chronic kidney disease stage III, peripheral vascular disease, moderate aortic stenosis, moderate mitral stenosis, severe mitral valve annular calcification, chronic diastolic CHF, peripheral vascular disease, status post bilateral superficial femoral artery stenting for claudication in 2015, paroxysmal atrial fibrillation, on amiodarone therapy, chronic macrocytic anemia, history of left carotid endarterectomy, The patient lives with her . Ambulatory status is not that great, sometimes walks holding things. The patient says she was constipated for last 4 days. For initial one or two days, she took the stool softener and today morning, she had diarrhea. She is not feeling good in her stomach, has some nausea, then today she developed left- sided chest pain, dull kind of pain, about 6/10 in severity. She felt funny feeling in the left hand, which prompted her to come to the ER. Currently, patient's chest pain is better, only 2/10 in severity. When in the ambulance, she had some headache that got resolved now. Denies any dizziness, no blurred visions. The patient is hard of hearing. She has some runny nose from her eye drops. No sore throat. Once in a while, she gets cough. Currently, denies any shortness of breath. No blood in stools or black stools. Normal bladder movements. Right leg is chronically slightly swollen. Hemodynamically stable. Admission Exam Per Admitting Provider PHYSICAL EXAMINATION: GENERAL: The patient is of moderate build, not in acute distress. VITAL SIGNS: Temperature 36.6, pulse 60, respiratory rate 18, blood pressure 173/97, oxygen 98% on room air. HEENT: Pupils equal, round and reactive to light. Oral mucosa moist. NECK: No JVD, no neck masses. CARDIOVASCULAR: S1 and S2 heard. Mild ejection systolic murmur. Regular rate and rhythm. RESPIRATORY SYSTEM: Normal AP diameter. No accessory muscle use. No wheezing, no crackles. ABDOMEN: Soft, bowel sounds present, nontender, no distention. CENTRAL NERVOUS SYSTEM: Cranial nerves II through XII are grossly intact, nonfocal. EXTREMITIES: Trace pedal edema, no erythema seen. Principal Diagnosis Chest pain Constipation Discharge Data Allergies Allergy/AdvReac Type Severity Reaction Status Date / Time No Known Allergies Allergy Verified 11/20/21 19:05 Consultations 11/20/21 20:27 ED Decision to Admit Stat 11/21/21 08:00 Consult Cardiology Routine Ordered Studies 11/20/21 18:26 CT abd pelvis IV con only Stat Hospital Course (1) Acute non-ST elevation myocardial infarction (NSTEMI): Patient is a 80 yr female presents with chest pain. Chest pain Mixed valvular heart disease Presumed ischemic heart disease NSTEMI Ruled out Elevated troponin, normal EKG Echo unchanged from prior Appreciate cardiology input Nuclear stress test is normal without perfusion deficit at rest or stress Continue medical therapy as Continue Plavix, Eliquis, amiodarone, Lipitor, Metoprolol Also started on Imdur Needs follow up with Cardiology upon discharge Constipation Chronic as per patient CT Abd:No acute infectious or inflammatory findings are identified in the abdomen or pelvis. Continue bowel regimen Had BM today Paroxysmal atrial fibrillation on amiodarone, Eliquis, metoprolol. DM II On insulin sliding scale, Lantus Hypothyroidism Continue Levothyroxine PVD: On Plavix and statin. H/O Diastolic congestive heart failure Moderate aortic valve stenosis and mitral valve stenosis. -Euvolemic Continue on Lasix every other day. Hypertension on metoprolol succinate and Lasix. CKD III Monitor renal function . DVT Px: On Eliquis Disposition: Home Total Time Total Time Spent Total Time Spent (In Minutes): 40 minutes Discharge Plan Discharge Items Patient Disposition: Home - Self-Care Reason For Visit: CHEST PAIN Discharge Diagnosis: Chest pain Constipation Activity: Resume your previous activity Exercise/Sports: Gradually increase as tolerated Non-emergency contact: Primary Care Provider and [employer] Call non-emergency contact if: you have any medication questions, your symptoms worsen, your pain is concerning for you and you have a fever Follow-up/Referrals: Earl Jensen DO [Primary Care Provider] - (Date & Time 12/01/2021 11:00 AM Provider Earl Jensen DO Department Family Practice [facility] ) Capri Ac CRNP [Nurse Practitioner] - (Date & Time 12/23/2021 10:00 AM Provider BEATRICE Plascencia Department Cardiology, [facility] ) Diet: Carb Consistent or DM2 and Heart Healthy Addtl Attending Provider Instructions: Follow-up with your primary care physician Dr.Trevor Jensen on 12/01/2021 11:00 AM Follow-up with your lining stuffer Capri BARRON on 12/23/2021 10:00 AM Seek immediate medical attention if your symptoms reoccur or worsen Please take all medications as instructed on discharge list below. Please call if you have any questions or problems. You can reach a [facility] hospitalist on duty at [facility] 24 hours a day by calling [phone] Pending Studies at Discharge: No Stand-Alone Forms: [facility], Smoking Cessation Medications and DC Order Prescriptions: New polyethylene glycol 3350 [Miralax] 17 gram Powder In Packet 17 g PO DAILY PRN (Reason: constipation) Qty: 30 RF: 0 isosorbide mononitrate 30 mg Tablet Extended Release 24 Hr 30 mg PO QAM Qty: 30 RF: 1 docusate sodium 100 mg Capsule 100 mg PO BID PRN (Reason: Constipation) Qty: 30 RF: 0 Continued calcium carbonate 600 mg calcium (1,500 mg) tablet 600 mg PO BID RF: 0 multivitamin Tablet 1 tab PO DAILY RF: 0 atorvastatin 80 mg Tablet 80 mg PO DAILY RF: 0 furosemide 20 mg Tablet 20 mg PO Q OTHER DAY RF: 0 Mag 64 64 mg Tablet,Delayed Release (Dr/Ec) 128 mg PO DAILY RF: 0 Simbrinza 1-0.2 % drops,suspension 1 drp OPB TID RF: 0 Rocklatan 0.02-0.005 % Drops 1 drp OPHTHALMIC (EYE) HS RF: 0 clopidogrel 75 mg Tablet 75 mg PO QAM 30 Days Qty: 30 RF: 2 Eliquis 5 mg Tablet 5 mg PO BID 30 Days Qty: 60 RF: 2 acetaminophen [Tylenol] 325 mg Tablet 650 mg PO QID PRN (Reason: Pain) RF: 0 levothyroxine [Synthroid] 88 mcg tablet 88 mcg PO DAILY RF: 0 timolol maleate 0.5 % drops 1 drp OPB QAM RF: 0 Lantus Solostar U-100 Insulin 100 unit/mL (3 mL) insulin pen 20 unit SUBCUT DAILY RF: 0 Rocklatan 0.02-0.005 % drops 1 drp OPB DAILY RF: 0 Trulicity 4.5 mg/0.5 mL pen injector 4.5 mg SUBCUT WE RF: 0 amiodarone 200 mg tablet 100 mg PO QAM RF: 0 metoprolol succinate 25 mg tablet extended release 24 hr 12.5 mg PO QAM RF: 0 Discharge Orders: Discharge Order (Routine); Ordered 11/25/21 Ordered By: Yasmany Nunez/Other Patient Handouts: Managing Type 2 Diabetes Admission Data Admit Date/Time: 11/20/21 21:10 Attending Provider: Yasmany Camara Admit Provider: Joe Loyola Primary Care Provider: Earl Jensen Other Providers: Gulshan Baptiste ; Alex Mims ; Dario Gagnon ; Arturo Jackson ; Doe Gar ; Chriss Perea ; Valeriy Welsh ; Ana Solares ; Susana Wilson ; Capri Ac ; Donald Cartagena
[2021-11-25] MEDS ORDERED: ISOSORBIDE MONO EXTENDED REL 30 MG TABCR PO ONE (14:45)
[2021-11-26] MEDS ORDERED: ISOSORBIDE MONO EXTENDED REL 30 MG TABCR PO SCH (09:00)
== END 2021-11-25 15:49 | disposition home or self-care (01) | DRG 313 ==
LOC: ED 16:50 → 2S 21:10 → SUATTDRO 21:10 → 2S 22:12
DX: E11.22 Type 2 diabetes mellitus with diabetic chronic kidney disease; I13.0 Hypertensive heart and chronic kidney disease with heart failure and stage 1 through stage 4 chronic kidney disease, or unspecified chronic kidney disease; E78.5 Hyperlipidemia, unspecified; D63.1 Anemia in chronic kidney disease; N18.30 Chronic kidney disease, stage 3 unspecified; I08.0 Rheumatic disorders of both mitral and aortic valves; I48.0 Paroxysmal atrial fibrillation; E66.9 Obesity, unspecified; Z79.890 Hormone replacement therapy; Z79.02 Long term (current) use of antithrombotics/antiplatelets; Z86.73 Personal history of transient ischemic attack (TIA), and cerebral infarction without residual deficits; Z79.4 Long term (current) use of insulin; R07.9 Chest pain, unspecified; E11.51 Type 2 diabetes mellitus with diabetic peripheral angiopathy without gangrene; K59.00 Constipation, unspecified; Z87.891 Personal history of nicotine dependence; E11.42 Type 2 diabetes mellitus with diabetic polyneuropathy; Z68.33 Body mass index [BMI] 33.0-33.9, adult; I50.32 Chronic diastolic (congestive) heart failure; E11.319 Type 2 diabetes mellitus with unspecified diabetic retinopathy without macular edema; Z98.62 Peripheral vascular angioplasty status; E03.9 Hypothyroidism, unspecified; Z98.49 Cataract extraction status, unspecified eye

== ENCOUNTER 2023-02-16 10:12 | Inpatient (IN) ==
[2023-02-16] MEDS ORDERED: SODIUM CHLORIDE 0.9% 1000ML 1,000 ML IV SCH (10:30)
[2023-02-16] MEDS ORDERED: METOPROLOL TARTRATE 1 MG/ML VIAL IV STA (10:43)
--- NOTE | 2023-02-16 10:48 | Emergency Department Note ---
History of Present Illness General Chief complaint: Cardiac Assessment Stated complaint: WEAKNESS, Time Seen by Provider: 02/16/23 10:23 History of Present Illness Maximum Pain Intensity: 5 82-year-old female presents emergency department via EMS reportedly she woke up around 4 AM this morning she states that she was dizzy lightheaded and was having intermittent left-sided chest pain. Patient of note recently had a TAVR at [facility] in mid December. Patient may have a history of A-fib she is currently on Eliquis on amiodarone and metoprolol. States that she was slightly short of breath as well. Patient states she has not had a bowel movement in 4 days. There are no other complaints. She actually states much improved she did state that her blood pressure this morning was 80/40. Home Medications Medication Instructions Recorded Confirmed Type atorvastatin 80 mg tablet 80 mg PO QAM 05/22/18 03/17/22 History furosemide 20 mg tablet 20 mg PO Q OTHER DAY 05/22/18 03/17/22 History multivitamin 1 tab PO QAM 05/22/18 03/17/22 History magnesium chloride 64 mg 128 mg PO QAM 02/23/19 03/17/22 History (magnesium chloride) tablet,delayed release (Mag 64) calcium carbonate 600 mg calcium 600 mg PO BID 03/09/19 03/17/22 History (1,500 mg) tablet brinzolamide 1 %-brimonidine 0.2 % 1 drp OPB TID 09/28/19 03/17/22 History eye drops,suspension (Simbrinza) netarsudil 0.02 %-latanoprost 1 drp ophthalmic (eye) HS 09/28/19 03/17/22 History 0.005 % eye drops (Rocklatan) apixaban 5 mg tablet (Eliquis) 5 mg PO BID 30 days #60 tabs 10/09/19 03/17/22 Rx clopidogrel 75 mg tablet 75 mg PO QAM 30 days #30 tabs 10/09/19 03/17/22 Rx acetaminophen 325 mg tablet 650 mg PO QID PRN Pain 11/20/21 03/17/22 History (Tylenol) amiodarone 200 mg tablet 100 mg PO QAM 11/20/21 03/17/22 History dulaglutide 4.5 mg/0.5 mL 4.5 mg subcut WK 11/20/21 03/17/22 History subcutaneous pen injector (Trulicity) insulin glargine 100 unit/mL (3 10 unit subcut QAM 11/20/21 03/17/22 History mL) subcutaneous pen (Lantus Solostar U-100 Insulin) levothyroxine 88 mcg tablet 88 mcg PO QAM 11/20/21 03/17/22 History (Synthroid) metoprolol succinate 25 mg 12.5 mg PO QAM 11/20/21 03/17/22 History tablet,extended release 24 hr timolol maleate 0.5 % eye drops 1 drp OPB QAM 11/20/21 03/17/22 History docusate sodium 100 mg capsule 100 mg PO BID PRN Constipation #30 11/25/21 03/17/22 Rx caps isosorbide mononitrate 30 mg 30 mg PO QAM #30 tabs 11/25/21 03/17/22 Rx tablet,extended release 24 hr polyethylene glycol 3350 17 gram 17 g PO DAILY PRN constipation #30 11/25/21 03/17/22 Rx oral powder packet (Miralax) ea albuterol sulfate 90 mcg/actuation 1 inh inhalation QID PRN Wheezing 03/15/22 03/17/22 History aerosol inhaler (Ventolin HFA) Allergies Allergy/AdvReac Type Severity Reaction Status Date / Time No Known Allergies Allergy Verified 03/17/22 07:57 Past Med/Surg History Medical History Aortic stenosis Asthma short of breath with stairs Atrial fibrillation with RVR dx over 4 yrs ago > no pacer, follows with Dr. Jackson, shria controlled Carotid stenosis Chronic constipation CKD (chronic kidney disease), stage III no specialist Diabetes Diabetic polyneuropathy Glaucoma History of cardioversion History of COVID-19 December 14, 2021, home test > sore throat, fatigue, no further symptoms HTN (hypertension) Hyperlipidemia NSTEMI (non-ST elevated myocardial infarction) November 2021 > treated at [facility] > no stents per pt PAD (peripheral artery disease) (09/04/14) Surgical History H/O eye surgery retina repair H/O vascular surgery legs History of cataract surgery bilat History of CEA (carotid endarterectomy) "left" > over 20 yrs ago History of colonoscopy S/P wrist surgery right > after dog bite Family History Other Family history non-contributory Social History Smoking Status: Never smoker Second Hand Exposure: No; Do You Dip or Chew Tobacco: No; Hx Alcohol Use: No Hx Substance Use: No Preferred Language: Kinyarwanda Communication Ability: Effective Visual Impairment: No Limitations Perishable Fruit Inspector Required: No Beliefs That Will Affect Care: None marital status: Current Living Situation: Alone How many Children do You have: 3 Feels Safe at Home: Yes Assistive Devices: Cane and Glasses Review of Systems A total of 10 systems reviewed and were otherwise negative Constitutional: + weakness Cardiovascular: + chest pain Physical Exam Vital Signs Vital Signs - 24 hr 02/16/23 10:04 02/16/23 10:14 02/16/23 10:23 Temperature 36.4 C Temperature Source Oral Pulse Rate 118 H Pulse Rate [Apical] Pulse Rhythm [Apical] Respiratory Rate 18 18 Respiratory Depth Normal Blood Pressure Blood Pressure [Right Arm] 124/72 Blood Pressure Mean [Right Arm] 89 Pulse Oximetry 98 98 98 Oxygen Delivery Method Room Air Room Air Sepsis Recent Fever Within 48 Hours No Sepsis New/Unexplained Change in Mental Status N/A Sepsis Action Taken by Nursing No Action Required 02/16/23 10:23 02/16/23 11:35 02/16/23 11:49 Temperature Temperature Source Pulse Rate 68 62 Pulse Rate [Apical] 126 H Pulse Rhythm [Apical] Irregular Respiratory Rate Respiratory Depth Blood Pressure 142/75 H Blood Pressure [Right Arm] Blood Pressure Mean [Right Arm] Pulse Oximetry Oxygen Delivery Method Sepsis Recent Fever Within 48 Hours Sepsis New/Unexplained Change in Mental Status Sepsis Action Taken by Nursing GENERAL: Patient is awake alert in no acute distress patient is resting comfortably and showing no signs of anxiety EYES: The conjunctivae are clear. The pupils are round and reactive. HEAD: NC/AT EARS, NOSE, MOUTH AND THROAT: The nose is without any evidence of any deformity. Mucous membranes are moist. Tongue is midline. NECK: The neck is nontender and supple. RESPIRATORY: Normal respiratory effort is noted there is no evidence of wheezing rhonchi or rales CARDIOVASCULAR: Irregularly irregular tachycardic noted there no murmurs rubs or gallops normal S1 normal S2. GASTROINTESTINAL: The abdomen is soft. Abdomen is nontender. No rebound rigidity guarding BACK: No midline tenderness or or step-off noted range of motion in flexion extension as well as rotation no signs of muscle spasm noted MUSCULOSKELETAL/EXTREMITIES: There is no evidence of gross deformity full range of motion is noted in the hips and shoulders. SKIN: There is no obvious evidence of any rash. There are no petechiae, pallor or cyanosis noted. NEUROLOGIC: Patient is awake alert and oriented x3 strength is symmetric; NIH of 0, nonfocal neurologic exam Course Reevaluation(s) Reevaluation #1: I was notified by the nurse that the patient had 3 mg of IV Lopressor push. However at the time her heart rate was less than 60, it was pushed approximately 1-1/2 hours after ordered. Patient at that time of order in rapid A-fib. Patient did receive IV fluids as well. On repeat examination patient had episod es of bradycardia with sinus pause however went back into the 50s was normotensive and had no symptoms on my repeat examination at bedside Time: 12:35 Consultations Consultation #1: [facility] Time: 12:35 Administered Medications Discontinued Medications Sodium Chloride (Nss 1000ml) 1,000 mls @ 999 mls/hr IV .Q1H1M PO Stop: 02/16/23 11:30 Last Admin: 02/16/23 11:49 Dose: 999 mls/hr Documented By: EMANUEL Metoprolol Tartrate (Metoprolol Tartrate 1 Mg/Ml Vial) 5 mg IV NOW STA Stop: 02/16/23 10:44 Last Admin: 02/16/23 11:49 Dose: 5 mg Documented By: EMANUEL Critical Care Time Critical Care Time: Yes Total Critical Care Time: 40 I have personally spent greater than 40 minutes of critical care time in the direct management of this patient. This includes bedside care, interpretation of diagnostic studies, and testing, discussion with consultants, patient, and family members, and other required patient management activities. These minutes are in excess of all separately billable procedures. Medical Decision Making Medical Records Attestation: I reviewed the patient's medical records. Home Medications Current Medication List: was personally reviewed by me Laboratory Data Attestation: I reviewed the patient's lab results. Labs interpreted by me elevated troponin 02/16/23 10:25 02/16/23 10:25 Lab Results 02/16/23 02/16/23 02/16/23 Range/Units 10:25 10:25 10:25 WBC 7.00 (4.8-10.8) K/ul RBC 3.50 L (4.20-5.40) M/uL Hgb 11.9 L (12.0-16.0) g/dl Hct 34.8 L (37.0-47.0) % MCV 99.4 (80.0-100.0) fL MCH 34.0 (25.0-34.0) pg MCHC 34.2 (32.0-36.0) g/dL RDW Std Deviation 48.5 H (36.4-46.3) fL RDW Coeff of Mj 13.3 (11.5-14.5) % Plt Count 296 (130-400) K/uL MPV 11.4 (9.4-12.4) fL Immature Gran % (Auto) 0.1 % Neut % (Auto) 72.7 % Lymph % (Auto) 16.9 % Kane % (Auto) 7.0 % Eos % (Auto) 2.6 % Baso % (Auto) 0.7 % Neut # (Auto) 5.09 (1.40-6.50) K/uL Lymph # (Auto) 1.18 L (1.2-3.4) K/uL Kane # (Auto) 0.49 (0.11-0.59) K/uL Eos # (Auto) 0.18 (0-0.50) K/uL Baso # (Auto) 0.05 (0-0.2) K/uL Immature Gran # (Auto) 0.01 (0.01-0.20) K/uL PT Cancelled INR Cancelled APTT Cancelled PTT Ratio Cancelled Sodium 134 L (136-145) mmol/L Potassium TNP Chloride 101 (98-107) mmol/L Carbon Dioxide 24 (21-32) mmol/L Anion Gap 9 (3-11) BUN 28 H (6-23) mg/dl Creatinine 1.33 H (0.6-1.2) mg/dl Est Cr Clr Drug Dosing 34.0 ml/min Est GFR ( Amer) 43.6 ml/min Est GFR (Non-Af Amer) 37.7 ml/min BUN/Creatinine Ratio 21.1 H (10-20) Glucose 258 H (70-99(Fasting)) mg/dl Lactate (0.4-2.0) mmol/L Calcium 9.8 (8.6-10.3) mg/dl Magnesium 1.6 L (1.7-2.4) mg/dl Total Bilirubin 0.6 (0.2-1.0) mg/dl Direct Bilirubin TNP AST TNP ALT 11 (7-52) U/L Alkaline Phosphatase 87 (34-104) U/L Troponin I High Sens 478.4 H* (0-14) pg/ml Total Protein 7.6 (6.0-8.3) gm/dl Albumin 3.7 (3.4-5.0) gm/dl Procalcitonin (0-0.5) ng/ml 02/16/23 02/16/23 02/16/23 Range/Units 10:25 11:40 11:40 WBC (4.8-10.8) K/ul RBC (4.20-5.40) M/uL Hgb (12.0-16.0) g/dl Hct (37.0-47.0) % MCV (80.0-100.0) fL MCH (25.0-34.0) pg MCHC (32.0-36.0) g/dL RDW Std Deviation (36.4-46.3) fL RDW Coeff of Mj (11.5-14.5) % Plt Count (130-400) K/uL MPV (9.4-12.4) fL Immature Gran % (Auto) % Neut % (Auto) % Lymph % (Auto) % Kane % (Auto) % Eos % (Auto) % Baso % (Auto) % Neut # (Auto) (1.40-6.50) K/uL Lymph # (Auto) (1.2-3.4) K/uL Kane # (Auto) (0.11-0.59) K/uL Eos # (Auto) (0-0.50) K/uL Baso # (Auto) (0-0.2) K/uL Immature Gran # (Auto) (0.01-0.20) K/uL PT 11.4 INR 1.0 APTT 28.8 PTT Ratio 1.0 Sodium (136-145) mmol/L Potassium 4.4 Chloride (98-107) mmol/L Carbon Dioxide (21-32) mmol/L Anion Gap (3-11) BUN (6-23) mg/dl Creatinine (0.6-1.2) mg/dl Est Cr Clr Drug Dosing ml/min Est GFR ( Amer) ml/min Est GFR (Non-Af Amer) ml/min BUN/Creatinine Ratio (10-20) Glucose (70-99(Fasting)) mg/dl Lactate (0.4-2.0) mmol/L Calcium (8.6-10.3) mg/dl Magnesium (1.7-2.4) mg/dl Total Bilirubin (0.2-1.0) mg/dl Direct Bilirubin 0.1 AST 17 ALT (7-52) U/L Alkaline Phosphatase (34-104) U/L Troponin I High Sens (0-14) pg/ml Total Protein (6.0-8.3) gm/dl Albumin (3.4-5.0) gm/dl Procalcitonin < 0.05 (0-0.5) ng/ml 02/16/23 Range/Units 11:45 WBC (4.8-10.8) K/ul RBC (4.20-5.40) M/uL Hgb (12.0-16.0) g/dl Hct (37.0-47.0) % MCV (80.0-100.0) fL MCH (25.0-34.0) pg MCHC (32.0-36.0) g/dL RDW Std Deviation (36.4-46.3) fL RDW Coeff of Mj (11.5-14.5) % Plt Count (130-400) K/uL MPV (9.4-12.4) fL Immature Gran % (Auto) % Neut % (Auto) % Lymph % (Auto) % Kane % (Auto) % Eos % (Auto) % Baso % (Auto) % Neut # (Auto) (1.40-6.50) K/uL Lymph # (Auto) (1.2-3.4) K/uL Kane # (Auto) (0.11-0.59) K/uL Eos # (Auto) (0-0.50) K/uL Baso # (Auto) (0-0.2) K/uL Immature Gran # (Auto) (0.01-0.20) K/uL PT INR APTT PTT Ratio Sodium (136-145) mmol/L Potassium Chloride (98-107) mmol/L Carbon Dioxide (21-32) mmol/L Anion Gap (3-11) BUN (6-23) mg/dl Creatinine (0.6-1.2) mg/dl Est Cr Clr Drug Dosing ml/min Est GFR ( Amer) ml/min Est GFR (Non-Af Amer) ml/min BUN/Creatinine Ratio (10-20) Glucose (70-99(Fasting)) mg/dl Lactate 1.3 (0.4-2.0) mmol/L Calcium (8.6-10.3) mg/dl Magnesium (1.7-2.4) mg/dl Total Bilirubin (0.2-1.0) mg/dl Direct Bilirubin AST ALT (7-52) U/L Alkaline Phosphatase (34-104) U/L Troponin I High Sens (0-14) pg/ml Total Protein (6.0-8.3) gm/dl Albumin (3.4-5.0) gm/dl Procalcitonin (0-0.5) ng/ml Imaging Data Attestation: I personally reviewed and interpreted this imaging study as follows: My Impression: Chest x-ray interpreted by me negative for infiltrate CT of the brain per my interpretation negative for intracranial hemorrhage Radiologist's Impression: Chest X-Ray 02/16/23 10:23 XR chest 1V portable CLINICAL HISTORY: Sepsis. COMPARISON STUDY: Chest radiograph November 20, 2021. FINDINGS: Lung volumes are normal. Lungs are clear. There is no pneumothorax or pleural effusion. There is a prosthetic aortic valve. Mitral annular calcification is noted. Cardiac size is normal. Mediastinal contours are normal. There is no evidence for pulmonary edema. IMPRESSION: No acute cardiopulmonary findings. ACT 112: Negative or not required by law. Electronically signed by: Artis Basurto M.D. 02/16/2023 11:[address] 02/16/23 10:[address] DOSE: 625.80 mGy.cm HISTORY: dizziness TECHNIQUE: Multiaxial CT images of the head were performed without the use of intravenous contrast. Automated exposure control was utilized for this study. A dose lowering technique was utilized adhering to the principles of ALARA. Comparison: None. Findings: The paranasal sinuses and mastoid air cells are clear. The calvarium and skull base are intact. There is no mass, hematoma, midline shift, acute infarct. White matter hypodensity is nonspecific but suggestive of microvascular ischemic change. The ventricles and sulci demonstrate mild age-related involutional changes. Impression: No acute intracranial abnormality. ACT 112: Negative or not required by law. Electronically signed by: Jonny Cole M.D. 02/16/2023 11:37 AM ECG Data Attestation: I personally reviewed and interpreted this ECG as follows: Additional Comments: EKG interpreted by me atrial fibrillation rate of 123, left wrist ST segment elevation or depression normal axis EKG #2 interpreted by me sinus bradycardia rate of 53 poor R wave progression the precordium no obvious ST segment elevation or depression normal axis, questionable first-degree AV block -this EKG was performed after the patient received 3 mg of IV Lopressor Telemetry was ordered by me interpreted as atrial fibrillation rate of 120 MDM Narrative Medical decision making differential diagnosis includes intracranial hemorrhage, TIA, CVA, acute coronary syndrome, cardiac dysrhythmia, metabolic derangement, electrolyte abnormality, dehydration, sepsis Plan is to check sepsis labs, give IV fluids IV metoprolol, CAT scan brain, observe External medical records were reviewed by me EMS medical report was reviewed by me Patient was in rapid A-fib was dizzy was given IV fluids, has a negative CT he has an elevated troponin but a nonischemic EKG. The case was discussed with the [facility] hospitalist for admission Impression & Plan Dizziness, Atrial fibrillation with RVR, Elevated troponin Discharge Plan Visit Data Chief Complaint: Cardiac Assessment Stated Complaint: WEAKNESS, ED Provider: Alex Oliva Discharge Problem: Dizziness, Atrial fibrillation with RVR, Elevated troponin Patient Disposition: Admitted As Inpatient Forms Stand Alone Forms: My [facility] Prescriptions Prescriptions: No Action calcium carbonate 600 mg calcium (1,500 mg) tablet 600 mg PO BID multivitamin Tablet 1 tab PO QAM atorvastatin 80 mg Tablet 80 mg PO QAM furosemide 20 mg Tablet 20 mg PO Q OTHER DAY Mag 64 64 mg Tablet,Delayed Release (Dr/Ec) 128 mg PO QAM Simbrinza 1-0.2 % drops,suspension 1 drp OPB TID Rocklatan 0.02-0.005 % Drops 1 drp OPHTHALMIC (EYE) HS clopidogrel 75 mg Tablet 75 mg PO QAM 30 Days Qty: 30 2RF Eliquis 5 mg Tablet 5 mg PO BID 30 Days Qty: 60 2RF acetaminophen [Tylenol] 325 mg Tablet 650 mg PO QID PRN (Reason: Pain) levothyroxine [Synthroid] 88 mcg tablet 88 mcg PO QAM timolol maleate 0.5 % drops 1 drp OPB QAM insulin glargine [Lantus Solostar U-100 Insulin] 100 unit/mL (3 mL) insulin pen 10 unit SUBCUT QAM Trulicity 4.5 mg/0.5 mL pen injector 4.5 mg SUBCUT WK Rx Instructions: TAKE SAT amiodarone 200 mg tablet 100 mg PO QAM metoprolol succinate 25 mg tablet extended release 24 hr 12.5 mg PO QAM polyethylene glycol 3350 [Miralax] 17 gram Powder In Packet 17 g PO DAILY PRN (Reason: constipation) Qty: 30 0RF isosorbide mononitrate 30 mg Tablet Extended Release 24 Hr 30 mg PO QAM Qty: 30 1RF docusate sodium 100 mg Capsule 100 mg PO BID PRN (Reason: Constipation) Qty: 30 0RF albuterol sulfate [Ventolin HFA] 90 mcg/actuation Hfa Aerosol Inhaler 1 inh INHALATION QID PRN (Reason: Wheezing) Referrals Referrals: Earl Jensen DO [Primary Care Provider] -
[2023-02-16 10:50] LABS: Basophils # (auto) 0.05 K/uL (0-0.2); Basophils % (auto) 0.7 %; Eosinophils # (auto) 0.18 K/uL (0-0.50); Eosinophils % (auto) 2.6 %; Hematocrit (blood only) 34.8 % (37.0-47.0); Hemoglobin 11.9 g/dl (12.0-16.0); Immature Granulocytes # (auto) 0.01 K/uL (0.01-0.20); Immature Granulocytes % (auto) 0.1 %; Lymphocytes # (auto) 1.18 K/uL (1.2-3.4); Lymphocytes % (auto) 16.9 %; Mean Corpuscular Hgb Conc 34.2 g/dL (32.0-36.0); Mean Corpuscular Volume 99.4 fL (80.0-100.0); Mean Platelet Volume 11.4 fL (9.4-12.4); Monocytes # (auto) 0.49 K/uL (0.11-0.59); Neutrophils # (auto) 5.09 K/uL (1.40-6.50); Neutrophils % (auto) 72.7 %; Platelet Count 296 K/uL (130-400); RDW Coefficient of Variation 13.3 % (11.5-14.5); RDW Standard Deviation 48.5 fL (36.4-46.3)
--- NOTE | 2023-02-16 11:11 | XRay Report ---
XR chest 1V portable CLINICAL HISTORY: Sepsis. COMPARISON STUDY: Chest radiograph November 20, 2021. FINDINGS: Lung volumes are normal. Lungs are clear. There is no pneumothorax or pleural effusion. The re is a prosthetic aortic valve. Mitral annular calcification is noted. Cardiac size is normal. Media stinal contours are normal. There is no evidence for pulmonary edema. IMPRESSION: No acute cardiopulmonary findings. ACT 112: Negative or not required by law. Electronically signed by: Artis Basurto M.D. 02/16/2023 11:10 AM
[2023-02-16 11:18] LABS: Alanine Aminotransferase 11 U/L (7-52); Albumin Level 3.7 gm/dl (3.4-5.0); Alkaline Phosphatase 87 U/L (34-104); Anion Gap 9 (3-11); BUN Creatinine Ratio 21.1 (10-20); Bilirubin,Total 0.6 mg/dl (0.2-1.0); Blood Urea Nitrogen 28 mg/dl (6-23); Calcium 9.8 mg/dl (8.6-10.3); Carbon Dioxide 24 mmol/L (21-32); Chloride 101 mmol/L (98-107); Est GFR (African American) 43.6 ml/min; Est GFR (Non-African American) 37.7 ml/min; Glucose 258 mg/dl (70-99(Fasting)); Magnesium 1.6 mg/dl (1.7-2.4); Sodium 134 mmol/L (136-145); Total Protein 7.6 gm/dl (6.0-8.3); Troponin I High Sensitivity 478.4 pg/ml (0-14)
--- NOTE | 2023-02-16 11:23 | Electrocardiogram Report ---
Test Reason : Blood Pressure : / mmHG Vent. Rate : 123 BPM Atrial Rate : 000 BPM P-R Int : 000 ms QRS Dur : 110 ms QT Int : 370 ms P-R-T Axes : 000 -21 109 degrees QTc Int : 529 ms Atrial fibrillation with rapid ventricular response Incomplete left bundle block Abnormal ECG When compared with ECG of 23-NOV-2021 09:01, Atrial fibrillation now present HR has increased by 65 bpm Confirmed by Alton Saunders ([id number]) on 02/16/2023 11:23:02 AM Referred By: Confirmed By:Alton Saunders
--- NOTE | 2023-02-16 11:40 | CT Scan Report ---
HEAD CT NONCONTRAST CT DOSE: 625.80 mGy.cm HISTORY: dizziness TECHNIQUE: Multiaxial CT images of the head were performed without the use of intravenous contrast. A utomated exposure control was utilized for this study. A dose lowering technique was utilized adheri ng to the principles of ALARA. Comparison: None. Findings: The paranasal sinuses and mastoid air cells are clear. The calvarium and skull base are int act. There is no mass, hematoma, midline shift, acute infarct. White matter hypodensity is nonspecifi c but suggestive of microvascular ischemic change. The ventricles and sulci demonstrate mild age-rela rossy involutional changes. Impression: No acute intracranial abnormality. ACT 112: Negative or not required by law. Electronically signed by: Jonny Cole M.D. 02/16/2023 11:37 AM
[2023-02-16 12:21] LABS: Bilirubin Direct 0.1 mg/dl (0-0.2); Potassium 4.4 mmol/L (3.5-5.1)
--- NOTE | 2023-02-16 12:22 | History & Physical Report ---
Date of Service February 16, 2023 Assessment & Plan (1) Atrial fibrillation with RVR: Plan: Patient is 82-year-old female with PMH paroxysmal atrial fibrillation anticoagulated on Eliquis, aortic stenosis s/p TAVR 01/04/2023, insulin dependent DM II, diastolic dysfunction, PVD s/p stents, carotid artery stenosis s/p left CEA 2004, HTN, dyslipidemia, hypothyroidism and others listed below presented to ER with c/o palpitations, dizziness, SOB this morning. In ER patient with atrial fibrillation heart rate in the 130s, BP : 124/72. Lopressor 5mg IV was ordered, however patient noted to convert to sinus rhythm prior to administration of Lopressor, however 3mg given and HR noted in high 50's Current sinus bradycardia rate in 50's with no further dizziness, palpitations, SOB reported. In ER given 1L NSS. History Echo 01/05/2023:EF: 65-69%, no wall motion abnormalities, s/p TAVR, mild paravalvular aortic valve prosthesis regurgitation present, severe mitral annular calcification, moderate mitral stenosis, mild pulmonary hypertension Recent outpatient ZIO monitor showed sinus rhythm with average heart rate 58 bpm with reported 2 pauses lasting 3.5 seconds without reported symptoms. Metoprolol succinate 12.5mg was discontinued. TSH: 2.4 Magnesium level: 1.6. Magnesium sulfate 1 g ordered Monitor on telemetry. Hold on further metoprolol and monitor heart rates May have component of tachybradycardia syndrome Echo Continue Eliquis, amiodarone CBC, BMP, magnesium (2) Atypical chest pain: (3) Troponin level elevated: Plan: History atypical CP in past Continue isosorbide Initial high-sensitivity troponin: 478-->456. EKG Afib RVR, incomplete LBBB. (H/O incomplete LBBB since TAVR in 12/2022) Likely secondary to demand ischemia from A-fib RVR History atypical chest pain with negative nuclear stress test 11/24/2021. Normal coronary arteries per pre-CABG cath in 10/2022 Trend troponin Echo (4) Aortic stenosis: (5) S/P TAVR (transcatheter aortic valve replacement): Plan: History aortic stenosis s/p TAVR 01/04/2023 History Echo 01/05/2023:EF: 65-69%, no wall motion abnormalities, s/p TAVR, mild paravalvular aortic valve prosthesis regurgitation present, severe mitral annular calcification, moderate mitral stenosis, mild pulmonary hypertension (6) Hypomagnesemia: Plan: Magnesium level: 1.6. Replace Magnesium lab in am (7) CKD (chronic kidney disease), stage III: Plan: Cr: 1.33. Baseline: 1.1 Monitor renal functions, avoid nephrotoxic agents when possible (8) Constipation: Plan: Chronic constipation Reports last BM 5 days ago Dulcolax suppository, Colace twice daily, daily (9) Insulin dependent type 2 diabetes mellitus: Plan: A1c: 8.7 on 02/04/2023 Continue Lantus Novolog sliding scale per protocol (10) History of diastolic dysfunction: Plan: On Lasix Q2D Hold lasix today and reassess tomorrow. Currently appears euvolemic (11) HTN (hypertension): Plan: Continue lisinopril with holding parameters (12) Carotid stenosis: (13) PAD (peripheral artery disease): Plan: S/P left carotid endarterectomy in 2004 S/P bilateral femoral artery stents Continue Plavix, statin (14) Incomplete left bundle branch block (LBBB): Plan: History incomplete left bundle branch block noted after TAVR in 12/2022 (15) Hypothyroidism: Plan: TSH: 2.4 Continue levothyroxine DVT Prophylaxis On Eliquis DNR/DNI as per discussion with pt Follows with Dr Earl Jensen for routine care Pt was seen and care coordinated with Dr Whatley. See addendum I spent a total of 80 minutes reviewing notes, outpatient records, labs, medication, coordinating, documenting and providing care for this patient excluding time spent in the performance of separately billed services. History of Present Illness Chief Complaint: Dizzy, palpiations Primary Care Provider: Earl Jensen DO Patient is 82-year-old female with PMH paroxysmal atrial fibrillation anticoagulated on Eliquis, aortic stenosis s/p TAVR 01/04/2023, insulin dependent DM II, diastolic dysfunction, PVD s/p stents, carotid artery stenosis s/p left CEA 2004, HTN, dyslipidemia, hypothyroidism and others listed below presented to ER with c/o palpitations this morning. Patient states this morning woke up around 4 AM and "did not feel right" she reports having sensation of palpitations and heart racing. States she got up out of bed and had dizziness and shortness of breath. Patient reports ongoing intermittent left-sided sharp chest pain for the past several months. Patient states she feels chest pain is secondary to gas. She denies any current chest pain, but states she had chest pain this morning and had chest pain yesterday that self resolved. Patient also reports yesterday had pain up the left side of her neck with associated headache. She reports applying IcyHot to neck area with resolution of symptoms. Outpatient chart review: History TAVR 01/04/2023. Post op noted to have incomplete LBBB. Had recent ZIO monitor showed sinus rhythm with average heart rate 58 bpm with reported 2 pauses lasting 3.5 seconds without reported symptoms. Cardiology had recommended patient discontinue metoprolol. She is scheduled to see EP cardiology to discuss possible need for pacemaker for possible sick sinus syndrome. Patient states that it has been approximately 1 week since she has taken metoprolol. She states she has felt overall deconditioned and weak. after her TAVR surgery but denies any increased weakness. Reports chronic constipation. States last BM 4-5 days ago. Denies fever/chills, diaphoresis, N/V/D, syncope, vision changes, orthopnea, cough, sore throat, rhinorrhea, abdominal pain, paresthesias, extremity edema, rashes, urinary symptoms. In ER patient presented with atrial fibrillation heart rate in the 130s. Metoprolol tartrate 5mg IV was ordered, patient noted to convert to sinus rhythm prior to administration of metoprolol tartrate. Current sinus bradycardia rate in 50's with no further dizziness, palpitations, SOB reported. History Echo 01/05/2023:EF: 65-69%, no wall motion abnormalities, s/p TAVR, mild paravalvular aortic valve prosthesis regurgitation present, severe mitral annular calcification, moderate mitral stenosis, mild pulmonary hypertension Allergies Allergy/AdvReac Type Severity Reaction Status Date / Time No Known Allergies Allergy Verified 03/17/22 07:57 Home Medications Medication Instructions Recorded Confirmed Type atorvastatin 80 mg tablet 80 mg PO QAM 05/22/18 02/16/23 History furosemide 20 mg tablet 20 mg PO Q OTHER DAY 05/22/18 02/16/23 History multivitamin 1 tab PO QAM 05/22/18 02/16/23 History calcium carbonate 600 mg calcium 600 mg PO BID 03/09/19 02/16/23 History (1,500 mg) tablet brinzolamide 1 %-brimonidine 0.2 % 1 drp OPB TID 09/28/19 02/16/23 History eye drops,suspension (Simbrinza) netarsudil 0.02 %-latanoprost 1 drp ophthalmic (eye) HS 09/28/19 02/16/23 History 0.005 % eye drops (Rocklatan) apixaban 5 mg tablet (Eliquis) 5 mg PO BID 30 days #60 tabs 10/09/19 02/16/23 Rx clopidogrel 75 mg tablet 75 mg PO QAM 30 days #30 tabs 10/09/19 02/16/23 Rx acetaminophen 325 mg tablet 650 mg PO QID PRN Pain 11/20/21 02/16/23 History (Tylenol) amiodarone 200 mg tablet 100 mg PO QAM 11/20/21 02/16/23 History dulaglutide 4.5 mg/0.5 mL 4.5 mg subcut WK 11/20/21 02/16/23 History subcutaneous pen injector (Trulicity) insulin glargine 100 unit/mL (3 10 unit subcut QAM 11/20/21 02/16/23 History mL) subcutaneous pen (Lantus Solostar U-100 Insulin) levothyroxine 88 mcg tablet 88 mcg PO QAM 11/20/21 02/16/23 History (Synthroid) timolol maleate 0.5 % eye drops 1 drp OPB QAM 11/20/21 02/16/23 History docusate sodium 100 mg capsule 100 mg PO BID PRN Constipation #30 11/25/21 02/16/23 Rx caps polyethylene glycol 3350 17 gram 17 g PO DAILY PRN constipation #30 11/25/21 02/16/23 Rx oral powder packet (Miralax) ea albuterol sulfate 90 mcg/actuation 1 inh inhalation QID PRN Wheezing 03/15/22 02/16/23 History aerosol inhaler (Ventolin HFA) isosorbide mononitrate 30 mg 15 mg PO QAM 02/16/23 02/16/23 History tablet,extended release 24 hr lisinopril 2.5 mg tablet 2.5 mg PO DAILY 02/16/23 02/16/23 History Past Med/Surg History Medical History (Updated 02/16/23 @ 13:50 by Suzi Ruiz PA-C) Aortic stenosis Asthma short of breath with stairs Atrial fibrillation with RVR dx over 4 yrs ago > no pacer, follows with Dr. Jackson, med controlled Atypical chest pain Carotid stenosis Chronic constipation CKD (chronic kidney disease), stage III no specialist Diabetes Diabetic polyneuropathy Glaucoma History of cardioversion History of COVID-19 December 14, 2021, home test > sore throat, fatigue, no further symptoms HTN (hypertension) Hyperlipidemia Hypothyroidism Incomplete left bundle branch block (LBBB) NSTEMI (non-ST elevated myocardial infarction) November 2021 > treated at [facility] > no stents per pt PAD (peripheral artery disease) (09/04/14) Surgical History (Updated 02/16/23 @ 13:41 by Suzi Ruiz PA-C) H/O eye surgery retina repair H/O vascular surgery legs History of cataract surgery bilat History of CEA (carotid endarterectomy) "left" > over 20 yrs ago History of colonoscopy S/P TAVR (transcatheter aortic valve replacement) S/P wrist surgery right > after dog bite Family History Other Family history non-contributory Social History Smoking Status: Never smoker Second Hand Exposure: No; Do You Dip or Chew Tobacco: No; Hx Alcohol Use: No Hx Substance Use: No Preferred Language: Irish Communication Ability: Effective Visual Impairment: No Limitations Propeller Inspector Required: No Beliefs That Will Affect Care: None marital status: Current Living Situation: Alone How many Children do You have: 3 Feels Safe at Home: Yes Assistive Devices: Cane and Glasses Review of Systems Review of Systems: All systems reviewed & are unremarkable except as noted in HPI & below Physical Exam Physical Exam: General: no distress, WDWN Head: normocephalic, atraumatic Eyes: PERRL, EOM's intact, conjunctiva non-injected, anicteric ENT: normal inspection external ears, nose, mucous membranes moist Neck: supple, trachea midline Lungs: clear, no respiratory distress, no wheezing/rhonchi/rales CV: +bradycardia rate 56, sinus rhythm, no murmur, no pretibial edema Abd: protuberant, normal BS, soft, non-tender Ext: no cyanosis, no calf tenderness Neuro: A&O x 3, no focal deficits noted, normal affect Skin: warm, dry Results & Data Results & Data Vital Signs (Past 12 Hours) Vital Signs Temp Pulse Pulse Resp BP BP Pulse Ox 02/16/23 11:49 62 142/75 H 02/16/23 11:35 68 02/16/23 10:23 126 H 02/16/23 10:23 98 02/16/23 10:14 18 124/72 98 02/16/23 10:04 36.4 C 118 H 18 98 O2 Del Method 02/16/23 11:49 02/16/23 11:35 02/16/23 10:23 02/16/23 10:23 Room Air 02/16/23 10:14 02/16/23 10:04 Room Air Laboratory Results Short CBC 02/16/23 Range/Units 10:25 WBC 7.00 (4.8-10.8) K/ul Hgb 11.9 L (12.0-16.0) g/dl Hct 34.8 L (37.0-47.0) % Plt Count 296 (130-400) K/uL BMP 02/16/23 02/16/23 10:25 11:40 Sodium 134 L Potassium TNP 4.4 Chloride 101 Carbon Dioxide 24 BUN 28 H Creatinine 1.33 H Glucose 258 H Calcium 9.8 Liver Function 02/16/23 02/16/23 Range/Units 10:25 11:40 Total Bilirubin 0.6 (0.2-1.0) mg/dl Direct Bilirubin TNP 0.1 AST TNP 17 ALT 11 (7-52) U/L Alkaline Phosphatase 87 (34-104) U/L Albumin 3.7 (3.4-5.0) gm/dl Diagnostic Findings Chest X-Ray 02/16/23 10:23 XR chest 1V portable CLINICAL HISTORY: Sepsis. COMPARISON STUDY: Chest radiograph November 20, 2021. FINDINGS: Lung volumes are normal. Lungs are clear. There is no pneumothorax or pleural effusion. There is a prosthetic aortic valve. Mitral annular ca lcification is noted. Cardiac size is normal. Mediastinal contours are normal. There is no evidence for pulmonary edema. IMPRESSION: No acute cardiopulmonary findings. ACT 112: Negative or not required by law. Electronically signed by: Artis Basurto M.D. 02/16/2023 11:[address] 02/16/23 10:[address] DOSE: 625.80 mGy.cm HISTORY: dizziness TECHNIQUE: Multiaxial CT images of the head were performed without the use of intravenous contrast. Automated exposure control was utilized for this study. A dose lowering technique was utilized adhering to the principles of ALARA. Comparison: None. Findings: The paranasal sinuses and mastoid air cells are clear. The calvarium and skull base are intact. There is no mass, hematoma, midline shift, acute infarct. White matter hypodensity is nonspecific but suggestive of microvascular ischemic change. The ventricles and sulci demonstrate mild age-related involutional changes. Impression: No acute intracranial abnormality. ACT 112: Negative or not required by law. Electronically signed by: Jonny Cole M.D. 02/16/2023 11:37 AM ECG Rate (beats per minute): 123 Rhythm: atrial fibrillation Additional Comments: incomplete LBBB Supervising Physician Co-Signing Physician Notes Attending addendum: The patient was seen and examined in emergency room in presence of the daughter She was admitted with dizziness, near syncope and palpitation/missing heartbeats Has been feeling much better since in the emergency room and denies any significant symptoms On examination Lying in bed comfortably Her blood pressure noted to very high at 189/116 Chest-clear to auscultate bilaterally Heart-S1-S2, 2/6 ESM over precordium Abdomen-benign Extremities-negative for any edema PARALEGAL ASSISTANT-alert, awake and oriented x3 Her admission labs, EKG, imaging studies and medications reviewed Status post TAVR in [place] with history of atrial fibrillation Has been having bradycardia with pauses of 3-second and having presyncope as well 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
[2023-02-16] MEDS ORDERED: MAGNESIUM SULFATE / D5W 1 GM/100 ML BAG IV STA (12:33)
[2023-02-16 12:35] LABS: Partial Thromboplastin Time 28.8 Seconds (21.0-31.0); Prothrombin Time 11.4 Seconds (9.0-12.0)
[2023-02-16] MEDS ORDERED: APIXABAN 5 MG TABLET PO STA (13:05)
--- NOTE | 2023-02-16 15:19 | Electrocardiogram Report ---
Test Reason : Blood Pressure : / mmHG Vent. Rate : 053 BPM Atrial Rate : 053 BPM P-R Int : 198 ms QRS Dur : 108 ms QT Int : 508 ms P-R-T Axes : 065 -12 039 degrees QTc Int : 476 ms Sinus bradycardia Possible Old Septal infarct (cited on or before 16-FEB-2023) Incomplete left bundle block Abnormal ECG When compared with ECG of 16-FEB-2023 10:16, Sinus rhythm has replaced Atrial fibrillation Vent. rate has decreased BY 70 BPM Criteria for Septal infarct now present Confirmed by Alton Saunders ([id number]) on 02/16/2023 3:18:55 PM Referred By: REFERRED SELF Confirmed By:Alton Saunders
[2023-02-16] MEDS ORDERED: CARBOHYDRATES FOR HYPOGLYCEMIA PO PRN (15:58)
[2023-02-16] MEDS ORDERED: DEXTROSE 50% 50 ML SYRINGE IV PRN (15:58)
[2023-02-16] MEDS ORDERED: GLUCOSE 40% GEL 15 GM TUBE PO PRN (15:58)
[2023-02-16] MEDS ORDERED: ACETAMINOPHEN 325 MG TAB PO PRN (15:58)
[2023-02-16] MEDS ORDERED: POLYETHYLENE (MIRALAX) 17 GM PACK PO PRN (15:58)
[2023-02-16] MEDS ORDERED: GLUCOSE 10 TAB/TUBE PO PRN (15:58)
[2023-02-16] MEDS ORDERED: bisacodyL 10 MG SUPP PR ONE (15:58)
[2023-02-16] MEDS ORDERED: GLUCAGON FOR INJ 1 MG VIAL SQ PRN (15:58)
--- NOTE | 2023-02-16 16:22 | Cardiology Consultation ---
Date of Consultation February 16, 2023 Assessment & Plan (1) Atrial fibrillation with RVR: (2) Sick sinus syndrome: (3) Incomplete left bundle branch block (LBBB): (4) Mitral stenosis: (5) S/P TAVR (transcatheter aortic valve replacement): Patient's high-sensitivity troponin levels mildly elevated at 478 and 1456 PG per mL. Echocardiogram reveals normal wall motion, normal LVEF, normal prosthetic valve indices. Patient had a recurrent episode of atrial fibrillation today, and she certainly appears to be highly symptomatic from it. She has a severely calcified mitral valve annulus with restriction of the posterior mitral valve leaflet and resultant moderate mitral stenosis which likely contributes to her degree of symptoms when she loses her atrial kick while in atrial fibrillation. Continue Eliquis for now. Continue to hold metoprolol. I have ordered a now dose of amiodarone 200 mg daily, and she will continue her outpatient dose of 100 mg for tomorrow. We will continue to monitor on telemetry with consideration of proceeding with permanent pacemaker while inpatient. She already has an outpatient electrophysiology consultation scheduled. Her blood pressure is uncharacteristically high for her. For now we will monitor this while she settles into the telemetry unit having a ride from the emergency department. With having had a recent cardiac catheterization with normal coronary arteries, I do not think her troponin elevation is reflective of an acute coronary syndrome, rather reflective of myocardial strain in the setting of underlying left ventricular hypertrophy, valvular heart disease, and atrial fibrillation with rapid ventricular response. History of Present Illness Attending Physician: Catie Whatley MD History of Present Illness Vidya Hodgson is an 82 year old female seen in cardiology consultation per the request of Samuel Michel for the evaluation of atrial fibrillation with rapid ventricular rate. Patient has a history of severe aortic stenosis for which she underwent transcatheter aortic valve replacement on 01/04/[address] [facility]. Post procedure she has been observed to have an incomplete left bundle branch block, with QRS duration slightly higher than that which was noted prior to TAVR. At the time of her recent post procedure follow-up visit on 01/10/2023 and EKG revealed sinus bradycardia 59 bpm and therefore the patient had worn a Zio patch monitor for 14 days ranging from 01/10/2023 until 01/24/2023. Monitor reviewed predominant rhythm of sinus bradycardia with average rate of 58 bpm. No symptoms were noted during the monitor. 2 pause events however were observed of 3.5 seconds and 3.3 seconds noted on 01/20/2023 at 7:50 AM and again on 01/20/2023 at 12:32 AM. Due to the heart monitor results, she had received the advised to discontinue her metoprolol 12.5 mg daily and to continue amiodarone 100 mg daily which is her chronic dose from prior to her recent TAVR procedure. The patient notes that she was feeling well up until waking up at 4:00 this morning. She felt lightheaded, dizzy and short of breath. EKG on arrival to the emergency department today at 10:16 AM revealed atrial fibrillation with rapid ventricular response 123 bpm with incomplete left bundle branch block, QRS duration 110 ms. She received a dose of IV metoprolol 5 mg in for review of telemetry subsequently converted to sinus rhythm at 11:32 AM. Follow-up EKG revealed sinus bradycardia 53 bpm, incomplete left bundle branch block, QRS duration 108 ms. As time my assessment patient was in room 220. She was in si nus rhythm and feeling better. Of note, at time of discharge post TAVR, work-up for sleep apnea was recommended. Cardiac Problems: 1. Severe aortic stenosis s/p TAVR 01/04/2023 (#29mm Medtronic Evolut FX) with Incomplete LBBB post procedure 2. Moderate mitral stenosis, TOMASZ 11/08/22 3.Longstanding type 2 diabetes mellitus, insulin requiring with neuropathy and ophthalmopathy 4.Hypertension 5.Carotid artery disease status post left carotid enterectomy, 2004 without preceding TIA or stroke 6.History of nonhealing foot ulcer, now resolved. 7.Atherosclerotic peripheral vascular disease status post extensive bilateral superficial femoral artery stenting for claudication in 2014 a.Right superficial femoral artery occlusion by Angiography 03/2019 with possible retrograde attempt to open, data not available 03/2019 Cordelia Wise 8.Paroxysmal atrial fibrillation, on amiodarone, and Eliquis 9.Chronic microcytic anemia 10. Normal coronary arteries per pre TAVR cath, 10/2022 Allergies Allergy/AdvReac Type Severity Reaction Status Date / Time No Known Allergies Allergy Verified 03/17/22 07:57 Home Medications Medication Instructions Recorded Confirmed Type atorvastatin 80 mg tablet 80 mg PO QAM 05/22/18 02/16/23 History furosemide 20 mg tablet 20 mg PO Q OTHER DAY 10/29/18 07/26/23 History multivitamin 1 tab PO QAM 05/22/18 02/16/23 History calcium carbonate 600 mg calcium 600 mg PO BID 03/09/19 02/16/23 History (1,500 mg) tablet brinzolamide 1 %-brimonidine 0.2 % 1 drp OPB TID 09/28/19 02/16/23 History eye drops,suspension (Simbrinza) netarsudil 0.02 %-latanoprost 1 drp ophthalmic (eye) HS 09/28/19 02/16/23 History 0.005 % eye drops (Rocklatan) apixaban 5 mg tablet (Eliquis) 5 mg PO BID 30 days #60 tabs 10/09/19 02/16/23 Rx clopidogrel 75 mg tablet 75 mg PO QAM 30 days #30 tabs 10/09/19 02/16/23 Rx acetaminophen 325 mg tablet 650 mg PO QID PRN Pain 11/20/21 02/16/23 History (Tylenol) amiodarone 200 mg tablet 100 mg PO QAM 11/20/21 02/16/23 History dulaglutide 4.5 mg/0.5 mL 4.5 mg subcut WK 11/20/21 02/16/23 History subcutaneous pen injector (Trulicity) insulin glargine 100 unit/mL (3 10 unit subcut QAM 11/20/21 02/16/23 History mL) subcutaneous pen (Lantus Solostar U-100 Insulin) levothyroxine 88 mcg tablet 88 mcg PO QAM 11/20/21 02/16/23 History (Synthroid) timolol maleate 0.5 % eye drops 1 drp OPB QAM 11/20/21 02/16/23 History docusate sodium 100 mg capsule 100 mg PO BID PRN Constipation #30 11/25/21 02/16/23 Rx caps polyethylene glycol 3350 17 gram 17 g PO DAILY PRN constipation #30 11/25/21 02/16/23 Rx oral powder packet (Miralax) ea albuterol sulfate 90 mcg/actuation 1 inh inhalation QID PRN Wheezing 03/15/22 02/16/23 History aerosol inhaler (Ventolin HFA) isosorbide mononitrate 30 mg 15 mg PO QAM 02/16/23 02/16/23 History tablet,extended release 24 hr lisinopril 2.5 mg tablet 2.5 mg PO DAILY 02/16/23 02/16/23 History Patient History Medical History Aortic stenosis Asthma short of breath with stairs Atrial fibrillation with RVR dx over 4 yrs ago > no pacer, follows with Dr. Jackson, med controlled Atypical chest pain Carotid stenosis Chronic constipation CKD (chronic kidney disease), stage III no specialist Diabetes Diabetic polyneuropathy Glaucoma History of cardioversion History of COVID-19 December 14, 2021, home test > sore throat, fatigue, no further symptoms HTN (hypertension) Hyperlipidemia Hypothyroidism Incomplete left bundle branch block (LBBB) NSTEMI (non-ST elevated myocardial infarction) November 2021 > treated at [facility] > no stents per pt PAD (peripheral artery disease) (09/04/14) Surgical History H/O eye surgery retina repair H/O vascular surgery legs History of cataract surgery bilat History of CEA (carotid endarterectomy) "left" > over 20 yrs ago History of colonoscopy S/P TAVR (transcatheter aortic valve replacement) S/P wrist surgery right > after dog bite Family History Other Family history non-contributory Social History Smoking Status: Never smoker Second Hand Exposure: No; Do You Dip or Chew Tobacco: No; Hx Alcohol Use: No Hx Substance Use: No Preferred Language: Frisian Communication Ability: Effective Visual Impairment: No Limitations Nylon Machine Operator Required: No Beliefs That Will Affect Care: None marital status: Current Living Situation: Family Current Living Situation Comment: daughter stays with patient How many Children do You have: 3 Other Information That Helps Us Care for You: No Feels Safe at Home: Yes Safety Concerns: Feels Safe At This Time Assistive Devices: Cane, Glasses, Hearing Aid - Bilateral and Walker Review of Systems Review of Systems: All systems reviewed & are unremarkable except as noted in HPI & below Physical Exam Physical Exam: Temp Pulse Resp BP Pulse Ox O2 Del Method 36.5 C 57 L 16 177/78 H 95 Room Air 02/16/23 16:00 02/16/23 16:00 02/16/23 16:00 02/16/23 16:00 02/16/23 16:00 02/16/23 16:00 Constitutional: WD/WN, vitals as above Respiratory: normal respiratory effort, lungs clear to auscultation Cardiovascular: RRR, no murmur, no edema Gastrointestinal (Abdomen): normal bowel sounds, soft, nontender, no hepatosplenomegaly Neurologic: PERRL, EOMI, accommodation nl, no face palsy, no dysarthria
[2023-02-16] MEDS ORDERED: AMIODARONE 200 MG TAB PO ONE (16:23)
[2023-02-16] MEDS: INSULIN ASPART PER UNIT CHARGE SC SCH ×2 (16:54→22:06)
[2023-02-16] MEDS: CLOPIDOGREL BISULFATE 75 MG TAB PO SCH (17:52)
[2023-02-16 18:46] LABS: Appearance Urine Clear (Clear); Bacteria Urine Automated Negative (Negative); Bilirubin Urine Negative (Negative); Blood Urine Negative (Negative); Color Urine Yellow; Glucose Urine UA Negative (Negative); Ketones Urine Negative (Negative); Leukocyte Esterase Urine 1+ (Negative); Nitrite Urine Negative (Negative); Protein Urine 1+ (Negative); RBC Urine Automated 0-4 /hpf (0-4); Specific Gravity Urine 1.011 (1.000-1.030); Urobilinogen Urine Negative (Negative)
[2023-02-16] MEDS: BRINZOLAMIDE/BRIMONIDINE TART 119 DROPS/8 ML BTL OP SCH (19:55)
[2023-02-16] MEDS: CALCIUM CARBONATE 1250MG TAB PO SCH (19:56)
[2023-02-16] MEDS: DOCUSATE SODIUM 100 MG CAP PO SCH (19:57)
[2023-02-16] MEDS ORDERED: APIXABAN 5 MG TABLET PO SCH (21:00)
[2023-02-16] MEDS: LANTUS PER UNIT CHARGE SQ SCH (22:05)
[2023-02-17] MEDS: LEVOTHYROXINE SODIUM 88 MCG TABLET PO SCH (06:35)
[2023-02-17 07:42] LABS: Hematocrit (blood only) 31.3 % (37.0-47.0); Hemoglobin 10.7 g/dl (12.0-16.0); Mean Corpuscular Hemoglobin 33.8 pg (25.0-34.0); Mean Corpuscular Hgb Conc 34.2 g/dL (32.0-36.0); Mean Corpuscular Volume 98.7 fL (80.0-100.0); Platelet Count 260 K/uL (130-400); RDW Coefficient of Variation 13.3 % (11.5-14.5); RDW Standard Deviation 48.7 fL (36.4-46.3); Red Blood Count 3.17 M/uL (4.20-5.40); White Blood Count 5.75 K/ul (4.8-10.8)
[2023-02-17 07:58] LABS: BUN Creatinine Ratio 24.2 (10-20); Calcium 9.4 mg/dl (8.6-10.3); Creatinine Clr Calc Pharmacy 48.9 ml/min; Est GFR (African American) 69.1 ml/min; Est GFR (Non-African American) 59.6 ml/min; Magnesium 1.7 mg/dl (1.7-2.4); Potassium 3.9 mmol/L (3.5-5.1)
[2023-02-17] MEDS: INSULIN ASPART PER UNIT CHARGE SC SCH ×4 (09:43→21:33)
[2023-02-17] MEDS: LANTUS PER UNIT CHARGE SQ SCH ×2 (09:45→21:34)
[2023-02-17] MEDS: ATORVASTATIN 40 MG TAB PO SCH (09:46)
[2023-02-17] MEDS: lisinopril 2.5 MG TAB PO SCH (09:46)
[2023-02-17] MEDS: ISOSORBIDE MONO EXTENDED REL 30 MG TABCR PO SCH (09:47)
[2023-02-17] MEDS: AMIODARONE 200 MG TAB PO SCH (09:47)
[2023-02-17] MEDS: CALCIUM CARBONATE 1250MG TAB PO SCH ×2 (09:48→21:28)
[2023-02-17] MEDS: DOCUSATE SODIUM 100 MG CAP PO SCH ×2 (09:48→21:28)
[2023-02-17] MEDS: MULTIVITAMIN TAB PO SCH (09:49)
[2023-02-17] MEDS: BRINZOLAMIDE/BRIMONIDINE TART 119 DROPS/8 ML BTL OP SCH ×3 (09:50→21:27)
[2023-02-17] MEDS: TIMOLOL MALEATE 0.5% OP SOLN 5 ML BTL OPB SCH (09:50)
[2023-02-17] MEDS: CLOPIDOGREL BISULFATE 75 MG TAB PO SCH (09:51)
[2023-02-17] MEDS: MAGNESIUM SULFATE / D5W 1 GM/100 ML BAG IV SCH ×2 (09:51→12:03)
--- NOTE | 2023-02-17 10:51 | Cardiology Progress Note ---
Date of Service February 17, 2023 Assessment & Plan (1) Atrial fibrillation with RVR: (2) Sick sinus syndrome: (3) Incomplete left bundle branch block (LBBB): (4) Mitral stenosis: (5) S/P TAVR (transcatheter aortic valve replacement): Plan: Patient's high-sensitivity troponin levels elevated at 478--> 556--> 972--> 1076 PG per mL. Echocardiogram reveals normal wall motion, normal LVEF, normal prosthetic valve indices. With having had a recent cardiac catheterization with normal coronary arteries, I do not think her troponin elevation is reflective of an acute coronary syndrome, rather reflective of myocardial strain in the setting of underlying left ventricular hypertrophy, valvular heart disease, and atrial fibrillation with rapid ventricular response. Patient with findings suggestive sick sinus syndrome, tachycardia-bradycardia syndrome in the setting of moderate mitral stenosis which likely contributes to why she feels so poorly when she is tachycardic. She received a dose of Eliquis 5 mg on 02/16/2023 at 1415. It is thus been held in the interim. Clopidogrel has been continued. Continue prior to hospital treatment with amiodarone 200 mg daily. Plan for dual-chamber permanent pacemaker later today. Patient agreeable to pacemaker. Per her request I spoke to her daughter by phone, Lilliam Peguero [phone]. Updates provided. Questions answered to her satisfaction. Admission and Anticipated Discharge Date Admission Date: February 16, 2023 Subjective Patient seen in cardiology follow-up. No events overnight last night. Telemetry reveals sinus bradycardia and sinus rhythm in the 50s to 60s. Physical Exam Physical Exam: Temp Pulse Resp BP Pulse Ox O2 Del Method 36.5 C 57 L 17 138/72 97 Room Air 02/17/23 07:23 02/17/23 03:30 02/17/23 07:23 02/17/23 07:23 02/17/23 07:23 02/17/23 07:23 Constitutional: WD/WN, vitals as above Respiratory: normal respiratory effort, lungs clear to auscultation Cardiovascular: RRR, no murmur, no edema Gastrointestinal (Abdomen): normal bowel sounds, soft, nontender, no hepatosplenomegaly Neurologic: PERRL, EOMI, accommodation nl, no face palsy, no dysarthria Results & Data Vital Signs (Past 12 Hours) Vital Signs Temp Pulse Pulse Resp BP Pulse Ox O2 Del Method 02/17/23 07:23 36.5 C 17 138/72 97 Room Air 02/17/23 03:30 36.4 C L 57 L 20 122/72 96 Room Air 02/16/23 23:00 58 L Laboratory Results Cardiac Enzymes 02/16/23 02/16/23 02/16/23 Range/Units 10:25 11:40 12:43 AST TNP 17 Troponin I High Sens 478.4 H* 456.3 H* (0-14) pg/ml 02/16/23 02/17/23 Range/Units 19:10 00:28 AST Troponin I High Sens 972.1 H* D 1076.5 H* (0-14) pg/ml Coagulation 02/16/23 02/16/23 Range/Units 10:25 11:40 PT Cancelled 11.4 APTT Cancelled 28.8 CBC 02/16/23 02/17/23 Range/Units 10:25 07:24 WBC 7.00 5.75 (4.8-10.8) K/ul RBC 3.50 L 3.17 L (4.20-5.40) M/uL Hgb 11.9 L 10.7 L (12.0-16.0) g/dl Hct 34.8 L 31.3 L (37.0-47.0) % Plt Count 296 260 (130-400) K/uL Neut # (Auto) 5.09 (1.40-6.50) K/uL Lymph # (Auto) 1.18 L (1.2-3.4) K/uL Jay # (Auto) 0.49 (0.11-0.59) K/uL Eos # (Auto) 0.18 (0-0.50) K/uL Baso # (Auto) 0.05 (0-0.2) K/uL Comprehensive Metabolic Panel 02/16/23 02/16/23 02/17/23 Range/Units 10:25 11:40 07:24 Sodium 134 L 137 (136-145) mmol/L Potassium TNP 4.4 3.9 Chloride 101 107 (98-107) mmol/L Carbon Dioxide 24 25 (21-32) mmol/L BUN 28 H 22 (6-23) mg/dl Creatinine 1.33 H 0.91 D (0.6-1.2) mg/dl Glucose 258 H 101 H (70-99(Fasting)) mg/dl Calcium 9.8 9.4 (8.6-10.3) mg/dl Direct Bilirubin TNP 0.1 AST TNP 17 ALT 11 (7-52) U/L Alkaline Phosphatase 87 (34-104) U/L Total Protein 7.6 (6.0-8.3) gm/dl Albumin 3.7 (3.4-5.0) gm/dl Diagnostic Findings EKG performed today 02/17/2023 at 6:33 AM and interpret independently: Sinus rhythm at 61 bpm, poor R wave progression. Otherwise normal EKG.
--- NOTE | 2023-02-17 12:44 | Electrocardiogram Report ---
Test Reason : Blood Pressure : / mmHG Vent. Rate : 061 BPM Atrial Rate : 061 BPM P-R Int : 182 ms QRS Dur : 112 ms QT Int : 478 ms P-R-T Axes : 062 -07 047 degrees QTc Int : 481 ms Normal sinus rhythm Incomplete left bundle block Abnormal ECG When compared with ECG of 16-FEB-2023 12:36, Borderline Criteria for Septal infarct no longer present Confirmed by Alton Saunders [id number]) on 02/17/2023 12:44:04 PM Referred By: REFERRED SELF Confirmed By:Alton Saunders
[2023-02-17] MEDS ORDERED: WATER, STERILE FOR INJ 10 ML VIAL ONE (14:41)
[2023-02-17] MEDS ORDERED: BUPIVACAINE 0.25% PF 30 ML VIAL ONE (14:41)
[2023-02-17] MEDS ORDERED: VANCOMYCIN HCL 1000MG/20ML VIAL ONE (14:41)
[2023-02-17] MEDS ORDERED: LIDOCAINE 1% LOCAL 20 ML VIAL ONE (14:41)
--- NOTE | 2023-02-17 15:44 | History & Physical Bridge Note ---
Date of Service February 17, 2023 History & Physical Bridge Note I have examined the patient, reviewed the History & Physical and in the interval since the performance of the History & Physical I have noted the following changes of clinical significance: Pt with tachy-marie syndrome; recommend dual chamber pacemaker prior to discharge from the hospital. I discussed the procedure and potential risks with the patient - she expressed an understanding and consents signed.
--- NOTE | 2023-02-17 15:44 | Pre Anesthesia Assessment ---
Date of Service February 17, 2023 Pre Sedation Assessment Vital Signs Temp Pulse Pulse Pulse Resp BP Pulse Ox 02/17/23 15:25 63 97 H 169/59 H 97 02/17/23 11:07 36.7 C 62 17 153/74 H 95 02/17/23 08:00 59 L 02/17/23 07:23 36.5 C 17 138/72 97 02/17/23 03:30 36.4 C L 57 L 20 122/72 96 02/16/23 23:00 58 L 02/16/23 22:21 36.5 C 61 19 141/78 H 98 02/16/23 19:31 36.4 C L 58 L 18 135/81 97 02/16/23 16:00 60 02/16/23 16:00 36.5 C 57 L 16 177/78 H 95 02/16/23 15:45 36.5 C 60 18 177/78 H 95 O2 Del Method 02/17/23 15:25 Room Air 02/17/23 11:07 Room Air 02/17/23 08:00 02/17/23 07:23 Room Air 02/17/23 03:30 Room Air 02/16/23 23:00 02/16/23 22:21 Room Air 02/16/23 19:31 Room Air 02/16/23 16:00 02/16/23 16:00 Room Air 02/16/23 15:45 Room Air Cardiovascular + bradycardic Respiratory normal respiratory effort, lungs clear to auscultation Pre-Sedation Airway Assessment Smoking Status: Never smoker Hx Sleep Apnea: No Hx Difficult Intubation: No Short, Thick Neck: No Thyromental Distance: > or= 3.5 Finger Breadths Oral Cavity: + WNL Mallampati Class: II ASA: ASA3 NPO Status Date of Last Intake of Fluids: 02/16/23 Time of Last Intake of Fluids: 22:00 Date of Last Intake of Solid Food: 02/16/23 Time of Last Intake of Solid Foods: 22:00 Procedure Planning Contraindications for Sedation: none Current Medications Reviewed: Yes Notes The planned sedation has been discussed with the patient. Informed Consent was obtained. I have identified the patient, determined the appropriateness of sedation and have assessed the patient immediately prior to the procedure. All medicine(s) and interventions are by my order.
[2023-02-17] MEDS ORDERED: fentaNYL citrate PF 100 MCG/2 ML VIAL ONE (15:45)
[2023-02-17] MEDS ORDERED: MIDAZOLAM HCL 5 MG/ML 1 ML VIAL ONE (15:45)
[2023-02-17] MEDS ORDERED: ceFAZolin 330 MG/ML 1 GM VIAL ONE (15:45)
--- NOTE | 2023-02-17 15:48 | Hospitalist Progress Note ---
Date of Service February 17, 2023 Assessment & Plan (1) Sick sinus syndrome: Plan 82-year-old female with PMH of paroxysmal atrial fibrillation anticoagulated on Eliquis, aortic stenosis s/p TAVR 01/04/2023, insulin dependent DM II, diastolic dysfunction, PVD s/p stents, carotid artery stenosis s/p left CEA 2004, HTN, dyslipidemia, hypothyroidism and others listed below presented to ER 02/16 with c/o palpitations, dizziness, SOB this morning. She is being managed for the following: Atrial fibrillation with RVR Sick sinus syndrome Incomplete left bundle branch block: History incomplete left bundle branch block noted after TAVR in 12/2022 h/o status post TAVR In ER patient with atrial fibrillation heart rate in the 130s, BP : 124/72. Lopressor 5mg IV was ordered, however patient noted to convert to sinus rhythm prior to administration of Lopressor, however 3mg given and HR noted in high 50's Currently was in sinus rhythm at bedside examined morning with no further dizziness, palpitations, SOB reported. Echo 01/05/2023:EF: 65-69%, no wall motion abnormalities, s/p TAVR, mild paravalvular aortic valve prosthesis regurgitation present, severe mitral annular calcification, moderate mitral stenosis, mild pulmonary hypertension Recent outpatient ZIO monitor showed sinus rhythm with average heart rate 58 bpm with reported 2 pauses lasting 3.5 seconds without reported symptoms. Metoprolol succinate 12.5mg was discontinued. Echo this admission with EF of 60 to 65%, left atrium is severely dilated, no regional wall motion abnormality noted. Moderate concentric LVH. TSH: 2.4. Monitor and replete magnesium with a goal of 2.0 Continue with telemetry, hold on further metoprolol, continue with amiodarone May have component of tachybradycardia syndrome Eliquis on hold, For pacemaker placement today Cardiology following, appreciate recommendation. Atypical chest pain: Troponin level elevated: History atypical CP in past Continue isosorbide Initial high-sensitivity troponin: 478-->456--up trended. EKG Afib RVR, incomplete LBBB. (H/O incomplete LBBB since TAVR in 12/2022) Likely secondary to demand ischemia from A-fib RVR History atypical chest pain with negative nuclear stress test 11/24/2021. Normal coronary arteries per pre-CABG cath in 10/2022 Echo with no regional wall motion abnormality. Continue telemetry monitoring. Patient with no chest pain. Less likely ACS given recent normal coronaries. Aortic stenosis S/P TAVR (transcatheter aortic valve replacement): History aortic stenosis s/p TAVR 01/04/2023 History Echo 01/05/2023:EF: 65-69%, no wall motion abnormalities, s/p TAVR, mild paravalvular aortic valve prosthesis regurgitation present, severe mitral annular calcification, moderate mitral stenosis, mild pulmonary hypertension CKD: Baseline creatinine of 1.1, stable, monitor. Constipation: Chronic constipation, continue with bowel regimen. T2DM, insulin-dependent: A1c of 8.7 on 02/04/2023, continue Lantus and sliding scale. History of diastolic dysfunction: On Lasix every other day, currently appears euvolemic. Continue home meds as able. Hypertension: Continue with home lisinopril with holding parameters Carotid stenosis/PAD: Status post left carotid endarterectomy in 2004, status post bilateral femoral artery stents. Continue with home Plavix and statin. Hypothyroidism: TSH normal, continue home levothyroxine DVT prophylaxis: SCDs for now, Eliquis on hold for pacemaker placement today. DNR/DNI PCP: Earl Jensen PT/OT, CM to assist with DC plan. Admission and Anticipated Discharge Date Admission Date: February 16, 2023 Subjective Patient seen and examined at bedside as a follow-up of A-fib with RVR, atypical chest pain. Patient was lying in bed, on room air, NAD, reports no new acute events overnight, denies any further chest pain. Patient denies any headache or fever or chills palpitation or belly pain. Patient reports eating okay and moving bowels okay in the recent past. He is n.p.o. today for possible pacemaker placement during the day. Physical Exam Physical Exam: GENERAL: Alert and oriented x3. NAD, on RA. HEENT: No pallor, no icterus. Pupils equal, round and reactive to light. Oral mucosa moist. NECK: No JVD, no neck masses. HEART: S1 and S2 heard. Regular rate and rhythm. No murmur, no gallop. RESPIRATORY SYSTEM: Normal AP diameter. No accessory muscle use. No wheezing, no crackles. ABDOMEN: Soft, bowel sounds present, nontender, no distention. CENTRAL NERVOUS SYSTEM: No facial droop. Speech is clear. Obeys simple commands. Moves extremities. EXTREMITIES: No edema, no erythema seen. Results & Data Results & Data Vital Signs (Past 12 Hours) Vital Signs Temp Pulse Pulse Pulse Resp BP Pulse Ox 02/17/23 15:25 63 97 H 169/59 H 97 02/17/23 11:07 36.7 C 62 17 153/74 H 95 02/17/23 08:00 59 L 02/17/23 07:23 36.5 C 17 138/72 97 O2 Del Method 02/17/23 15:25 Room Air 02/17/23 11:07 Room Air 02/17/23 08:00 02/17/23 07:23 Room Air
[2023-02-17] MEDS ORDERED: hydrALAZINE HCL 20 MG/ML VIAL ONE (16:38)
--- NOTE | 2023-02-17 16:46 | Post Anesthesia Assessment ---
Date of Service February 17, 2023 Post Sedation Assessment Vital Signs Temp Pulse Pulse Pulse Resp BP Pulse Ox 02/17/23 15:57 60 02/17/23 15:25 63 97 H 169/59 H 97 02/17/23 11:07 36.7 C 62 17 153/74 H 95 02/17/23 08:00 59 L 02/17/23 07:23 36.5 C 17 138/72 97 02/17/23 03:30 36.4 C L 57 L 20 122/72 96 02/16/23 23:00 58 L 02/16/23 22:21 36.5 C 61 19 141/78 H 98 02/16/23 19:31 36.4 C L 58 L 18 135/81 97 O2 Del Method 02/17/23 15:57 02/17/23 15:25 Room Air 02/17/23 11:07 Room Air 02/17/23 08:00 02/17/23 07:23 Room Air 02/17/23 03:30 Room Air 02/16/23 23:00 02/16/23 22:21 Room Air 02/16/23 19:31 Room Air Recovery Score Activity: Moves 4 extremities Respiration: Deep Breath/Cough Circulation: +/-20% PreAnes Value Consciousness: Fully Awake Oxygen Saturation: > 92% On Room Air Discharge Sedation Level of Care: Fast Track Phase II Post Sedation Plan On clinical assessment, the patient appears to have tolerated the sedation without complications. Patient is recovering as anticipated. Patient will continue to be monitored by nursing and may be discharged when sedation discharge criteria are met per below protocol. Upon Completions of procedure up to 15 minutes continue every 5 minute vital signs and the P.A.R. score; then discharge to a Phase I or Fast Track to Phase II per the following guidelines: * Discharge Patient to appropriate Phase II area if PAR is 8 or greater or return to pre- procedure baseline. The post - procedure orders will be as directed. * If PAR score is less than 8 or not return to pre-procedure baseline then patient will follow Phase I monitoring till PAR is reached for Phase II. The Phase I may be done in procedure room or may call to secure a Phase I area. * If naloxone or flumazenil are used for reversal, hold in Phase I for continued monitoring from when last reversal dose was given for a minimum of 60 minutes or longer pending the nurse and/or physician discretion of patient condition before discharge to Phase II. Please call the Sedation Physician to re-evaluate and complete post-note for discharge to Phase II area. Do NOT discharge from procedure sedation or Phase 1 until post- sedation evaluation note is complete by procedure /sedation MD Sedation Discharge Instructions to be given to the patient at discharge to home.
--- NOTE | 2023-02-17 16:50 | Operative Report ---
Post Operative Report DICTATED BY:Susana Wilson D.O. DATE OF PROCEDURE: 02/17/2023. PREOPERATIVE DIAGNOSES: tachybrady syndrome. POSTOPERATIVE DIAGNOSIS: tachybrady syndrome. PROCEDURE: A dual-chamber rate responsive permanent pacemaker and intracardiac electrogram His bundle recordings, along with a peripheral venogram under fluoroscopic guidance. SURGEON: Susana Wilson DO ASSISTANTS: None. ANESTHESIA: Monitored conscious sedation administered under my supervision by Chriss Hdez. Start time 3:50, end time 4:44 a total of 2 mg of Versed and 75 mcg of fentanyl. INTRAVENOUS FLUIDS: 109 mL. CONTRAST: 12 mL. ANTIBIOTICS: 1 grams of Ancef. BLOOD LOSS: 40 mL. URINE OUTPUT: Not applicable. SPECIMENS: None. FINDINGS: See below. DRAINS: None. COMPLICATIONS: None. CONDITION: Stable. INDICATIONS: This is a 82-year-old female who has a past medical history for Severe aortic stenosis s/p TAVR 01/04/2023 (#29mm Medtronic Evolut FX) with Incomplete LBBB post procedure, Moderate mitral stenosis, TOMASZ 11/08/22, longstanding type 2 diabetes mellitus, insulin requiring with neuropathy and ophthalmopathy, Hypertension, Carotid artery disease status post left carotid enterectomy, 2004 without preceding TIA or stroke, History of nonhealing foot ulcer, now resolved, Atherosclerotic peripheral vascular disease status post extensive bilateral superficial femoral artery stenting for claudication in 2014, Right superficial femoral artery occlusion by Angiography 03/2019 with possible retrograde attempt to open, data not available 03/2019 , [place], Paroxysmal atrial fibrillation, on amiodarone, and Eliquis, Chronic microcytic anemia, Normal coronary arteries per pre TAVR cath, 10/2022. Pt admitted due to SSS and tachy-marie syndrome and was recommended a dual chamber pacemaker prior to discharge. CONSENT: Consent was obtained prior to the patient going into the electrophysiology lab. The patient was informed of the risks, benefits, and alternatives to the procedure. Risks include, but not limited to, sudden cardiac , cardiac arrhythmias, cerebrovascular accident, myocardial infarction, injury to his blood vessels, chamber of the heart and lung, bleeding and infection. The patient understood these risks and agreed to the procedure as planned. Informed consent was obtained. DESCRIPTION OF PROCEDURE: The patient was brought into electrophysiology lab in a fasting state. She was connected to continuous cardiac monitoring. A timeout was performed to ensure the patient's identity and procedure correctly. She was prepped and draped in the left infraclavicular space in normal surgical standard fashion. Monitored conscious sedation was given throughout the procedure for the patient's comfort level. [place] precautions were maintained throughout the procedure. Prophylactic antibiotics were given prior to incision. A 20 mL of 1% lidocaine and bupivacaine mixture were given in the left deltopectoral groove. An incision was made in the left deltopectoral groove. Blunt dissection was performed down to the pectoralis muscle. Then, using blunt dissection over the pectoralis muscle within the pectoral fascia, a pacemaker pocket was created. Then, a peripheral venogram was performed to identify the axillary vein. Venous axillary access was obtained through a needlestick without any problems. A micropuncture wire was initially advanced down then swapped out for a regular guidewire was inserted without any resistance. A 7- Ivorian sheath was inserted over the guidewire without any resistance. Dilator was removed and a second guidewire was inserted through the sheath to allow for retained venous access. A second 7-Ivorian sheath was inserted over the guidewire, the guidewire and dilator removed. I first placed the RA lead in the RV apex to have back up pacing in case we needed it while I positioned the left bundle lead. The dilator was flushed and prepped back over a 7 Ivorian sheath, then we inserted over one of the guidewires. The guidewire and dilator were removed. Then, the His C315 sheath was inserted through the 7-Ivorian sheath over a Glidewire into the right ventricle. The Glidewire and dilator were removed. Then, the left bundle lead was advanced through the His C315 sheath and intracardiac electrogram His bundle recordings were performed when the camera was in GUILLERMO 10. Once I found where the His bundle is, see below for results, I then moved the camera to GUILLERMO 30 and marked where the His bundle was on my fluoroscopy screen. I came down about 2 cm from this in a line that would extend out to the apex and then started coming on pacing. Once I found an area where I had a nice W formed pace complex in my lead V1, I then moved the camera to LITHUANIAN 30 and started giving a series of clockwise turns to screw the lead into the septum pausing once in a while to see how my pacing complex changed. Of note I did have to reposition it one time as i needed to go a little lower on the septum. Once I developed a nice R prime, I then gave contrast through the sheath to see how far the lead was into the septum and then I slit the His C315 sheath under fluoroscopic guidance and left the 7-Ivorian sheath in while I positioned the right atrial lead. The right atrial lead was then retracted back out of the RV apex and iinto right atrium and positioned into right atrial appendage under fluoroscopic guidance using the white pre-formed stylet. There was adequate pacing and sensing thresholds and no diaphragmatic stimulation with high output pacing. The 7-Ivorian sheath was peeled away and the lead was fixated to the pectoralis muscle using 0 silk suture. The 7-Ivorian sheath around the left bundle lead was peeled away and the lead was fixated to pectoralis muscle using 0 silk suture. The pocket was flushed with copious amounts of vancomycin and saline wash and inspected for hemostasis. The pulse generator was then placed attached to the leads making sure the pins were in appropriate position, passed set screws, and set screws were all tightened. Pulse generator was then placed in the antibiotic pouch followed then by being placed in the pocket, making sure the leads were lying flat beneath the device. The incision was closed in a 3-layer fashion using 2-0 Vicryl interrupted suture, followed by 3-0 Vicryl interrupted suture, followed by 4-0 Monocryl running stitch. Dermabond was applied followed by Telfa and Tegaderm dressing. EQUIPMENT: 1. Pulse generator is a Medtronic Suzette XT DR PARVEZ Brown [id number], serial number [id number]. 2. Right atrial lead, Medtronic 5076-52 cm, serial number [id number]. 3. Left bundle lead, Medtronic 3830-69 cm, serial number [id number]. 4. Tyrx pouch Ref [id number]; Lot number [id number] INTRAPROCEDURAL FINDINGS: 1. Intracardiac electrogram His bundle recordings, AH is 140 milliseconds, HV is 56 milliseconds. 2. Right atrial lead, P waves 3.5 millivolts, impedance 657 ohms, threshold 0.8 volts at 0.5 milliseconds. 3. Left bundle lead, R waves 8.7 millivolts, impedance 1259 ohms, threshold 0.7 volts at 0.5 milliseconds. FINAL MEASUREMENTS THROUGH THE DEVICE: 1. Right atrial lead, P waves 2.1 millivolts, impedance 494 ohms, threshold 0.75 volt at 0.4 milliseconds. 2. Left bundle lead, R waves 6.3 millivolts, impedance 1102 ohms, threshold 0.75 volts at 0.4 milliseconds. FINAL PARAMETERS: MVP-R 60/10, right atrial amplitude 3.5 volts, pulse width 0.4 milliseconds, sensitivity 0.3 millivolts. Left bundle lead amplitude 3.5 volts, pulse width 0.4 milliseconds, sensitivity 1.3 millivolts. IMPRESSION: Successful dual chamber rate responsive permanent pacemaker under fluoroscopic guidance along with peripheral venogram and intracardiac electrogram His bundle recordings, all under fluoroscopic guidance secondary to tachybrady syndrome and sick sinus syndrome. PLAN: Monitor the patient post-procedure. A 12-lead ECG, chest x-ray in 2 hours. Transfer back to telemetry until. She can have eliquis tonight. She is not to lift the left elbow or left shoulder for 1 month. She cannot lift more than 10 pounds with the left arm for 2 weeks. She is to keep the dressing on and dry until his wound check next week.
[2023-02-17] MEDS: POLYETHYLENE (MIRALAX) 17 GM PACK PO SCH (17:42)
[2023-02-17] MEDS: NETARSUDIL MESYLAT/LATANOPROST 37 DROPS/2.5 ML BTL OP SCH (21:33)
[2023-02-18] MEDS ORDERED: SODIUM CHLORIDE 0.9% 500 ML IV SCH ×2 (04:00→05:45)
[2023-02-18] MEDS ORDERED: SODIUM CHLORIDE 0.9% 1000ML 1,000 ML IV SCH (05:00)
[2023-02-18] MEDS: LEVOTHYROXINE SODIUM 88 MCG TABLET PO SCH (05:35)
--- NOTE | 2023-02-18 07:38 | XRay Report ---
SINGLE VIEW CHEST CLINICAL HISTORY: Status post pacemaker implantation. FINDINGS: An AP, portable, upright chest radiograph is compared to study dated 02/16/2023. A 2-lead ca rdiac pacemaker has been placed and partially obscures the left upper chest. Leads project over the r ight atrial appendage and the right ventricle. There is evidence of previous cardiac valve surgery. T he heart is enlarged noting atherosclerotic calcification of the thoracic aorta. There is pulmonary v ascular congestion. There is mild bibasilar atelectasis. No airspace consolidation or large pleural e ffusion is identified. No pneumothorax is seen. The skeletal structures are osteopenic. The bony thor ax is grossly intact. Calcific tendinopathy is noted in the left shoulder. IMPRESSION: 1. A 2-lead cardiac pacemaker has been implanted as above. No pneumothorax is identified post procedu re. 2. Cardiomegaly with mild pulmonary vascular congestion. 3. No airspace consolidation or large pleural effusion is identified. ACT 112: Negative or not required by law. Electronically signed by: Anastacio Santana M.D. 02/18/2023 7:37 AM
[2023-02-18 07:47] LABS: BUN Creatinine Ratio 22.4 (10-20); Calcium 9.4 mg/dl (8.6-10.3); Creatinine Clr Calc Pharmacy 45.4 ml/min; Est GFR (African American) 63.1 ml/min; Est GFR (Non-African American) 54.5 ml/min; Magnesium 1.7 mg/dl (1.7-2.4); Phosphorus 3.4 mg/dl (2.5-4.9)
--- NOTE | 2023-02-18 07:57 | Electrocardiogram Report ---
Test Reason : Blood Pressure : / mmHG Vent. Rate : 123 BPM Atrial Rate : 040 BPM P-R Int : 000 ms QRS Dur : 118 ms QT Int : 386 ms P-R-T Axes : 000 -14 138 degrees QTc Int : 552 ms Atrial fibrillation with rapid ventricular response Incomplete left bundle block ST depression in Anterolateral leads , consider ischemia Abnormal ECG When compared with ECG of 17-FEB-2023 06:33, HR has increased by 62 bpm Atrial fibrillation now present ST depression in Anterolateral leads now present Confirmed by Alton Saunders ([id number]) on 02/18/2023 7:57:22 AM Referred By: REFERRED SELF Confirmed By:Alton Saunders
[2023-02-18] MEDS: INSULIN ASPART PER UNIT CHARGE SC SCH ×4 (07:58→21:25)
[2023-02-18] MEDS: LANTUS PER UNIT CHARGE SQ SCH ×2 (08:03→21:24)
[2023-02-18] MEDS: BRINZOLAMIDE/BRIMONIDINE TART 119 DROPS/8 ML BTL OP SCH ×3 (08:18→20:29)
[2023-02-18] MEDS: CALCIUM CARBONATE 1250MG TAB PO SCH ×2 (08:19→20:29)
[2023-02-18] MEDS: ISOSORBIDE MONO EXTENDED REL 30 MG TABCR PO SCH (08:19)
[2023-02-18] MEDS: MULTIVITAMIN TAB PO SCH (08:20)
[2023-02-18] MEDS: lisinopril 2.5 MG TAB PO SCH (08:22)
[2023-02-18] MEDS: CLOPIDOGREL BISULFATE 75 MG TAB PO SCH (08:23)
[2023-02-18] MEDS: DOCUSATE SODIUM 100 MG CAP PO SCH ×2 (08:23→20:30)
[2023-02-18] MEDS: AMIODARONE 200 MG TAB PO SCH ×2 (08:23→09:51)
[2023-02-18] MEDS: ATORVASTATIN 40 MG TAB PO SCH (08:23)
[2023-02-18] MEDS: POLYETHYLENE (MIRALAX) 17 GM PACK PO SCH (08:24)
[2023-02-18] MEDS ORDERED: METOPROLOL TARTRATE 25 MG TAB PO ONE (09:14)
--- NOTE | 2023-02-18 09:20 | Cardiology Progress Note ---
Date of Service February 18, 2023 Assessment & Plan (1) Atrial fibrillation with RVR: (2) Sick sinus syndrome: (3) Incomplete left bundle branch block (LBBB): (4) Mitral stenosis: (5) S/P TAVR (transcatheter aortic valve replacement): Plan: With having had a recent cardiac catheterization with normal coronary arteries, I do not think her troponin elevation is reflective of an acute coronary syndrome, rather reflective of myocardial strain in the setting of underlying left ventricular hypertrophy, valvular heart disease, and atrial fibrillation with rapid ventricular response. Patient with findings suggestive sick sinus syndrome, tachycardia-bradycardia s yndrome in the setting of moderate mitral stenosis which likely contributes to why she feels so poorly when she is tachycardic. Await results of CBC before resuming Eliquis. Increase amiodarone to 200 mg daily. Resume metoprolol. Metoprolol tartrate 25 mg x 1 now, then succinate 25 mg BID starting at 2100. Device interrogation reveals normal pacer function. Remain on telemetry for medication titration. Reassess for DC on 02/19. I have already requested wound check visit in 7-[address] Gar will be rounding on 02/19. Admission and Anticipated Discharge Date Admission Date: February 16, 2023 Subjective Patient seen in follow up. Had dual chamber pacemaker , 02/17/23. From 3:16 am until 3:22 am, had recurrent episodes of atrial fibrillation with RVR with associated shortness of breath. Physical Exam Constitutional: WD/WN, vitals as above Respiratory: normal respiratory effort, lungs clear to auscultation Cardiovascular: RRR, no murmur, no edema Gastrointestinal (Abdomen): normal bowel sounds, soft, nontender, no hepatosplenomegaly Neurologic: PERRL, EOMI, accommodation nl, no face palsy, no dysarthria Results & Data Vital Signs (Past 12 Hours) Vital Signs Temp Pulse Pulse Pulse Resp BP Pulse Ox 02/18/23 07:14 36.6 C 71 18 169/75 H 98 02/18/23 05:37 133 H 18 91/66 L 02/18/23 03:50 36.4 C L 118 H 27 H 94/57 L 95 02/18/23 00:00 69 02/17/23 23:49 36.4 C L 68 19 136/72 95 O2 Del Method 02/18/23 07:14 Room Air 02/18/23 05:37 02/18/23 03:50 Room Air 02/18/23 00:00 02/17/23 23:49 Room Air Laboratory Results Comprehensive Metabolic Panel 02/18/23 Range/Units 06:48 Sodium 137 (136-145) mmol/L Potassium 4.0 (3.5-5.1) mmol/L Chloride 107 (98-107) mmol/L Carbon Dioxide 25 (21-32) mmol/L BUN 22 (6-23) mg/dl Creatinine 0.98 (0.6-1.2) mg/dl Glucose 137 H (70-99(Fasting)) mg/dl Calcium 9.4 (8.6-10.3) mg/dl Intake and Output 02/17/23 02/18/23 02/18/23 22:59 06:59 14:59 Intake Total 100 / 0290.407 5851.000 / 1265.000 Output Total 200 / 350 150 / 350 150 / 150 Balance -100 / 915.000 915.000 / 915.000 -150 / -150 Intake: IV 100 / 6802.004 1688.000 / 1265.000 Magnesium Sulfate / D5w 1 gm In 100 / 200 100 ml @ 50 mls/hr IV Q2H PO Rx#:[id number] Sodium Chloride 0.9% 1000ML 1, 65.000 / 65.000 000 ml @ 100 mls/hr IV .Q10H PO Rx#:[id number] Sodium Chloride 0.9% 500 ml @ 1000.000 / 1000.000 500 mls/hr IV .Q1H PO Rx#: [id number] Output: Urine 200 / 350 150 / 350 150 / 150 Other: # Unmeasured Voids 1 1 Weight 78.6 kg Weight Measurement Method Built in [facility] Diagnostic Findings CXR 02/17 radiology report reviewed and image reviewed. No pneumothorax.
[2023-02-18 09:31] LABS: Hematocrit (blood only) 32.7 % (37.0-47.0); Hemoglobin 10.7 g/dl (12.0-16.0); Mean Corpuscular Hemoglobin 33.3 pg (25.0-34.0); Mean Corpuscular Hgb Conc 32.7 g/dL (32.0-36.0); Mean Corpuscular Volume 101.9 fL (80.0-100.0); Mean Platelet Volume 11.4 fL (9.4-12.4); Platelet Count 287 K/uL (130-400); RDW Coefficient of Variation 13.3 % (11.5-14.5); RDW Standard Deviation 50.3 fL (36.4-46.3); Red Blood Count 3.21 M/uL (4.20-5.40); White Blood Count 8.42 K/ul (4.8-10.8)
[2023-02-18] MEDS: TIMOLOL MALEATE 0.5% OP SOLN 5 ML BTL OPB SCH (09:51)
--- NOTE | 2023-02-18 11:46 | Communication Note ---
Date of Service: February 18, 2023 Per patient's request, I spoke to her daughter, Lilliam, by phone and provided her with updates. Questions answered to her satisfaction.
[2023-02-18] MEDS: APIXABAN 5 MG TABLET PO SCH ×2 (12:18→20:29)
--- NOTE | 2023-02-18 16:30 | Hospitalist Progress Note ---
Date of Service February 18, 2023 Assessment & Plan (1) Sick sinus syndrome: Plan 82-year-old female with PMH of paroxysmal atrial fibrillation anticoagulated on Eliquis, aortic stenosis s/p TAVR 01/04/2023, insulin dependent DM II, diastolic dysfunction, PVD s/p stents, carotid artery stenosis s/p left CEA 2004, HTN, dyslipidemia, hypothyroidism and others listed below presented to ER 02/16 with c/o palpitations, dizziness, SOB this morning. She is being managed for the following: Atrial fibrillation with RVR Sick sinus syndrome Incomplete left bundle branch block: History incomplete left bundle branch block noted after TAVR in 12/2022 h/o status post TAVR In ER patient with atrial fibrillation heart rate in the 130s, BP : 124/72. Lopressor 5mg IV was ordered, however patient noted to convert to sinus rhythm prior to administration of Lopressor, however 3mg given and HR noted in high 50's Currently was in sinus rhythm at bedside examined morning with no further dizziness, palpitations, SOB reported. Echo 01/05/2023:EF: 65-69%, no wall motion abnormalities, s/p TAVR, mild paravalvular aortic valve prosthesis regurgitation present, severe mitral annular calcification, moderate mitral stenosis, mild pulmonary hypertension Recent outpatient ZIO monitor showed sinus rhythm with average heart rate 58 bpm with reported 2 pauses lasting 3.5 seconds without reported symptoms. Metoprolol succinate 12.5mg was discontinued. Echo this admission with EF of 60 to 65%, left atrium is severely dilated, no regional wall motion abnormality noted. Moderate concentric LVH. TSH: 2.4. Monitor and replete magnesium with a goal of 2.0 Overnight with A-fib RVR with shortness of breath. 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 Wilson Cardiology following, appreciate recommendation. Eliquis resumed, medications being optimized. Continue telemetry monitoring. Atypical chest pain: Troponin level elevated: History atypical CP in past Continue isosorbide Initial high-sensitivity troponin: 478-->456--up trended. EKG Afib RVR, incomplete LBBB. (H/O incomplete LBBB since TAVR in 12/2022) Likely secondary to demand ischemia from A-fib RVR History atypical chest pain with negative nuclear stress test 11/24/2021. Normal coronary arteries per pre-CABG cath in 10/2022 Echo with no regional wall motion abnormality. Continue telemetry monitoring. Patient with no chest pain. Less likely ACS given recent normal coronaries. Aortic stenosis S/P TAVR (transcatheter aortic valve replacement): History aortic stenosis s/p TAVR 01/04/2023 History Echo 01/05/2023:EF: 65-69%, no wall motion abnormalities, s/p TAVR, mild paravalvular aortic valve prosthesis regurgitation present, severe mitral annular calcification, moderate mitral stenosis, mild pulmonary hypertension CKD: Baseline creatinine of 1.1, stable, monitor. Constipation: Chronic constipation, continue with bowel regimen. T2DM, insulin-dependent: A1c of 8.7 on 02/04/2023, continue Lantus and sliding scale. History of diastolic dysfunction: On Lasix every other day, currently appears euvolemic. Continue home meds as able. Hypertension: Continue with home lisinopril with holding parameters Carotid stenosis/PAD: Status post left carotid endarterectomy in 2004, status post bilateral femoral artery stents. Continue with home Plavix and statin. Hypothyroidism: TSH normal, continue home levothyroxine DVT prophylaxis: SCDs for now, Eliquis on hold for pacemaker placement today. DNR/DNI PCP: Earl Jensen PT/OT, CM to assist with DC plan. Likely DC tomorrow. Admission and Anticipated Discharge Date Admission Date: February 16, 2023 Subjective Patient seen and examined at bedside as a follow-up of A-fib with RVR, atypical chest pain. Patient was lying in bed, on room air, NAD, had episodes of A-fib with RVR with shortness of breath overnight. No further episodes in the morning. Patient denies any headache or fever or chills palpitation or belly pain. Patient reports eating okay, usual bowel habit is every 2 to 3 days, continue bowel regimen. Physical Exam Physical Exam: GENERAL: Alert and oriented x3. NAD, on RA. HEENT: No pallor, no icterus. Pupils equal, round and reactive to light. Oral mucosa moist. NECK: No JVD, no neck masses. HEART: S1 and S2 heard. Regular rate and rhythm. No murmur, no gallop. Right chest dressing at pacer site, C/D/I. RESPIRATORY SYSTEM: Normal AP diameter. No accessory muscle use. No wheezing, no crackles. ABDOMEN: Soft, bowel sounds present, nontender, no distention. CENTRAL NERVOUS SYSTEM: No facial droop. Speech is clear. Obeys simple commands. Moves extremities. EXTREMITIES: No edema, no erythema seen. Results & Data Results & Data Vital Signs (Past 12 Hours) Vital Signs Temp Pulse Pulse Resp BP Pulse Ox O2 Del Method 02/18/23 15:11 36.4 C L 61 18 149/78 H 98 Room Air 02/18/23 10:34 36.3 C L 62 18 146/78 H 98 Room Air 02/18/23 07:14 36.6 C 71 18 169/75 H 98 Room Air 02/18/23 05:37 133 H 18 91/66 L
[2023-02-18] MEDS: METOPROLOL SUCC 25MG EXT REL TAB PO SCH (20:31)
[2023-02-18] MEDS: NETARSUDIL MESYLAT/LATANOPROST 37 DROPS/2.5 ML BTL OP SCH (20:36)
[2023-02-19 04:05] LABS: A calco-baum cmplx NotReported Not Detected (NotDetected); Bact fragilis Not Reported Not Detected (NotDetected); C auris Not Reported Not Detected (NotDetected); Calbicans Not Reported Not Detected (NotDetected); Candida glabrata Not Reported Not Detected (NotDetected); Candida krusei Not Reported Not Detected (NotDetected); Cneoformans/gatti Not Reported Not Detected (NotDetected); Cparapsilosis Not Reported Not Detected (NotDetected); Ctropicalis Not Reported Not Detected (NotDetected); E cloacae compx Not Reported Not Detected (NotDetected); Efaecalis Not Reported Not Detected (NotDetected); Efaecium Not Reported Not Detected (NotDetected); Enterobacterales Not Reported Not Detected (NotDetected); Escherichia coli Not Reported Not Detected (NotDetected); H influenzae Not Reported Not Detected (NotDetected); K aerogenes Not Reported Not Detected (NotDetected); Koxytoca Not Reported Not Detected (NotDetected); Kpneumoniae grp Not Reported Not Detected (NotDetected); Lmonocyt Not Reported Not Detected (NotDetected); N meningitidis Not Reported Not Detected (NotDetected); P aeruginosa Not Reported Not Detected (NotDetected); Proteus spp Not Reported Not Detected (NotDetected); Salmonella spp Not Reported Not Detected (NotDetected); Smarcescens Not Reported Not Detected (NotDetected); Staph lugdunensis Not Reported Not Detected (NotDetected); Staph spp. Not Reported DETECTED (NotDetected); Staphaureus Not Reported Not Detected (NotDetected); Staphepi Not Reported Not Detected (NotDetected); Stenmaltophilia Not Reported Not Detected (NotDetected); Strep agal(GrpB) Not Reported Not Detected (NotDetected); Strep pneum Not Reported Not Detected (NotDetected); Strep pyog (GrpA) Not Reported Not Detected (NotDetected); Strep spp Not Reported Not Detected (NotDetected)
[2023-02-19 04:08] LABS: Staphylococcus spp. DETECTED (NotDetected)
[2023-02-19] MEDS ORDERED: VANCOMYCIN CONSULT ACTIVE PRN (04:12)
[2023-02-19] MEDS ORDERED: VANCOMYCIN HCL 1,500 MG in SODIUM CHLORIDE 0.9% 500 ML IV ONE (04:30)
[2023-02-19] MEDS: LEVOTHYROXINE SODIUM 88 MCG TABLET PO SCH (05:20)
[2023-02-19] MEDS: INSULIN ASPART PER UNIT CHARGE SC SCH ×4 (08:26→21:35)
[2023-02-19] MEDS: AMIODARONE 200 MG TAB PO SCH (08:27)
[2023-02-19] MEDS: APIXABAN 5 MG TABLET PO SCH ×2 (08:27→21:30)
[2023-02-19] MEDS: ATORVASTATIN 40 MG TAB PO SCH (08:27)
[2023-02-19] MEDS: BRINZOLAMIDE/BRIMONIDINE TART 119 DROPS/8 ML BTL OP SCH ×3 (08:28→21:27)
[2023-02-19] MEDS: CALCIUM CARBONATE 1250MG TAB PO SCH ×2 (08:29→21:27)
[2023-02-19] MEDS: CLOPIDOGREL BISULFATE 75 MG TAB PO SCH (08:29)
[2023-02-19] MEDS: DOCUSATE SODIUM 100 MG CAP PO SCH ×2 (08:29→21:27)
[2023-02-19] MEDS: ISOSORBIDE MONO EXTENDED REL 30 MG TABCR PO SCH (08:30)
[2023-02-19] MEDS: lisinopril 2.5 MG TAB PO SCH (08:30)
[2023-02-19] MEDS: POLYETHYLENE (MIRALAX) 17 GM PACK PO SCH (08:31)
[2023-02-19] MEDS: MULTIVITAMIN TAB PO SCH (08:31)
[2023-02-19] MEDS: TIMOLOL MALEATE 0.5% OP SOLN 5 ML BTL OPB SCH (08:31)
[2023-02-19] MEDS: METOPROLOL SUCC 25MG EXT REL TAB PO SCH ×2 (08:31→21:27)
--- NOTE | 2023-02-19 08:34 | Cardiology Progress Note ---
Date of Service February 19, 2023 Assessment & Plan (1) Atrial fibrillation with RVR: (2) Sick sinus syndrome: (3) Incomplete left bundle branch block (LBBB): (4) Mitral stenosis: (5) S/P TAVR (transcatheter aortic valve replacement): Plan: Patient status post pacemaker implantation for sick sinus syndrome, tachycardia- bradycardia syndrome in the setting of moderate mitral stenosis. No recurrent dysrhythmia overnight. Continue amiodarone, metoprolol and Eliquis. Outpatient wound check and device interrogation scheduled. No further inpatient cardiac testing or intervention recommended. Cardiology will sign off. Please call with questions. Admission and Anticipated Discharge Date Admission Date: February 16, 2023 Subjective Patient seen examined the bedside. Telemetry reveals atrial paced rhythm in the 60s. No recurrent atrial fibrillation. Amiodarone, metoprolol, and apixaban resumed. Denies chest pain, shortness of breath, or palpitations. No events overnight. Review of Systems Review of Systems: All systems reviewed & are unremarkable except as noted in Subjective Physical Exam Constitutional: well nourished; no acute distress Respiratory: no respiratory distress, no labored breathing and no retractions Auscultation: lungs clear to auscultation bilaterally; no crackles, no rales, no rhonchi and no wheezes Cardiovascular: Rate/Rhythm: regular rate and regular rhythm Heart Sounds: normal S1, normal S2 and + murmur (2/6 systolic ejection murmur heard at the base) Vessels: no JVD Extremities: no edema Gastrointestinal (Abdomen): Inspection/Auscultation: normal bowel sounds; abdomen not distended Percussion/Palpation: abdomen soft; abdomen nontender and no guarding Neurologic: CN's II-XI intact bilaterally and moves all extremities Psychiatric: A+Ox3, euthymic affect Results & Data Vital Signs (Past 12 Hours) Vital Signs Temp Pulse Pulse Pulse Resp BP Pulse Ox 02/19/23 07:10 36.6 C 64 18 177/64 H 98 02/19/23 07:28 61 02/19/23 02:46 36.7 C 61 15 181/74 H 96 02/18/23 23:34 36.4 C L 60 20 125/72 97 O2 Del Method 02/19/23 07:10 Room Air 02/19/23 07:28 02/19/23 02:46 Room Air 02/18/23 23:34 Room Air Laboratory Results Cardiac Enzymes 02/19/23 Range/Units 05:00 AST 19 (13-39) U/L CBC 02/18/23 Range/Units 06:48 WBC 8.42 (4.8-10.8) K/ul RBC 3.21 L (4.20-5.40) M/uL Hgb 10.7 L (12.0-16.0) g/dl Hct 32.7 L (37.0-47.0) % Plt Count 287 (130-400) K/uL Comprehensive Metabolic Panel 02/19/23 Range/Units 05:00 AST 19 (13-39) U/L Intake and Output 02/18/23 02/19/23 02/19/23 22:59 06:59 14:59 Other: # Unmeasured Voids 1 1
[2023-02-19] MEDS: LANTUS PER UNIT CHARGE SQ SCH ×2 (08:36→21:35)
[2023-02-19 11:03] LABS: Hematocrit (blood only) 28.7 % (37.0-47.0); Hemoglobin 9.6 g/dl (12.0-16.0); Mean Corpuscular Hemoglobin 33.8 pg (25.0-34.0); Mean Corpuscular Hgb Conc 33.4 g/dL (32.0-36.0); Mean Corpuscular Volume 101.1 fL (80.0-100.0); Platelet Count 240 K/uL (130-400); RDW Coefficient of Variation 13.4 % (11.5-14.5); Red Blood Count 2.84 M/uL (4.20-5.40); White Blood Count 5.39 K/ul (4.8-10.8)
[2023-02-19 11:21] LABS: BUN Creatinine Ratio 23.2 (10-20); Bilirubin,Total 0.4 mg/dl (0.2-1.0); Calcium 9.2 mg/dl (8.6-10.3); Creatinine Clr Calc Pharmacy 39.8 ml/min; Est GFR (African American) 53.7 ml/min; Est GFR (Non-African American) 46.4 ml/min; Magnesium 1.6 mg/dl (1.7-2.4); Phosphorus 2.9 mg/dl (2.5-4.9); Potassium 3.9 mmol/L (3.5-5.1)
--- NOTE | 2023-02-19 14:52 | Pharmacy Report ---
Pharmacy PK ABX Note - Date of Service February 19, 2023 - Assessment and Plan Assessment 82 year old F receiving vancomycin for treatment of GPC blood culture in the setting of recent pacemaker placement. Repeat bcxs pending. Day # 1 of antimicrobial therapy. Plan Vancomycin * Loading dose: 1500 mg IV x 1 * Maintenance dose: 1250 mg IV every 24 hours starting this evening * Regimen is predicted to achieve target AUC/YANET of 400-600 mg/L.hr * Random level ordered for: 02/21/23 with AM labs Pharmacy will continue to follow and will adjust dose/frequency as necessary. Thank you. Pharmacy has transitioned to AUC monitoring for vancomycin. AUC/YANET is the preferred PK/PD target and is associated with decreased risk of nephrotoxicity compared to traditional trough targets.
--- NOTE | 2023-02-19 17:01 | Hospitalist Progress Note ---
Date of Service February 19, 2023 Assessment & Plan (1) Sick sinus syndrome: Plan 82-year-old female with PMH of paroxysmal atrial fibrillation anticoagulated on Eliquis, aortic stenosis s/p TAVR 01/04/2023, insulin dependent DM II, diastolic dysfunction, PVD s/p stents, carotid artery stenosis s/p left CEA 2004, HTN, dyslipidemia, hypothyroidism and others listed below presented to ER 02/16 with c/o palpitations, dizziness, SOB this morning. She is being managed for the following: Atrial fibrillation with RVR Sick sinus syndrome Incomplete left bundle branch block: History incomplete left bundle branch block noted after TAVR in 12/2022 h/o status post TAVR In ER patient with atrial fibrillation heart rate in the 130s, BP : 124/72. Lopressor 5mg IV was ordered, however patient noted to convert to sinus rhythm prior to administration of Lopressor, however 3mg given and HR noted in high 50's Currently was in sinus rhythm at bedside examined morning with no further dizziness, palpitations, SOB reported. Echo 01/05/2023:EF: 65-69%, no wall motion abnormalities, s/p TAVR, mild paravalvular aortic valve prosthesis regurgitation present, severe mitral annular calcification, moderate mitral stenosis, mild pulmonary hypertension Recent outpatient ZIO monitor showed sinus rhythm with average heart rate 58 bpm with reported 2 pauses lasting 3.5 seconds without reported symptoms. Metoprolol succinate 12.5mg was discontinued. Echo this admission with EF of 60 to 65%, left atrium is severely dilated, no regional wall motion abnormality noted. Moderate concentric LVH. TSH: 2.4. Monitor and replete magnesium with a goal of 2.0 No further A-fib RVR with shortness of breath. 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 Wilson Cardiology following, appreciate recommendation. Eliquis resumed, medications optimized. Continue telemetry monitoring. Preliminary blood culture positive: 02/16 -->>1 of 4 bottles positive for GPC, repeated blood culture 02/19, patient put on vancomycin 02/19, follow 02/16 final culture and sensitivity, likely could be contaminant but will continue with vancomycin given recent pacemaker placement. If positive consider consulting ID and recalling cardiology. Atypical chest pain: Troponin level elevated: History atypical CP in past Continue isosorbide Initial high-sensitivity troponin: 478-->456--up trended. EKG Afib RVR, incomplete LBBB. (H/O incomplete LBBB since TAVR in 12/2022) Likely secondary to demand ischemia from A-fib RVR History atypical chest pain with negative nuclear stress test 11/24/2021. Normal coronary arteries per pre-CABG cath in 10/2022 Echo with no regional wall motion abnormality. Continue telemetry monitoring. Patient with no chest pain. Less likely ACS given recent normal coronaries. Aortic stenosis S/P TAVR (transcatheter aortic valve replacement): History aortic stenosis s/p TAVR 01/04/2023 History Echo 01/05/2023:EF: 65-69%, no wall motion abnormalities, s/p TAVR, mild paravalvular aortic valve prosthesis regurgitation present, severe mitral annular calcification, moderate mitral stenosis, mild pulmonary hypertension CKD: Baseline creatinine of 1.1, stable, monitor. Constipation: Chronic constipation, continue with bowel regimen. T2DM, insulin-dependent: A1c of 8.7 on 02/04/2023, continue Lantus and sliding scale. History of diastolic dysfunction: On Lasix every other day, currently appears euvolemic. Continue home meds as able. Hypertension: Continue with home lisinopril with holding parameters Carotid stenosis/PAD: Status post left carotid endarterectomy in 2004, status post bilateral femoral artery stents. Continue with home Plavix and statin. Hypothyroidism: TSH normal, continue home levothyroxine DVT prophylaxis: SCDs for now, Eliquis on hold for pacemaker placement today. DNR/DNI PCP: Earl Jensen PT/OT, CM to assist with DC plan. Likely DC tomorrow. Admission and Anticipated Discharge Date Admission Date: February 16, 2023 Subjective Patient seen and examined at bedside as a follow-up of A-fib with RVR, atypical chest pain. Patient was lying in bed, on room air, NAD, denies any palpitation or shortness of breath overnight. Patient denies any headache or fever or chills palpitation or belly pain. Patient reports eating okay, usual bowel habit is every 2 to 3 days, continue bowel regimen. Physical Exam Physical Exam: GENERAL: Alert and oriented x3. NAD, on RA. HEENT: No pallor, no icterus. Pupils equal, round and reactive to light. Oral mucosa moist. NECK: No JVD, no neck masses. HEART: S1 and S2 heard. Regular rate and rhythm. No murmur, no gallop. Right chest dressing at pacer site, C/D/I. Wound looks clean with approximated edges, no erythema or signs and symptoms of infection. RESPIRATORY SYSTEM: Normal AP diameter. No accessory muscle use. No wheezing, no crackles. ABDOMEN: Soft, bowel sounds present, nontender, no distention. CENTRAL NERVOUS SYSTEM: No facial droop. Speech is clear. Obeys simple commands. Moves extremities. EXTREMITIES: No edema, no erythema seen. Results & Data Results & Data Vital Signs (Past 12 Hours) Vital Signs Temp Pulse Pulse Resp BP Pulse Ox O2 Del Method 02/19/23 16:50 36.6 C 61 18 146/73 H 95 Room Air 02/19/23 15:26 36.5 C 61 15 145/75 H 97 Room Air 02/19/23 15:08 60 02/19/23 11:04 36.5 C 60 18 154/71 H 96 Room Air 02/19/23 07:10 36.6 C 64 18 177/64 H 98 Room Air 02/19/23 07:28 61
[2023-02-19] MEDS: NETARSUDIL MESYLAT/LATANOPROST 37 DROPS/2.5 ML BTL OP SCH (21:36)
[2023-02-19] MEDS ORDERED: VANCOMYCIN HCL 1,250 MG in SODIUM CHLORIDE 0.9% 250 ML IV SCH (22:00)
[2023-02-20] MEDS ORDERED: METOPROLOL SUCC 25MG EXT REL TAB PO SCH
[2023-02-20] MEDS ORDERED: AMIODARONE 200 MG TAB PO SCH
[2023-02-20] MEDS: LEVOTHYROXINE SODIUM 88 MCG TABLET PO SCH (06:30)
[2023-02-20] MEDS: INSULIN ASPART PER UNIT CHARGE SC SCH ×2 (08:21→12:21)
[2023-02-20] MEDS: CLOPIDOGREL BISULFATE 75 MG TAB PO SCH (08:24)
[2023-02-20] MEDS: AMIODARONE 200 MG TAB PO SCH (08:24)
[2023-02-20] MEDS: APIXABAN 5 MG TABLET PO SCH (08:24)
[2023-02-20] MEDS: ISOSORBIDE MONO EXTENDED REL 30 MG TABCR PO SCH (08:25)
[2023-02-20] MEDS: ATORVASTATIN 40 MG TAB PO SCH (08:25)
[2023-02-20] MEDS: lisinopril 2.5 MG TAB PO SCH (08:25)
[2023-02-20 08:26] LABS: Hematocrit (blood only) 33.3 % (37.0-47.0); Mean Corpuscular Hemoglobin 33.4 pg (25.0-34.0); Mean Corpuscular Volume 101.2 fL (80.0-100.0); Mean Platelet Volume 10.8 fL (9.4-12.4); Platelet Count 257 K/uL (130-400); RDW Coefficient of Variation 13.3 % (11.5-14.5); Red Blood Count 3.29 M/uL (4.20-5.40); White Blood Count 5.87 K/ul (4.8-10.8)
[2023-02-20] MEDS: MULTIVITAMIN TAB PO SCH (08:26)
[2023-02-20] MEDS: CALCIUM CARBONATE 1250MG TAB PO SCH (08:26)
[2023-02-20] MEDS: POLYETHYLENE (MIRALAX) 17 GM PACK PO SCH (08:26)
[2023-02-20] MEDS: DOCUSATE SODIUM 100 MG CAP PO SCH (08:26)
[2023-02-20] MEDS: BRINZOLAMIDE/BRIMONIDINE TART 119 DROPS/8 ML BTL OP SCH (08:27)
[2023-02-20] MEDS: TIMOLOL MALEATE 0.5% OP SOLN 5 ML BTL OPB SCH (08:27)
[2023-02-20] MEDS: METOPROLOL SUCC 25MG EXT REL TAB PO SCH (08:28)
[2023-02-20] MEDS: LANTUS PER UNIT CHARGE SQ SCH (08:33)
[2023-02-20 08:47] LABS: BUN Creatinine Ratio 29.8 (10-20); Calcium 9.4 mg/dl (8.6-10.3); Creatinine Clr Calc Pharmacy 47.4 ml/min; Est GFR (African American) 66.4 ml/min; Est GFR (Non-African American) 57.3 ml/min; Magnesium 1.5 mg/dl (1.7-2.4); Phosphorus 2.9 mg/dl (2.5-4.9)
[2023-02-20] MEDS ORDERED: MAGNESIUM OXIDE 400 MG TAB PO SCH (09:30)
[2023-02-20] MEDS: MAGNESIUM SULFATE / D5W 1 GM/100 ML BAG IV SCH ×2 (09:33→11:20)
--- NOTE | 2023-02-20 11:58 | Discharge Summary ---
Date of Service February 20, 2023 Admission HPI Per Admitting Provider Patient is 82-year-old female with PMH paroxysmal atrial fibrillation anticoagulated on Eliquis, aortic stenosis s/p TAVR 01/04/2023, insulin dependent DM II, diastolic dysfunction, PVD s/p stents, carotid artery stenosis s/p left CEA 2004, HTN, dyslipidemia, hypothyroidism and others listed below presented to ER with c/o palpitations this morning. Patient states this morning woke up around 4 AM and "did not feel right" she reports having sensation of palpitations and heart racing. States she got up out of bed and had dizziness and shortness of breath. Patient reports ongoing intermittent left-sided sharp chest pain for the past several months. Patient states she feels chest pain is secondary to gas. She denies any current chest pain, but states she had chest pain this morning and had chest pain yesterday that self resolved. Patient also reports yesterday had pain up the left side of her neck with associated headache. She reports applying IcyHot to neck area with resolution of symptoms. Outpatient chart review: History TAVR 01/04/2023. Post op noted to have incomplete LBBB. Had recent ZIO monitor showed sinus rhythm with average heart rate 58 bpm with reported 2 pauses lasting 3.5 seconds without reported symptoms. Cardiology had recommended patient discontinue metoprolol. She is scheduled to see EP cardiology to discuss possible need for pacemaker for possible sick sinus syndrome. Patient states that it has been approximately 1 week since she has taken metoprolol. She states she has felt overall deconditioned and weak. after her TAVR surgery but denies any increased weakness. Reports chronic constipation. States last BM 4-5 days ago. Denies fever/chills, diaphoresis, N/V/D, syncope, vision changes, orthopnea, cough, sore throat, rhinorrhea, abdominal pain, paresthesias, extremity edema, rashes, urinary symptoms. In ER patient presented with atrial fibrillation heart rate in the 130s. Metoprolol tartrate 5mg IV was ordered, patient noted to convert to sinus rhythm prior to administration of metoprolol tartrate. Current sinus bradycardia rate in 50's with no further dizziness, palpitations, SOB reported. History Echo 01/05/2023:EF: 65-69%, no wall motion abnormalities, s/p TAVR, mild paravalvular aortic valve prosthesis regurgitation present, severe mitral annular calcification, moderate mitral stenosis, mild pulmonary hypertension Admission Exam Per Admitting Provider General: no distress, WDWN Head: normocephalic, atraumatic Eyes: PERRL, EOM's intact, conjunctiva non-injected, anicteric ENT: normal inspection external ears, nose, mucous membranes moist Neck: supple, trachea midline Lungs: clear, no respiratory distress, no wheezing/rhonchi/rales CV: +bradycardia rate 56, sinus rhythm, no murmur, no pretibial edema Abd: protuberant, normal BS, soft, non-tender Ext: no cyanosis, no calf tenderness Neuro: A&O x 3, no focal deficits noted, normal affect Skin: warm, dry Principal Diagnosis Atrial fibrillation with RVR Sick sinus syndrome Status post pacemaker placement Atypical chest pain Discharge Exam GENERAL: Alert and oriented x3. NAD, on RA. HEENT: No pallor, no icterus. Pupils equal, round and reactive to light. Oral mucosa moist. NECK: No JVD, no neck masses. HEART: S1 and S2 heard. Regular rate and rhythm. No murmur, no gallop. Right chest dressing at pacer site, C/D/I. Wound looks clean with approximated edges, no erythema or signs and symptoms of infection. RESPIRATORY SYSTEM: Normal AP diameter. No accessory muscle use. No wheezing, no crackles. ABDOMEN: Soft, bowel sounds present, nontender, no distention. CENTRAL NERVOUS SYSTEM: No facial droop. Speech is clear. Obeys simple commands. Moves extremities. EXTREMITIES: No edema, no erythema seen. Discharge Data Allergies Allergy/AdvReac Type Severity Reaction Status Date / Time No Known Allergies Allergy Verified 03/17/22 07:57 Consultations 02/16/23 12:31 ED Decision to Admit Stat 02/16/23 13:23 Consult Cardiology Routine Procedures Performed Operation Date: 02/17/23 15:00 Actual Procedures p Pacer with A/V Leads (Dual)(Left) - Susana Wilson DO s Venogram, Unilateral - DO graciela Sloan Bundle of his Recording - Susana Wilson DO Ordered Studies 02/16/23 10:41 CT head/brain wo con Stat 02/17/23 14:45 EP Lab Images for PACS ONCE Hospital Course (1) Sick sinus syndrome: Plan 82-year-old female with PMH of paroxysmal atrial fibrillation anticoagulated on Eliquis, aortic stenosis s/p TAVR 01/04/2023, insulin dependent DM II, diastolic dysfunction, PVD s/p stents, carotid artery stenosis s/p left CEA 2004, HTN, dyslipidemia, hypothyroidism and others listed below presented to ER 02/16 with c/o palpitations, dizziness, SOB this morning. She was managed for the following: Atrial fibrillation with RVR Sick sinus syndrome Incomplete left bundle branch block: History incomplete left bundle branch block noted after TAVR in 12/2022 h/o status post TAVR In ER patient with atrial fibrillation heart rate in the 130s, BP : 124/72. Lopressor 5mg IV was ordered, however patient noted to convert to sinus rhythm prior to administration of Lopressor, however 3mg given and HR noted in high 50's Currently was in sinus rhythm at bedside examined morning with no further dizziness, palpitations, SOB reported. Echo 01/05/2023:EF: 65-69%, no wall motion abnormalities, s/p TAVR, mild paravalvular aortic valve prosthesis regurgitation present, severe mitral annular calcification, moderate mitral stenosis, mild pulmonary hypertension Recent outpatient ZIO monitor showed sinus rhythm with average heart rate 58 bpm with reported 2 pauses lasting 3.5 seconds without reported symptoms. Metoprolol succinate 12.5mg was discontinued. Echo this admission with EF of 60 to 65%, left atrium is severely dilated, no regional wall motion abnormality noted. Moderate concentric LVH. TSH: 2.4. Monitor and replete magnesium with a goal of 2.0 No further A-fib RVR with shortness of breath. 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 Wilson Cardiology evaled, appreciate recommendation. Eliquis resumed, medications optimized. Patient to follow-up with PCP and cardiology next week. Preliminary blood culture positive: 02/16 -->>1 of 4 bottles positive for GPC, repeated blood culture 02/19, patient put on vancomycin 02/19, 02/16 final culture and sensitivity reflected contaminant. Antibiotic discontinued. Patient made aware. Atypical chest pain: Troponin level elevated: History atypical CP in past Continue isosorbide Initial high-sensitivity troponin: 478-->456--up trended. EKG Afib RVR, incomplete LBBB. (H/O incomplete LBBB since TAVR in 12/2022) Likely secondary to demand ischemia from A-fib RVR History atypical chest pain with negative nuclear stress test 11/24/2021. Normal coronary arteries per pre-CABG cath in 10/2022 Echo with no regional wall motion abnormality. Continue telemetry monitoring. Patient with no chest pain. Less likely ACS given recent normal coronaries. Aortic stenosis S/P TAVR (transcatheter aortic valve replacement): History aortic stenosis s/p TAVR 01/04/2023 History Echo 01/05/2023:EF: 65-69%, no wall motion abnormalities, s/p TAVR, mild paravalvular aortic valve prosthesis regurgitation present, severe mitral annular calcification, moderate mitral stenosis, mild pulmonary hypertension CKD: Baseline creatinine of 1.1, stable, monitor. Constipation: Chronic constipation, continue with bowel regimen. T2DM, insulin-dependent: A1c of 8.7 on 02/04/2023, continue Lantus and sliding scale. History of diastolic dysfunction: On Lasix every other day, currently appears euvolemic. Continue home meds as able. Hypertension: Continue with home lisinopril with holding parameters Carotid stenosis/PAD: Status post left carotid endarterectomy in 2004, status post bilateral femoral artery stents. Continue with home Plavix and statin. Hypothyroidism: TSH normal, continue home levothyroxine DVT prophylaxis: Stefan DNR/DNI PCP: Earl Jensen Patient being discharged home with home health with following instruction at the point of discharge: Follow-up with your primary care physician within a week time and likely you will need labs CBC/CMP/magnesium/phosphorus. You underwent pacemaker placement during this hospital admission, follow-up with cardiology next week. Your cardiology medications are optimized, take them as prescribed. Take your medications as prescribed. Please make sure that you are able to get your medications today by calling your pharmacy before you leave the hospital so that your treatment continuity is not broken. Home Health Attestation I certify that this patient is under my care and that I, or a physicians university administrative assistant working with me, had a face to-face encounter that meets the home health [id number] encounter requirements with this patient. The encounter with the patient was in whole, or in part, for the following medical condition, which is the primary reason for home health care (list medical condition): Afib with RVR; anticipated dc Sat. or Sun. I certify that, based on my findings, the following services are medically necessary home health services: My clinical findings support the need for the above services because: OT Assess ADL Status and Restore Function w ADLs PT Assessment for Endurance / Balance / Strength PT Eval for Safety and Mobility PT Eval for Safety, Gait Training, Assistive Devices PT Gait and Balance Training, Strengthening and Safety Further, I certify that my clinical findings support that this patient is homebound (i.e. absences from home require considerable and taxing effort and are for medical reasons or jehovah's witness services or infrequently or of short duration when for other reasons) because: Transportation Assistance/Unable to Leave Home Unassisted Certification for Home Health Services: Based on the above findings, I certify that this patient is confined to the home and needs intermittent prison care, physical therapy and/or speech therapy or continues to need occupational therapy. The patient is under my care, and I have initiated the establishment of the plan of care. This patient will be followed by a physician who will periodically review the plan of care. Total Time Total Time Spent Total Time Spent (In Minutes): 45 Discharge Plan Discharge Items Patient Disposition: Home - Home Health Services Reason For Visit: AFIB Discharge Diagnosis: Atrial fibrillation with RVR Sick sinus syndrome Status post pacemaker placement Atypical chest pain Activity: As commented below Activity Comment: do not raise the left elbow over the left shoulder for 1 month Lifting: No more than 10 pounds Lifting Comment: do not lift more than 10 pounds with the left arm for 2 weeks Bathing: Keep incision dry Bathing Comment: keep dressing on & dry until wound check next week Non-emergency contact: Primary Care Provider Call non-emergency contact if: you have any medication questions, your symptoms worsen and your temperature is above 101 Follow-up/Referrals: Earl Jensen DO [Primary Care Provider] - (Date & Time 02/25/2023 3:20 PM Provider BEATRICE Meléndez Department Family Practice [facility] ) Capri Ac CRNP [Nurse Practitioner] - (Date & Time 02/25/2023 10:00 AM Provider BEATRICE Plascencia Department Cardiology, [facility] Date & Time 02/25/2023 11:30 AM Provider Pacer Clinic [facility] Department Cardiology, [facility] ) Diet: Carb Consistent or DM2 Addtl Attending Provider Instructions: Device & wound check at [facility] Cardiology next week Addtl Rug Sample Beveler Provider Instructions: Follow-up with your primary care physician within a week time and likely you will need labs CBC/CMP/magnesium/phosphorus. You underwent pacemaker placement during this hospital admission, follow-up with cardiology next week. Your cardiology medications are optimized, take them as prescribed. Take your medications as prescribed. Please make sure that you are able to get your medications today by calling your pharmacy before you leave the hospital so that your treatment continuity is not broken. Pending Studies at Discharge: Yes Stand-Alone Forms: My [facility] [employer], Smoking Cessation Medications and DC Order Prescriptions: New amiodarone 200 mg Tablet 200 mg PO QAM Qty: 30 0RF metoprolol succinate 25 mg Tablet Extended Release 24 Hr 25 mg PO BID Qty: 60 0RF magnesium oxide 400 mg (241.3 mg magnesium) Tablet 400 mg PO BID Qty: 60 0RF Continued calcium carbonate 600 mg calcium (1,500 mg) tablet 600 mg PO BID multivitamin Tablet 1 tab PO QAM atorvastatin 80 mg Tablet 80 mg PO QAM furosemide 20 mg Tablet 20 mg PO Q OTHER DAY Simbrinza 1-0.2 % drops,suspension 1 drp OPB TID Rocklatan 0.02-0.005 % Drops 1 drp OPHTHALMIC (EYE) HS clopidogrel 75 mg Tablet 75 mg PO QAM 30 Days Qty: 30 2RF Eliquis 5 mg Tablet 5 mg PO BID 30 Days Qty: 60 2RF acetaminophen [Tylenol] 325 mg Tablet 650 mg PO QID PRN (Reason: Pain) levothyroxine [Synthroid] 88 mcg tablet 88 mcg PO QAM timolol maleate 0.5 % drops 1 drp OPB QAM insulin glargine [Lantus Solostar U-100 Insulin] 100 unit/mL (3 mL) insulin pen 10 unit SUBCUT QAM Trulicity 4.5 mg/0.5 mL pen injector 4.5 mg SUBCUT WK Rx Instructions: Wed polyethylene glycol 3350 [Miralax] 17 gram Powder In Packet 17 g PO DAILY PRN (Reason: constipation) Qty: 30 0RF docusate sodium 100 mg Capsule 100 mg PO BID PRN (Reason: Constipation) Qty: 30 0RF lisinopril 2.5 mg tablet 2.5 mg PO DAILY isosorbide mononitrate 30 mg tablet extended release 24 hr 15 mg PO QAM albuterol sulfate [Ventolin HFA] 90 mcg/actuation Hfa Aerosol Inhaler 1 inh INHALATION QID PRN (Reason: Wheezing) Discontinued amiodarone 200 mg tablet 100 mg PO QAM Discharge Orders: Discharge Order (Routine); Ordered 02/20/23 Ordered By: Faizan Rollins Admission Data Admit Date/Time: 02/16/23 12:37 Attending Provider: Faizan Rollins Admit Provider: Catie Whatley Primary Care Provider: Earl Jensen Other Providers: Dario Gagnon ; Catie Whatley ; [facility]
== END 2023-02-20 14:29 | disposition home health service (06) | DRG 242 ==
LOC: ED 10:12 → 2S 12:37 → SUATTDRO 12:37 → 2S 14:04